=== PATIENT | female | born 1985 | race Caucasian/White ===

== ENCOUNTER 2017-05-26 11:00 | Outpatient (RCR) | payer BC, MEDICAID, SELFPAY ==
[2017-05-08 00:41] VITALS: BP 139/75; PULSE 87; RESP 18; TEMP 36.6; BMI 50.0
[2017-05-12 11:33] VITALS: BP 142/85; PULSE 87; RESP 16; TEMP 37; BMI 50.0
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
[2017-05-26 11:28] VITALS: BP 152/87; PULSE 94; RESP 16; TEMP 37.2; BMI 50.0
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
== END 2017-06-07 23:59 ==
LOC: WC 11:00
PROVIDERS: Family Provider Family Medicine; PCP Family Medicine; Visit Provider Nurse Practitioner
DX: I87.8 Other specified disorders of veins (principal); G62.9 Polyneuropathy, unspecified; Q05.9 Spina bifida, unspecified; Z99.3 Dependence on wheelchair; L97.521 Non-pressure chronic ulcer of other part of left foot limited to breakdown of skin; M79.89 Other specified soft tissue disorders
CPT/HCPCS: 11042; 87070; 87075; 87077; 87186; 87205

== ENCOUNTER 2017-06-30 11:00 | Outpatient (RCR) | payer BC, MEDICAID, SELFPAY ==
[2017-05-26 11:28] VITALS: BP 152/87
[2017-06-08 00:32] VITALS: PULSE 94; RESP 16; TEMP 37.2
[2017-06-09 11:29] VITALS: BP 144/82; PULSE 80; RESP 18; TEMP 36.7; BMI 50.0
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
[2017-06-16 11:10] VITALS: RESP 16; TEMP 36.6; BMI 50.0
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
[2017-06-23 11:23] VITALS: BP 143/80; PULSE 81; RESP 18; TEMP 36.7; BMI 50.0
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
[2017-06-30 11:18] VITALS: BP 131/73; PULSE 73; RESP 18; TEMP 36.9; BMI 50.0
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
== END 2017-07-05 23:59 ==
LOC: WC 11:00
PROVIDERS: Family Provider Family Medicine; PCP Family Medicine; Visit Provider Nurse Practitioner
DX: I83.025 Varicose veins of left lower extremity with ulcer other part of foot (principal); L97.521 Non-pressure chronic ulcer of other part of left foot limited to breakdown of skin; G62.9 Polyneuropathy, unspecified; Q05.9 Spina bifida, unspecified; L08.9 Local infection of the skin and subcutaneous tissue, unspecified; T14.8XXA Other injury of unspecified body region, initial encounter; Z99.3 Dependence on wheelchair; M79.89 Other specified soft tissue disorders
CPT/HCPCS: 11042

== ENCOUNTER 2017-08-04 11:00 | Outpatient (RCR) | payer BC, MEDICAID, SELFPAY ==
[2017-07-06 00:29] VITALS: BP 144/82; PULSE 73; RESP 18; TEMP 36.9; BMI 50.0
[2017-07-21 11:30] VITALS: BP 123/68; PULSE 70; RESP 18; TEMP 36.9; BMI 50.0
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
[2017-07-28 11:12] VITALS: BP 109/77; PULSE 83; RESP 16; TEMP 37.2; BMI 50.0
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
[2017-08-04 11:41] VITALS: BP 130/71; PULSE 74; RESP 18; TEMP 35.7; BMI 50.0
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
== END 2017-08-05 23:59 ==
LOC: WC 11:00
PROVIDERS: Family Provider Family Medicine; PCP Family Medicine; Visit Provider Nurse Practitioner
DX: L97.521 Non-pressure chronic ulcer of other part of left foot limited to breakdown of skin (principal); Q05.9 Spina bifida, unspecified; Z99.3 Dependence on wheelchair; M79.89 Other specified soft tissue disorders; D50.9 Iron deficiency anemia, unspecified; R60.0 Localized edema; G62.9 Polyneuropathy, unspecified
CPT/HCPCS: 11042; 87070; 87075; 87077; 87186; 87205

== ENCOUNTER 2017-08-31 13:15 | Outpatient (RCR) | payer BC, MEDICAID, SELFPAY ==
[2017-08-06 00:29] VITALS: BP 144/82; PULSE 74; RESP 18; TEMP 35.7; BMI 50.0
[2017-08-11 11:29] VITALS: BP 152/91; PULSE 91; RESP 16; TEMP 36.9; BMI 50.0
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
[2017-08-25 11:28] VITALS: BP 132/61; PULSE 82; RESP 16; TEMP 36.4; BMI 50.0
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
[2017-08-31 13:31] VITALS: BP 136/67; PULSE 89; RESP 18; TEMP 37.3; BMI 50.0
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
== END 2017-09-04 23:59 ==
LOC: WC 13:15
PROVIDERS: Family Provider Family Medicine; PCP Family Medicine; Visit Provider Nurse Practitioner
DX: I87.8 Other specified disorders of veins (principal); Q05.9 Spina bifida, unspecified; Z86.2 Personal history of diseases of the blood and blood-forming organs and certain disorders involving the immune mechanism; Z99.3 Dependence on wheelchair; L97.521 Non-pressure chronic ulcer of other part of left foot limited to breakdown of skin; G62.9 Polyneuropathy, unspecified; S81.812A Laceration without foreign body, left lower leg, initial encounter; X58.XXXA Exposure to other specified factors, initial encounter
CPT/HCPCS: 11042

== ENCOUNTER 2017-09-29 11:15 | Outpatient (RCR) | payer BC, MEDICAID, SELFPAY ==
[2017-09-05 00:27] VITALS: BP 144/82; PULSE 89; RESP 18; TEMP 37.3; BMI 50.0
[2017-09-08 11:40] VITALS: BP 152/96; PULSE 76; RESP 18; TEMP 36.1; BMI 50.0
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
[2017-09-22 13:18] VITALS: BP 136/78; PULSE 79; RESP 16; TEMP 36.3; BMI 50.0
--- NOTE | 2017-09-25 09:57 | PN.PCM_ITS ---
(1) Infected wound Status: Acute Code(s): T14.8XXA - Other injury of unspecified body region, initial encounter; L08.9 - Local infection of the skin and subcutaneous tissue, unspecified (2) Noninfected skin tear of left lower extremity Status: Acute Qualifiers: Encounter type: subsequent encounter Qualified Code(s): S81.812D - Laceration without foreign body, left lower leg, subsequent encounter Code(s): S81.812A - Laceration without foreign body, left lower leg, initial encounter (3) Open wound of left great toe Status: Acute Qualifiers: Encounter type: subsequent encounter Qualified Code(s): S91.102D - Unspecified open wound of left great toe without damage to nail, subsequent encounter Code(s): S91.102A - Unspecified open wound of left great toe without damage to nail, initial encounter Type of Wound Date of Service: 09/22/17 Chief Complaint: Follow-up left great toe open ulcer for 1 month History of Wound: 31-year-old spina bifida patient that is wheelchair-bound with no extremity sensation. Quite sure how the incident occurred on her left great toe. We had just healed this toe not sure how it reopened but wanted to be seen before her 30 days past. Progress of Wound: Today the ulcer on the left great toe is improved in size and depth.Have not seen her for 2 weeks and the ulcer got wet so she went back to [employer]. the ulcer looked macerated debrided and can see island of new skin forming. She received her 4th affinity skin substitute and the new skin is good and stable. So we found another skin substitute that she qualified for for free called Affinity which is part of the placenta and we were approved for that on a weekly basis. the area behind the L knee resolved - Physical Exam Vital Signs Temp Pulse Resp BP 97.3 F L 79 16 136/78 H 09/22/17 13:18 09/22/17 13:18 09/22/17 13:18 09/22/17 13:18 General: Oriented x3, Cooperative, Well developed HEENT: Atraumatic, PERRLA Oral: Moist Mucosa Neck: Supple, No JVD Lungs: Clear to auscultation, Normal air movement Cardiovascular: Regular rate, Regular Rhythm Abdomen: Bowel Sounds Present, Soft, Non Tender, No Hepato-splenomegaly Extremities: No clubbing, Edema, - - L great toe open ulcer Skin: Ulcer/ Wound - L posterior calf Wound Measurements and Assessment WC - Nurse 1 - General Ulcer Measurement Start: 09/08/17 11:39 Freq: Status: Active Protocol: Activity Type Activity Date Activity User E-Sign Co-Sign Detail Recorded Client Recorded Date Recorded By Document 09/22/17 13:18 DV [id number] 09/22/17 13:29 DV 09/22/17 13:18 Wound Center Nurse 1 [Ulcer Assessment] 9. L lateral/posterior calf -Combined with other wound No -Current Size (cm) - Length 1.3 -Current Size (cm) - Width 0.3 -Current Size (cm) - Depth 0.1 -Total Square Cm 0.39 -Photo Taken No -Epithelialization None Present -Tunneling No -Undermining/Tunneling No -Circular Undermining No -Classification - Thickness Full Thickness without Exposed Support Structure -Exudate Amt None Present (0 %) -Wound Margin Indistinct, Non -Visible -Granulation Amt None Present (0 %) -Granulation Quality N/A -Necrosis Amt Medium (34-66%) -Necrotic Tissue Type Adherent Slough -Structure Exposed None/Limited to Skin Breakdown -Texture (Deepti-wound Skin Appearance) Assessed Scarring -Moisture (Deepti-wound Skin Appearance Assessed ) Dry/Scaly -Color (Deepti-wound Skin Appearance) No Abnormality Assessed -Temperature (Deepti-wound Skin No Abnormality Appearance) (Pt Warm) -Ulcer Cleansing Rinsed/ Irrigated with Saline -Foul Odor after Cleansing No #4-1 LT ANTERIOR GR. TOE -Combined with other wound No -Current Size (cm) - Length 0.9 -Current Size (cm) - Width 0.9 -Current Size (cm) - Depth 0.1 -Total Square Cm 0.81 -Date of Last Picture (Recall this 09/22/17 field) -Photo Taken Yes -Epithelialization Small 1-33% -Tunneling No -Undermining/Tunneling No -Circular Undermining No -Classification - Thickness Full Thickness without Exposed Support Structure -Exudate Amt Small (1-33%) -Exudate Type Serous -Wound Margin Flat & Intact -Granulation Amt None Present (0 %) -Granulation Quality N/A -Slough/Fibrin Yes -Necrosis Amt Small (1-33%) -Necrotic Tissue Type Adherent Slough -Structure Exposed N/A -Texture (Deepti-wound Skin Appearance) Assessed Scarring -Moisture (Deepti-wound Skin Appearance Assessed ) Maceration -Color (Deepti-wound Skin Appearance) No Abnormality Assessed -Temperature (Deepti-wound Skin No Abnormality Appearance) (Pt Warm) -Ulcer Cleansing Rinsed/ Irrigated with Saline -Foul Odor after Cleansing No [Edema Assessment] -Lower Limb Edema Present No WC - Nurse 2 - General Ulcer CM Notes Start: 09/08/17 11:39 Freq: Status: Active Protocol: Activity Type Activity Date Activity User E-Sign Co-Sign Detail Recorded Client Recorded Date Recorded By Document 09/22/17 14:19 DV [id number] 09/22/17 14:21 DV 09/22/17 14:19 Wound Center Nurse 2 [Procedure/Treatment] 9. L lateral/posterior calf -Time 14:20 -Correct Patient Yes -Procedure Performed No -Post Debridement Size (cm) - Length 0 -Post Debridement Size (cm) - Width 0 -Post Debridement Size (cm) - Depth 0 -Total Square Cm 0 -Wound/Ulcer Outcome Healed- Epithelialized #4-1 LT ANTERIOR GR. TOE -Time 14:21 -Correct Patient Yes -Correct Side, Site, Position Yes -Correct Procedure Yes -Procedure Performed Yes -Type of Procedure Debridement -Clinical Debridement Subcutaneous -Post Debridement Size (cm) - Length 0.7 -Post Debridement Size (cm) - Width 1.0 -Post Debridement Size (cm) - Depth 0.1 -Total Square Cm 0.70 -Wound/Ulcer Outcome Not Healed -Ulcer Cleansing Rinsed/ Irrigated with Saline -Foul Odor after Cleansing No -Bioengineered Tissue No -Bleeding Controlled with NA -Treatment Response Procedure Tolerated Well [See Physician Procedure note for Specifics] Pain Scale: 0-10 Numeric [Pain] -Is Patient Pain Free? Yes Musculoskeletal: No Tenderness to Palpation of Joints or Extremities Lymphatic: No Cervical, Supraclavicular, or Inguinal Adenopathy Neurological: Cranial nerves II-XII grossly intact, Neuro grossly intact Psych/Mental Status: Normal Affect, Appropriate, Alert and oriented to time, place, person, mood and affect Debridement Note Post-Debridement Measurements/Treatment WC - Nurse 2 - General Ulcer CM Notes Start: 09/08/17 11:39 Freq: Status: Active Protocol: Activity Type Activity Date Activity User E-Sign Co-Sign Detail Recorded Client Recorded Date Recorded By Document 09/08/17 12:47 DV [id number] 09/08/17 12:49 DV Document 09/22/17 14:19 DV [id number] 09/22/17 14:21 DV 09/08/17 09/22/17 12:47 14:19 Wound Center Nurse 2 9. L lateral/posterior calf -Time 12:48 14:20 -Correct Patient Yes Yes -Correct Side, Site, Position Yes -Correct Procedure Yes -Procedure Performed Yes No -Type of Procedure Debridement -Clinical Debridement Subcutaneous -Post Debridement Size (cm) - Length 0.5 0 -Post Debridement Size (cm) - Width 1.8 0 -Post Debridement Size (cm) - Depth 0.1 0 -Total Square Cm 0.90 0 -Wound/Ulcer Outcome Not Healed Healed- Epithelialized -Ulcer Cleansing Rinsed/ Irrigated with Saline -Foul Odor after Cleansing No -Bioengineered Tissue No -Bleeding Controlled with Pressure -Treatment Response Procedure Tolerated Well #4-1 LT ANTERIOR GR. TOE -Time 12:48 14:21 -Correct Patient Yes Yes -Correct Side, Site, Position Yes Yes -Correct Procedure Yes Yes -Procedure Performed Yes Yes -Type of Procedure Debridement Debridement -Clinical Debridement Subcutaneous Subcutaneous -Post Debridement Size (cm) - Length 0.5 0.7 -Post Debridement Size (cm) - Width 0.6 1.0 -Post Debridement Size (cm) - Depth 0.1 0.1 -Total Square Cm 0.30 0.70 -Wound/Ulcer Outcome Not Healed Not Healed -Ulcer Cleansing Rinsed/ Rinsed/ Irrigated with Irrigated with Saline Saline -Foul Odor after Cleansing No No -Bioengineered Tissue No No -Bleeding Controlled with Pressure NA -Treatment Response Procedure Not Procedure Tolerated Well Tolerated Well Pain Scale: 0-10 Numeric Is Patient Pain Free? Yes Wound debrided: L great toe Laterality: Left Type of Debridement: Excisional debridement Anesthesia Used: 5% Lidocaine Gel Depth: Down to and including healthy tissue, in the subcutaneous layer Percentage of wound debrided: 100 Instrument Used: 5mm curette Tissue Removed: slough adn fibrin Severity: Limited To Skin Breakdown Bleeding Controlled with: Compression and gauze Patient tolerated procedure well Assessment/Plan Assessment: Open ulcer left great toe infected. peripheral skin tear posterior calf resolved. Spina bifida. Peripheral neuropathy bilateral lower extremities. Nonambulatory wheelchair bound. Chronic swelling in both lower ext Plan: 1. Affinity skin substitute 1.5 x 1.5 applied to left great toe covered with [place] and windowpane with Steri-Strips. Continue wearing compression stocking. continue using hydrogel and adaptic to the area and cover with guaze. Follow-up 1 week
[2017-09-29 12:41] VITALS: BP 124/72; PULSE 66; RESP 16; TEMP 36; BMI 50.0
--- NOTE | 2017-09-29 14:29 | PCM.WC.PN ---
(1) Infected wound Status: Acute Current Visit: No Code(s): T14.8XXA - Other injury of unspecified body region, initial encounter; L08.9 - Local infection of the skin and subcutaneous tissue, unspecified (2) Noninfected skin tear of left lower extremity Status: Acute Current Visit: No Qualifiers: Encounter type: subsequent encounter Qualified Code(s): S81.812D - Laceration without foreign body, left lower leg, subsequent encounter Code(s): S81.812A - Laceration without foreign body, left lower leg, initial encounter (3) Open wound of left great toe Status: Acute Current Visit: No Qualifiers: Encounter type: subsequent encounter Qualified Code(s): S91.102D - Unspecified open wound of left great toe without damage to nail, subsequent encounter Code(s): S91.102A - Unspecified open wound of left great toe without damage to nail, initial encounter Type of Wound Date of Service: 09/29/17 Chief Complaint: Follow-up left great toe open ulcer for 1 month History of Wound: 31-year-old spina bifida patient that is wheelchair-bound with no extremity sensation. Quite sure how the incident occurred on her left great toe. We had just healed this toe not sure how it reopened but wanted to be seen before her 30 days past. Progress of Wound: Today the ulcer on the left great toe most almost in size and depth.Have not seen her for 2 weeks She received her 4th affinity skin substitute and the new skin is good and stable. She should be healed by next week. - Physical Exam Vital Signs Temp Pulse Resp BP 96.8 F L 66 16 124/72 H 09/29/17 12:41 09/29/17 12:41 09/29/17 12:41 09/29/17 12:41 General: Oriented x3, Cooperative, Well developed HEENT: Atraumatic, PERRLA Oral: Moist Mucosa Neck: Supple, No JVD Lungs: Clear to auscultation, Normal air movement Cardiovascular: Regular rate, Regular Rhythm Abdomen: Bowel Sounds Present, Soft, Non Tender, No Hepato-splenomegaly Extremities: No clubbing, No edema Skin: - - L great toe ulcer Wound Measurements and Assessment WC - Nurse 1 - General Ulcer Measurement Start: 09/08/17 11:39 Freq: Status: Active Protocol: Activity Type Activity Date Activity User E-Sign Co-Sign Detail Recorded Client Recorded Date Recorded By Document 09/29/17 12:41 [id number] 09/29/17 12:57 09/29/17 12:41 Wound Center Nurse 1 [Ulcer Assessment] #4-1 LT ANTERIOR GR. TOE -Combined with other wound No -Current Size (cm) - Length 0.9 -Current Size (cm) - Width 0.1 -Current Size (cm) - Depth 0.2 -Total Square Cm 0.09 -Date of Last Picture (Recall this 09/29/17 field) -Photo Taken Yes -Epithelialization Medium 34-66% -Tunneling No -Undermining/Tunneling No -Circular Undermining No -Classification - Thickness Full Thickness without Exposed Support Structure -Exudate Amt Small (1-33%) -Exudate Type Serosanguineous -Wound Margin Distinct, Outline Attached -Granulation Amt Small (1-33%) -Granulation Quality Pale [place] -Slough/Fibrin Yes -Necrosis Amt None Present (0 %) -Necrotic Tissue Type Adherent Slough -Structure Exposed N/A -Texture (Deepti-wound Skin Appearance) Friable -Moisture (Deepti-wound Skin Appearance No Abnormality ) -Color (Deepti-wound Skin Appearance) No Abnormality -Temperature (Deepti-wound Skin No Abnormality Appearance) (Pt Warm) -Tenderness on Palpation (Deepti-wound No Skin Appearance) -Ulcer Cleansing Rinsed/ Irrigated with Saline -Foul Odor after Cleansing No [Edema Assessment] -Lower Limb Edema Present NA WC - Nurse 2 - General Ulcer CM Notes Start: 09/08/17 11:39 Freq: Status: Active Protocol: Activity Type Activity Date Activity User E-Sign Co-Sign Detail Recorded Client Recorded Date Recorded By Document 09/29/17 13:37 DV [id number] 09/29/17 13:39 DV 09/29/17 13:37 Wound Center Nurse 2 [Procedure/Treatment] #4-1 LT ANTERIOR GR. TOE -Time 13:37 -Correct Patient Yes -Correct Side, Site, Position Yes -Correct Procedure Yes -Procedure Performed Yes -Type of Procedure Debridement -Clinical Debridement Subcutaneous -Post Debridement Size (cm) - Length 0.2 -Post Debridement Size (cm) - Width 0.2 -Post Debridement Size (cm) - Depth 0.1 -Total Square Cm 0.04 -Wound/Ulcer Outcome Not Healed -Ulcer Cleansing Rinsed/ Irrigated with Saline -Foul Odor after Cleansing No -Bioengineered Tissue No -Bleeding Controlled with Pressure -Treatment Response Procedure Tolerated Well [See Physician Procedure note for Specifics] Pain Scale: 0-10 Numeric [Pain] -Is Patient Pain Free? Yes Musculoskeletal: No Tenderness to Palpation of Joints or Extremities Lymphatic: No Cervical, Supraclavicular, or Inguinal Adenopathy Neurological: Cranial nerves II-XII grossly intact, Neuro grossly intact Psych/Mental Status: Normal Affect, Appropriate Debridement Note Post-Debridement Measurements/Treatment WC - Nurse 2 - General Ulcer CM Notes Start: 09/08/17 11:39 Freq: Status: Active Protocol: Activity Type Activity Date Activity User E-Sign Co-Sign Detail Recorded Client Recorded Date Recorded By Document 09/08/17 12:47 DV [id number] 09/08/17 12:49 DV Document 09/22/17 14:19 DV [id number] 09/22/17 14:21 DV Document 09/29/17 13:37 DV [id number] 09/29/17 13:39 DV 09/08/17 09/22/17 09/29/17 12:47 14:19 13:37 Wound Center Nurse 2 9. L lateral/posterior calf -Time 12:48 14:20 -Correct Patient Yes Yes -Correct Side, Site, Position Yes -Correct Procedure Yes -Procedure Performed Yes No -Type of Procedure Debridement -Clinical Debridement Subcutaneous -Post Debridement Size (cm) - Length 0.5 0 -Post Debridement Size (cm) - Width 1.8 0 -Post Debridement Size (cm) - Depth 0.1 0 -Total Square Cm 0.90 0 -Wound/Ulcer Outcome Not Healed Healed- Epithelialized -Ulcer Cleansing Rinsed/ Irrigated with Saline -Foul Odor after Cleansing No -Bioengineered Tissue No -Bleeding Controlled with Pressure -Treatment Response Procedure Tolerated Well #4-1 LT ANTERIOR GR. TOE -Time 12:48 14:21 13:37 -Correct Patient Yes Yes Yes -Correct Side, Site, Position Yes Yes Yes -Correct Procedure Yes Yes Yes -Procedure Performed Yes Yes Yes -Type of Procedure Debridement Debridement Debridement -Clinical Debridement Subcutaneous Subcutaneous Subcutaneous -Post Debridement Size (cm) - Length 0.5 0.7 0.2 -Post Debridement Size (cm) - Width 0.6 1.0 0.2 -Post Debridement Size (cm) - Depth 0.1 0.1 0.1 -Total Square Cm 0.30 0.70 0.04 -Wound/Ulcer Outcome Not Healed Not Healed Not Healed -Ulcer Cleansing Rinsed/ Rinsed/ Rinsed/ Irrigated with Irrigated with Irrigated with Saline Saline Saline -Foul Odor after Cleansing No No No -Bioengineered Tissue No No No -Bleeding Controlled with Pressure NA Pressure -Treatment Response Procedure Not Procedure Procedure Tolerated Well Tolerated Well Tolerated Well Pain Scale: 0-10 Numeric Is Patient Pain Free? Yes Yes Wound debrided: L great toe ulcer Type of Debridement: Selective debridement Depth: Down to and including healthy tissue Instrument Used: - - 1mm Tissue Removed: fibrin Severity: Limited To Skin Breakdown Amount of bleeding with debridement: None Bleeding Controlled with: Pressure Patient tolerated procedure well Assessment/Plan Assessment: Open ulcer left great toe infected. peripheral skin tear posterior calf resolved. Spina bifida. Peripheral neuropathy bilateral lower extremities. Nonambulatory wheelchair bound. Chronic swelling in both lower ext Plan: 1. Affinity skin substitute 1.5 x 1.5 applied to left great toe covered with [place] and windowpane with Steri-Strips. Continue wearing compression stockingfollow up 1 week
--- NOTE | 2017-09-29 14:32 | PN.PCM_ITS ---
(1) Infected wound Status: Acute Current Visit: No Code(s): T14.8XXA - Other injury of unspecified body region, initial encounter; L08.9 - Local infection of the skin and subcutaneous tissue, unspecified (2) Noninfected skin tear of left lower extremity Status: Acute Current Visit: No Qualifiers: Encounter type: subsequent encounter Qualified Code(s): S81.812D - Laceration without foreign body, left lower leg, subsequent encounter Code(s): S81.812A - Laceration without foreign body, left lower leg, initial encounter (3) Open wound of left great toe Status: Acute Current Visit: No Qualifiers: Encounter type: subsequent encounter Qualified Code(s): S91.102D - Unspecified open wound of left great toe without damage to nail, subsequent encounter Code(s): S91.102A - Unspecified open wound of left great toe without damage to nail, initial encounter Type of Wound Date of Service: 09/29/17 Chief Complaint: Follow-up left great toe open ulcer for 1 month History of Wound: 31-year-old spina bifida patient that is wheelchair-bound with no extremity sensation. Quite sure how the incident occurred on her left great toe. We had just healed this toe not sure how it reopened but wanted to be seen before her 30 days past. Progress of Wound: Today the ulcer on the left great toe most almost in size and depth.Have not seen her for 2 weeks She received her 4th affinity skin substitute and the new skin is good and stable. She should be healed by next week. - Physical Exam Vital Signs Temp Pulse Resp BP 96.8 F L 66 16 124/72 H 09/29/17 12:41 09/29/17 12:41 09/29/17 12:41 09/29/17 12:41 General: Oriented x3, Cooperative, Well developed HEENT: Atraumatic, PERRLA Oral: Moist Mucosa Neck: Supple, No JVD Lungs: Clear to auscultation, Normal air movement Cardiovascular: Regular rate, Regular Rhythm Abdomen: Bowel Sounds Present, Soft, Non Tender, No Hepato-splenomegaly Extremities: No clubbing, No edema Skin: - - L great toe ulcer Wound Measurements and Assessment WC - Nurse 1 - General Ulcer Measurement Start: 09/08/17 11:39 Freq: Status: Active Protocol: Activity Type Activity Date Activity User E-Sign Co-Sign Detail Recorded Client Recorded Date Recorded By Document 09/29/17 12:41 [id number] 09/29/17 12:57 09/29/17 12:41 Wound Center Nurse 1 [Ulcer Assessment] #4-1 LT ANTERIOR GR. TOE -Combined with other wound No -Current Size (cm) - Length 0.9 -Current Size (cm) - Width 0.1 -Current Size (cm) - Depth 0.2 -Total Square Cm 0.09 -Date of Last Picture (Recall this 09/29/17 field) -Photo Taken Yes -Epithelialization Medium 34-66% -Tunneling No -Undermining/Tunneling No -Circular Undermining No -Classification - Thickness Full Thickness without Exposed Support Structure -Exudate Amt Small (1-33%) -Exudate Type Serosanguineous -Wound Margin Distinct, Outline Attached -Granulation Amt Small (1-33%) -Granulation Quality Pale [place] -Slough/Fibrin Yes -Necrosis Amt None Present (0 %) -Necrotic Tissue Type Adherent Slough -Structure Exposed N/A -Texture (Deepti-wound Skin Appearance) Friable -Moisture (Deepti-wound Skin Appearance No Abnormality ) -Color (Deepti-wound Skin Appearance) No Abnormality -Temperature (Deepti-wound Skin No Abnormality Appearance) (Pt Warm) -Tenderness on Palpation (Deepti-wound No Skin Appearance) -Ulcer Cleansing Rinsed/ Irrigated with Saline -Foul Odor after Cleansing No [Edema Assessment] -Lower Limb Edema Present NA WC - Nurse 2 - General Ulcer CM Notes Start: 09/08/17 11:39 Freq: Status: Active Protocol: Activity Type Activity Date Activity User E-Sign Co-Sign Detail Recorded Client Recorded Date Recorded By Document 09/29/17 13:37 DV [id number] 09/29/17 13:39 DV 09/29/17 13:37 Wound Center Nurse 2 [Procedure/Treatment] #4-1 LT ANTERIOR GR. TOE -Time 13:37 -Correct Patient Yes -Correct Side, Site, Position Yes -Correct Procedure Yes -Procedure Performed Yes -Type of Procedure Debridement -Clinical Debridement Subcutaneous -Post Debridement Size (cm) - Length 0.2 -Post Debridement Size (cm) - Width 0.2 -Post Debridement Size (cm) - Depth 0.1 -Total Square Cm 0.04 -Wound/Ulcer Outcome Not Healed -Ulcer Cleansing Rinsed/ Irrigated with Saline -Foul Odor after Cleansing No -Bioengineered Tissue No -Bleeding Controlled with Pressure -Treatment Response Procedure Tolerated Well [See Physician Procedure note for Specifics] Pain Scale: 0-10 Numeric [Pain] -Is Patient Pain Free? Yes Musculoskeletal: No Tenderness to Palpation of Joints or Extremities Lymphatic: No Cervical, Supraclavicular, or Inguinal Adenopathy Neurological: Cranial nerves II-XII grossly intact, Neuro grossly intact Psych/Mental Status: Normal Affect, Appropriate Debridement Note Post-Debridement Measurements/Treatment WC - Nurse 2 - General Ulcer CM Notes Start: 09/08/17 11:39 Freq: Status: Active Protocol: Activity Type Activity Date Activity User E-Sign Co-Sign Detail Recorded Client Recorded Date Recorded By Document 09/08/17 12:47 DV [id number] 09/08/17 12:49 DV Document 09/22/17 14:19 DV [id number] 09/22/17 14:21 DV Document 09/29/17 13:37 DV [id number] 09/29/17 13:39 DV 09/08/17 09/22/17 09/29/17 12:47 14:19 13:37 Wound Center Nurse 2 9. L lateral/posterior calf -Time 12:48 14:20 -Correct Patient Yes Yes -Correct Side, Site, Position Yes -Correct Procedure Yes -Procedure Performed Yes No -Type of Procedure Debridement -Clinical Debridement Subcutaneous -Post Debridement Size (cm) - Length 0.5 0 -Post Debridement Size (cm) - Width 1.8 0 -Post Debridement Size (cm) - Depth 0.1 0 -Total Square Cm 0.90 0 -Wound/Ulcer Outcome Not Healed Healed- Epithelialized -Ulcer Cleansing Rinsed/ Irrigated with Saline -Foul Odor after Cleansing No -Bioengineered Tissue No -Bleeding Controlled with Pressure -Treatment Response Procedure Tolerated Well #4-1 LT ANTERIOR GR. TOE -Time 12:48 14:21 13:37 -Correct Patient Yes Yes Yes -Correct Side, Site, Position Yes Yes Yes -Correct Procedure Yes Yes Yes -Procedure Performed Yes Yes Yes -Type of Procedure Debridement Debridement Debridement -Clinical Debridement Subcutaneous Subcutaneous Subcutaneous -Post Debridement Size (cm) - Length 0.5 0.7 0.2 -Post Debridement Size (cm) - Width 0.6 1.0 0.2 -Post Debridement Size (cm) - Depth 0.1 0.1 0.1 -Total Square Cm 0.30 0.70 0.04 -Wound/Ulcer Outcome Not Healed Not Healed Not Healed -Ulcer Cleansing Rinsed/ Rinsed/ Rinsed/ Irrigated with Irrigated with Irrigated with Saline Saline Saline -Foul Odor after Cleansing No No No -Bioengineered Tissue No No No -Bleeding Controlled with Pressure NA Pressure -Treatment Response Procedure Not Procedure Procedure Tolerated Well Tolerated Well Tolerated Well Pain Scale: 0-10 Numeric Is Patient Pain Free? Yes Yes Wound debrided: L great toe ulcer Type of Debridement: Selective debridement Depth: Down to and including healthy tissue Instrument Used: - - 1mm Tissue Removed: fibrin Severity: Limited To Skin Breakdown Amount of bleeding with debridement: None Bleeding Controlled with: Pressure Patient tolerated procedure well Assessment/Plan Assessment: Open ulcer left great toe infected. peripheral skin tear posterior calf resolved. Spina bifida. Peripheral neuropathy bilateral lower extremities. Nonambulatory wheelchair bound. Chronic swelling in both lower ext Plan: 1. Affinity skin substitute 1.5 x 1.5 applied to left great toe covered with [place] and windowpane with Steri-Strips. Continue wearing compression stockingfollow up 1 week
== END 2017-10-05 23:59 ==
LOC: WC 11:15
PROVIDERS: Family Provider Family Medicine; PCP Family Medicine; Visit Provider Nurse Practitioner
DX: L97.529 Non-pressure chronic ulcer of other part of left foot with unspecified severity (principal); S81.812D Laceration without foreign body, left lower leg, subsequent encounter; S91.102A Unspecified open wound of left great toe without damage to nail, initial encounter; Q05.9 Spina bifida, unspecified; Z99.3 Dependence on wheelchair; G62.9 Polyneuropathy, unspecified; R60.9 Edema, unspecified
CPT/HCPCS: 11042; 99212; G0463

== ENCOUNTER 2017-10-27 11:15 | Outpatient (RCR) | payer BC, MEDICAID, SELFPAY ==
[2017-10-06 00:29] VITALS: BP 124/72; PULSE 66; RESP 16; TEMP 36; BMI 50.0
[2017-10-06 11:20] VITALS: BP 104/65; PULSE 88; RESP 16; TEMP 35.8; BMI 50.0
--- NOTE | 2017-10-06 13:51 | PN.PCM_ITS ---
(1) Infected wound Status: Acute Current Visit: Yes Code(s): T14.8XXA - Other injury of unspecified body region, initial encounter; L08.9 - Local infection of the skin and subcutaneous tissue, unspecified (2) Open wound of left great toe Status: Acute Current Visit: Yes Qualifiers: Code(s): S91.102A - Unspecified open wound of left great toe without damage to nail, initial encounter (3) H/O iron deficiency anemia Status: Chronic Current Visit: Yes Code(s): Z86.2 - Personal history of diseases of the blood and blood-forming organs and certain disorders involving the immune mechanism (4) Peripheral neuropathy Status: Chronic Current Visit: Yes Qualifiers: Code(s): G62.9 - Polyneuropathy, unspecified (5) Spina bifida Status: Chronic Current Visit: Yes Qualifiers: Code(s): Q05.9 - Spina bifida, unspecified (6) Venous stasis of both lower extremities Status: Chronic Current Visit: Yes Code(s): I87.8 - Other specified disorders of veins Type of Wound Date of Service: 10/06/17 Chief Complaint: Follow-up left great toe open ulcer for 1 month History of Wound: 31-year-old spina bifida patient that is wheelchair-bound with no extremity sensation. Quite sure how the incident occurred on her left great toe. We had just healed this toe not sure how it reopened but wanted to be seen before her 30 days past. Progress of Wound: Today the ulcer on the left great toe is open but it is much smaller. Using Definity this week because I think there is an infection in the toe. Recultured toe and will decide if we can use Affinity substitute scan next week. Received her 4th affinity skin substitute and the new skin is good and stable. We will go back to [employer] to promote growth and follow-up next week after the culture results. - Physical Exam Vital Signs Temp Pulse Resp BP 96.4 F L 88 16 104/65 10/06/17 11:20 10/06/17 11:20 10/06/17 11:20 10/06/17 11:20 General: Oriented x3, Cooperative, Well developed HEENT: Atraumatic, PERRLA Oral: Moist Mucosa Neck: Supple, No JVD Lungs: Clear to auscultation, Normal air movement Cardiovascular: Regular rate, Regular Rhythm Abdomen: Bowel Sounds Present, Soft, Non Tender, No Hepato-splenomegaly Extremities: No clubbing, No edema, - - Right toe ulcer Wound Measurements and Assessment WC - Nurse 1 - General Ulcer Measurement Start: 10/06/17 11:20 Freq: Status: Active Protocol: Activity Type Activity Date Activity User E-Sign Co-Sign Detail Recorded Client Recorded Date Recorded By Document 10/06/17 11:20 [id number] 10/06/17 11:23 10/06/17 11:20 Wound Center Nurse 1 [Ulcer Assessment] #4-1 LT ANTERIOR GR. TOE -Combined with other wound No -Current Size (cm) - Length 0.1 -Current Size (cm) - Width 0.1 -Current Size (cm) - Depth 0.1 -Total Square Cm 0.01 -Photo Taken No -Epithelialization Large 67-100% -Tunneling No -Undermining/Tunneling No -Circular Undermining No -Exudate Amt Small (1-33%) -Exudate Type Yellow/Green -Wound Margin Flat & Intact -Granulation Amt Small (1-33%) -Granulation Quality [place] -Slough/Fibrin Yes -Necrosis Amt Small (1-33%) -Necrotic Tissue Type Adherent Slough -Structure Exposed N/A -Texture (Deepti-wound Skin Appearance) Assessed Localized Edema -Moisture (Deepti-wound Skin Appearance Assessed ) Dry/Scaly -Color (Deepti-wound Skin Appearance) Assessed -Temperature (Deepti-wound Skin No Abnormality Appearance) (Pt Warm) -Tenderness on Palpation (Deepti-wound No Skin Appearance) -Ulcer Cleansing Rinsed/ Irrigated with Saline -Foul Odor after Cleansing No -Anesthetic Used 4% Lidocaine Solution [Edema Assessment] -Lower Limb Edema Present Yes -Left Calf (cm) 40.3 -Left Ankle (cm) 26.4 WC - Nurse 2 - General Ulcer CM Notes Start: 10/06/17 11:20 Freq: Status: Active Protocol: Activity Type Activity Date Activity User E-Sign Co-Sign Detail Recorded Client Recorded Date Recorded By Document 10/06/17 11:56 [id number] 10/06/17 11:56 10/06/17 11:56 Wound Center Nurse 2 [Procedure/Treatment] #4-1 LT ANTERIOR GR. TOE -Time 11:56 -Correct Patient Yes -Correct Side, Site, Position Yes -Correct Procedure Yes -Procedure Performed Yes -Type of Procedure Debridement -Clinical Debridement Subcutaneous -Post Debridement Size (cm) - Length 0.4 -Post Debridement Size (cm) - Width 0.3 -Post Debridement Size (cm) - Depth 0.2 -Total Square Cm 0.12 -Wound/Ulcer Outcome Not Healed -Ulcer Cleansing Rinsed/ Irrigated with Saline -Foul Odor after Cleansing No -Bioengineered Tissue No -Bleeding Controlled with Pressure -Treatment Response Procedure Tolerated Well [See Physician Procedure note for Specifics] Pain Scale: 0-10 Numeric [Pain] -Is Patient Pain Free? Yes Musculoskeletal: No Tenderness to Palpation of Joints or Extremities Lymphatic: No Cervical, Supraclavicular, or Inguinal Adenopathy Neurological: Cranial nerves II-XII grossly intact, Neuro grossly intact Psych/Mental Status: Normal Affect, Appropriate, Alert and oriented to time, place, person, mood and affect Debridement Note Post-Debridement Measurements/Treatment WC - Nurse 2 - General Ulcer CM Notes Start: 10/06/17 11:20 Freq: Status: Active Protocol: Activity Type Activity Date Activity User E-Sign Co-Sign Detail Recorded Client Recorded Date Recorded By Document 10/06/17 11:56 [id number] 10/06/17 11:56 [email or web address] 10/06/17 11:56 Wound Center Nurse 2 #4-1 LT ANTERIOR GR. TOE -Time 11:56 -Correct Patient Yes -Correct Side, Site, Position Yes -Correct Procedure Yes -Procedure Performed Yes -Type of Procedure Debridement -Clinical Debridement Subcutaneous -Post Debridement Size (cm) - Length 0.4 -Post Debridement Size (cm) - Width 0.3 -Post Debridement Size (cm) - Depth 0.2 -Total Square Cm 0.12 -Wound/Ulcer Outcome Not Healed -Ulcer Cleansing Rinsed/ Irrigated with Saline -Foul Odor after Cleansing No -Bioengineered Tissue No -Bleeding Controlled with Pressure -Treatment Response Procedure Tolerated Well Pain Scale: 0-10 Numeric Is Patient Pain Free? Yes Wound debrided: Toe ulcer Laterality: Left Type of Debridement: Excisional debridement Anesthesia Used: 5% Lidocaine Gel Depth: Down to and including healthy tissue, in the subcutaneous layer Percentage of wound debrided: 100 Instrument Used: 3mm curette Tissue Removed: Fibrin Severity: Limited To Skin Breakdown Amount of bleeding with debridement: Mild Bleeding Controlled with: Compression and gauze Patient tolerated procedure well Assessment/Plan Active Problems Peripheral neuropathy (Chronic) Open wound of left great toe (Acute) Venous stasis of both lower extremities (Chronic) H/O iron deficiency anemia (Chronic) Infected wound (Acute) Spina bifida (Chronic) Assessment: Open ulcer left great toe infected. peripheral skin tear posterior calf resolved. Spina bifida. Peripheral neuropathy bilateral lower extremities. Nonambulatory wheelchair bound. Chronic swelling in both lower ext Plan: Promogran to base moistened with Adaptic gauze and tape daily. Follow-up next week. Will call with results of the cultures
[2017-10-20 11:47] VITALS: BP 129/65; PULSE 89; RESP 18; TEMP 37.2; BMI 50.0
--- NOTE | 2017-10-20 12:22 | PCM.WC.PN ---
(1) Infected wound Status: Acute Current Visit: Yes Code(s): T14.8XXA - Other injury of unspecified body region, initial encounter; L08.9 - Local infection of the skin and subcutaneous tissue, unspecified (2) Open wound of left great toe Status: Acute Current Visit: Yes Qualifiers: Code(s): S91.102A - Unspecified open wound of left great toe without damage to nail, initial encounter (3) H/O iron deficiency anemia Status: Chronic Current Visit: Yes Code(s): Z86.2 - Personal history of diseases of the blood and blood-forming organs and certain disorders involving the immune mechanism (4) Peripheral neuropathy Status: Chronic Current Visit: Yes Qualifiers: Code(s): G62.9 - Polyneuropathy, unspecified (5) Spina bifida Status: Chronic Current Visit: Yes Qualifiers: Code(s): Q05.9 - Spina bifida, unspecified (6) Venous stasis of both lower extremities Status: Chronic Current Visit: Yes Code(s): I87.8 - Other specified disorders of veins Type of Wound Date of Service: 10/20/17 Chief Complaint: Follow-up left great toe open ulcer for 1 month and back of the L posterior calf from her compression cutting the skin in wheelchair History of Wound: 31-year-old spina bifida patient that is wheelchair-bound with no extremity sensation. Quite sure how the incident occurred on her left great toe. We had just healed this toe not sure how it reopened but wanted to be seen before her 30 days past. Progress of Wound: Today the ulcer on the left great toe is open but is very small. Using . Received her 4th affinity skin substitute and the new skin is good and stable, developed an infection in anaerobes and is on metronidazole. We will go back to Promogran to promote growth and is healing well. - Physical Exam Vital Signs Temp Pulse Resp BP 98.9 F 89 18 129/65 H 10/20/17 11:47 10/20/17 11:47 10/20/17 11:47 10/20/17 11:47 General: Oriented x3, Cooperative, Well developed HEENT: Atraumatic, PERRLA Oral: Moist Mucosa Neck: Supple, No JVD Lungs: Clear to auscultation, Normal air movement Cardiovascular: Regular rate, Regular Rhythm Abdomen: Bowel Sounds Present, Soft, Non Tender, No Hepato-splenomegaly Extremities: No clubbing, No edema, - - Great toe left posterior calf ulcer Wound Measurements and Assessment WC - Nurse 1 - General Ulcer Measurement Start: 10/06/17 11:20 Freq: Status: Active Protocol: Activity Type Activity Date Activity User E-Sign Co-Sign Detail Recorded Client Recorded Date Recorded By Document 10/20/17 11:47 [id number] 10/20/17 12:01 10/20/17 11:47 Wound Center Nurse 1 [Ulcer Assessment] #10 L POSTERIOR CALF -Combined with other wound No -Current Size (cm) - Length 0.3 -Current Size (cm) - Width 1.9 -Current Size (cm) - Depth 0.1 -Total Square Cm 0.57 -Date of Last Picture (Recall this 10/13/17 field) -Photo Taken No -Epithelialization None Present -Tunneling No -Undermining/Tunneling No -Circular Undermining No -Classification - Thickness Partial Thickness -Exudate Type Serosanguineous -Wound Margin Distinct, Outline Attached -Granulation Amt None Present (0 %) -Granulation Quality N/A -Slough/Fibrin Yes -Necrosis Amt None Present (0 %) -Necrotic Tissue Type Adherent Slough -Structure Exposed None/Limited to Skin Breakdown -Texture (Deepti-wound Skin Appearance) No Abnormality -Moisture (Deepti-wound Skin Appearance No Abnormality ) -Color (Deepti-wound Skin Appearance) Erythema -Temperature (Deepti-wound Skin No Abnormality Appearance) (Pt Warm) -Tenderness on Palpation (Deepti-wound No: INSENSATE Skin Appearance) -Ulcer Cleansing Rinsed/ Irrigated with Saline -Foul Odor after Cleansing No #4-1 LT ANTERIOR GR. TOE -Combined with other wound No -Current Size (cm) - Length 0.5 -Current Size (cm) - Width 0.3 -Current Size (cm) - Depth 0.1 -Total Square Cm 0.15 -Date of Last Picture (Recall this 09/29/17 field) -Photo Taken No -Tunneling No -Undermining/Tunneling No -Circular Undermining No -Classification - Thickness Full Thickness without Exposed Support Structure -Change in Wound Grade/Stage No Query Text:If change please identify the Stage/Grade in the comment (ie. S2 G3) -Exudate Amt Small (1-33%) -Exudate Type Serosanguineous -Wound Margin Distinct, Outline Attached -Granulation Amt None Present (0 %) -Granulation Quality N/A -Slough/Fibrin Yes -Necrosis Amt None Present (0 %) -Necrotic Tissue Type Adherent Slough -Structure Exposed N/A -Texture (Deepti-wound Skin Appearance) No Abnormality -Moisture (Deepti-wound Skin Appearance No Abnormality ) -Color (Deepti-wound Skin Appearance) No Abnormality -Temperature (Deepti-wound Skin No Abnormality Appearance) (Pt Warm) -Tenderness on Palpation (Deepti-wound No: INSENSATE Skin Appearance) -Ulcer Cleansing Rinsed/ Irrigated with Saline -Foul Odor after Cleansing No [Edema Assessment] -Lower Limb Edema Present Yes -Left Calf (cm) 39.5 -Left Ankle (cm) 27.4 WC - Nurse 2 - General Ulcer CM Notes Start: 10/06/17 11:20 Freq: Status: Active Protocol: Activity Type Activity Date Activity User E-Sign Co-Sign Detail Recorded Client Recorded Date Recorded By Document 10/20/17 12:10 DV [id number] 10/20/17 12:13 DV 10/20/17 12:10 Wound Center Nurse 2 [Procedure/Treatment] #10 L POSTERIOR CALF -Time 12:11 -Correct Patient Yes -Correct Side, Site, Position Yes -Correct Procedure Yes -Procedure Performed Yes -Type of Procedure Debridement -Clinical Debridement Subcutaneous -Post Debridement Size (cm) - Length 0.3 -Post Debridement Size (cm) - Width 1.0 -Post Debridement Size (cm) - Depth 0.1 -Total Square Cm 0.30 -Wound/Ulcer Outcome Not Healed -Ulcer Cleansing Rinsed/ Irrigated with Saline -Foul Odor after Cleansing No -Bioengineered Tissue No -Bleeding Controlled with Pressure -Treatment Response Procedure Tolerated Well #4-1 LT ANTERIOR GR. TOE -Time 12:12 -Correct Patient Yes -Correct Side, Site, Position Yes -Correct Procedure Yes -Procedure Performed Yes -Type of Procedure Debridement -Clinical Debridement Subcutaneous -Post Debridement Size (cm) - Length 0.3 -Post Debridement Size (cm) - Width 0.3 -Post Debridement Size (cm) - Depth 0.1 -Total Square Cm 0.09 -Wound/Ulcer Outcome Not Healed -Ulcer Cleansing Rinsed/ Irrigated with Saline -Foul Odor after Cleansing No -Bioengineered Tissue No -Bleeding Controlled with Pressure -Treatment Response Procedure Tolerated Well [See Physician Procedure note for Specifics] Pain Scale: 0-10 Numeric [Pain] -Is Patient Pain Free? Yes Musculoskeletal: No Tenderness to Palpation of Joints or Extremities Lymphatic: No Cervical, Supraclavicular, or Inguinal Adenopathy Neurological: Cranial nerves II-XII grossly intact, Neuro grossly intact Psych/Mental Status: Normal Affect, Appropriate, Alert and oriented to time, place, person, mood and affect Debridement Note Post-Debridement Measurements/Treatment WC - Nurse 2 - General Ulcer CM Notes Start: 10/06/17 11:20 Freq: Status: Active Protocol: Activity Type Activity Date Activity User E-Sign Co-Sign Detail Recorded Client Recorded Date Recorded By Document 10/06/17 11:56 [id number] 10/06/17 11:56 Document 10/20/17 12:10 DV [id number] 10/20/17 12:13 DV 10/06/17 10/20/17 11:56 12:10 Wound Center Nurse 2 #10 L POSTERIOR CALF -Time 12:11 -Correct Patient Yes -Correct Side, Site, Position Yes -Correct Procedure Yes -Procedure Performed Yes -Type of Procedure Debridement -Clinical Debridement Subcutaneous -Post Debridement Size (cm) - Length 0.3 -Post Debridement Size (cm) - Width 1.0 -Post Debridement Size (cm) - Depth 0.1 -Total Square Cm 0.30 -Wound/Ulcer Outcome Not Healed -Ulcer Cleansing Rinsed/ Irrigated with Saline -Foul Odor after Cleansing No -Bioengineered Tissue No -Bleeding Controlled with Pressure -Treatment Response Procedure Tolerated Well #4-1 LT ANTERIOR GR. TOE -Time 11:56 12:12 -Correct Patient Yes Yes -Correct Side, Site, Position Yes Yes -Correct Procedure Yes Yes -Procedure Performed Yes Yes -Type of Procedure Debridement Debridement -Clinical Debridement Subcutaneous Subcutaneous -Post Debridement Size (cm) - Length 0.4 0.3 -Post Debridement Size (cm) - Width 0.3 0.3 -Post Debridement Size (cm) - Depth 0.2 0.1 -Total Square Cm 0.12 0.09 -Wound/Ulcer Outcome Not Healed Not Healed -Ulcer Cleansing Rinsed/ Rinsed/ Irrigated with Irrigated with Saline Saline -Foul Odor after Cleansing No No -Bioengineered Tissue No No -Bleeding Controlled with Pressure Pressure -Treatment Response Procedure Procedure Tolerated Well Tolerated Well Pain Scale: 0-10 Numeric Is Patient Pain Free? Yes Yes Wound debrided: Left great toe Type of Debridement: Excisional debridement Anesthesia Used: 5% Lidocaine Gel Depth: Down to and including healthy tissue, in the subcutaneous layer Percentage of wound debrided: 100 Instrument Used: 3mm curette Tissue Removed: Devitalized tissue Amount of bleeding with debridement: None Bleeding Controlled with: Pressure Patient tolerated procedure well - Additional Wound Wound debrided: Left posterior calf Type of Debridement: Excisional debridement Anesthesia Used: 5% Lidocaine Gel Depth: Down to and including healthy tissue, in the subcutaneous layer Percentage of wound debrided: 100 Instrument Used: 3mm curette Tissue Removed: Fibrin Severity: Limited To Skin Breakdown Amount of bleeding with debridement: Mild Bleeding Controlled with: Compression and gauze Patient tolerated procedure: Patient tolerated procedure well Assessment/Plan Active Problems Peripheral neuropathy (Chronic) Open wound of left great toe (Acute) Venous stasis of both lower extremities (Chronic) H/O iron deficiency anemia (Chronic) Infected wound (Acute) Spina bifida (Chronic) Assessment: Open ulcer left great toe infected. peripheral skin tear posterior calf resolved. Spina bifida. Peripheral neuropathy bilateral lower extremities. Nonambulatory wheelchair bound. Chronic swelling in both lower ext Plan: Promogran to base moistened with Adaptic gauze and tape daily. 2 both ulcers. Finish metronidazole. Follow-up next week
[2017-10-27 12:03] VITALS: BP 123/62; PULSE 88; RESP 20; TEMP 35.9; BMI 50.0
--- NOTE | 2017-10-27 14:15 | PN.PCM_ITS ---
(1) Infected wound Status: Acute Current Visit: No Code(s): T14.8XXA - Other injury of unspecified body region, initial encounter; L08.9 - Local infection of the skin and subcutaneous tissue, unspecified (2) Open wound of left great toe Status: Acute Current Visit: No Qualifiers: Code(s): S91.102A - Unspecified open wound of left great toe without damage to nail, initial encounter (3) H/O iron deficiency anemia Status: Chronic Current Visit: Yes Code(s): Z86.2 - Personal history of diseases of the blood and blood-forming organs and certain disorders involving the immune mechanism (4) Peripheral neuropathy Status: Chronic Current Visit: Yes Qualifiers: Code(s): G62.9 - Polyneuropathy, unspecified (5) Spina bifida Status: Chronic Current Visit: Yes Qualifiers: Code(s): Q05.9 - Spina bifida, unspecified (6) Venous stasis of both lower extremities Status: Chronic Current Visit: Yes Code(s): I87.8 - Other specified disorders of veins Type of Wound Date of Service: 10/27/17 Chief Complaint: Follow-up left great toe open ulcer for 1 month and back of the L posterior calf from her compression cutting the skin in wheelchair History of Wound: 31-year-old spina bifida patient that is wheelchair-bound with no extremity sensation. Quite sure how the incident occurred on her left great toe. We had just healed this toe not sure how it reopened but wanted to be seen before her 30 days past. Progress of Wound: Today the left great toe and left posterior knee are healed - Physical Exam Vital Signs Temp Pulse Resp BP 96.7 F L 88 20 H 123/62 H 10/27/17 12:03 10/27/17 12:03 10/27/17 12:03 10/27/17 12:03 General: Oriented x3, Cooperative, Well developed HEENT: Atraumatic, PERRLA Oral: Moist Mucosa Neck: Supple, No JVD Lungs: Clear to auscultation, Normal air movement Cardiovascular: Regular rate, Regular Rhythm Abdomen: Bowel Sounds Present, Soft, Non Tender, No Hepato-splenomegaly Extremities: No clubbing, No edema Wound Measurements and Assessment WC - Nurse 1 - General Ulcer Measurement Start: 10/06/17 11:20 Freq: Status: Active Protocol: Activity Type Activity Date Activity User E-Sign Co-Sign Detail Recorded Client Recorded Date Recorded By Document 10/27/17 12:03 DL [id number] 10/27/17 12:13 DL 10/27/17 12:03 Wound Center Nurse 1 [Ulcer Assessment] #10 L POSTERIOR CALF -Current Size (cm) - Length 0.2 -Current Size (cm) - Width 0.3 -Current Size (cm) - Depth 0.1 -Total Square Cm 0.06 -Photo Taken No -Exudate Amt None Present (0 %) -Wound Margin Flat & Intact -Granulation Amt Small (1-33%) -Granulation Quality [place] -Necrosis Amt None Present (0 %) -Structure Exposed N/A -Texture (Deepti-wound Skin Appearance) Scarring -Moisture (Deepti-wound Skin Appearance Dry/Scaly ) -Color (Deepti-wound Skin Appearance) No Abnormality -Temperature (Deepti-wound Skin No Abnormality Appearance) (Pt Warm) -Tenderness on Palpation (Deepti-wound No Skin Appearance) -Ulcer Cleansing Rinsed/ Irrigated with Saline -Foul Odor after Cleansing No -Anesthetic Used 4% Lidocaine Solution #4-1 LT ANTERIOR GR. TOE -Current Size (cm) - Length 0.1 -Current Size (cm) - Width 0.1 -Current Size (cm) - Depth 0.1 -Total Square Cm 0.01 -Photo Taken No -Exudate Amt None Present (0 %) -Wound Margin Thickened -Granulation Amt Small (1-33%) -Granulation Quality [place] -Necrosis Amt Large (67-100%) -Necrotic Tissue Type Adherent Slough -Structure Exposed N/A -Texture (Deepti-wound Skin Appearance) No Abnormality -Moisture (Deepti-wound Skin Appearance Dry/Scaly ) -Color (Deepti-wound Skin Appearance) No Abnormality -Temperature (Deepti-wound Skin No Abnormality Appearance) (Pt Warm) -Ulcer Cleansing Wound Cleanser -Foul Odor after Cleansing No -Anesthetic Used 4% Lidocaine Solution [Edema Assessment] -Left Calf (cm) 33.5 -Left Ankle (cm) 25.4 WC - Nurse 2 - General Ulcer CM Notes Start: 10/06/17 11:20 Freq: Status: Active Protocol: Activity Type Activity Date Activity User E-Sign Co-Sign Detail Recorded Client Recorded Date Recorded By Document 10/27/17 12:15 [id number] 10/27/17 12:19 10/27/17 12:15 Wound Center Nurse 2 [Procedure/Treatment] #10 L POSTERIOR CALF -Time 12:16 -Correct Patient Yes -Correct Side, Site, Position Yes -Correct Procedure No -Post Debridement Size (cm) - Length 0 -Post Debridement Size (cm) - Width 0 -Post Debridement Size (cm) - Depth 0 -Total Square Cm 0 -Wound/Ulcer Outcome Healed- Epithelialized #4-1 LT ANTERIOR GR. TOE -Time 12:16 -Correct Patient Yes -Correct Side, Site, Position Yes -Correct Procedure No -Post Debridement Size (cm) - Length 0 -Post Debridement Size (cm) - Width 0 -Post Debridement Size (cm) - Depth 0 -Total Square Cm 0 -Wound/Ulcer Outcome Healed- Epithelialized [See Physician Procedure note for Specifics] Pain Scale: 0-10 Numeric [Pain] -Is Patient Pain Free? Yes Musculoskeletal: No Tenderness to Palpation of Joints or Extremities Lymphatic: No Cervical, Supraclavicular, or Inguinal Adenopathy Neurological: Cranial nerves II-XII grossly intact, Neuro grossly intact Psych/Mental Status: Normal Affect, Appropriate, Alert and oriented to time, place, person, mood and affect Debridement Note Post-Debridement Measurements/Treatment WC - Nurse 2 - General Ulcer CM Notes Start: 10/06/17 11:20 Freq: Status: Active Protocol: Activity Type Activity Date Activity User E-Sign Co-Sign Detail Recorded Client Recorded Date Recorded By Document 10/06/17 11:56 [id number] 10/06/17 11:56 Document 10/20/17 12:10 [id number] 10/20/17 12:13 Document 10/27/17 12:15 [id number] 10/27/17 12:19 10/06/17 10/20/17 10/27/17 11:56 12:10 12:15 Wound Center Nurse 2 #10 L POSTERIOR CALF -Time 12:11 12:16 -Correct Patient Yes Yes -Correct Side, Site, Position Yes Yes -Correct Procedure Yes No -Procedure Performed Yes -Type of Procedure Debridement -Clinical Debridement Subcutaneous -Post Debridement Size (cm) - Length 0.3 0 -Post Debridement Size (cm) - Width 1.0 0 -Post Debridement Size (cm) - Depth 0.1 0 -Total Square Cm 0.30 0 -Wound/Ulcer Outcome Not Healed Healed- Epithelialized -Ulcer Cleansing Rinsed/ Irrigated with Saline -Foul Odor after Cleansing No -Bioengineered Tissue No -Bleeding Controlled with Pressure -Treatment Response Procedure Tolerated Well #4-1 LT ANTERIOR GR. TOE -Time 11:56 12:12 12:16 -Correct Patient Yes Yes Yes -Correct Side, Site, Position Yes Yes Yes -Correct Procedure Yes Yes No -Procedure Performed Yes Yes -Type of Procedure Debridement Debridement -Clinical Debridement Subcutaneous Subcutaneous -Post Debridement Size (cm) - Length 0.4 0.3 0 -Post Debridement Size (cm) - Width 0.3 0.3 0 -Post Debridement Size (cm) - Depth 0.2 0.1 0 -Total Square Cm 0.12 0.09 0 -Wound/Ulcer Outcome Not Healed Not Healed Healed- Epithelialized -Ulcer Cleansing Rinsed/ Rinsed/ Irrigated with Irrigated with Saline Saline -Foul Odor after Cleansing No No -Bioengineered Tissue No No -Bleeding Controlled with Pressure Pressure -Treatment Response Procedure Procedure Tolerated Well Tolerated Well Pain Scale: 0-10 Numeric Is Patient Pain Free? Yes Yes Yes No debridement was completed today Assessment/Plan Active Problems Peripheral neuropathy (Chronic) Venous stasis of both lower extremities (Chronic) H/O iron deficiency anemia (Chronic) Spina bifida (Chronic) Assessment: Open ulcer left great toe infected. peripheral skin tear posterior calf resolved. Spina bifida. Peripheral neuropathy bilateral lower extremities. Nonambulatory wheelchair bound. Chronic swelling in both lower ext Plan: Check both areas with gauze dry dressings for the next 2 weeks. Discharge from the wound center follow-up as needed
== END 2017-11-04 23:59 ==
LOC: WC 11:15
PROVIDERS: Family Provider Family Medicine; PCP Family Medicine; Visit Provider Nurse Practitioner
DX: I87.2 Venous insufficiency (chronic) (peripheral) (principal); G62.9 Polyneuropathy, unspecified; Q05.9 Spina bifida, unspecified; Z99.3 Dependence on wheelchair; L97.521 Non-pressure chronic ulcer of other part of left foot limited to breakdown of skin; M79.89 Other specified soft tissue disorders
CPT/HCPCS: 11042; 87070; 87075; 87077; 87186; 87205; 99212; G0463

== ENCOUNTER 2018-04-06 11:00 | Outpatient (RCR) | payer BC, MEDICAID, SELFPAY ==
[2018-03-16 11:37] VITALS: BP 131/86; PULSE 87; RESP 16; TEMP 36.6
--- NOTE | 2018-03-16 12:13 | PCM.WC.PN ---
(1) Open wound of left great toe Status: Acute Current Visit: Yes Qualifiers: Code(s): S91.102A - Unspecified open wound of left great toe without damage to nail, initial encounter (2) Peripheral neuropathy Status: Chronic Current Visit: Yes Code(s): G62.9 - Polyneuropathy, unspecified (3) Spina bifida Status: Chronic Current Visit: Yes Qualifiers: Code(s): Q05.9 - Spina bifida, unspecified (4) Venous stasis of both lower extremities Status: Chronic Current Visit: Yes Code(s): I87.8 - Other specified disorders of veins Type of Wound Chief Complaint: Follow-up left great toe open ulcer for 1 month and back of the L posterior calf from her compression cutting the skin in wheelchair History of Wound: 31-year-old spina bifida patient that is wheelchair-bound with no extremity sensation. Quite sure how the incident occurred on her left great toe. She does state that her left great toenail caught on something and she thinks we ripped the skin. We had just healed this toe probably in early August. Today we removed the great toenail when debriding the anterior great toe Progress of Wound: No sign of infection will go back to Promogran. Daily dressings and follow-up in a week - Physical Exam Vital Signs Temp Pulse Resp BP 98 F 87 16 131/86 H 03/16/18 11:37 03/16/18 11:37 03/16/18 11:37 03/16/18 11:37 General: Oriented x3, Cooperative, Well developed HEENT: Atraumatic, PERRLA Oral: Moist Mucosa Neck: Supple, No JVD Lungs: Clear to auscultation, Normal air movement Cardiovascular: Regular rate, Regular Rhythm Abdomen: Bowel Sounds Present, Soft, Non Tender, No Hepato-splenomegaly Extremities: No clubbing, No edema Skin: Ulcer/ Wound - Left great toe wound and removal of left great toenail Wound Measurements and Assessment WC - Nurse 1 - General Ulcer Measurement Start: 03/16/18 11:37 Freq: Status: Active Protocol: Activity Type Activity Date Activity User E-Sign Co-Sign Detail Recorded Client Recorded Date Recorded By Document 03/16/18 11:37 [facility] [id number] 03/16/18 11:47 [facility] 03/16/18 11:37 Wound Center Nurse 1 [Ulcer Assessment] #11- LT GR TOE DORSAL -Combined with other wound No -Current Size (cm) - Length 0.8 -Current Size (cm) - Width 0.6 -Current Size (cm) - Depth 0.3 -Total Square Cm 0.48 -Date of Last Picture (Recall this 03/16/18 field) -Photo Taken Yes -Epithelialization None Present -Tunneling No -Undermining/Tunneling Yes -Undermining/Tunneling Starts (O' 1 clock) -Undermining/Tunneling Ends (O'clock) 5 -Maximum Distance (cm) 1.5 -Circular Undermining Yes -Exudate Amt Medium (34-66%) -Exudate Type Sanguineous -Wound Margin Distinct, Outline Attached -Granulation Amt Large (67-100%) -Granulation Quality Red -Slough/Fibrin Yes -Necrosis Amt Small (1-33%) -Necrotic Tissue Type Adherent Slough -Texture (Deepti-wound Skin Appearance) Callus Scarring -Moisture (Deepti-wound Skin Appearance Dry/Scaly ) -Color (Deepti-wound Skin Appearance) Erythema -Temperature (Deepti-wound Skin No Abnormality Appearance) (Pt Warm) -Tenderness on Palpation (Deepti-wound No Skin Appearance) -Ulcer Cleansing Rinsed/ Irrigated with Saline -Foul Odor after Cleansing No [Edema Assessment] -Lower Limb Edema Present Yes -Left Calf (cm) 34 -Left Ankle (cm) 25 WC - Nurse 2 - General Ulcer CM Notes Start: 03/16/18 11:37 Freq: Status: Active Protocol: Activity Type Activity Date Activity User E-Sign Co-Sign Detail Recorded Client Recorded Date Recorded By Document 03/16/18 11:52 MW [id number] 03/16/18 12:08 MW 03/16/18 11:52 Wound Center Nurse 2 [Procedure/Treatment] #12 LEFT GREAT TOE NAIL BED -Time 11:57 -Correct Patient Yes -Correct Side, Site, Position Yes -Correct Procedure Yes -Procedure Performed Yes -Type of Procedure Debridement -Clinical Debridement Subcutaneous -Post Debridement Size (cm) - Length 1.0 -Post Debridement Size (cm) - Width 1.0 -Post Debridement Size (cm) - Depth 0.1 -Total Square Cm 1.00 -Wound/Ulcer Outcome Not Healed -Ulcer Cleansing Rinsed/ Irrigated with Saline -Foul Odor after Cleansing No -Bioengineered Tissue No -Bleeding Controlled with Pressure -Treatment Response Procedure Tolerated Well #11- LT GR TOE DORSAL -Time 11:52 -Correct Patient Yes -Correct Side, Site, Position Yes -Correct Procedure Yes -Procedure Performed Yes -Type of Procedure Debridement -Clinical Debridement Subcutaneous -Post Debridement Size (cm) - Length 1.0 -Post Debridement Size (cm) - Width 1.0 -Post Debridement Size (cm) - Depth 0.1 -Total Square Cm 1.00 -Wound/Ulcer Outcome Not Healed -Ulcer Cleansing Rinsed/ Irrigated with Saline -Foul Odor after Cleansing No -Bioengineered Tissue No -Bleeding Controlled with Pressure Silver Nitrate SURGIFOAM -Treatment Response Procedure Tolerated Well [See Physician Procedure note for Specifics] Pain Scale: 0-10 Numeric [Pain] -Is Patient Pain Free? Yes Musculoskeletal: No Tenderness to Palpation of Joints or Extremities Lymphatic: No Cervical, Supraclavicular, or Inguinal Adenopathy Neurological: Cranial nerves II-XII grossly intact, Neuro grossly intact Psych/Mental Status: Normal Affect, Appropriate Debridement Note Post-Debridement Measurements/Treatment WC - Nurse 2 - General Ulcer CM Notes Start: 03/16/18 11:37 Freq: Status: Active Protocol: Activity Type Activity Date Activity User E-Sign Co-Sign Detail Recorded Client Recorded Date Recorded By Document 03/16/18 11:52 MW [id number] 03/16/18 12:08 MW 03/16/18 11:52 Wound Center Nurse 2 #12 LEFT GREAT TOE NAIL BED -Time 11:57 -Correct Patient Yes -Correct Side, Site, Position Yes -Correct Procedure Yes -Procedure Performed Yes -Type of Procedure Debridement -Clinical Debridement Subcutaneous -Post Debridement Size (cm) - Length 1.0 -Post Debridement Size (cm) - Width 1.0 -Post Debridement Size (cm) - Depth 0.1 -Total Square Cm 1.00 -Wound/Ulcer Outcome Not Healed -Ulcer Cleansing Rinsed/ Irrigated with Saline -Foul Odor after Cleansing No -Bioengineered Tissue No -Bleeding Controlled with Pressure -Treatment Response Procedure Tolerated Well #11- LT GR TOE DORSAL -Time 11:52 -Correct Patient Yes -Correct Side, Site, Position Yes -Correct Procedure Yes -Procedure Performed Yes -Type of Procedure Debridement -Clinical Debridement Subcutaneous -Post Debridement Size (cm) - Length 1.0 -Post Debridement Size (cm) - Width 1.0 -Post Debridement Size (cm) - Depth 0.1 -Total Square Cm 1.00 -Wound/Ulcer Outcome Not Healed -Ulcer Cleansing Rinsed/ Irrigated with Saline -Foul Odor after Cleansing No -Bioengineered Tissue No -Bleeding Controlled with Pressure Silver Nitrate SURGIFOAM -Treatment Response Procedure Tolerated Well Pain Scale: 0-10 Numeric Is Patient Pain Free? Yes Wound debrided: Left great toe wound Type of Debridement: Excisional debridement Anesthesia Used: 5% Lidocaine Gel Depth: Down to and including healthy tissue, in the subcutaneous layer Percentage of wound debrided: 100 Instrument Used: 5mm curette Tissue Removed: Fibrin and devitalized tissue Assessment/Plan Active Problems Peripheral neuropathy (Chronic) Open wound of left great toe (Acute) Venous stasis of both lower extremities (Chronic) Spina bifida (Chronic) Assessment: Open ulcer left great toe. Spina bifida. Peripheral neuropathy bilateral lower extremities. Nonambulatory wheelchair bound. Chronic swelling in both lower ext Plan: Wash foot with Hibiclens apply Promogran to the left anterior toe every day cover with gauze and tape. Follow-up one week. Impression dressing to toenail area leave on for 24 hours then may remove.
[2018-03-23 11:38] VITALS: BP 129/92; PULSE 91; RESP 16; TEMP 36.6
--- NOTE | 2018-03-23 12:02 | PCM.WC.PN ---
(1) Open wound of left great toe Status: Acute Current Visit: Yes Qualifiers: Code(s): S91.102A - Unspecified open wound of left great toe without damage to nail, initial encounter (2) Peripheral neuropathy Status: Chronic Current Visit: Yes Code(s): G62.9 - Polyneuropathy, unspecified (3) Spina bifida Status: Chronic Current Visit: Yes Qualifiers: Code(s): Q05.9 - Spina bifida, unspecified (4) Venous stasis of both lower extremities Status: Chronic Current Visit: Yes Code(s): I87.8 - Other specified disorders of veins Type of Wound Chief Complaint: Follow-up left great toe open ulcer for 1 month and back of the L posterior calf from her compression cutting the skin in wheelchair History of Wound: 31-year-old spina bifida patient that is wheelchair-bound with no extremity sensation. Quite sure how the incident occurred on her left great toe. She does state that her left great toenail caught on something and she thinks we ripped the skin. We had just healed this toe probably in early August. Today we removed the great toenail when debriding the anterior great toe Progress of Wound: No sign of infection will continue to use Promogran. Daily dressings and follow-up in a week - Physical Exam Vital Signs Temp Pulse Resp BP 98 F 91 16 129/92 H 03/23/18 11:38 03/23/18 11:38 03/23/18 11:38 03/23/18 11:38 General: Oriented x3, Cooperative, Well developed HEENT: Atraumatic, PERRLA Oral: Moist Mucosa Neck: Supple, No JVD Lungs: Clear to auscultation, Normal air movement Cardiovascular: Regular rate, Regular Rhythm Abdomen: Bowel Sounds Present, Soft, Non Tender, No Hepato-splenomegaly Extremities: No clubbing, No edema Skin: Ulcer/ Wound - Left great toe Wound Measurements and Assessment WC - Nurse 1 - General Ulcer Measurement Start: 03/16/18 11:37 Freq: Status: Active Protocol: Activity Type Activity Date Activity User E-Sign Co-Sign Detail Recorded Client Recorded Date Recorded By Document 03/23/18 11:[address] [facility] [id number] 03/23/18 11:[address] [facility] 03/23/18 11:38 Wound Center Nurse 1 [Ulcer Assessment] #12 LEFT GREAT TOE NAIL BED -Combined with other wound No -Current Size (cm) - Length 0.1 -Current Size (cm) - Width 0.1 -Current Size (cm) - Depth 0.1 -Total Square Cm 0.01 -Photo Taken No -Structure Exposed N/A -Texture (Deepti-wound Skin Appearance) Scarring -Moisture (Deepti-wound Skin Appearance Dry/Scaly ) -Temperature (Deepti-wound Skin No Abnormality Appearance) (Pt Warm) -Tenderness on Palpation (Deepti-wound No Skin Appearance) -Ulcer Cleansing Rinsed/ Irrigated with Saline -Foul Odor after Cleansing No #11- LT GR TOE DORSAL -Combined with other wound No -Current Size (cm) - Length 1 -Current Size (cm) - Width 1 -Current Size (cm) - Depth 0.1 -Total Square Cm 1 -Photo Taken No -Epithelialization None Present -Tunneling No -Undermining/Tunneling No -Circular Undermining No -Exudate Amt Small (1-33%) -Exudate Type Sanguineous -Wound Margin Distinct, Outline Attached -Granulation Amt Small (1-33%) -Granulation Quality Red -Slough/Fibrin Yes -Necrosis Amt Medium (34-66%) -Necrotic Tissue Type Adherent Slough -Texture (Deepti-wound Skin Appearance) Scarring -Moisture (Deepti-wound Skin Appearance Dry/Scaly ) -Color (Deepti-wound Skin Appearance) Assessed -Temperature (Deepti-wound Skin No Abnormality Appearance) (Pt Warm) -Tenderness on Palpation (Deepti-wound No Skin Appearance) -Ulcer Cleansing Rinsed/ Irrigated with Saline -Foul Odor after Cleansing No [Edema Assessment] -Lower Limb Edema Present Yes -Left Calf (cm) 37.1 -Left Ankle (cm) 29 WC - Nurse 2 - General Ulcer CM Notes Start: 03/16/18 11:37 Freq: Status: Active Protocol: Activity Type Activity Date Activity User E-Sign Co-Sign Detail Recorded Client Recorded Date Recorded By Document 03/23/18 11:53 MW [id number] 03/23/18 12:00 MW 03/23/18 11:53 Wound Center Nurse 2 [Procedure/Treatment] #12 LEFT GREAT TOE NAIL BED -Time 11:53 -Correct Patient Yes -Correct Side, Site, Position Yes -Correct Procedure Yes -Procedure Performed No -Post Debridement Size (cm) - Length 0.1 -Post Debridement Size (cm) - Width 0.1 -Post Debridement Size (cm) - Depth 0.1 -Total Square Cm 0.01 -Wound/Ulcer Outcome Not Healed -Ulcer Cleansing Not Cleansed -Foul Odor after Cleansing No -Bleeding Controlled with NA -Treatment Response Procedure Tolerated Well #11- LT GR TOE DORSAL -Time 11:54 -Correct Patient Yes -Correct Side, Site, Position Yes -Correct Procedure Yes -Procedure Performed Yes -Type of Procedure Debridement -Clinical Debridement Subcutaneous -Post Debridement Size (cm) - Length 0.8 -Post Debridement Size (cm) - Width 1.3 -Post Debridement Size (cm) - Depth 0.1 -Total Square Cm 1.04 -Wound/Ulcer Outcome Not Healed -Ulcer Cleansing Rinsed/ Irrigated with Saline -Foul Odor after Cleansing No -Bioengineered Tissue No -Bleeding Controlled with Pressure -Treatment Response Procedure Tolerated Well [See Physician Procedure note for Specifics] Pain Scale: 0-10 Numeric [Pain] -Is Patient Pain Free? Yes Musculoskeletal: No Tenderness to Palpation of Joints or Extremities Lymphatic: No Cervical, Supraclavicular, or Inguinal Adenopathy Neurological: Cranial nerves II-XII grossly intact, Neuro grossly intact Psych/Mental Status: Normal Affect, Appropriate Debridement Note Post-Debridement Measurements/Treatment WC - Nurse 2 - General Ulcer CM Notes Start: 03/16/18 11:37 Freq: Status: Active Protocol: Activity Type Activity Date Activity User E-Sign Co-Sign Detail Recorded Client Recorded Date Recorded By Document 03/16/18 11:52 MW [id number] 03/16/18 12:08 MW Document 03/23/18 11:53 MW [id number] 03/23/18 12:00 MW 03/16/18 03/23/18 11:52 11:53 Wound Center Nurse 2 #12 LEFT GREAT TOE NAIL BED -Time 11:57 11:53 -Correct Patient Yes Yes -Correct Side, Site, Position Yes Yes -Correct Procedure Yes Yes -Procedure Performed Yes No -Type of Procedure Debridement -Clinical Debridement Subcutaneous -Post Debridement Size (cm) - Length 1.0 0.1 -Post Debridement Size (cm) - Width 1.0 0.1 -Post Debridement Size (cm) - Depth 0.1 0.1 -Total Square Cm 1.00 0.01 -Wound/Ulcer Outcome Not Healed Not Healed -Ulcer Cleansing Rinsed/ Not Cleansed Irrigated with Saline -Foul Odor after Cleansing No No -Bioengineered Tissue No -Bleeding Controlled with Pressure NA -Treatment Response Procedure Procedure Tolerated Well Tolerated Well #11- LT GR TOE DORSAL -Time 11:52 11:54 -Correct Patient Yes Yes -Correct Side, Site, Position Yes Yes -Correct Procedure Yes Yes -Procedure Performed Yes Yes -Type of Procedure Debridement Debridement -Clinical Debridement Subcutaneous Subcutaneous -Post Debridement Size (cm) - Length 1.0 0.8 -Post Debridement Size (cm) - Width 1.0 1.3 -Post Debridement Size (cm) - Depth 0.1 0.1 -Total Square Cm 1.00 1.04 -Wound/Ulcer Outcome Not Healed Not Healed -Ulcer Cleansing Rinsed/ Rinsed/ Irrigated with Irrigated with Saline Saline -Foul Odor after Cleansing No No -Bioengineered Tissue No No -Bleeding Controlled with Pressure Pressure Silver Nitrate SURGIFOAM -Treatment Response Procedure Procedure Tolerated Well Tolerated Well Pain Scale: 0-10 Numeric Is Patient Pain Free? Yes Yes Wound debrided: Left great toe Type of Debridement: Excisional debridement Anesthesia Used: 5% Lidocaine Gel Depth: Down to and including healthy tissue, in the subcutaneous layer Percentage of wound debrided: 100 Instrument Used: 7mm curette Tissue Removed: Fibrin Severity: Limited To Skin Breakdown Amount of bleeding with debridement: Mild Bleeding Controlled with: Compression and gauze Patient tolerated procedure well Assessment/Plan Active Problems Peripheral neuropathy (Chronic) Open wound of left great toe (Acute) Venous stasis of both lower extremities (Chronic) Spina bifida (Chronic) Assessment: Open ulcer left great toe. Spina bifida. Peripheral neuropathy bilateral lower extremities. Nonambulatory wheelchair bound. Chronic swelling in both lower ext Plan: Wash foot with Hibiclens apply Promogran to the left anterior toe every day cover with gauze and tape. Follow-up 2 week
[2018-04-06 10:55] VITALS: BP 135/89; PULSE 88; RESP 16; TEMP 36.7
--- NOTE | 2018-04-06 12:06 | PN.PCM_ITS ---
(1) Open wound of left great toe Status: Acute Current Visit: Yes Qualifiers: Code(s): S91.102A - Unspecified open wound of left great toe without damage to nail, initial encounter (2) Peripheral neuropathy Status: Chronic Current Visit: Yes Code(s): G62.9 - Polyneuropathy, unspecified (3) Spina bifida Status: Chronic Current Visit: Yes Qualifiers: Code(s): Q05.9 - Spina bifida, unspecified (4) Venous stasis of both lower extremities Status: Chronic Current Visit: Yes Code(s): I87.8 - Other specified disorders of veins Type of Wound Chief Complaint: Follow-up left great toe open ulcer for 1 month and back of the L posterior calf from her compression cutting the skin in wheelchair History of Wound: 31-year-old spina bifida patient that is wheelchair-bound with no extremity sensation. Quite sure how the incident occurred on her left great toe. She does state that her left great toenail caught on something and she thinks we ripped the skin. We had just healed this toe probably in early August. Today we removed the great toenail when debriding the anterior great toe Progress of Wound: No sign of infection will continue to use Promogran. The wound is much smaller this week and healing well and the Promogran. The great toenail is been removed and cleaned and is much suction plate carrier cleaner and good skin underneath. Daily dressings and follow-up in a week - Physical Exam Vital Signs Temp Pulse Resp BP 98.0 F 88 16 135/89 H 04/06/18 10:55 04/06/18 10:55 04/06/18 10:55 04/06/18 10:55 General: Oriented x3, Cooperative, Well developed HEENT: Atraumatic, PERRLA Oral: Moist Mucosa Neck: Supple, No JVD Lungs: Clear to auscultation, Normal air movement Cardiovascular: Regular rate, Regular Rhythm Abdomen: Bowel Sounds Present, Soft, Non Tender, No Hepato-splenomegaly Extremities: No clubbing, No edema Skin: Ulcer/ Wound - Left great toe Wound Measurements and Assessment WC - Nurse 1 - General Ulcer Measurement Start: 03/16/18 11:37 Freq: Status: Active Protocol: Activity Type Activity Date Activity User E-Sign Co-Sign Detail Recorded Client Recorded Date Recorded By Document 04/06/18 10:55 [facility] [id number] 04/06/18 11:00 [facility] 04/06/18 10:55 Wound Center Nurse 1 [Ulcer Assessment] #12 LEFT GREAT TOE NAIL BED -Current Size (cm) - Length 0.1 -Current Size (cm) - Width 0.1 -Current Size (cm) - Depth 0.1 -Total Square Cm 0.01 -Epithelialization None Present -Tunneling No -Undermining/Tunneling No -Granulation Amt None Present (0 %) -Necrosis Amt Large (67-100%) -Necrotic Tissue Type Eschar #11- LT GR TOE DORSAL -Current Size (cm) - Length 0.5 -Current Size (cm) - Width 0.8 -Current Size (cm) - Depth 0.1 -Total Square Cm 0.40 -Photo Taken No -Epithelialization None Present -Tunneling No -Undermining/Tunneling No -Circular Undermining No -Classification - Thickness Full Thickness without Exposed Support Structure -Exudate Amt Small (1-33%) -Exudate Type Serosanguineous -Wound Margin Flat & Intact -Granulation Amt Medium (34-66%) -Granulation Quality Red -Necrosis Amt Medium (34-66%) -Necrotic Tissue Type Adherent Slough -Structure Exposed Fat Layer Exposed -Texture (Deepti-wound Skin Appearance) Assessed -Moisture (Deepti-wound Skin Appearance Assessed ) -Color (Deepti-wound Skin Appearance) Assessed -Temperature (Deepti-wound Skin No Abnormality Appearance) (Pt Warm) -Tenderness on Palpation (Deepti-wound No Skin Appearance) -Ulcer Cleansing Rinsed/ Irrigated with Saline -Foul Odor after Cleansing No [Edema Assessment] -Left Calf (cm) 37.3 -Left Ankle (cm) 27.0 WC - Nurse 2 - General Ulcer CM Notes Start: 03/16/18 11:37 Freq: Status: Active Protocol: Activity Type Activity Date Activity User E-Sign Co-Sign Detail Recorded Client Recorded Date Recorded By Document 04/06/18 11:18 MW [id number] 04/06/18 11:21 MW 04/06/18 11:18 Wound Center Nurse 2 [Procedure/Treatment] #12 LEFT GREAT TOE NAIL BED -Time 11:18 -Correct Patient Yes -Correct Side, Site, Position Yes -Correct Procedure Yes -Procedure Performed No -Post Debridement Size (cm) - Length 0 -Post Debridement Size (cm) - Width 0 -Post Debridement Size (cm) - Depth 0 -Total Square Cm 0 -Wound/Ulcer Outcome Healed- Epithelialized -Ulcer Cleansing Rinsed/ Irrigated with Saline -Foul Odor after Cleansing No -Bioengineered Tissue No -Bleeding Controlled with NA -Offloading No #11- LT GR TOE DORSAL -Time 11:19 -Correct Patient Yes -Correct Side, Site, Position Yes -Correct Procedure Yes -Procedure Performed Yes -Type of Procedure Debridement -Clinical Debridement Subcutaneous -Post Debridement Size (cm) - Length 0.5 -Post Debridement Size (cm) - Width 0.5 -Post Debridement Size (cm) - Depth 0.1 -Total Square Cm 0.25 -Wound/Ulcer Outcome Not Healed -Ulcer Cleansing Rinsed/ Irrigated with Saline -Foul Odor after Cleansing No -Bioengineered Tissue No -Bleeding Controlled with Pressure -Offloading No -Treatment Response Procedure Tolerated Well [See Physician Procedure note for Specifics] Pain Scale: 0-10 Numeric [Pain] -Is Patient Pain Free? Yes Musculoskeletal: No Tenderness to Palpation of Joints or Extremities Lymphatic: No Cervical, Supraclavicular, or Inguinal Adenopathy Neurological: Cranial nerves II-XII grossly intact, Neuro grossly intact Psych/Mental Status: Normal Affect, Appropriate, Alert and oriented to time, place, person, mood and affect Debridement Note Post-Debridement Measurements/Treatment WC - Nurse 2 - General Ulcer CM Notes Start: 03/16/18 11:37 Freq: Status: Active Protocol: Activity Type Activity Date Activity User E-Sign Co-Sign Detail Recorded Client Recorded Date Recorded By Document 03/16/18 11:52 MW [id number] 03/16/18 12:08 MW Document 03/23/18 11:53 MW [id number] 03/23/18 12:00 MW Document 04/06/18 11:18 MW [id number] 04/06/18 11:21 MW 03/16/18 03/23/18 04/06/18 11:52 11:53 11:18 Wound Center Nurse 2 #12 LEFT GREAT TOE NAIL BED -Time 11:57 11:53 11:18 -Correct Patient Yes Yes Yes -Correct Side, Site, Position Yes Yes Yes -Correct Procedure Yes Yes Yes -Procedure Performed Yes No No -Type of Procedure Debridement -Clinical Debridement Subcutaneous -Post Debridement Size (cm) - Length 1.0 0.1 0 -Post Debridement Size (cm) - Width 1.0 0.1 0 -Post Debridement Size (cm) - Depth 0.1 0.1 0 -Total Square Cm 1.00 0.01 0 -Wound/Ulcer Outcome Not Healed Not Healed Healed- Epithelialized -Ulcer Cleansing Rinsed/ Not Cleansed Rinsed/ Irrigated with Irrigated with Saline Saline -Foul Odor after Cleansing No No No -Bioengineered Tissue No No -Bleeding Controlled with Pressure NA NA -Offloading No -Treatment Response Procedure Procedure Tolerated Well Tolerated Well #11- LT GR TOE DORSAL -Time 11:52 11:54 11:19 -Correct Patient Yes Yes Yes -Correct Side, Site, Position Yes Yes Yes -Correct Procedure Yes Yes Yes -Procedure Performed Yes Yes Yes -Type of Procedure Debridement Debridement Debridement -Clinical Debridement Subcutaneous Subcutaneous Subcutaneous -Post Debridement Size (cm) - Length 1.0 0.8 0.5 -Post Debridement Size (cm) - Width 1.0 1.3 0.5 -Post Debridement Size (cm) - Depth 0.1 0.1 0.1 -Total Square Cm 1.00 1.04 0.25 -Wound/Ulcer Outcome Not Healed Not Healed Not Healed -Ulcer Cleansing Rinsed/ Rinsed/ Rinsed/ Irrigated with Irrigated with Irrigated with Saline Saline Saline -Foul Odor after Cleansing No No No -Bioengineered Tissue No No No -Bleeding Controlled with Pressure Pressure Pressure Silver Nitrate SURGIFOAM -Offloading No -Treatment Response Procedure Procedure Procedure Tolerated Well Tolerated Well Tolerated Well Pain Scale: 0-10 Numeric Is Patient Pain Free? Yes Yes Yes Wound debrided: Left great toe wound Type of Debridement: Excisional debridement Anesthesia Used: 5% Lidocaine Gel Depth: Down to and including healthy tissue, in the subcutaneous layer Percentage of wound debrided: 100 Instrument Used: 3mm curette Tissue Removed: Fibrin Severity: Limited To Skin Breakdown Amount of bleeding with debridement: None Assessment/Plan Active Problems Peripheral neuropathy (Chronic) Open wound of left great toe (Acute) Venous stasis of both lower extremities (Chronic) Spina bifida (Chronic) Assessment: Open ulcer left great toe. Spina bifida. Peripheral neuropathy bilateral lower extremities. Nonambulatory wheelchair bound. Chronic swelling in both lower ext Plan: Wash foot with Hibiclens apply Promogran to the left anterior toe every day cover with gauze and tape. Follow-up 1 week
== END 2018-04-06 23:59 ==
LOC: WC 11:00
PROVIDERS: Family Provider Family Medicine; PCP Family Medicine; Visit Provider Nurse Practitioner
DX: I87.2 Venous insufficiency (chronic) (peripheral) (principal); G62.9 Polyneuropathy, unspecified; Q05.9 Spina bifida, unspecified; Z99.3 Dependence on wheelchair; L97.521 Non-pressure chronic ulcer of other part of left foot limited to breakdown of skin; M79.89 Other specified soft tissue disorders
CPT/HCPCS: 11042; 99213; G0463

== ENCOUNTER 2018-05-04 11:15 | Outpatient (RCR) | payer BC, MEDICAID, SELFPAY ==
[2017-11-05 00:30] VITALS: BMI 50.0
[2018-04-07 01:59] VITALS: BP 135/89; PULSE 88; RESP 16; TEMP 36.7
[2018-04-13 11:51] VITALS: BP 137/86; PULSE 96; RESP 16; TEMP 36.6; BMI 50.0
--- NOTE | 2018-04-13 12:50 | PCM.WC.PN ---
(1) Open wound of left great toe Status: Acute Current Visit: No Qualifiers: Code(s): S91.102A - Unspecified open wound of left great toe without damage to nail, initial encounter (2) H/O iron deficiency anemia Status: Chronic Current Visit: No Code(s): Z86.2 - Personal history of diseases of the blood and blood-forming organs and certain disorders involving the immune mechanism (3) Peripheral neuropathy Status: Chronic Current Visit: No Code(s): G62.9 - Polyneuropathy, unspecified (4) Spina bifida Status: Chronic Current Visit: No Qualifiers: Code(s): Q05.9 - Spina bifida, unspecified Type of Wound Chief Complaint: Follow-up left great toe open ulcer for 1 month and back of the L posterior calf from her compression cutting the skin in wheelchair History of Wound: 31-year-old spina bifida patient that is wheelchair-bound with no extremity sensation. Quite sure how the incident occurred on her left great toe. She does state that her left great toenail caught on something and she thinks we ripped the skin. We had just healed this toe probably in early August. Today we removed the great toenail when debriding the anterior great toe Progress of Wound: Patient was giving a no cost evaluation epi fix #1. The great toenail is been removed and cleaned and is much steam cleaner and good skin underneath. She is to leave the wound alone and follow-up in 1 week. They reinforce and clean outer dressings if soiled. - Physical Exam Vital Signs Temp Pulse Resp BP 97.8 F 96 16 137/86 H 04/13/18 11:51 04/13/18 11:51 04/13/18 11:51 04/13/18 11:51 General: Oriented x3, Cooperative, Well developed HEENT: Atraumatic, PERRLA Oral: Moist Mucosa Neck: Supple, No JVD Lungs: Clear to auscultation, Normal air movement Cardiovascular: Regular rate, Regular Rhythm Abdomen: Bowel Sounds Present, Soft, Non Tender, No Hepato-splenomegaly Extremities: No clubbing, No edema, - - Left great toe ulcer Wound Measurements and Assessment WC - Nurse 1 - General Ulcer Measurement Start: 04/13/18 11:51 Freq: Status: Active Protocol: Activity Type Activity Date Activity User E-Sign Co-Sign Detail Recorded Client Recorded Date Recorded By Document 04/13/18 11:51 [facility] [id number] 04/13/18 11:57 BM 04/13/18 11:51 Wound Center Nurse 1 [Ulcer Assessment] #11- LT GR TOE DORSAL -Combined with other wound No -Current Size (cm) - Length 0.8 -Current Size (cm) - Width 0.9 -Current Size (cm) - Depth 0.1 -Total Square Cm 0.72 -Photo Taken No -Tunneling No -Undermining/Tunneling No -Circular Undermining No -Exudate Amt Small (1-33%) -Exudate Type Purulent -Wound Margin Distinct, Outline Attached -Granulation Amt Large (67-100%) -Granulation Quality [place] -Slough/Fibrin Yes -Necrosis Amt Medium (34-66%) -Necrotic Tissue Type Adherent Slough -Structure Exposed N/A -Texture (Deepti-wound Skin Appearance) Assessed -Moisture (Deepti-wound Skin Appearance Dry/Scaly ) -Color (Deepti-wound Skin Appearance) Erythema -Temperature (Deepti-wound Skin No Abnormality Appearance) (Pt Warm) -Tenderness on Palpation (Deepti-wound No Skin Appearance) -Ulcer Cleansing Rinsed/ Irrigated with Saline -Foul Odor after Cleansing No [Edema Assessment] -Left Calf (cm) 37 -Left Ankle (cm) 28.1 WC - Nurse 2 - General Ulcer CM Notes Start: 04/13/18 11:51 Freq: Status: Active Protocol: Activity Type Activity Date Activity User E-Sign Co-Sign Detail Recorded Client Recorded Date Recorded By Document 04/13/18 12:15 [id number] 04/13/18 12:21 MW 04/13/18 12:15 Wound Center Nurse 2 [Procedure/Treatment] #11- LT GR TOE DORSAL -Time 12:16 -Correct Patient Yes -Correct Side, Site, Position Yes -Correct Procedure Yes -Procedure Performed Yes -Type of Procedure Debridement -Clinical Debridement Subcutaneous -Post Debridement Size (cm) - Length 0.7 -Post Debridement Size (cm) - Width 1.3 -Post Debridement Size (cm) - Depth 0.1 -Total Square Cm 0.91 -Wound/Ulcer Outcome Not Healed -Ulcer Cleansing Rinsed/ Irrigated with Saline -Foul Odor after Cleansing No -Bioengineered Tissue No -Bleeding Controlled with Pressure -Offloading No -Treatment Response Procedure Tolerated Well [See Physician Procedure note for Specifics] Pain Scale: 0-10 Numeric [Pain] -Is Patient Pain Free? Yes Musculoskeletal: No Tenderness to Palpation of Joints or Extremities Lymphatic: No Cervical, Supraclavicular, or Inguinal Adenopathy Neurological: Cranial nerves II-XII grossly intact, Neuro grossly intact Psych/Mental Status: Normal Affect, Appropriate Debridement Note Post-Debridement Measurements/Treatment WC - Nurse 2 - General Ulcer CM Notes Start: 04/13/18 11:51 Freq: Status: Active Protocol: Activity Type Activity Date Activity User E-Sign Co-Sign Detail Recorded Client Recorded Date Recorded By Document 04/13/18 12:15 MW [id number] 04/13/18 12:21 MW 04/13/18 12:15 Wound Center Nurse 2 #11- LT GR TOE DORSAL -Time 12:16 -Correct Patient Yes -Correct Side, Site, Position Yes -Correct Procedure Yes -Procedure Performed Yes -Type of Procedure Debridement -Clinical Debridement Subcutaneous -Post Debridement Size (cm) - Length 0.7 -Post Debridement Size (cm) - Width 1.3 -Post Debridement Size (cm) - Depth 0.1 -Total Square Cm 0.91 -Wound/Ulcer Outcome Not Healed -Ulcer Cleansing Rinsed/ Irrigated with Saline -Foul Odor after Cleansing No -Bioengineered Tissue No -Bleeding Controlled with Pressure -Offloading No -Treatment Response Procedure Tolerated Well Pain Scale: 0-10 Numeric Is Patient Pain Free? Yes Wound debrided: Left great toe ulcer Type of Debridement: Excisional debridement Anesthesia Used: 5% Lidocaine Gel Depth: Down to and including healthy tissue Percentage of wound debrided: 100 Instrument Used: 3mm curette Tissue Removed: Fibrin and devitalized tissue Assessment/Plan Assessment: Open ulcer left great toe. Spina bifida. Peripheral neuropathy bilateral lower extremities. Nonambulatory wheelchair bound. Chronic swelling in both lower ext Plan: No cost epi fix #1 leave dressing alone only to reinforce or clean her out outer dressing. Follow-up 1 week
--- NOTE | 2018-04-13 12:53 | PN.PCM_ITS ---
(1) Open wound of left great toe Status: Acute Current Visit: No Qualifiers: Code(s): S91.102A - Unspecified open wound of left great toe without damage to nail, initial encounter (2) H/O iron deficiency anemia Status: Chronic Current Visit: No Code(s): Z86.2 - Personal history of diseases of the blood and blood-forming organs and certain disorders involving the immune mechanism (3) Peripheral neuropathy Status: Chronic Current Visit: No Code(s): G62.9 - Polyneuropathy, unspecified (4) Spina bifida Status: Chronic Current Visit: No Qualifiers: Code(s): Q05.9 - Spina bifida, unspecified Type of Wound Chief Complaint: Follow-up left great toe open ulcer for 1 month and back of the L posterior calf from her compression cutting the skin in wheelchair History of Wound: 31-year-old spina bifida patient that is wheelchair-bound with no extremity sensation. Quite sure how the incident occurred on her left great toe. She does state that her left great toenail caught on something and she thinks we ripped the skin. We had just healed this toe probably in early August. Today we removed the great toenail when debriding the anterior great toe Progress of Wound: Patient was giving a no cost evaluation epi fix #1. The great toenail is been removed and cleaned and is much cleaner and trimmer and good skin unde rneath. She is to leave the wound alone and follow-up in 1 week. They reinforce and clean outer dressings if soiled. - Physical Exam Vital Signs Temp Pulse Resp BP 97.8 F 96 16 137/86 H 04/13/18 11:51 04/13/18 11:51 04/13/18 11:51 04/13/18 11:51 General: Oriented x3, Cooperative, Well developed HEENT: Atraumatic, PERRLA Oral: Moist Mucosa Neck: Supple, No JVD Lungs: Clear to auscultation, Normal air movement Cardiovascular: Regular rate, Regular Rhythm Abdomen: Bowel Sounds Present, Soft, Non Tender, No Hepato-splenomegaly Extremities: No clubbing, No edema, - - Left great toe ulcer Wound Measurements and Assessment WC - Nurse 1 - General Ulcer Measurement Start: 04/13/18 11:51 Freq: Status: Active Protocol: Activity Type Activity Date Activity User E-Sign Co-Sign Detail Recorded Client Recorded Date Recorded By Document 04/13/18 11:51 [facility] [id number] 04/13/18 11:57 [facility] 04/13/18 11:51 Wound Center Nurse 1 [Ulcer Assessment] #11- LT GR TOE DORSAL -Combined with other wound No -Current Size (cm) - Length 0.8 -Current Size (cm) - Width 0.9 -Current Size (cm) - Depth 0.1 -Total Square Cm 0.72 -Photo Taken No -Tunneling No -Undermining/Tunneling No -Circular Undermining No -Exudate Amt Small (1-33%) -Exudate Type Purulent -Wound Margin Distinct, Outline Attached -Granulation Amt Large (67-100%) -Granulation Quality [place] -Slough/Fibrin Yes -Necrosis Amt Medium (34-66%) -Necrotic Tissue Type Adherent Slough -Structure Exposed N/A -Texture (Deepti-wound Skin Appearance) Assessed -Moisture (Deepti-wound Skin Appearance Dry/Scaly ) -Color (Deepti-wound Skin Appearance) Erythema -Temperature (Deepti-wound Skin No Abnormality Appearance) (Pt Warm) -Tenderness on Palpation (Deepti-wound No Skin Appearance) -Ulcer Cleansing Rinsed/ Irrigated with Saline -Foul Odor after Cleansing No [Edema Assessment] -Left Calf (cm) 37 -Left Ankle (cm) 28.1 WC - Nurse 2 - General Ulcer CM Notes Start: 04/13/18 11:51 Freq: Status: Active Protocol: Activity Type Activity Date Activity User E-Sign Co-Sign Detail Recorded Client Recorded Date Recorded By Document 04/13/18 12:15 [id number] 04/13/18 12:21 MW 04/13/18 12:15 Wound Center Nurse 2 [Procedure/Treatment] #11- LT GR TOE DORSAL -Time 12:16 -Correct Patient Yes -Correct Side, Site, Position Yes -Correct Procedure Yes -Procedure Performed Yes -Type of Procedure Debridement -Clinical Debridement Subcutaneous -Post Debridement Size (cm) - Length 0.7 -Post Debridement Size (cm) - Width 1.3 -Post Debridement Size (cm) - Depth 0.1 -Total Square Cm 0.91 -Wound/Ulcer Outcome Not Healed -Ulcer Cleansing Rinsed/ Irrigated with Saline -Foul Odor after Cleansing No -Bioengineered Tissue No -Bleeding Controlled with Pressure -Offloading No -Treatment Response Procedure Tolerated Well [See Physician Procedure note for Specifics] Pain Scale: 0-10 Numeric [Pain] -Is Patient Pain Free? Yes Musculoskeletal: No Tenderness to Palpation of Joints or Extremities Lymphatic: No Cervical, Supraclavicular, or Inguinal Adenopathy Neurological: Cranial nerves II-XII grossly intact, Neuro grossly intact Psych/Mental Status: Normal Affect, Appropriate Debridement Note Post-Debridement Measurements/Treatment WC - Nurse 2 - General Ulcer CM Notes Start: 04/13/18 11:51 Freq: Status: Active Protocol: Activity Type Activity Date Activity User E-Sign Co-Sign Detail Recorded Client Recorded Date Recorded By Document 04/13/18 12:15 MW [id number] 04/13/18 12:21 MW 04/13/18 12:15 Wound Center Nurse 2 #11- LT GR TOE DORSAL -Time 12:16 -Correct Patient Yes -Correct Side, Site, Position Yes -Correct Procedure Yes -Procedure Performed Yes -Type of Procedure Debridement -Clinical Debridement Subcutaneous -Post Debridement Size (cm) - Length 0.7 -Post Debridement Size (cm) - Width 1.3 -Post Debridement Size (cm) - Depth 0.1 -Total Square Cm 0.91 -Wound/Ulcer Outcome Not Healed -Ulcer Cleansing Rinsed/ Irrigated with Saline -Foul Odor after Cleansing No -Bioengineered Tissue No -Bleeding Controlled with Pressure -Offloading No -Treatment Response Procedure Tolerated Well Pain Scale: 0-10 Numeric Is Patient Pain Free? Yes Wound debrided: Left great toe ulcer Type of Debridement: Excisional debridement Anesthesia Used: 5% Lidocaine Gel Depth: Down to and including healthy tissue Percentage of wound debrided: 100 Instrument Used: 3mm curette Tissue Removed: Fibrin and devitalized tissue Assessment/Plan Assessment: Open ulcer left great toe. Spina bifida. Peripheral neuropathy bilateral lower extremities. Nonambulatory wheelchair bound. Chronic swelling in both lower ext Plan: No cost epi fix #1 leave dressing alone only to reinforce or clean her out outer dressing. Follow-up 1 week
[2018-04-20 11:19] VITALS: BP 115/86; PULSE 89; RESP 16; TEMP 37; BMI 50.0
--- NOTE | 2018-04-20 12:53 | PN.PCM_ITS ---
(1) Open wound of left great toe Status: Acute Current Visit: Yes Qualifiers: Code(s): S91.102A - Unspecified open wound of left great toe without damage to nail, initial encounter (2) H/O iron deficiency anemia Status: Chronic Current Visit: Yes Code(s): Z86.2 - Personal history of diseases of the blood and blood-forming organs and certain disorders involving the immune mechanism (3) Peripheral neuropathy Status: Chronic Current Visit: Yes Code(s): G62.9 - Polyneuropathy, unspecified (4) Spina bifida Status: Chronic Current Visit: No Qualifiers: Code(s): Q05.9 - Spina bifida, unspecified Type of Wound Chief Complaint: Follow-up left great toe open ulcer for 1 month and back of the L posterior calf from her compression cutting the skin in wheelchair History of Wound: 31-year-old spina bifida patient that is wheelchair-bound with no extremity sensation. Quite sure how the incident occurred on her left great toe. She does state that her left great toenail caught on something and she thinks we ripped the skin. We had just healed this toe probably in early August. Today we removed the great toenail when debriding the anterior great toe Progress of Wound: Patient was giving a no cost evaluation epi fix #2. The great toenail is been removed and cleaned and is much distributor cleaner and good skin u nderneath. She is to leave the wound alone and follow-up in 1 week. They reinforce and clean outer dressings if soiled. - Physical Exam Vital Signs Temp Pulse Resp BP 98.6 F 89 16 115/86 H 04/20/18 11:19 04/20/18 11:19 04/20/18 11:19 04/20/18 11:19 General: Oriented x3, Cooperative, Well developed HEENT: Atraumatic, PERRLA Oral: Moist Mucosa Neck: Supple, No JVD Lungs: Clear to auscultation, Normal air movement Cardiovascular: Regular rate, Regular Rhythm Abdomen: Bowel Sounds Present, Soft, Non Tender, No Hepato-splenomegaly Extremities: No clubbing, No edema Wound Measurements and Assessment WC - Nurse 1 - General Ulcer Measurement Start: 04/13/18 11:51 Freq: Status: Active Protocol: Activity Type Activity Date Activity User E-Sign Co-Sign Detail Recorded Client Recorded Date Recorded By Document 04/20/18 11:19 [facility] [id number] 04/20/18 11:31 [facility] 04/20/18 11:19 Wound Center Nurse 1 [Ulcer Assessment] #11- LT GR TOE DORSAL -Combined with other wound No -Current Size (cm) - Length 1 -Current Size (cm) - Width 1.3 -Current Size (cm) - Depth 0.1 -Total Square Cm 1.3 -Photo Taken No -Epithelialization Small 1-33% -Tunneling No -Undermining/Tunneling No -Circular Undermining No -Exudate Amt Small (1-33%) -Exudate Type Sanguineous -Wound Margin Distinct, Outline Attached -Granulation Amt Medium (34-66%) -Granulation Quality [place] -Slough/Fibrin Yes -Necrosis Amt Small (1-33%) -Necrotic Tissue Type Adherent Slough -Texture (Deepti-wound Skin Appearance) Scarring -Moisture (Deepti-wound Skin Appearance Dry/Scaly ) -Color (Deepti-wound Skin Appearance) Assessed -Temperature (Deepti-wound Skin No Abnormality Appearance) (Pt Warm) -Tenderness on Palpation (Deepti-wound No Skin Appearance) -Ulcer Cleansing Rinsed/ Irrigated with Saline -Foul Odor after Cleansing No [Edema Assessment] -Lower Limb Edema Present Yes -Left Calf (cm) 35.5 -Left Ankle (cm) 28 WC - Nurse 2 - General Ulcer CM Notes Start: 04/13/18 11:51 Freq: Status: Active Protocol: Activity Type Activity Date Activity User E-Sign Co-Sign Detail Recorded Client Recorded Date Recorded By Document 04/20/18 12:11 [id number] 04/20/18 12:17 MW 04/20/18 12:11 Wound Center Nurse 2 [Procedure/Treatment] #11- LT GR TOE DORSAL -Time 12:13 -Correct Patient Yes -Correct Side, Site, Position Yes -Correct Procedure Yes -Procedure Performed Yes -Type of Procedure Debridement -Clinical Debridement Subcutaneous -Post Debridement Size (cm) - Length 0.2 -Post Debridement Size (cm) - Width 0.8 -Post Debridement Size (cm) - Depth 0.1 -Total Square Cm 0.16 -Wound/Ulcer Outcome Not Healed -Ulcer Cleansing Rinsed/ Irrigated with Saline -Foul Odor after Cleansing No -Bioengineered Tissue No -Type of bioengineered Tissue EPIFIX -Expiration Date 12/06/22 -Product Lot Number [id number] -Percent Used 25 -Saline Lot Number [id number] -Bleeding Controlled with Pressure -Offloading No -Treatment Response Procedure Tolerated Well [See Physician Procedure note for Specifics] Pain Scale: 0-10 Numeric [Pain] -Is Patient Pain Free? Yes Musculoskeletal: No Tenderness to Palpation of Joints or Extremities Lymphatic: No Cervical, Supraclavicular, or Inguinal Adenopathy Neurological: Cranial nerves II-XII grossly intact, Neuro grossly intact Psych/Mental Status: Normal Affect, Appropriate Debridement Note Post-Debridement Measurements/Treatment WC - Nurse 2 - General Ulcer CM Notes Start: 04/13/18 11:51 Freq: Status: Active Protocol: Activity Type Activity Date Activity User E-Sign Co-Sign Detail Recorded Client Recorded Date Recorded By Document 04/13/18 12:15 MW [id number] 04/13/18 12:21 MW Document 04/20/18 12:11 MW [id number] 04/20/18 12:17 MW 04/13/18 04/20/18 12:15 12:11 Wound Center Nurse 2 #11- LT GR TOE DORSAL -Time 12:16 12:13 -Correct Patient Yes Yes -Correct Side, Site, Position Yes Yes -Correct Procedure Yes Yes -Procedure Performed Yes Yes -Type of Procedure Debridement Debridement -Clinical Debridement Subcutaneous Subcutaneous -Post Debridement Size (cm) - Length 0.7 0.2 -Post Debridement Size (cm) - Width 1.3 0.8 -Post Debridement Size (cm) - Depth 0.1 0.1 -Total Square Cm 0.91 0.16 -Wound/Ulcer Outcome Not Healed Not Healed -Ulcer Cleansing Rinsed/ Rinsed/ Irrigated with Irrigated with Saline Saline -Foul Odor after Cleansing No No -Bioengineered Tissue No No -Type of bioengineered Tissue EPIFIX -Expiration Date 12/06/22 -Product Lot Number [id number] -Percent Used 25 -Saline Lot Number [id number] -Bleeding Controlled with Pressure Pressure -Offloading No No -Treatment Response Procedure Procedure Tolerated Well Tolerated Well Pain Scale: 0-10 Numeric Is Patient Pain Free? Yes Yes Wound debrided: Left great toe Type of Debridement: Excisional debridement Anesthesia Used: 5% Lidocaine Gel Depth: Down to and including healthy tissue Percentage of wound debrided: 100 Instrument Used: 3mm curette Tissue Removed: Fibrin Severity: Limited To Skin Breakdown Amount of bleeding with debridement: None Bleeding Controlled with: Pressure Patient tolerated procedure well Assessment/Plan Active Problems Peripheral neuropathy (Chronic) Open wound of left great toe (Acute) H/O iron deficiency anemia (Chronic) Assessment: Open ulcer left great toe. Spina bifida. Peripheral neuropathy bilateral lower extremities. Nonambulatory wheelchair bound. Chronic swelling in both lower ext Plan: No cost epi fix 2 leave dressing alone only to reinforce or clean her out outer dressing. Follow-up 1 week
[2018-04-27 11:13] VITALS: BP 155/86; PULSE 79; RESP 16; TEMP 35.7; BMI 50.0
--- NOTE | 2018-04-27 11:48 | PCM.WC.PN ---
(1) Open wound of left great toe Status: Acute Current Visit: Yes Qualifiers: Code(s): S91.102A - Unspecified open wound of left great toe without damage to nail, initial encounter (2) H/O iron deficiency anemia Status: Chronic Current Visit: Yes Code(s): Z86.2 - Personal history of diseases of the blood and blood-forming organs and certain disorders involving the immune mechanism (3) Peripheral neuropathy Status: Chronic Current Visit: Yes Code(s): G62.9 - Polyneuropathy, unspecified (4) Spina bifida Status: Chronic Current Visit: Yes Qualifiers: Code(s): Q05.9 - Spina bifida, unspecified Type of Wound Chief Complaint: Follow-up left great toe open ulcer for 1 month and back of the L posterior calf from her compression cutting the skin in wheelchair History of Wound: 31-year-old spina bifida patient that is wheelchair-bound with no extremity sensation. Quite sure how the incident occurred on her left great toe. She does state that her left great toenail caught on something and she thinks we ripped the skin. We had just healed this toe probably in early August. Today we removed the great toenail when debriding the anterior great toe Progress of Wound: Patient was giving a no cost evaluation epi fix #3. . The great toenail is been removed and cleaned and is much flask cleaner and good skin underneath. She is to leave the wound alone and follow-up in 1 week. They reinforce and clean outer dressings if soiled. - Physical Exam Vital Signs Temp Pulse Resp BP 96.2 F L 79 16 155/86 H 04/27/18 11:13 04/27/18 11:13 04/27/18 11:13 04/27/18 11:13 General: Oriented x3, Cooperative, Well developed HEENT: Atraumatic, PERRLA Oral: Moist Mucosa Neck: Supple, No JVD Lungs: Clear to auscultation, Normal air movement Cardiovascular: Regular rate, Regular Rhythm Abdomen: Bowel Sounds Present, Soft, Non Tender, No Hepato-splenomegaly Extremities: No clubbing, No edema Skin: Ulcer/ Wound - Great toe Wound Measurements and Assessment WC - Nurse 1 - General Ulcer Measurement Start: 04/13/18 11:51 Freq: Status: Active Protocol: Activity Type Activity Date Activity User E-Sign Co-Sign Detail Recorded Client Recorded Date Recorded By Document 04/27/18 11:13 [facility] [id number] 04/27/18 11:20 [facility] 04/27/18 11:13 Wound Center Nurse 1 [Ulcer Assessment] #11- LT GR TOE DORSAL -Combined with other wound No -Current Size (cm) - Length 0.7 -Current Size (cm) - Width 1.1 -Current Size (cm) - Depth 0.1 -Total Square Cm 0.77 -Date of Last Picture (Recall this 04/27/18 field) -Photo Taken Yes -Epithelialization Small 1-33% -Tunneling No -Undermining/Tunneling No -Circular Undermining No -Exudate Amt Small (1-33%) -Exudate Type Serosanguineous -Wound Margin Distinct, Outline Attached -Granulation Amt Large (67-100%) -Granulation Quality Red -Slough/Fibrin No -Necrosis Amt None Present (0 %) -Texture (Deepti-wound Skin Appearance) Scarring -Moisture (Deepti-wound Skin Appearance Maceration ) -Color (Deepti-wound Skin Appearance) Palor -Temperature (Deepti-wound Skin No Abnormality Appearance) (Pt Warm) -Tenderness on Palpation (Deepti-wound No Skin Appearance) -Ulcer Cleansing Wound Cleanser -Foul Odor after Cleansing No [Edema Assessment] -Lower Limb Edema Present Yes -Point of measurement (cm from the 37.5 medial instep) -Point of Measurement (cm from the 26.7 medial instep) WC - Nurse 2 - General Ulcer CM Notes Start: 04/13/18 11:51 Freq: Status: Active Protocol: Activity Type Activity Date Activity User E-Sign Co-Sign Detail Recorded Client Recorded Date Recorded By Document 04/27/18 11:32 MW [id number] 04/27/18 11:37 MW 04/27/18 11:32 Wound Center Nurse 2 [Procedure/Treatment] #11- LT GR TOE DORSAL -Time 11:33 -Correct Patient Yes -Correct Side, Site, Position Yes -Correct Procedure Yes -Procedure Performed Yes -Clinical Debridement Subcutaneous Selective -Post Debridement Size (cm) - Length 0.2 -Post Debridement Size (cm) - Width 0.8 -Post Debridement Size (cm) - Depth 0.1 -Total Square Cm 0.16 -Wound/Ulcer Outcome Not Healed -Ulcer Cleansing Rinsed/ Irrigated with Saline -Foul Odor after Cleansing No -Bioengineered Tissue No -Bleeding Controlled with Pressure -Offloading No -Treatment Response Procedure Tolerated Well [See Physician Procedure note for Specifics] Pain Scale: 0-10 Numeric [Pain] -Is Patient Pain Free? Yes Musculoskeletal: No Tenderness to Palpation of Joints or Extremities Lymphatic: No Cervical, Supraclavicular, or Inguinal Adenopathy Neurological: Cranial nerves II-XII grossly intact, Neuro grossly intact Psych/Mental Status: Normal Affect, Appropriate Debridement Note Post-Debridement Measurements/Treatment WC - Nurse 2 - General Ulcer CM Notes Start: 04/13/18 11:51 Freq: Status: Active Protocol: Activity Type Activity Date Activity User E-Sign Co-Sign Detail Recorded Client Recorded Date Recorded By Document 04/13/18 12:15 MW [id number] 04/13/18 12:21 MW Document 04/20/18 12:11 MW [id number] 04/20/18 12:17 MW Document 04/27/18 11:32 MW [id number] 04/27/18 11:37 MW 04/13/18 04/20/18 04/27/18 12:15 12:11 11:32 Wound Center Nurse 2 #11- LT GR TOE DORSAL -Time 12:16 12:13 11:33 -Correct Patient Yes Yes Yes -Correct Side, Site, Position Yes Yes Yes -Correct Procedure Yes Yes Yes -Procedure Performed Yes Yes Yes -Type of Procedure Debridement Debridement -Clinical Debridement Subcutaneous Subcutaneous Subcutaneous Selective -Post Debridement Size (cm) - Length 0.7 0.2 0.2 -Post Debridement Size (cm) - Width 1.3 0.8 0.8 -Post Debridement Size (cm) - Depth 0.1 0.1 0.1 -Total Square Cm 0.91 0.16 0.16 -Wound/Ulcer Outcome Not Healed Not Healed Not Healed -Ulcer Cleansing Rinsed/ Rinsed/ Rinsed/ Irrigated with Irrigated with Irrigated with Saline Saline Saline -Foul Odor after Cleansing No No No -Bioengineered Tissue No No No -Type of bioengineered Tissue EPIFIX -Expiration Date 12/06/22 -Product Lot Number [id number] -Percent Used 25 -Saline Lot Number [id number] -Bleeding Controlled with Pressure Pressure Pressure -Offloading No No No -Treatment Response Procedure Procedure Procedure Tolerated Well Tolerated Well Tolerated Well Pain Scale: 0-10 Numeric Is Patient Pain Free? Yes Yes Yes Wound debrided: Left great toe Laterality: Left Type of Debridement: Selective debridement Anesthesia Used: 5% Lidocaine Gel Depth: Down to and including healthy tissue, in the subcutaneous layer Percentage of wound debrided: 100 Instrument Used: 3mm curette Tissue Removed: Fibrin Severity: Fat Layer Exposed Amount of bleeding with debridement: None Assessment/Plan Active Problems Peripheral neuropathy (Chronic) Open wound of left great toe (Acute) H/O iron deficiency anemia (Chronic) Spina bifida (Chronic) Assessment: Open ulcer left great toe. Spina bifida. Peripheral neuropathy bilateral lower extremities. Nonambulatory wheelchair bound. Chronic swelling in both lower ext Plan: No cost epi fix 3 leave dressing alone only to reinforce or clean her out outer dressing. Follow-up 1 week
[2018-05-04 11:32] VITALS: RESP 16; TEMP 36.6; BMI 50.0
--- NOTE | 2018-05-04 11:57 | PCM.WC.PN ---
(1) Open wound of left great toe Status: Acute Current Visit: Yes Qualifiers: Code(s): S91.102A - Unspecified open wound of left great toe without damage to nail, initial encounter (2) H/O iron deficiency anemia Status: Chronic Current Visit: Yes Code(s): Z86.2 - Personal history of diseases of the blood and blood-forming organs and certain disorders involving the immune mechanism (3) Peripheral neuropathy Status: Chronic Current Visit: Yes Code(s): G62.9 - Polyneuropathy, unspecified (4) Spina bifida Status: Chronic Current Visit: Yes Qualifiers: Code(s): Q05.9 - Spina bifida, unspecified Type of Wound Chief Complaint: Follow-up left great toe open ulcer for 1 month and back of the L posterior calf from her compression cutting the skin in wheelchair History of Wound: 31-year-old spina bifida patient that is wheelchair-bound with no extremity sensation. Quite sure how the incident occurred on her left great toe. She does state that her left great toenail caught on something and she thinks we ripped the skin. We had just healed this toe probably in early August. Today we removed the great toenail when debriding the anterior great toe Progress of Wound: Patient was giving a no cost evaluation epi fix #4 the wound is almost healed. . The great toenail is growing back - Physical Exam Vital Signs Temp Pulse Resp BP 97.8 F 79 16 155/86 H 05/04/18 11:32 04/27/18 11:13 05/04/18 11:32 04/27/18 11:13 General: Oriented x3, Cooperative, Well developed HEENT: Atraumatic, PERRLA Oral: Moist Mucosa Neck: Supple, No JVD Lungs: Clear to auscultation, Normal air movement Cardiovascular: Regular rate, Regular Rhythm Abdomen: Bowel Sounds Present, Soft, Non Tender, No Hepato-splenomegaly Extremities: No clubbing, No edema, - - Left great toenail and toe Wound Measurements and Assessment WC - Nurse 1 - General Ulcer Measurement Start: 04/13/18 11:51 Freq: Status: Active Protocol: Activity Type Activity Date Activity User E-Sign Co-Sign Detail Recorded Client Recorded Date Recorded By Document 05/04/18 11:32 DV [id number] 05/04/18 11:35 DV 05/04/18 11:32 Wound Center Nurse 1 [Ulcer Assessment] #11- LT GR TOE DORSAL -Combined with other wound No -Current Size (cm) - Length 0.4 -Current Size (cm) - Width 0.5 -Current Size (cm) - Depth 0.1 -Total Square Cm 0.20 -Photo Taken No -Epithelialization Small 1-33% -Tunneling No -Undermining/Tunneling No -Circular Undermining No -Classification - Thickness Full Thickness without Exposed Support Structure Musculoskeletal: No Tenderness to Palpation of Joints or Extremities Lymphatic: No Cervical, Supraclavicular, or Inguinal Adenopathy Neurological: Cranial nerves II-XII grossly intact, Neuro grossly intact Psych/Mental Status: Normal Affect, Appropriate Debridement Note Post-Debridement Measurements/Treatment WC - Nurse 2 - General Ulcer CM Notes Start: 04/13/18 11:51 Freq: Status: Active Protocol: Activity Type Activity Date Activity User E-Sign Co-Sign Detail Recorded Client Recorded Date Recorded By Document 04/13/18 12:15 MW [id number] 04/13/18 12:21 MW Document 04/20/18 12:11 MW [id number] 04/20/18 12:17 MW Document 04/27/18 11:32 MW [id number] 04/27/18 11:37 MW 04/13/18 04/20/18 04/27/18 12:15 12:11 11:32 Wound Center Nurse 2 #11- LT GR TOE DORSAL -Time 12:16 12:13 11:33 -Correct Patient Yes Yes Yes -Correct Side, Site, Position Yes Yes Yes -Correct Procedure Yes Yes Yes -Procedure Performed Yes Yes Yes -Type of Procedure Debridement Debridement -Clinical Debridement Subcutaneous Subcutaneous Subcutaneous Selective -Post Debridement Size (cm) - Length 0.7 0.2 0.2 -Post Debridement Size (cm) - Width 1.3 0.8 0.8 -Post Debridement Size (cm) - Depth 0.1 0.1 0.1 -Total Square Cm 0.91 0.16 0.16 -Wound/Ulcer Outcome Not Healed Not Healed Not Healed -Ulcer Cleansing Rinsed/ Rinsed/ Rinsed/ Irrigated with Irrigated with Irrigated with Saline Saline Saline -Foul Odor after Cleansing No No No -Bioengineered Tissue No No No -Type of bioengineered Tissue EPIFIX -Expiration Date 12/06/22 -Product Lot Number [id number] -Percent Used 25 -Saline Lot Number [id number] -Bleeding Controlled with Pressure Pressure Pressure -Offloading No No No -Treatment Response Procedure Procedure Procedure Tolerated Well Tolerated Well Tolerated Well Pain Scale: 0-10 Numeric Is Patient Pain Free? Yes Yes Yes No debridement was completed today Assessment/Plan Active Problems Peripheral neuropathy (Chronic) Open wound of left great toe (Acute) H/O iron deficiency anemia (Chronic) Spina bifida (Chronic) Assessment: Open ulcer left great toe. Spina bifida. Peripheral neuropathy bilateral lower extremities. Nonambulatory wheelchair bound. Chronic swelling in both lower ext Plan: No cost epi fix 4 leave dressing alone only to reinforce or clean her out outer dressing. Follow-up 1 week
== END 2018-05-07 23:59 ==
LOC: WC 11:15
PROVIDERS: Family Provider Family Medicine; PCP Family Medicine; Visit Provider Nurse Practitioner
DX: I87.2 Venous insufficiency (chronic) (peripheral) (principal); G62.9 Polyneuropathy, unspecified; Q05.9 Spina bifida, unspecified; Z99.3 Dependence on wheelchair; L97.521 Non-pressure chronic ulcer of other part of left foot limited to breakdown of skin
CPT/HCPCS: 11042; 97597; 99213; G0463

== ENCOUNTER 2018-05-11 11:04 | Outpatient (RCR) | payer BC, MEDICAID, SELFPAY ==
[2018-05-08 01:19] VITALS: BP 155/86; PULSE 79; RESP 16; TEMP 36.6
[2018-05-11 11:11] VITALS: BP 124/75; PULSE 95; RESP 18; TEMP 37; BMI 50.0
--- NOTE | 2018-05-11 12:12 | PCM.WC.PN ---
(1) Open wound of left great toe Status: Acute Current Visit: Yes Qualifiers: Code(s): S91.102A - Unspecified open wound of left great toe without damage to nail, initial encounter (2) H/O iron deficiency anemia Status: Chronic Current Visit: Yes Code(s): Z86.2 - Personal history of diseases of the blood and blood-forming organs and certain disorders involving the immune mechanism (3) Peripheral neuropathy Status: Chronic Current Visit: Yes Code(s): G62.9 - Polyneuropathy, unspecified (4) Spina bifida Status: Chronic Current Visit: Yes Qualifiers: Code(s): Q05.9 - Spina bifida, unspecified Type of Wound Chief Complaint: Follow-up left great toe open ulcer for 1 month and back of the L posterior calf from her compression cutting the skin in wheelchair History of Wound: 31-year-old spina bifida patient that is wheelchair-bound with no extremity sensation. Quite sure how the incident occurred on her left great toe. She does state that her left great toenail caught on something and she thinks we ripped the skin. We had just healed this toe probably in early August. Today we removed the great toenail when debriding the anterior great toe Progress of Wound: Great toe wound is healed patient will be discharged from the wound center - Physical Exam Vital Signs Temp Pulse Resp BP 98.6 F 95 18 124/75 H 05/11/18 11:11 05/11/18 11:11 05/11/18 11:11 05/11/18 11:11 General: Oriented x3, Cooperative, Well developed HEENT: Atraumatic, PERRLA Oral: Moist Mucosa Neck: Supple, No JVD Lungs: Clear to auscultation, Normal air movement Cardiovascular: Regular rate, Regular Rhythm Abdomen: Bowel Sounds Present, Soft, Non Tender, No Hepato-splenomegaly Extremities: No clubbing, No edema, - - Left great toe wound Wound Measurements and Assessment WC - Nurse 1 - General Ulcer Measurement Start: 05/11/18 11:11 Freq: Status: Active Protocol: Activity Type Activity Date Activity User E-Sign Co-Sign Detail Recorded Client Recorded Date Recorded By Document 05/11/18 11:11 AN [id number] 05/11/18 11:20 AN 05/11/18 11:11 Wound Center Nurse 1 [Ulcer Assessment] #11- LT GR TOE DORSAL -Combined with other wound No -Current Size (cm) - Length 0.1 -Current Size (cm) - Width 0.1 -Current Size (cm) - Depth 0.1 -Total Square Cm 0.01 -Epithelialization None Present -Tunneling No -Undermining/Tunneling No -Circular Undermining No -Classification - Thickness Unclassifiable (Eschar Covered ) -Granulation Amt None Present (0 %) [Edema Assessment] -Left Calf (cm) 39.5 -Left Ankle (cm) 29 WC - Nurse 2 - General Ulcer CM Notes Start: 05/11/18 11:11 Freq: Status: Active Protocol: Activity Type Activity Date Activity User E-Sign Co-Sign Detail Recorded Client Recorded Date Recorded By Document 05/11/18 11:28 MW [id number] 05/11/18 11:29 MW 05/11/18 11:28 Wound Center Nurse 2 [Procedure/Treatment] #11- LT GR TOE DORSAL -Time 11:28 -Correct Patient Yes -Correct Side, Site, Position Yes -Correct Procedure Yes -Procedure Performed No -Post Debridement Size (cm) - Length 0 -Post Debridement Size (cm) - Width 0 -Post Debridement Size (cm) - Depth 0 -Total Square Cm 0 -Wound/Ulcer Outcome Healed- Epithelialized -Ulcer Cleansing Not Cleansed -Foul Odor after Cleansing No -Bleeding Controlled with NA -Offloading No [See Physician Procedure note for Specifics] Pain Scale: 0-10 Numeric [Pain] -Is Patient Pain Free? Yes Musculoskeletal: No Tenderness to Palpation of Joints or Extremities Lymphatic: No Cervical, Supraclavicular, or Inguinal Adenopathy Neurological: Cranial nerves II-XII grossly intact, Neuro grossly intact Psych/Mental Status: Normal Affect, Appropriate Debridement Note Post-Debridement Measurements/Treatment WC - Nurse 2 - General Ulcer CM Notes Start: 05/11/18 11:11 Freq: Status: Active Protocol: Activity Type Activity Date Activity User E-Sign Co-Sign Detail Recorded Client Recorded Date Recorded By Document 05/11/18 11:28 MW [id number] 05/11/18 11:29 MW 05/11/18 11:28 Wound Center Nurse 2 #11- LT GR TOE DORSAL -Time 11:28 -Correct Patient Yes -Correct Side, Site, Position Yes -Correct Procedure Yes -Procedure Performed No -Post Debridement Size (cm) - Length 0 -Post Debridement Size (cm) - Width 0 -Post Debridement Size (cm) - Depth 0 -Total Square Cm 0 -Wound/Ulcer Outcome Healed- Epithelialized -Ulcer Cleansing Not Cleansed -Foul Odor after Cleansing No -Bleeding Controlled with NA -Offloading No Pain Scale: 0-10 Numeric Is Patient Pain Free? Yes Wound debrided: Left great toe wound No debridement was completed today Assessment/Plan Active Problems Peripheral neuropathy (Chronic) Open wound of left great toe (Acute) H/O iron deficiency anemia (Chronic) Spina bifida (Chronic) Assessment: Open ulcer left great toe. Spina bifida. Peripheral neuropathy bilateral lower extremities. Nonambulatory wheelchair bound. Chronic swelling in both lower ext Plan: Discharge from the wound center follow-up as needed
== END 2018-06-07 23:59 ==
LOC: WC 11:04
PROVIDERS: Family Provider Family Medicine; PCP Family Medicine; Visit Provider Nurse Practitioner
DX: Z09 Encounter for follow-up examination after completed treatment for conditions other than malignant neoplasm (principal); Q05.9 Spina bifida, unspecified; G62.9 Polyneuropathy, unspecified; Z99.3 Dependence on wheelchair
CPT/HCPCS: 99213; G0463

== ENCOUNTER 2018-06-29 09:41 | Outpatient (RCR) | payer BC, MEDICAID, SELFPAY ==
[2018-06-08 01:24] VITALS: BP 124/75; PULSE 95; RESP 18; TEMP 37
[2018-06-29 10:08] VITALS: BP 139/95; PULSE 86; RESP 18; TEMP 536.6; TEMP 997.8; BMI 50.3
--- NOTE | 2018-06-29 10:40 | PCM.WC.HP ---
(1) Open wound of left great toe Status: Acute Current Visit: Yes Qualifiers: Code(s): S91.102A - Unspecified open wound of left great toe without damage to nail, initial encounter (2) H/O iron deficiency anemia Status: Chronic Current Visit: Yes Code(s): Z86.2 - Personal history of diseases of the blood and blood-forming organs and certain disorders involving the immune mechanism (3) Peripheral neuropathy Status: Chronic Current Visit: Yes Code(s): G62.9 - Polyneuropathy, unspecified (4) Spina bifida Status: Chronic Current Visit: Yes Qualifiers: Code(s): Q05.9 - Spina bifida, unspecified (5) Venous stasis of both lower extremities Status: Chronic Current Visit: Yes Code(s): I87.8 - Other specified disorders of veins History of Present Illness Chief Complaint: Follow-up left great toe open ulcer for 1 month and back of the L posterior calf from her compression cutting the skin in wheelchair History of Wound: 31-year-old spina bifida patient that is wheelchair-bound with no extremity sensation. Is discharged about 2 months ago for the same left toe open and now returns with the same toe opened. Not sure how it happens. Her shoes are worn and and not good repair. She does state that her left great toenail caught on something and she thinks we ripped the skin. We had just healed this toe probably in early August. Past Medical History Past Medical History: Chronic Problems Peripheral neuropathy (Chronic) Venous stasis of both lower extremities (Chronic) H/O iron deficiency anemia (Chronic) Spina bifida (Chronic) Past Medical History: Left great toe open wound nonhealing Surgical History: appendectomy, - - 45 surgeries total- includes skin graft over ischium 2009, spinal fusion and multiple bladder surgeries Allergies/Adverse Reactions: Allergies lidocaine Allergy (Verified 06/29/18 10:15) Unknown latex Adverse Reaction (Verified 06/29/18 10:15) Unknown Smoking Status: Never smoker Review of Systems Constitutional: Denies: Chills, Fever Eyes: Denies: Blurred vision, Drainage, Pain HEENT: Denies: Difficulty Hearing, Difficulty Swallowing, Sore Throat, Visual Changes Cardiovascular: Denies: Chest Pain, Palpitations, Syncope Respiratory: Denies: Cough, Shortness of Breath Gastrointestinal: Denies: Abdominal Pain, Nausea, Vomiting Genitourinary: Denies: Dysuria, Frequency Musculoskeletal: Denies: Joint Pain, Muscle pain Skin: Reports: - - Left great toe open wound. Denies: Jaundice, Rash Neurological: Denies: Balance problems, Change in Speech, Difficulty swallowing, Focal weakness Psychiatric: Denies: Anxiety, Depression Endocrine: Denies: Change in Body Habitus Hematologic/ Lymphatic: Denies: Adenopathy - Physical Exam Vital Signs Temp Pulse Resp BP 997.8 F H 86 18 139/95 H 06/29/18 10:08 06/29/18 10:08 06/29/18 10:08 06/29/18 10:08 General: Oriented x3, Cooperative, Well developed HEENT: Atraumatic, PERRLA Oral: Moist Mucosa Neck: Supple, No JVD Lungs: Clear to auscultation, Normal air movement Cardiovascular: Regular rate, Regular Rhythm Abdomen: Bowel Sounds Present, Soft, Non Tender, No Hepato-splenomegaly Extremities: No clubbing, No edema, - - Left great toe wound Wound Measurements and Assessment WC - Nurse 1 - General Ulcer Measurement Start: 06/29/18 10:07 Freq: Status: Active Protocol: Activity Type Activity Date Activity User E-Sign Co-Sign Detail Recorded Client Recorded Date Recorded By Document 06/29/18 10:08 DL [id number] 06/29/18 10:14 DL 06/29/18 10:08 Wound Center Nurse 1 [Ulcer Assessment] #13 L Grt Toe -Current Size (cm) - Length 0.7 -Current Size (cm) - Width 1.1 -Current Size (cm) - Depth 0.1 -Total Square Cm 0.77 -Photo Taken Yes -Classification - Thickness Full Thickness without Exposed Support Structure -Classification - Petit Grading ( Grade 2 Diabetic Ulcer) -Exudate Amt Small -Exudate Type Serosanguineous -Wound Margin Distinct, Outline Attached -Granulation Amt Large (67-100%) -Granulation Quality Red -Necrosis Amt None Present (0 %) -Structure Exposed N/A -Texture (Deepti-wound Skin Appearance) Localized Edema Scarring -Color (Deepti-wound Skin Appearance) Erythema -Temperature (Deepti-wound Skin No Abnormality Appearance) (Pt Warm) -Tenderness on Palpation (Deepti-wound No Skin Appearance) -Ulcer Cleansing Rinsed/ Irrigated with Saline -Foul Odor after Cleansing No -Anesthetic Used 4% Lidocaine Solution WC - Nurse 2 - General Ulcer CM Notes Start: 06/29/18 10:07 Freq: Status: Active Protocol: Activity Type Activity Date Activity User E-Sign Co-Sign Detail Recorded Client Recorded Date Recorded By Document 06/29/18 10:31 MW [id number] 06/29/18 10:35 MW 06/29/18 10:31 Wound Center Nurse 2 [Procedure/Treatment] -Time 10:31 -Correct Patient Yes -Correct Side, Site, Position Yes -Correct Procedure Yes -Procedure Performed Yes -Type of Procedure Debridement -Clinical Debridement Subcutaneous -Post Debridement Size (cm) - Length 1.0 -Post Debridement Size (cm) - Width 1.5 -Post Debridement Size (cm) - Depth 2 -Total Square Cm 1.50 -Wound/Ulcer Outcome Not Healed -Ulcer Cleansing Rinsed/ Irrigated with Saline -Foul Odor after Cleansing No -Bioengineered Tissue No -Bleeding Controlled with Pressure -Offloading No -Treatment Response Procedure Tolerated Well [See Physician Procedure note for Specifics] Pain Scale: 0-10 Numeric [Pain] -Is Patient Pain Free? Yes Musculoskeletal: No Tenderness to Palpation of Joints or Extremities Lymphatic: No Cervical, Supraclavicular, or Inguinal Adenopathy Neurological: Cranial nerves II-XII grossly intact, Neuro grossly intact Psych/Mental Status: Normal Affect, Appropriate Debridement Note Post-Debridement Measurements/Treatment WC - Nurse 2 - General Ulcer CM Notes Start: 06/29/18 10:07 Freq: Status: Active Protocol: Activity Type Activity Date Activity User E-Sign Co-Sign Detail Recorded Client Recorded Date Recorded By Document 06/29/18 10:31 MW [id number] 06/29/18 10:35 MW 06/29/18 10:31 Wound Center Nurse 2 #13 L Grt Toe -Time 10:31 -Correct Patient Yes -Correct Side, Site, Position Yes -Correct Procedure Yes -Procedure Performed Yes -Type of Procedure Debridement -Clinical Debridement Subcutaneous -Post Debridement Size (cm) - Length 1.0 -Post Debridement Size (cm) - Width 1.5 -Post Debridement Size (cm) - Depth 2 -Total Square Cm 1.50 -Wound/Ulcer Outcome Not Healed -Ulcer Cleansing Rinsed/ Irrigated with Saline -Foul Odor after Cleansing No -Bioengineered Tissue No -Bleeding Controlled with Pressure -Offloading No -Treatment Response Procedure Tolerated Well Pain Scale: 0-10 Numeric Is Patient Pain Free? Yes Wound debrided: Left great toe Type of Debridement: Excisional debridement Anesthesia Used: 5% Lidocaine Gel Depth: Down to and including healthy tissue Percentage of wound debrided: 100 Instrument Used: 5mm curette Tissue Removed: Fibrin and devitalized tissue Severity: Limited To Skin Breakdown Amount of bleeding with debridement: Mild Bleeding Controlled with: Compression and gauze Patient tolerated procedure well Assessment/Plan Active Problems Peripheral neuropathy (Chronic) Open wound of left great toe (Acute) Venous stasis of both lower extremities (Chronic) H/O iron deficiency anemia (Chronic) Spina bifida (Chronic) Assessment: Open ulcer left great toe. Spina bifida. Peripheral neuropathy bilateral lower extremities. Nonambulatory wheelchair bound. Chronic swelling in both lower ext Plan: Wash foot with Hibiclens. Apply pormopran and adaptic cover with gauze tape. buy new shoes, see a public safety telecommunicator will get her some names. Follow up 1 week
== END 2018-07-05 23:59 ==
LOC: WC 09:41
PROVIDERS: Family Provider Family Medicine; PCP Family Medicine; Visit Provider Nurse Practitioner
DX: I87.8 Other specified disorders of veins (principal); L97.521 Non-pressure chronic ulcer of other part of left foot limited to breakdown of skin; G62.9 Polyneuropathy, unspecified; Q05.9 Spina bifida, unspecified; Z99.3 Dependence on wheelchair; D50.9 Iron deficiency anemia, unspecified
CPT/HCPCS: 11042; 99213; G0463

== ENCOUNTER 2018-08-01 14:00 | Outpatient (RCR) | payer BC, MEDICAID, SELFPAY ==
[2018-07-06 01:07] VITALS: BP 139/95; PULSE 86; RESP 18; TEMP 536.6; TEMP 997.8
[2018-07-06 09:55] VITALS: BP 131/86; PULSE 77; RESP 18; TEMP 36.3; BMI 50.3
--- NOTE | 2018-07-06 10:17 | PN.PCM_ITS ---
(1) Open wound of left great toe Status: Acute Current Visit: Yes Qualifiers: Code(s): S91.102A - Unspecified open wound of left great toe without damage to nail, initial encounter (2) Peripheral neuropathy Status: Chronic Current Visit: Yes Code(s): G62.9 - Polyneuropathy, unspecified (3) Spina bifida Status: Chronic Current Visit: Yes Qualifiers: Code(s): Q05.9 - Spina bifida, unspecified (4) Venous stasis of both lower extremities Status: Chronic Current Visit: Yes Code(s): I87.8 - Other specified disorders of veins Type of Wound Chief Complaint: Follow-up left great toe open ulcer for 1 month and back of the L posterior calf from her compression cutting the skin in wheelchair History of Wound: 31-year-old spina bifida patient that is wheelchair-bound with no extremity sensation. Is discharged about 2 months ago for the same left toe open and now returns with the same toe opened. Not sure how it happens. Her shoes are worn and and not good repair. She does state that her left great toenail caught on something and she thinks we ripped the skin. We had just healed this toe probably in early August. Patient also explained she is skiing in her ski boots rub and she thinks the pressure from that is because the area open. Progress of Wound: Today the ulcer is smaller using Dermagran no sign of infection no odor no redness. - Physical Exam Vital Signs Temp Pulse Resp BP 97.3 F L 77 18 131/86 H 07/06/18 09:55 07/06/18 09:55 07/06/18 09:55 07/06/18 09:55 General: Oriented x3, Cooperative, Well developed HEENT: Atraumatic, PERRLA Oral: Moist Mucosa Neck: Supple, No JVD Lungs: Clear to auscultation, Normal air movement Cardiovascular: Regular rate, Regular Rhythm Abdomen: Bowel Sounds Present, Soft, Non Tender, No Hepato-splenomegaly Extremities: No clubbing, No edema Wound Measurements and Assessment WC - Nurse 1 - General Ulcer Measurement Start: 07/06/18 09:55 Freq: Status: Active Protocol: Activity Type Activity Date Activity User E-Sign Co-Sign Detail Recorded Client Recorded Date Recorded By Document 07/06/18 09:55 RB [id number] 07/06/18 09:58 07/06/18 09:55 Wound Center Nurse 1 [Ulcer Assessment] #13 L Grt Toe -Combined with other wound No -Current Size (cm) - Length 1 -Current Size (cm) - Width 1.6 -Current Size (cm) - Depth 0.3 -Total Square Cm 1.6 -Photo Taken No -Tunneling No -Undermining/Tunneling No -Circular Undermining No -Exudate Amt Small -Exudate Type Serosanguineous -Wound Margin Distinct, Outline Attached -Granulation Amt Medium (34-66%) -Granulation Quality Red -Slough/Fibrin Yes -Necrosis Amt Small (1-33%) -Necrotic Tissue Type Adherent Slough -Structure Exposed N/A -Texture (Deepti-wound Skin Appearance) Assessed -Moisture (Deepti-wound Skin Appearance Assessed ) Dry/Scaly -Color (Deepti-wound Skin Appearance) Assessed -Temperature (Deepti-wound Skin No Abnormality Appearance) (Pt Warm) -Tenderness on Palpation (Deepti-wound No Skin Appearance) -Ulcer Cleansing Rinsed/ Irrigated with Saline -Foul Odor after Cleansing No [Edema Assessment] -Lower Limb Edema Present Yes -Left Calf (cm) 41 -Left Ankle (cm) 27 Musculoskeletal: No Tenderness to Palpation of Joints or Extremities Lymphatic: No Cervical, Supraclavicular, or Inguinal Adenopathy Neurological: Cranial nerves II-XII grossly intact, Neuro grossly intact Psych/Mental Status: Normal Affect, Appropriate, Alert and oriented to time, place, person, mood and affect Debridement Note Wound debrided: Left great toe Type of Debridement: Excisional debridement Anesthesia Used: 5% Lidocaine Gel Depth: Down to and including healthy tissue, in the subcutaneous layer Percentage of wound debrided: 100 Instrument Used: 5mm curette Tissue Removed: Fibrin Severity: Limited To Skin Breakdown Amount of bleeding with debridement: Mild Bleeding Controlled with: Compression and gauze Patient tolerated procedure well Assessment/Plan Active Problems Peripheral neuropathy (Chronic) Open wound of left great toe (Acute) Venous stasis of both lower extremities (Chronic) Spina bifida (Chronic) Assessment: Open ulcer left great toe. Spina bifida. Peripheral neuropathy bilateral lower extremities. Nonambulatory wheelchair bound. Chronic swelling in both lower ext Plan: Wash foot with Hibiclens. Apply pormopran and adaptic cover with gauze tape. buy new shoes, see a rod tape operator will get her some names. Follow up 1 week
[2018-07-11 14:18] VITALS: BP 127/69; PULSE 102; RESP 20; TEMP 36.4; BMI 50.3
--- NOTE | 2018-07-11 16:15 | PN.PCM_ITS ---
(1) Chronic ulcer of left foot with fat layer exposed Status: Chronic Current Visit: Yes Code(s): L97.522 - Non-pressure chronic ulcer of other part of left foot with fat layer exposed (2) Venous stasis of both lower extremities Status: Chronic Current Visit: Yes Code(s): I87.8 - Other specified disorders of veins (3) Spina bifida Status: Chronic Current Visit: Yes Qualifiers: Code(s): Q05.9 - Spina bifida, unspecified Type of Wound Date of Service: 07/11/18 Chief Complaint: Follow-up left great toe ulcer History of Wound: 32-year-old spina bifida patient that is wheelchair-bound with no extremity sensation returns to the wound healing center for recurrent left great toe ulcer that occurred after she wore ski boots for an extended period of time. She denies redness, odor, fever, chill, nausea, vomiting. She did recently ordered updated extra-depth healing shoes from [facility] last week and is waiting for this arrival. She continues to keep pressure off of the ulcer site and change the dressing daily. She is no longer to make it to the wound healing center for morning appointments due to her work schedule; she works second shift. Progress of Wound: Stable - Physical Exam Vital Signs Temp Pulse Resp BP 97.6 F L 102 H 20 H 127/69 H 07/11/18 14:18 07/11/18 14:18 07/11/18 14:18 07/11/18 14:18 General: Alert, Oriented x3, Cooperative HEENT: Atraumatic Extremities: No cyanosis, Capillary Refill Less than 3 Seconds, No Calf Tenderness, Diminished Peripheral Pulses, Edema, - - Spina bifida related lower extremity lack of motion Skin: Ulcer/ Wound - No purulence, erythema, streaking, odor, or infection. The ulcer bed is granular. The peripheral skin is hairless and atrophic. Wound Measurements and Assessment WC - Nurse 1 - General Ulcer Measurement Start: 07/06/18 09:55 Freq: Status: Active Protocol: Activity Type Activity Date Activity User E-Sign Co-Sign Detail Recorded Client Recorded Date Recorded By Document 07/11/18 14:18 DL [id number] 07/11/18 14:23 DL 07/11/18 14:18 Wound Center Nurse 1 [Ulcer Assessment] #13 L Grt Toe -Current Size (cm) - Length 0.6 -Current Size (cm) - Width 1 -Current Size (cm) - Depth 0.1 -Total Square Cm 0.6 -Photo Taken No -Maximum Distance #2 (cm) 0.2 -Circular Undermining Yes -Exudate Amt Medium -Exudate Type Serosanguineous -Wound Margin Thickened -Granulation Amt Large (67-100%) -Granulation Quality Red -Necrosis Amt Small (1-33%) -Necrotic Tissue Type Adherent Slough -Structure Exposed N/A -Texture (Deepti-wound Skin Appearance) Localized Edema -Moisture (Deepti-wound Skin Appearance No Abnormality ) -Color (Deepti-wound Skin Appearance) Erythema Rubor -Temperature (Deepti-wound Skin No Abnormality Appearance) (Pt Warm) -Tenderness on Palpation (Deepti-wound No Skin Appearance) -Ulcer Cleansing Wound Cleanser -Foul Odor after Cleansing No -Anesthetic Used 4% Lidocaine Solution WC - Nurse 2 - General Ulcer CM Notes Start: 07/06/18 09:55 Freq: Status: Active Protocol: Activity Type Activity Date Activity User E-Sign Co-Sign Detail Recorded Client Recorded Date Recorded By Document 07/11/18 14:35 DL [id number] 07/11/18 14:41 DL 07/11/18 14:35 Wound Center Nurse 2 [Procedure/Treatment] -Time 14:35 -Correct Patient Yes -Correct Side, Site, Position Yes -Correct Procedure Yes -Procedure Performed Yes -Type of Procedure Debridement -Clinical Debridement Subcutaneous -Post Debridement Size (cm) - Length 1.0 -Post Debridement Size (cm) - Width 1.5 -Post Debridement Size (cm) - Depth 0.1 -Total Square Cm 1.50 -Wound/Ulcer Outcome Not Healed -Ulcer Cleansing Rinsed/ Irrigated with Saline -Foul Odor after Cleansing No -Bioengineered Tissue No -Bleeding Controlled with Pressure -Offloading Yes -Type of Offloading Camwalker -Treatment Response Procedure Tolerated Well [See Physician Procedure note for Specifics] Pain Scale: 0-10 Numeric [Pain] -Is Patient Pain Free? Yes Musculoskeletal: No Tenderness to Palpation of Joints or Extremities, Muscle Wasting, - - Ankle foot orthoses and soft topped healing shoes Neurological: - - Lack of sensation light touch Psych/Mental Status: Normal Affect, Appropriate Debridement Note Post-Debridement Measurements/Treatment - Nurse 2 - General Ulcer CM Notes Start: 07/06/18 09:55 Freq: Status: Active Protocol: Activity Type Activity Date Activity User E-Sign Co-Sign Detail Recorded Client Recorded Date Recorded By Document 07/06/18 10:09 MW [id number] 07/06/18 10:15 MW Document 07/11/18 14:35 DL [id number] 07/11/18 14:41 DL 07/06/18 07/11/18 10:09 14:35 Wound Center Nurse 2 #13 L Grt Toe -Time 10:09 14:35 -Correct Patient Yes Yes -Correct Side, Site, Position Yes Yes -Correct Procedure Yes Yes -Procedure Performed Yes Yes -Type of Procedure Debridement Debridement -Clinical Debridement Subcutaneous Subcutaneous -Post Debridement Size (cm) - Length 0.6 1.0 -Post Debridement Size (cm) - Width 1.1 1.5 -Post Debridement Size (cm) - Depth 0.2 0.1 -Total Square Cm 0.66 1.50 -Wound/Ulcer Outcome Not Healed Not Healed -Ulcer Cleansing Rinsed/ Rinsed/ Irrigated with Irrigated with Saline Saline -Foul Odor after Cleansing No No -Bioengineered Tissue No No -Bleeding Controlled with Pressure Pressure -Offloading No Yes -Type of Offloading Camwalker -Treatment Response Procedure Procedure Tolerated Well Tolerated Well Pain Scale: 0-10 Numeric Is Patient Pain Free? Yes Yes Wound debrided: dorsal hallux Laterality: Left Type of Debridement: Excisional debridement Anesthesia Used: 5% Lidocaine Gel Depth: in the subcutaneous layer Percentage of wound debrided: 100 Instrument Used: #15 blade Tissue Removed: fibrous, devitalized subcutaneous, biofilm, slough Severity: Fat Layer Exposed Amount of bleeding with debridement: Mild Bleeding Controlled with: Pressure Patient tolerated procedure well Assessment/Plan Active Problems Chronic ulcer of left foot with fat layer exposed (Chronic) Peripheral neuropathy (Chronic) Open wound of left great toe (Acute) Venous stasis of both lower extremities (Chronic) Spina bifida (Chronic) Assessment: Open ulcer left great toe. Spina bifida. Peripheral neuropathy bilateral lower extremities. Nonambulatory wheelchair bound. Chronic swelling in both lower ext Plan: I reviewed and discussed her case. Subcutaneous excisional debridement was performed as noted in the clinical panel. To continue with tubigrip to reduce edema. To wash foot with and water; avoid soaking. Apply promopran and adaptic cover with gauze tape. To offload ulcer site by avoiding wearing the ski boots. To continue with healing shoes with soft tissue upper. And extra- depth shoe order has been placed and these will be evaluated for appropriateness upon arrival. Her small shoe size, foot deformity, and fluctuating edema will be taken into consideration. To take nutritional supplementation, Joseph, to optimize healing. A prescription was provided today. I also recommend application of advanced wound care product, epi fix. This is medically necessary and needed for limb loss prevention. The purpose, indication, planned procedure, and anticipated healing time as were discussed in detail. She understands and elects to proceed at this time. She was reassured no sign of infection is noted today. To return to the wound healing center in 1 week or call sooner if she has any questions or concerns. I answered all of her questions.
[2018-07-18 14:13] VITALS: BP 134/88; PULSE 90; RESP 16; TEMP 37.1; BMI 50.3
--- NOTE | 2018-07-18 16:02 | PN.PCM_ITS ---
(1) Chronic ulcer of left foot with fat layer exposed Status: Chronic Code(s): L97.522 - Non-pressure chronic ulcer of other part of left foot with fat layer exposed (2) Venous stasis of both lower extremities Status: Chronic Code(s): I87.8 - Other specified disorders of veins (3) Spina bifida Status: Chronic Qualifiers: Code(s): Q05.9 - Spina bifida, unspecified Type of Wound Date of Service: 07/18/18 Chief Complaint: Follow-up left great toe ulcer History of Wound: 32-year-old spina bifida patient that is wheelchair-bound with no extremity sensation returns to the wound healing center for recurrent left great toe ulcer that occurred after she wore ski boots for an extended period of time. She denies redness, odor, fever, chill, nausea, vomiting. She did recently ordered updated extra-depth healing shoes [facility] last week and is waiting for this arrival. She continues to keep pressure off of the ulcer site and change the dressing daily. She is no longer to make it to the wound healing center for morning appointments due to her work schedule; she works second shift. Progress of Wound: Improving - Physical Exam Vital Signs Temp Pulse Resp BP 98.7 F 90 16 134/88 H 07/18/18 14:13 07/18/18 14:13 07/18/18 14:13 07/18/18 14:13 General: Alert, Oriented x3, Cooperative Extremities: No cyanosis, Capillary Refill Less than 3 Seconds, No Calf Tenderness, Diminished Peripheral Pulses, Edema - Bilateral lower extremity, - - Lower extremity weakness consistent with spina bifida noted Skin: Ulcer/ Wound - No purulence, erythema, streaking, odor, or infection. Peripheral skin is atrophic. Wound Measurements and Assessment WC - Nurse 1 - General Ulcer Measurement Start: 07/06/18 09:55 Freq: Status: Active Protocol: Activity Type Activity Date Activity User E-Sign Co-Sign Detail Recorded Client Recorded Date Recorded By Document 07/18/18 14:13 [facility] [id number] 07/18/18 14:18 BM 07/18/18 14:13 Wound Center Nurse 1 [Ulcer Assessment] #13 L Grt Toe -Combined with other wound No -Current Size (cm) - Length 0.8 -Current Size (cm) - Width 1.1 -Current Size (cm) - Depth 0.1 -Total Square Cm 0.88 -Photo Taken No -Epithelialization None Present -Tunneling No -Undermining/Tunneling No -Circular Undermining No -Exudate Amt Small -Exudate Type Serosanguineous -Wound Margin Flat & Intact -Granulation Amt Large (67-100%) -Granulation Quality Red -Slough/Fibrin Yes -Necrosis Amt Small (1-33%) -Necrotic Tissue Type Adherent Slough -Texture (Deepti-wound Skin Appearance) Scarring -Moisture (Deepti-wound Skin Appearance Dry/Scaly ) -Color (Deepti-wound Skin Appearance) Assessed -Temperature (Deepti-wound Skin No Abnormality Appearance) (Pt Warm) -Tenderness on Palpation (Deepti-wound No Skin Appearance) -Ulcer Cleansing Rinsed/ Irrigated with Saline -Foul Odor after Cleansing No [Edema Assessment] -Lower Limb Edema Present Yes -Left Calf (cm) 37.9 -Left Ankle (cm) 29.1 WC - Nurse 2 - General Ulcer CM Notes Start: 07/06/18 09:55 Freq: Status: Active Protocol: Activity Type Activity Date Activity User E-Sign Co-Sign Detail Recorded Client Recorded Date Recorded By Document 07/18/18 15:08 AN [id number] 07/18/18 15:11 AN 07/18/18 15:08 Wound Center Nurse 2 [Procedure/Treatment] #13 L Grt Toe -Time 15:08 -Correct Patient Yes -Correct Side, Site, Position Yes -Correct Procedure Yes -Procedure Performed Yes -Type of Procedure Debridement -Clinical Debridement Subcutaneous -Post Debridement Size (cm) - Length 0.9 -Post Debridement Size (cm) - Width 1.2 -Post Debridement Size (cm) - Depth 0.1 -Total Square Cm 1.08 -Wound/Ulcer Outcome Not Healed -Ulcer Cleansing Rinsed/ Irrigated with Saline -Foul Odor after Cleansing No -Bioengineered Tissue Yes -Type of bioengineered Tissue EPIFIX -Expiration Date 12/06/22 -Product Lot Number [id number] -Percent Used 100 -Saline Lot Number [id number] -Bleeding Controlled with Pressure -Offloading Yes -Type of Offloading Surgical Shoe -Treatment Response Procedure Tolerated Well [See Physician Procedure note for Specifics] Pain Scale: 0-10 Numeric [Pain] -Is Patient Pain Free? Yes Musculoskeletal: No Tenderness to Palpation of Joints or Extremities, Muscle Wasting, - - Reducible contracted hallux position noted Neurological: - - Lack of epicritic sensation light touch Psych/Mental Status: Normal Affect, Appropriate Debridement Note Post-Debridement Measurements/Treatment WC - Nurse 2 - General Ulcer CM Notes Start: 07/06/18 09:55 Freq: Status: Active Protocol: Activity Type Activity Date Activity User E-Sign Co-Sign Detail Recorded Client Recorded Date Recorded By Document 07/06/18 10:09 MW [id number] 07/06/18 10:15 MW Document 07/11/18 14:35 DL [id number] 07/11/18 14:41 DL Document 07/18/18 15:08 AN [id number] 07/18/18 15:11 AN 07/06/18 07/11/18 07/18/18 10:09 14:35 15:08 Wound Center Nurse 2 #13 L Grt Toe -Time 10:09 14:35 15:08 -Correct Patient Yes Yes Yes -Correct Side, Site, Position Yes Yes Yes -Correct Procedure Yes Yes Yes -Procedure Performed Yes Yes Yes -Type of Procedure Debridement Debridement Debridement -Clinical Debridement Subcutaneous Subcutaneous Subcutaneous -Post Debridement Size (cm) - Length 0.6 1.0 0.9 -Post Debridement Size (cm) - Width 1.1 1.5 1.2 -Post Debridement Size (cm) - Depth 0.2 0.1 0.1 -Total Square Cm 0.66 1.50 1.08 -Wound/Ulcer Outcome Not Healed Not Healed Not Healed -Ulcer Cleansing Rinsed/ Rinsed/ Rinsed/ Irrigated with Irrigated with Irrigated with Saline Saline Saline -Foul Odor after Cleansing No No No -Bioengineered Tissue No No Yes -Type of bioengineered Tissue EPIFIX -Expiration Date 12/06/22 -Product Lot Number [id number] -Percent Used 100 -Saline Lot Number [id number] -Bleeding Controlled with Pressure Pressure Pressure -Offloading No Yes Yes -Type of Offloading Camwalker Surgical Shoe -Treatment Response Procedure Procedure Procedure Tolerated Well Tolerated Well Tolerated Well Pain Scale: 0-10 Numeric Is Patient Pain Free? Yes Yes Yes Wound debrided: hallux dorsal Laterality: Left Type of Debridement: Excisional debridement Anesthesia Used: 5% Lidocaine Gel Depth: in the subcutaneous layer Percentage of wound debrided: 100 Instrument Used: #15 blade Tissue Removed: fibrous, devitalized subcutaneous, biofilm, slough Severity: Fat Layer Exposed Amount of bleeding with debridement: Mild Bleeding Controlled with: Pressure Patient tolerated procedure well Assessment/Plan Assessment: ulcer left great toe with fat layer exposed. Spina bifida. Peripheral neuropathy bilateral lower extremities. Nonambulatory wheelchair bound. Chronic swelling in both lower extremities Plan: I reviewed and discussed her case. Subcutaneous excisional debridement was performed as noted in the clinical panel. To continue with tubigrip to reduce edema. She is approved for application of advanced wound care product, epi fix. The purpose, indication, plan application, anticipated healing time and management was discussed. No guarantees were made. She understands serial applications are recommended. I answered her questions. Verbal consent was obtained and this was applied according to standard protocol. She tolerated this well. The advanced wound care product was secured in place with wound veil and Steri-Strips. This is medically necessary to prevent limb loss. To offload ulcer site by avoiding wearing the ski boots. To continue with healing shoes with soft tissue upper. And extra-depth shoe order has been placed and these will be evaluated for appropriateness upon arrival. Her small shoe size, foot deformity, and fluctuating edema will be taken into consideration. To take nutritional supplementation, Joseph, to optimize healing. A prescription was provided today. I also recommend application of advanced wound care product, epi fix. This is medically necessary and needed for limb loss prevention. The purpose, indication, planned procedure, and anticipated healing time as were discussed in detail. She understands and elects to proceed at this time. She was reassured no sign of infection is noted today. To return to the wound healing center in 1 week or call sooner if she has any questions or concerns. I answered all of her questions.
[2018-07-25 14:00] VITALS: BP 139/78; PULSE 88; RESP 18; TEMP 37.5; BMI 50.3
--- NOTE | 2018-07-25 14:39 | PCM.WC.PN ---
(1) Chronic ulcer of left foot with fat layer exposed Status: Chronic Code(s): L97.522 - Non-pressure chronic ulcer of other part of left foot with fat layer exposed (2) Venous stasis of both lower extremities Status: Chronic Code(s): I87.8 - Other specified disorders of veins (3) Spina bifida Status: Chronic Qualifiers: Code(s): Q05.9 - Spina bifida, unspecified Type of Wound Date of Service: 07/25/18 Chief Complaint: Follow-up left great toe ulcer History of Wound: 32-year-old spina bifida patient that is wheelchair-bound with no extremity sensation returns to the wound healing center for recurrent left great toe ulcer that occurred after she wore ski boots for an extended period of time. She denies redness, odor, fever, chill, nausea, vomiting. She continues to keep pressure off of the ulcer site and change the dressing daily. She tolerated epi fix application well in the past. Progress of Wound: Improving - Physical Exam Vital Signs Temp Pulse Resp BP 99.5 F H 88 18 139/78 H 07/25/18 14:00 07/25/18 14:00 07/25/18 14:00 07/25/18 14:00 General: Alert, Oriented x3, Cooperative Extremities: No cyanosis, Capillary Refill Less than 3 Seconds, No Calf Tenderness - Negative Vonda and Ignacio bilateral, Diminished Peripheral Pulses, Edema - Bilateral lower extremities, - - Lower extremity paralysis consistent with spina bifida condition Skin: Ulcer/ Wound - No purulence, erythema, streaking, odor, or infection bilateral. The peripheral skin is hairless and atrophic. Peripheral epithelialization and granulation tissue is noted at the ulcer base Wound Measurements and Assessment WC - Nurse 1 - General Ulcer Measurement Start: 07/06/18 09:55 Freq: Status: Active Protocol: Activity Type Activity Date Activity User E-Sign Co-Sign Detail Recorded Client Recorded Date Recorded By Document 07/25/18 14:00 RB [id number] 07/25/18 14:03 RB 07/25/18 14:00 Wound Center Nurse 1 [Ulcer Assessment] #13 L Grt Toe -Combined with other wound No -Current Size (cm) - Length 0.7 -Current Size (cm) - Width 1.3 -Current Size (cm) - Depth 0.1 -Total Square Cm 0.91 -Photo Taken No -Tunneling No -Undermining/Tunneling No -Circular Undermining No -Exudate Amt Small -Exudate Type Serosanguineous -Wound Margin Distinct, Outline Attached -Granulation Amt Large (67-100%) -Granulation Quality [place] -Slough/Fibrin Yes -Necrosis Amt Small (1-33%) -Necrotic Tissue Type Adherent Slough -Structure Exposed N/A -Texture (Deepti-wound Skin Appearance) Scarring -Moisture (Deepti-wound Skin Appearance Maceration ) -Color (Deepti-wound Skin Appearance) Assessed -Temperature (Deepti-wound Skin No Abnormality Appearance) (Pt Warm) -Tenderness on Palpation (Deepti-wound No Skin Appearance) -Ulcer Cleansing Rinsed/ Irrigated with Saline -Foul Odor after Cleansing No [Edema Assessment] -Lower Limb Edema Present Yes -Left Calf (cm) 37.6 -Left Ankle (cm) 28.8 WC - Nurse 2 - General Ulcer CM Notes Start: 07/06/18 09:55 Freq: Status: Active Protocol: Activity Type Activity Date Activity User E-Sign Co-Sign Detail Recorded Client Recorded Date Recorded By Document 07/25/18 14:10 AN [id number] 07/25/18 14:14 AN 07/25/18 14:10 Wound Center Nurse 2 [Procedure/Treatment] #13 L Grt Toe -Time 14:14 -Correct Patient Yes -Correct Side, Site, Position Yes -Correct Procedure Yes -Procedure Performed Yes -Type of Procedure Debridement -Clinical Debridement Subcutaneous -Post Debridement Size (cm) - Length 0.8 -Post Debridement Size (cm) - Width 1.4 -Post Debridement Size (cm) - Depth 0.1 -Total Square Cm 1.12 [See Physician Procedure note for Specifics] Musculoskeletal: No Tenderness to Palpation of Joints or Extremities, Muscle Wasting, - - Partial reducible hallux malleus position Neurological: - - Lack of epicritic sensation Psych/Mental Status: Normal Affect, Appropriate Debridement Note Post-Debridement Measurements/Treatment WC - Nurse 2 - General Ulcer CM Notes Start: 07/06/18 09:55 Freq: Status: Active Protocol: Activity Type Activity Date Activity User E-Sign Co-Sign Detail Recorded Client Recorded Date Recorded By Document 07/06/18 10:09 MW [id number] 07/06/18 10:15 MW Document 07/11/18 14:35 DL [id number] 07/11/18 14:41 DL Document 07/18/18 15:08 AN [id number] 07/18/18 15:11 AN Document 07/25/18 14:10 AN [id number] 07/25/18 14:14 AN 07/06/18 07/11/18 07/18/18 10:09 14:35 15:08 Wound Center Nurse 2 #13 L Grt Toe -Time 10:09 14:35 15:08 -Correct Patient Yes Yes Yes -Correct Side, Site, Position Yes Yes Yes -Correct Procedure Yes Yes Yes -Procedure Performed Yes Yes Yes -Type of Procedure Debridement Debridement Debridement -Clinical Debridement Subcutaneous Subcutaneous Subcutaneous -Post Debridement Size (cm) - Length 0.6 1.0 0.9 -Post Debridement Size (cm) - Width 1.1 1.5 1.2 -Post Debridement Size (cm) - Depth 0.2 0.1 0.1 -Total Square Cm 0.66 1.50 1.08 -Wound/Ulcer Outcome Not Healed Not Healed Not Healed -Ulcer Cleansing Rinsed/ Rinsed/ Rinsed/ Irrigated with Irrigated with Irrigated with Saline Saline Saline -Foul Odor after Cleansing No No No -Bioengineered Tissue No No Yes -Type of bioengineered Tissue EPIFIX -Expiration Date 12/06/22 -Product Lot Number [id number] -Percent Used 100 -Saline Lot Number [id number] -Bleeding Controlled with Pressure Pressure Pressure -Offloading No Yes Yes -Type of Offloading Camwalker Surgical Shoe -Treatment Response Procedure Procedure Procedure Tolerated Well Tolerated Well Tolerated Well Pain Scale: 0-10 Numeric Is Patient Pain Free? Yes Yes Yes 07/25/18 14:10 Wound Center Nurse 2 #13 L Grt Toe -Time 14:14 -Correct Patient Yes -Correct Side, Site, Position Yes -Correct Procedure Yes -Procedure Performed Yes -Type of Procedure Debridement -Clinical Debridement Subcutaneous -Post Debridement Size (cm) - Length 0.8 -Post Debridement Size (cm) - Width 1.4 -Post Debridement Size (cm) - Depth 0.1 -Total Square Cm 1.12 -Wound/Ulcer Outcome -Ulcer Cleansing -Foul Odor after Cleansing -Bioengineered Tissue -Type of bioengineered Tissue -Expiration Date -Product Lot Number -Percent Used -Saline Lot Number -Bleeding Controlled with -Offloading -Type of Offloading -Treatment Response Pain Scale: 0-10 Numeric Is Patient Pain Free? Wound debrided: dorsal hallux Laterality: Left Type of Debridement: Excisional debridement Anesthesia Used: 5% Lidocaine Gel Depth: in the subcutaneous layer Percentage of wound debrided: 100 Instrument Used: #15 blade Tissue Removed: fibrous, devitalized subcutaneous, biofilm, slough Severity: Fat Layer Exposed Amount of bleeding with debridement: Mild Bleeding Controlled with: Pressure Patient tolerated procedure well Assessment/Plan Assessment: ulcer left great toe with fat layer exposed. Spina bifida. Peripheral neuropathy bilateral lower extremities. Nonambulatory wheelchair bound. Chronic swelling in both lower extremities Plan: I reviewed and discussed her case. Subcutaneous excisional debridement was performed as noted in the clinical panel. To continue with tubigrip to reduce edema. She is approved for application of advanced wound care product, epi fix. The purpose, indication, plan application, anticipated healing time and management was discussed. No guarantees were made. She understands serial applications are recommended. I answered her questions. Verbal consent was obtained and this was applied according to standard protocol. She tolerated this well. The advanced wound care product was secured in place with wound veil and Steri-Strips. This is medically necessary to prevent limb loss. To offload ulcer site by avoiding wearing the ski boots. To continue with healing shoes with soft tissue upper. And extra-depth shoe order has been placed and these will be evaluated for appropriateness upon arrival. Her small shoe size, foot deformity, and fluctuating edema will be taken into consideration. To take nutritional supplementation, Joseph, to optimize healing. A prescription was provided today. I also recommend application of advanced wound care product, epi fix. This is medically necessary and needed for limb loss prevention. The purpose, indication, planned procedure, and anticipated healing time as were discussed in detail. She understands and elects to proceed at this time. She was reassured no sign of infection is noted today. To return to the wound healing center in 1 week or call sooner if she has any questions or concerns. I answered all of her questions.
[2018-08-01 11:45] VITALS: RESP 16; TEMP 36.8; BMI 50.3
--- NOTE | 2018-08-01 11:53 | WC ---
PT WITH NEW FX TO LT FEMUR AND FULL LEG SPLINTING. UNABLE TO MEASURE THIS LEG FOR EDEMA TODAY. WILL UPDATE CM AND MD.
--- NOTE | 2018-08-01 16:18 | PCM.WC.PN ---
(1) Chronic ulcer of left foot with fat layer exposed Status: Chronic Current Visit: Yes Code(s): L97.522 - Non-pressure chronic ulcer of other part of left foot with fat layer exposed (2) Venous stasis of both lower extremities Status: Chronic Current Visit: Yes Code(s): I87.8 - Other specified disorders of veins (3) Spina bifida Status: Chronic Current Visit: Yes Qualifiers: Code(s): Q05.9 - Spina bifida, unspecified Type of Wound Date of Service: 08/01/18 Chief Complaint: Follow-up left great toe ulcer History of Wound: 32-year-old spina bifida patient that is wheelchair-bound with no extremity sensation returns to the wound healing center for recurrent left great toe ulcer that occurred after she wore ski boots for an extended period of time. She denies redness, odor, fever, chill, nausea, vomiting. She continues to keep pressure off of the ulcer site and change the dressing daily. She tolerated epi fix application well in the past. She had an accident earlier this week and sustained a left femur fracture; she will be evaluated for potential surgery later today. Progress of Wound: toe Improving - Physical Exam Vital Signs Temp Pulse Resp BP 98.2 F 88 16 139/78 H 08/01/18 11:45 07/25/18 14:00 08/01/18 11:45 07/25/18 14:00 General: Alert, Oriented x3, Cooperative HEENT: Atraumatic Extremities: No cyanosis, Capillary Refill Less than 3 Seconds, No Calf Tenderness - negative oswald signs, Diminished Peripheral Pulses, Edema Skin: Ulcer/ Wound - no purulence, no erythema ,no streaking, no odor, no infection. peripheral skin is hairless and atrophic Wound Measurements and Assessment WC - Nurse 1 - General Ulcer Measurement Start: 07/06/18 09:55 Freq: Status: Active Protocol: Activity Type Activity Date Activity User E-Sign Co-Sign Detail Recorded Client Recorded Date Recorded By Document 08/01/18 11:45 [facility] [id number] 08/01/18 11:53 [facility] 08/01/18 11:45 Wound Center Nurse 1 [Ulcer Assessment] #13 L Grt Toe -Combined with other wound No -Current Size (cm) - Length 0.3 -Current Size (cm) - Width 0.9 -Current Size (cm) - Depth 0.1 -Total Square Cm 0.27 -Photo Taken No -Epithelialization None Present -Tunneling No -Undermining/Tunneling No -Circular Undermining No -Exudate Amt Small -Exudate Type Serosanguineous -Wound Margin Distinct, Outline Attached -Granulation Amt Small (1-33%) -Granulation Quality Red -Slough/Fibrin Yes -Necrosis Amt Large (67-100%) -Necrotic Tissue Type Adherent Slough -Texture (Deepti-wound Skin Appearance) Scarring -Moisture (Deepti-wound Skin Appearance Assessed ) -Color (Deepti-wound Skin Appearance) Erythema -Temperature (Deepti-wound Skin No Abnormality Appearance) (Pt Warm) -Tenderness on Palpation (Deepti-wound No Skin Appearance) -Ulcer Cleansing Wound Cleanser -Foul Odor after Cleansing No [Edema Assessment] -Lower Limb Edema Present Yes WC - Nurse 2 - General Ulcer CM Notes Start: 07/06/18 09:55 Freq: Status: Active Protocol: Activity Type Activity Date Activity User E-Sign Co-Sign Detail Recorded Client Recorded Date Recorded By Document 08/01/18 12:36 AN [id number] 08/01/18 12:39 AN 08/01/18 12:36 Wound Center Nurse 2 [Procedure/Treatment] #13 L Grt Toe -Time 12:36 -Correct Patient Yes -Correct Side, Site, Position Yes -Correct Procedure Yes -Procedure Performed Yes -Type of Procedure Debridement -Clinical Debridement Subcutaneous -Post Debridement Size (cm) - Length 0.4 -Post Debridement Size (cm) - Width 1.0 -Post Debridement Size (cm) - Depth 0.1 -Total Square Cm 0.40 -Bleeding Controlled with Pressure -Offloading No -Treatment Response Procedure Tolerated Well [See Physician Procedure note for Specifics] Pain Scale: 0-10 Numeric [Pain] -Is Patient Pain Free? Yes Musculoskeletal: No Tenderness to Palpation of Joints or Extremities, - - splint left lower extremity. hallux malleus position noted Neurological: - - lack of sensation via light touchleft toes Psych/Mental Status: Normal Affect, Appropriate Debridement Note Post-Debridement Measurements/Treatment WC - Nurse 2 - General Ulcer CM Notes Start: 07/06/18 09:55 Freq: Status: Active Protocol: Activity Type Activity Date Activity User E-Sign Co-Sign Detail Recorded Client Recorded Date Recorded By Document 07/06/18 10:09 MW [id number] 07/06/18 10:15 MW Document 07/11/18 14:35 DL [id number] 07/11/18 14:41 DL Document 07/18/18 15:08 AN [id number] 07/18/18 15:11 AN Document 07/25/18 14:10 AN [id number] 07/25/18 14:14 AN Document 08/01/18 12:36 AN [id number] 08/01/18 12:39 AN 07/06/18 07/11/18 07/18/18 10:09 14:35 15:08 Wound Center Nurse 2 #13 L Grt Toe -Time 10:09 14:35 15:08 -Correct Patient Yes Yes Yes -Correct Side, Site, Position Yes Yes Yes -Correct Procedure Yes Yes Yes -Procedure Performed Yes Yes Yes -Type of Procedure Debridement Debridement Debridement -Clinical Debridement Subcutaneous Subcutaneous Subcutaneous -Post Debridement Size (cm) - Length 0.6 1.0 0.9 -Post Debridement Size (cm) - Width 1.1 1.5 1.2 -Post Debridement Size (cm) - Depth 0.2 0.1 0.1 -Total Square Cm 0.66 1.50 1.08 -Wound/Ulcer Outcome Not Healed Not Healed Not Healed -Ulcer Cleansing Rinsed/ Rinsed/ Rinsed/ Irrigated with Irrigated with Irrigated with Saline Saline Saline -Foul Odor after Cleansing No No No -Bioengineered Tissue No No Yes -Type of bioengineered Tissue EPIFIX -Expiration Date 12/06/22 -Product Lot Number [id number] -Percent Used 100 -Saline Lot Number [id number] -Bleeding Controlled with Pressure Pressure Pressure -Offloading No Yes Yes -Type of Offloading Camwalker Surgical Shoe -Treatment Response Procedure Procedure Procedure Tolerated Well Tolerated Well Tolerated Well Pain Scale: 0-10 Numeric Is Patient Pain Free? Yes Yes Yes 07/25/18 08/01/18 14:10 12:36 Wound Center Nurse 2 #13 L Grt Toe -Time 14:14 12:36 -Correct Patient Yes Yes -Correct Side, Site, Position Yes Yes -Correct Procedure Yes Yes -Procedure Performed Yes Yes -Type of Procedure Debridement Debridement -Clinical Debridement Subcutaneous Subcutaneous -Post Debridement Size (cm) - Length 0.8 0.4 -Post Debridement Size (cm) - Width 1.4 1.0 -Post Debridement Size (cm) - Depth 0.1 0.1 -Total Square Cm 1.12 0.40 -Wound/Ulcer Outcome -Ulcer Cleansing -Foul Odor after Cleansing -Bioengineered Tissue -Type of bioengineered Tissue -Expiration Date -Product Lot Number -Percent Used -Saline Lot Number -Bleeding Controlled with Pressure -Offloading No -Type of Offloading -Treatment Response Procedure Tolerated Well Pain Scale: 0-10 Numeric Is Patient Pain Free? Yes Wound debrided: dorsal hallux Laterality: Left Type of Debridement: Excisional debridement Anesthesia Used: 5% Lidocaine Gel Depth: in the subcutaneous layer Percentage of wound debrided: 100 Instrument Used: #15 blade Tissue Removed: fibrous, devitalized subcutaneous, biofilm, slough Severity: Fat Layer Exposed Amount of bleeding with debridement: Mild Bleeding Controlled with: Pressure Patient tolerated procedure well Assessment/Plan Active Problems Chronic ulcer of left foot with fat layer exposed (Chronic) Venous stasis of both lower extremities (Chronic) Spina bifida (Chronic) Assessment: ulcer left great toe with fat layer exposed. Spina bifida. Peripheral neuropathy bilateral lower extremities. Nonambulatory wheelchair bound. Chronic swelling in both lower extremities. new left femur fracture Plan: I reviewed and discussed her case. Subcutaneous excisional debridement was performed as noted in the clinical panel. To continue with tubigrip to reduce edema. Cici was applied; to change dressing daily. To continue with healing shoes with soft tissue upper. And extra-depth shoe order has been placed and these will be evaluated for appropriateness upon arrival. Her small shoe size, foot deformity, and fluctuating edema will be taken into consideration. To take nutritional supplementation, Joseph, to optimize healing. A prescription was provided today. I also recommend application of advanced wound care product, epi fix. This is medically necessary and needed for limb loss prevention. The purpose, indication, planned procedure, and anticipated healing time as were discussed in detail. She understands and elects to proceed at this time. She was reassured no sign of infection is noted today. To return to the wound healing center in 1 week or call sooner if she has any questions or concerns. I answered all of her questions.To follow up with ortho for evaluation of femur fracture. Her toe is doing better.
== END 2018-08-05 23:59 ==
LOC: WC 14:00
PROVIDERS: Family Provider Family Medicine; PCP Family Medicine; Visit Provider Podiatrist
DX: I87.8 Other specified disorders of veins (principal); G62.9 Polyneuropathy, unspecified; Q05.9 Spina bifida, unspecified; L97.521 Non-pressure chronic ulcer of other part of left foot limited to breakdown of skin; Z99.3 Dependence on wheelchair; M79.89 Other specified soft tissue disorders
CPT/HCPCS: 11042; 15275; Q4186

== ENCOUNTER 2018-08-29 14:00 | Outpatient (RCR) | payer BC, MEDICAID, SELFPAY ==
[2018-08-06 00:56] VITALS: BP 139/78; PULSE 88; RESP 16; TEMP 36.8
[2018-08-16 14:19] VITALS: BP 124/59; PULSE 82; RESP 16; TEMP 36.4; BMI 50.3
--- NOTE | 2018-08-16 17:44 | PCM.WC.PN ---
(1) Chronic ulcer of left foot with fat layer exposed Status: Chronic Current Visit: Yes Code(s): L97.522 - Non-pressure chronic ulcer of other part of left foot with fat layer exposed (2) Peripheral neuropathy Status: Chronic Current Visit: Yes Code(s): G62.9 - Polyneuropathy, unspecified (3) Venous stasis of both lower extremities Status: Chronic Current Visit: Yes Code(s): I87.8 - Other specified disorders of veins (4) Spina bifida Status: Chronic Current Visit: Yes Qualifiers: Code(s): Q05.9 - Spina bifida, unspecified Type of Wound Date of Service: 08/16/18 Chief Complaint: Follow-up left great toe ulcer History of Wound: 32-year-old spina bifida patient that is wheelchair-bound with no extremity sensation returns to the wound healing center for recurrent left great toe ulcer that occurred after she wore ski boots for an extended period of time. She denies redness, odor, fever, chill, nausea, vomiting. She continues to keep pressure off of the ulcer site and change the dressing daily. she recently sustained a left femur fracture and is undergoing a conservative care plan. She also had a blood clot last week and was admitted to the hospital. Her toe ulcer was not cared for during this duration and now there is a scab. Progress of Wound: worse status (larger, but still stable) - Physical Exam Vital Signs Temp Pulse Resp BP 97.5 F L 82 16 124/59 H 08/16/18 14:19 08/16/18 14:19 08/16/18 14:19 08/16/18 14:19 General: Alert, Oriented x3, Cooperative Extremities: No cyanosis, Capillary Refill Less than 3 Seconds, No Calf Tenderness, Diminished Peripheral Pulses, Edema - mild, - - lower extremity lack of motor function consistent with spina bifida. dorsal contraction of left hallux Skin: Ulcer/ Wound - no purulence, no erythema, no streaking, no infection or necrosis Wound Measurements and Assessment WC - Nurse 1 - General Ulcer Measurement Start: 08/16/18 14:19 Freq: Status: Active Protocol: Activity Type Activity Date Activity User E-Sign Co-Sign Detail Recorded Client Recorded Date Recorded By Document 08/16/18 14:19 [facility] [id number] 08/16/18 14:24 BMF 08/16/18 14:19 Wound Center Nurse 1 [Ulcer Assessment] #13 L Grt Toe -Combined with other wound No -Current Size (cm) - Length 0.6 -Current Size (cm) - Width 1.4 -Current Size (cm) - Depth 0.1 -Total Square Cm 0.84 -Photo Taken No -Epithelialization None Present -Tunneling No -Undermining/Tunneling No -Circular Undermining No -Exudate Amt Small -Exudate Type Serous -Wound Margin Flat & Intact -Granulation Amt None Present (0 %) -Slough/Fibrin Yes -Necrosis Amt Large (67-100%) -Necrotic Tissue Type Eschar -Structure Exposed N/A -Texture (Deepti-wound Skin Appearance) Assessed Scarring -Moisture (Deepti-wound Skin Appearance Assessed ) -Color (Deepti-wound Skin Appearance) Assessed Erythema -Temperature (Deepti-wound Skin No Abnormality Appearance) (Pt Warm) -Tenderness on Palpation (Deepti-wound No Skin Appearance) -Ulcer Cleansing Rinsed/ Irrigated with Saline -Foul Odor after Cleansing No WC - Nurse 2 - General Ulcer CM Notes Start: 08/16/18 14:19 Freq: Status: Active Protocol: Activity Type Activity Date Activity User E-Sign Co-Sign Detail Recorded Client Recorded Date Recorded By Document 08/16/18 15:20 AN [id number] 08/16/18 15:26 AN 08/16/18 15:20 Wound Center Nurse 2 [Procedure/Treatment] -Time 15:24 -Correct Patient Yes -Correct Side, Site, Position Yes -Correct Procedure Yes -Procedure Performed Yes -Type of Procedure Debridement -Clinical Debridement Subcutaneous -Post Debridement Size (cm) - Length 0.7 -Post Debridement Size (cm) - Width 1.5 -Post Debridement Size (cm) - Depth 0.1 -Total Square Cm 1.05 -Wound/Ulcer Outcome Not Healed -Ulcer Cleansing Rinsed/ Irrigated with Saline -Foul Odor after Cleansing No -Bioengineered Tissue Yes -Type of bioengineered Tissue EPIFIX -Expiration Date 01/06/23 -Product Lot Number [id number] -Percent Used 100 -Saline Lot Number [id number] -Topical Lidocaine (%) 4 -Bleeding Controlled with Pressure -Type of Offloading Surgical Shoe -Treatment Response Procedure Tolerated Well [See Physician Procedure note for Specifics] Pain Scale: 0-10 Numeric [Pain] -Is Patient Pain Free? Yes Musculoskeletal: No Tenderness to Palpation of Joints or Extremities, Muscle Wasting Neurological: - - lack of epicritic sensation via light touch Psych/Mental Status: Normal Affect, Appropriate Debridement Note Post-Debridement Measurements/Treatment WC - Nurse 2 - General Ulcer CM Notes Start: 08/16/18 14:19 Freq: Status: Active Protocol: Activity Type Activity Date Activity User E-Sign Co-Sign Detail Recorded Client Recorded Date Recorded By Document 08/16/18 15:20 AN [id number] 08/16/18 15:26 AN 08/16/18 15:20 Wound Center Nurse 2 #13 L Grt Toe -Time 15:24 -Correct Patient Yes -Correct Side, Site, Position Yes -Correct Procedure Yes -Procedure Performed Yes -Type of Procedure Debridement -Clinical Debridement Subcutaneous -Post Debridement Size (cm) - Length 0.7 -Post Debridement Size (cm) - Width 1.5 -Post Debridement Size (cm) - Depth 0.1 -Total Square Cm 1.05 -Wound/Ulcer Outcome Not Healed -Ulcer Cleansing Rinsed/ Irrigated with Saline -Foul Odor after Cleansing No -Bioengineered Tissue Yes -Type of bioengineered Tissue EPIFIX -Expiration Date 01/06/23 -Product Lot Number [id number] -Percent Used 100 -Saline Lot Number [id number] -Topical Lidocaine (%) 4 -Bleeding Controlled with Pressure -Type of Offloading Surgical Shoe -Treatment Response Procedure Tolerated Well Pain Scale: 0-10 Numeric Is Patient Pain Free? Yes Wound debrided: dorsal hallux Laterality: Left Type of Debridement: Excisional debridement Anesthesia Used: 5% Lidocaine Gel Depth: in the subcutaneous layer Percentage of wound debrided: 100 Instrument Used: #15 blade Tissue Removed: fibrous, devitalized subcutaneous, biofilm, slough Severity: Fat Layer Exposed Amount of bleeding with debridement: Mild Bleeding Controlled with: Pressure Patient tolerated procedure well Assessment/Plan Active Problems Chronic ulcer of left foot with fat layer exposed (Chronic) Peripheral neuropathy (Chronic) Venous stasis of both lower extremities (Chronic) Spina bifida (Chronic) Assessment: ulcer left great toe with fat layer exposed. Spina bifida. Peripheral neuropathy bilateral lower extremities. Nonambulatory wheelchair bound. Chronic swelling in both lower extremities. left femur fracture and h/o blood clot, now on eliquis Plan: I reviewed and discussed her case. Subcutaneous excisional debridement was performed as noted in the clinical panel. To continue with tubigrip to reduce edema. Advanced wound care product, epifix was applied according to standard protocol after verbal consent was obtained. The entire product was used.This is medically necessary for limb salvage. This was secured in place with steri strips and a wound veil. To continue with healing shoes with soft tissue upper. And extra-depth shoe order has been placed and these will be evaluated for appropriateness upon arrival. Her small shoe size, foot deformity, and fluctuating edema will be taken into consideration. To take nutritional supplementation, Joseph, to optimize healing. A prescription was provided previously. She was reassured no sign of infection is noted today. To return to the wound healing center in 1 week or call sooner if she has any questions or concerns. I answered all of her questions.
[2018-08-22 11:51] VITALS: BP 128/72; PULSE 88; RESP 18; TEMP 36.4; BMI 50.3
--- NOTE | 2018-08-22 12:13 | PCM.WC.PN ---
(1) Chronic ulcer of left foot with fat layer exposed Status: Chronic Current Visit: Yes Code(s): L97.522 - Non-pressure chronic ulcer of other part of left foot with fat layer exposed (2) Peripheral neuropathy Status: Chronic Current Visit: Yes Code(s): G62.9 - Polyneuropathy, unspecified (3) Venous stasis of both lower extremities Status: Chronic Current Visit: Yes Code(s): I87.8 - Other specified disorders of veins (4) Spina bifida Status: Chronic Current Visit: Yes Qualifiers: Code(s): Q05.9 - Spina bifida, unspecified Type of Wound Date of Service: 08/22/18 Chief Complaint: Follow-up left great toe ulcer History of Wound: 32-year-old spina bifida patient that is wheelchair-bound with no extremity sensation returns to the wound healing center for recurrent left great toe ulcer that occurred after she wore ski boots for an extended period of time. She denies redness, odor, fever, chill, nausea, vomiting. She continues to keep pressure off of the ulcer site and change the dressing daily. she recently sustained a left femur fracture and is undergoing a conservative care plan. She also had a blood clot and is not on anticoagulation medication. Progress of Wound: stable - Physical Exam Vital Signs Temp Pulse Resp BP 97.6 F L 88 18 128/72 H 08/22/18 11:51 08/22/18 11:51 08/22/18 11:51 08/22/18 11:51 General: Alert, Oriented x3, Cooperative HEENT: Atraumatic Extremities: No cyanosis, Capillary Refill Less than 3 Seconds, No Calf Tenderness, Diminished Peripheral Pulses, Edema, - - paralysis bilateral lower extremity consistent with spina bifida Skin: Ulcer/ Wound - no purulence,no erythema, no streaking, no infection. atrophic peripheral skin Wound Measurements and Assessment WC - Nurse 1 - General Ulcer Measurement Start: 08/16/18 14:19 Freq: Status: Active Protocol: Activity Type Activity Date Activity User E-Sign Co-Sign Detail Recorded Client Recorded Date Recorded By Document 08/22/18 11:51 DL [id number] 08/22/18 11:59 DL 08/22/18 11:51 Wound Center Nurse 1 [Ulcer Assessment] #13 L Grt Toe -Current Size (cm) - Length 0.6 -Current Size (cm) - Width 0.9 -Current Size (cm) - Depth 0.2 -Total Square Cm 0.54 -Photo Taken No -Exudate Amt Medium -Exudate Type Serosanguineous -Wound Margin Thickened -Granulation Amt Large (67-100%) -Granulation Quality Red -Necrosis Amt Small (1-33%) -Necrotic Tissue Type Adherent Slough -Structure Exposed N/A -Texture (Deepti-wound Skin Appearance) Localized Edema Scarring -Moisture (Deepti-wound Skin Appearance Maceration ) -Color (Deepti-wound Skin Appearance) Hemosiderin Staining -Temperature (Deepti-wound Skin No Abnormality Appearance) (Pt Warm) -Tenderness on Palpation (Deepti-wound No Skin Appearance) -Ulcer Cleansing Wound Cleanser -Foul Odor after Cleansing No -Anesthetic Used 5% Lidocaine Gel Musculoskeletal: No Tenderness to Palpation of Joints or Extremities, Muscle Wasting Neurological: - - light touch epicritic sensation not present Psych/Mental Status: Normal Affect, Appropriate Debridement Note Post-Debridement Measurements/Treatment WC - Nurse 2 - General Ulcer CM Notes Start: 08/16/18 14:19 Freq: Status: Active Protocol: Activity Type Activity Date Activity User E-Sign Co-Sign Detail Recorded Client Recorded Date Recorded By Document 08/16/18 15:20 AN [id number] 08/16/18 15:26 AN 08/16/18 15:20 Wound Center Nurse 2 #13 L Grt Toe -Time 15:24 -Correct Patient Yes -Correct Side, Site, Position Yes -Correct Procedure Yes -Procedure Performed Yes -Type of Procedure Debridement -Clinical Debridement Subcutaneous -Post Debridement Size (cm) - Length 0.7 -Post Debridement Size (cm) - Width 1.5 -Post Debridement Size (cm) - Depth 0.1 -Total Square Cm 1.05 -Wound/Ulcer Outcome Not Healed -Ulcer Cleansing Rinsed/ Irrigated with Saline -Foul Odor after Cleansing No -Bioengineered Tissue Yes -Type of bioengineered Tissue EPIFIX -Expiration Date 01/06/23 -Product Lot Number [id number] -Percent Used 100 -Saline Lot Number [id number] -Topical Lidocaine (%) 4 -Bleeding Controlled with Pressure -Type of Offloading Surgical Shoe -Treatment Response Procedure Tolerated Well Pain Scale: 0-10 Numeric Is Patient Pain Free? Yes Wound debrided: dorsal hallux Laterality: Left Type of Debridement: Excisional debridement Anesthesia Used: 5% Lidocaine Gel Depth: in the subcutaneous layer Percentage of wound debrided: 100 Instrument Used: #15 blade Tissue Removed: fibrous, devitalized subcutaneous, biofilm, slough Severity: Fat Layer Exposed Amount of bleeding with debridement: Mild Bleeding Controlled with: Pressure Patient tolerated procedure well Assessment/Plan Active Problems Chronic ulcer of left foot with fat layer exposed (Chronic) Peripheral neuropathy (Chronic) Venous stasis of both lower extremities (Chronic) Spina bifida (Chronic) Assessment: ulcer left great toe with fat layer exposed. Spina bifida. Peripheral neuropathy bilateral lower extremities. Nonambulatory wheelchair bound. Chronic swelling in both lower extremities. left femur fracture and h/o blood clot, now on eliquis Plan: I reviewed and discussed her case. Subcutaneous excisional debridement was performed as noted in the clinical panel. To continue with tubigrip to reduce edema. This will be resumed today. Advanced wound care product, epifix was applied according to standard protocol after verbal consent was obtained. The entire product was used.This is medically necessary for limb salvage. This was secured in place with steri strips and a wound veil. To continue with healing shoes with soft tissue upper. And extra-depth shoe order has been placed and these will be evaluated for appropriateness upon arrival. Her small shoe size, foot deformity, and fluctuating edema will be taken into consideration. To take nutritional supplementation, Joseph, to optimize healing. A prescription was provided previously. She was reassured no sign of infection is noted today. To return to the wound healing center in 1 week or call sooner if she has any questions or concerns. I answered all of her questions.
[2018-08-29 12:07] VITALS: BP 126/78; PULSE 94; RESP 18; TEMP 37.2; BMI 50.3
--- NOTE | 2018-08-29 14:21 | PCM.WC.PN ---
(1) Chronic ulcer of left foot with fat layer exposed Status: Chronic Current Visit: Yes Code(s): L97.522 - Non-pressure chronic ulcer of other part of left foot with fat layer exposed (2) Peripheral neuropathy Status: Chronic Current Visit: Yes Code(s): G62.9 - Polyneuropathy, unspecified (3) Venous stasis of both lower extremities Status: Chronic Current Visit: Yes Code(s): I87.8 - Other specified disorders of veins (4) Spina bifida Status: Chronic Current Visit: Yes Qualifiers: Code(s): Q05.9 - Spina bifida, unspecified Type of Wound Date of Service: 08/29/18 Chief Complaint: Follow-up left great toe ulcer History of Wound: 32-year-old spina bifida patient that is wheelchair-bound with no extremity sensation returns to the wound healing center for recurrent left great toe ulcer that occurred after she wore ski boots for an extended period of time. She denies redness, odor, fever, chill, nausea, vomiting. She continues to keep pressure off of the ulcer site and change the dressing daily. she recently sustained a left femur fracture and is undergoing a conservative care plan. She also had a blood clot and is not on anticoagulation medication. Her swelling has improved with Tubigrip and Richar wrap use this past week. Progress of Wound: stable - Physical Exam Vital Signs Temp Pulse Resp BP 98.9 F 94 18 126/78 H 08/29/18 12:07 08/29/18 12:07 08/29/18 12:07 08/29/18 12:07 General: Alert, Oriented x3, Cooperative HEENT: Atraumatic Extremities: No cyanosis, Capillary Refill Less than 3 Seconds, No Calf Tenderness, Diminished Peripheral Pulses, Edema - Left lower extremity, - - Lack of sensation and strength secondary to spina bifida. Hallux malleus contraction of left hallux Skin: Ulcer/ Wound - No purulence, erythema, streaking, odor, or acute signs of infection. Peripheral skin is hairless and atrophic. Wound Measurements and Assessment WC - Nurse 1 - General Ulcer Measurement Start: 08/16/18 14:19 Freq: Status: Active Protocol: Activity Type Activity Date Activity User E-Sign Co-Sign Detail Recorded Client Recorded Date Recorded By Document 08/29/18 12:07 [id number] 08/29/18 12:09 08/29/18 12:07 Wound Center Nurse 1 [Ulcer Assessment] #13 L Grt Toe -Combined with other wound No -Current Size (cm) - Length 0.4 -Current Size (cm) - Width 0.9 -Current Size (cm) - Depth 0.1 -Total Square Cm 0.36 -Photo Taken No -Epithelialization Small 1-33% -Tunneling No -Undermining/Tunneling No -Circular Undermining No -Exudate Amt None Present -Wound Margin Flat & Intact -Granulation Amt None Present (0 %) -Slough/Fibrin Yes -Necrosis Amt Large (67-100%) -Necrotic Tissue Type Adherent Slough -Structure Exposed N/A -Texture (Deepti-wound Skin Appearance) Assessed Localized Edema -Moisture (Deepti-wound Skin Appearance Assessed ) Dry/Scaly -Color (Deepti-wound Skin Appearance) Assessed -Temperature (Deepti-wound Skin No Abnormality Appearance) (Pt Warm) -Tenderness on Palpation (Deepti-wound No Skin Appearance) -Ulcer Cleansing Wound Cleanser -Foul Odor after Cleansing No [Edema Assessment] -Lower Limb Edema Present NA WC - Nurse 2 - General Ulcer CM Notes Start: 08/16/18 14:19 Freq: Status: Active Protocol: Activity Type Activity Date Activity User E-Sign Co-Sign Detail Recorded Client Recorded Date Recorded By Document 08/29/18 12:32 [id number] 08/29/18 12:37 08/29/18 12:32 Wound Center Nurse 2 [Procedure/Treatment] #13 L Grt Toe -Time 12:34 -Correct Patient Yes -Correct Side, Site, Position Yes -Correct Procedure Yes -Procedure Performed Yes -Type of Procedure Debridement -Clinical Debridement Subcutaneous -Post Debridement Size (cm) - Length 0.5 -Post Debridement Size (cm) - Width 0.9 -Post Debridement Size (cm) - Depth 0.1 -Total Square Cm 0.45 -Wound/Ulcer Outcome Not Healed -Ulcer Cleansing Rinsed/ Irrigated with Saline -Foul Odor after Cleansing No -Bioengineered Tissue Yes -Type of bioengineered Tissue EPIFIX -Expiration Date 02/05/23 -Product Lot Number [id number] -Percent Used 100 -Saline Lot Number [id number] -Topical Lidocaine (%) 4 -Bleeding Controlled with Pressure -Offloading Yes -Treatment Response Procedure Tolerated Well [See Physician Procedure note for Specifics] Pain Scale: 0-10 Numeric [Pain] -Is Patient Pain Free? Yes Musculoskeletal: No Tenderness to Palpation of Joints or Extremities, Muscle Wasting Neurological: - - Lack of epicritic sensation Psych/Mental Status: Normal Affect, Appropriate Debridement Note Post-Debridement Measurements/Treatment WC - Nurse 2 - General Ulcer CM Notes Start: 08/16/18 14:19 Freq: Status: Active Protocol: Activity Type Activity Date Activity User E-Sign Co-Sign Detail Recorded Client Recorded Date Recorded By Document 08/16/18 15:20 AN [id number] 08/16/18 15:26 AN Document 08/22/18 12:14 DL [id number] 08/22/18 12:16 DL Document 08/29/18 12:32 AN [id number] 08/29/18 12:37 AN 08/16/18 08/22/18 08/29/18 15:20 12:14 12:32 Wound Center Nurse 2 #13 L Grt Toe -Time 15:24 12:15 12:34 -Correct Patient Yes Yes Yes -Correct Side, Site, Position Yes Yes Yes -Correct Procedure Yes Yes Yes -Procedure Performed Yes Yes Yes -Type of Procedure Debridement Debridement Debridement -Clinical Debridement Subcutaneous Subcutaneous Subcutaneous -Post Debridement Size (cm) - Length 0.7 0.6 0.5 -Post Debridement Size (cm) - Width 1.5 1 0.9 -Post Debridement Size (cm) - Depth 0.1 0.1 0.1 -Total Square Cm 1.05 0.6 0.45 -Wound/Ulcer Outcome Not Healed Not Healed Not Healed -Ulcer Cleansing Rinsed/ Rinsed/ Rinsed/ Irrigated with Irrigated with Irrigated with Saline Saline Saline -Foul Odor after Cleansing No No No -Bioengineered Tissue Yes Yes Yes -Type of bioengineered Tissue EPIFIX EPIFIX EPIFIX -Expiration Date 01/06/23 01/06/23 02/05/23 -Product Lot Number [id number] -Percent Used 100 100 100 -Saline Lot Number [id number] -Topical Lidocaine (%) 4 4 -Bleeding Controlled with Pressure Pressure Pressure -Offloading No Yes -Type of Offloading Surgical Shoe -Treatment Response Procedure Procedure Procedure Tolerated Well Tolerated Well Tolerated Well Pain Scale: 0-10 Numeric Is Patient Pain Free? Yes Yes Yes Wound debrided: dorsal hallux Laterality: Left Type of Debridement: Excisional debridement Anesthesia Used: 5% Lidocaine Gel Depth: in the subcutaneous layer Percentage of wound debrided: 100 Instrument Used: #15 blade Tissue Removed: fibrous, devitalized subcutaneous, biofilm, slough Severity: Fat Layer Exposed Amount of bleeding with debridement: Mild Bleeding Controlled with: Pressure Patient tolerated procedure well Assessment/Plan Active Problems Chronic ulcer of left foot with fat layer exposed (Chronic) Peripheral neuropathy (Chronic) Venous stasis of both lower extremities (Chronic) Spina bifida (Chronic) Assessment: ulcer left great toe with fat layer exposed. Spina bifida. Peripheral neuropathy bilateral lower extremities. Nonambulatory wheelchair bound. Chronic swelling in both lower extremities. left femur fracture and h/o blood clot, now on eliquis Plan: I reviewed and discussed her case. Subcutaneous excisional debridement was performed as noted in the clinical panel. To continue with tubigrip to reduce edema. This will be resumed today. Advanced wound care product, epifix was applied according to standard protocol after verbal consent was obtained. The entire product was used.This is medically necessary for limb salvage. This was secured in place with steri strips and a wound veil. To continue with healing shoes with soft tissue upper. And extra-depth shoe order has been placed and these will be evaluated for appropriateness upon arrival. Her small shoe size, foot deformity, and fluctuating edema will be taken into consideration. To take nutritional supplementation, Joseph, to optimize healing. A prescription was provided previously. She was reassured no sign of infection is noted today. To return to the wound healing center in 1 week or call sooner if she has any questions or concerns. I answered all of her questions.
== END 2018-09-04 23:59 ==
LOC: WC 14:00
PROVIDERS: Family Provider Family Medicine; PCP Family Medicine; Visit Provider Podiatrist
DX: I87.2 Venous insufficiency (chronic) (peripheral) (principal); G62.9 Polyneuropathy, unspecified; Q05.9 Spina bifida, unspecified; Z99.3 Dependence on wheelchair; L97.522 Non-pressure chronic ulcer of other part of left foot with fat layer exposed; Z86.718 Personal history of other venous thrombosis and embolism; S72.92XD Unspecified fracture of left femur, subsequent encounter for closed fracture with routine healing; X58.XXXD Exposure to other specified factors, subsequent encounter
CPT/HCPCS: 15275; Q4186

== ENCOUNTER 2018-09-26 11:45 | Outpatient (RCR) | payer BC, MEDICAID, SELFPAY ==
[2018-09-05 01:04] VITALS: BP 126/78; PULSE 94; RESP 18; TEMP 37.2
[2018-09-05 11:48] VITALS: BP 143/86; PULSE 88; RESP 16; TEMP 37; BMI 50.3
--- NOTE | 2018-09-05 13:06 | PCM.WC.HP ---
(1) Ulcer of back Status: Acute Current Visit: Yes Code(s): L98.429 - Non-pressure chronic ulcer of back with unspecified severity Comment: Fat layer exposed. (2) Spina bifida Status: Chronic Current Visit: Yes Qualifiers: Code(s): Q05.9 - Spina bifida, unspecified History of Present Illness Chief Complaint: Left lower back ulcer. History of Wound: Ms. Recio is a pleasant 32-year-old well-known to the wound center and been managed by Dr. Cordero for a lower extremity ulcer. She is here with her mother who states that she noted an ulcer over left lower back about 3 days ago. She cleaned it out and put Promogran on it however, noted this morning that it had worsened. Denies any known precipitating factor however, due to recent femur fracture she has been less mobile lately. She feels well otherwise and denies chills, fever or feeling of unwell. Past Medical History Past Medical History: Chronic Problems Chronic ulcer of left foot with fat layer exposed (Chronic) Edema, lower extremity (Chronic) Peripheral neuropathy (Chronic) Venous stasis of both lower extremities (Chronic) H/O iron deficiency anemia (Chronic) Spina bifida (Chronic) Surgical History: appendectomy, - - 45 surgeries total- includes skin graft over ischium 2009, spinal fusion and multiple bladder surgeries Allergies/Adverse Reactions: Allergies lidocaine Allergy (Verified 06/29/18 10:15) Unknown latex Adverse Reaction (Verified 06/29/18 10:15) Unknown Home Medications: Ambulatory Orders Medication Instructions Recorded Apixaban [Eliquis] 5 mg PO BID 08/16/18 Cyanocobalamin (Vitamin B-12) 3,000 mcg SL 08/22/18 [B-12] RX: Ferrous Sulfate 325 mg PO BIDCM 08/22/18 Smoking Status: Never smoker Review of Systems Constitutional: Denies: Anorexia, Chills, Fever Eyes: Denies: Blurred vision, Pain HEENT: Denies: Difficulty Swallowing Cardiovascular: Denies: Chest Pain, Chest Pressure Respiratory: Denies: Hemoptysis Gastrointestinal: Denies: Abdominal Pain, Hematemesis, Vomiting Genitourinary: Denies: Hematuria Skin: Denies: Jaundice - Physical Exam Vital Signs Temp Pulse Resp BP 98.6 F 88 16 143/86 H 09/05/18 11:48 09/05/18 11:48 09/05/18 11:48 09/05/18 11:48 General: Alert, Oriented x3, Cooperative, No apparent distress HEENT: Atraumatic, Normocephalic Oral: Moist Mucosa Neck: Supple Lungs: Normal air movement Abdomen: Non Tender, Obese Extremities: No cyanosis Wound Measurements and Assessment WC - Nurse 1 - General Ulcer Measurement Start: 09/05/18 11:48 Freq: Status: Active Protocol: Activity Type Activity Date Activity User E-Sign Co-Sign Detail Recorded Client Recorded Date Recorded By Document 09/05/18 11:48 [id number] 09/05/18 11:51 09/05/18 11:48 Wound Center Nurse 1 [Ulcer Assessment] 14-lower back -Combined with other wound No -Current Size (cm) - Length 1.1 -Current Size (cm) - Width 1 -Current Size (cm) - Depth 0.2 -Total Square Cm 1.1 -Photo Taken Yes -Epithelialization None Present -Tunneling No -Undermining/Tunneling No -Circular Undermining No -Classification - Pressure Ulcer Stage 2 -Exudate Amt Small -Exudate Type Serosanguineous -Wound Margin Flat & Intact -Granulation Amt None Present (0 %) -Slough/Fibrin Yes -Necrosis Amt Large (67-100%) -Necrotic Tissue Type Adherent Slough -Structure Exposed N/A -Texture (Deepti-wound Skin Appearance) Assessed -Moisture (Deepti-wound Skin Appearance Assessed ) Dry/Scaly -Color (Deepti-wound Skin Appearance) Assessed -Temperature (Deepti-wound Skin No Abnormality Appearance) (Pt Warm) -Tenderness on Palpation (Deepti-wound No Skin Appearance) -Ulcer Cleansing Rinsed/ Irrigated with Saline -Foul Odor after Cleansing No #13 L Grt Toe -Combined with other wound No -Current Size (cm) - Length 0.4 -Current Size (cm) - Width 0.5 -Current Size (cm) - Depth 0.2 -Total Square Cm 0.20 -Photo Taken No -Epithelialization Large 67-100% -Tunneling No -Undermining/Tunneling No -Circular Undermining No -Exudate Amt Small -Exudate Type Serosanguineous -Wound Margin Flat & Intact -Granulation Amt Large (67-100%) -Granulation Quality Red -Slough/Fibrin Yes -Necrosis Amt Small (1-33%) -Necrotic Tissue Type Adherent Slough -Structure Exposed N/A -Texture (Deepti-wound Skin Appearance) Assessed -Moisture (Deepti-wound Skin Appearance Assessed ) Dry/Scaly -Color (Deepti-wound Skin Appearance) Assessed -Temperature (Deepti-wound Skin No Abnormality Appearance) (Pt Warm) -Tenderness on Palpation (Deepti-wound No Skin Appearance) -Ulcer Cleansing Rinsed/ Irrigated with Saline -Foul Odor after Cleansing No [Edema Assessment] -Lower Limb Edema Present NA WC - Nurse 2 - General Ulcer CM Notes Start: 09/05/18 11:48 Freq: Status: Active Protocol: Activity Type Activity Date Activity User E-Sign Co-Sign Detail Recorded Client Recorded Date Recorded By Document 09/05/18 12:20 AN [id number] 09/05/18 12:23 AN Document 09/05/18 12:26 MW [id number] 09/05/18 12:30 MW 09/05/18 09/05/18 12:20 12:26 Wound Center Nurse 2 [Procedure/Treatment] 14-lower back -Time 12:27 -Correct Patient Yes -Correct Side, Site, Position Yes -Correct Procedure Yes -Procedure Performed Yes -Type of Procedure Debridement -Clinical Debridement Subcutaneous -Post Debridement Size (cm) - Length 1.4 -Post Debridement Size (cm) - Width 1.1 -Post Debridement Size (cm) - Depth 0.1 -Total Square Cm 1.54 -Wound/Ulcer Outcome Not Healed -Ulcer Cleansing Rinsed/ Irrigated with Saline -Foul Odor after Cleansing No No -Bioengineered Tissue No No -Bleeding Controlled with Pressure -Offloading No -Treatment Response Procedure Tolerated Well #13 L Grt Toe -Time 12:23 -Correct Patient Yes -Correct Side, Site, Position Yes -Correct Procedure Yes -Procedure Performed Yes -Type of Procedure Debridement -Clinical Debridement Subcutaneous -Post Debridement Size (cm) - Length 0.5 -Post Debridement Size (cm) - Width 0.6 -Post Debridement Size (cm) - Depth 0.2 -Total Square Cm 0.30 -Wound/Ulcer Outcome Not Healed -Ulcer Cleansing Rinsed/ Irrigated with Saline -Foul Odor after Cleansing No -Bleeding Controlled with Pressure -Treatment Response Procedure Tolerated Well [See Physician Procedure note for Specifics] Pain Scale: 0-10 Numeric [Pain] -Is Patient Pain Free? Yes Musculoskeletal: No Muscle Wasting Neurological: Cranial nerves II-XII grossly intact Psych/Mental Status: Normal Affect Debridement Note Post-Debridement Measurements/Treatment WC - Nurse 2 - General Ulcer CM Notes Start: 09/05/18 11:48 Freq: Status: Active Protocol: Activity Type Activity Date Activity User E-Sign Co-Sign Detail Recorded Client Recorded Date Recorded By Document 09/05/18 12:20 AN [id number] 09/05/18 12:23 AN Document 09/05/18 12:26 MW [id number] 09/05/18 12:30 MW 09/05/18 09/05/18 12:20 12:26 Wound Center Nurse 2 14-lower back -Time 12:27 -Correct Patient Yes -Correct Side, Site, Position Yes -Correct Procedure Yes -Procedure Performed Yes -Type of Procedure Debridement -Clinical Debridement Subcutaneous -Post Debridement Size (cm) - Length 1.4 -Post Debridement Size (cm) - Width 1.1 -Post Debridement Size (cm) - Depth 0.1 -Total Square Cm 1.54 -Wound/Ulcer Outcome Not Healed -Ulcer Cleansing Rinsed/ Irrigated with Saline -Foul Odor after Cleansing No No -Bioengineered Tissue No No -Bleeding Controlled with Pressure -Offloading No -Treatment Response Procedure Tolerated Well #13 L Grt Toe -Time 12:23 -Correct Patient Yes -Correct Side, Site, Position Yes -Correct Procedure Yes -Procedure Performed Yes -Type of Procedure Debridement -Clinical Debridement Subcutaneous -Post Debridement Size (cm) - Length 0.5 -Post Debridement Size (cm) - Width 0.6 -Post Debridement Size (cm) - Depth 0.2 -Total Square Cm 0.30 -Wound/Ulcer Outcome Not Healed -Ulcer Cleansing Rinsed/ Irrigated with Saline -Foul Odor after Cleansing No -Bleeding Controlled with Pressure -Treatment Response Procedure Tolerated Well Pain Scale: 0-10 Numeric Is Patient Pain Free? Yes Wound debrided: Left lower back Wound Grade/Stage: Stage II Type of Debridement: Excisional debridement Depth: Down to and including healthy tissue, in the subcutaneous layer Percentage of wound debrided: 100 Instrument Used: 7mm curette Tissue Removed: Slough and devitalized tissue Severity: Fat Layer Exposed Amount of bleeding with debridement: Mild Bleeding Controlled with: Pressure Patient tolerated procedure well Assessment/Plan Active Problems Chronic ulcer of left foot with fat layer exposed (Chronic) Ulcer of back (Acute) Fat layer exposed. Pressure ulcer of foot, stage 1 (Acute) Edema, lower extremity (Chronic) Peripheral neuropathy (Chronic) Spina bifida (Chronic) Assessment: ulcer left great toe with fat layer exposed. Spina bifida. Peripheral neuropathy bilateral lower extremities. Nonambulatory wheelchair bound. Chronic swelling in both lower extremities. left femur fracture and h/o blood clot, now on eliquis. Left lower back ulcer with fat layer exposed. Plan: Debridement done as documented above. Procedure was well-tolerated. Still significant slough. Santyl daily with moistened gauze over top. Offloading recommended. Continue increased protein intake. Other wound care per Dr. Cordero. All their questions were answered and they were advised to call with any further questions or concerns. Follow-up in 1 week. This note was generated with [employer] dictation software. It may contain incorrect words, spelling, and punctuation that were not noted in checking the note before signing.
--- NOTE | 2018-09-05 13:10 | HP.PCM_ITS ---
(1) Ulcer of back Status: Acute Current Visit: Yes Code(s): L98.429 - Non-pressure chronic ulcer of back with unspecified severity Comment: Fat layer exposed. (2) Spina bifida Status: Chronic Current Visit: Yes Qualifiers: Code(s): Q05.9 - Spina bifida, unspecified History of Present Illness Chief Complaint: Left lower back ulcer. History of Wound: Ms. Recio is a pleasant 32-year-old well-known to the wound center and been managed by Dr. Cordero for a lower extremity ulcer. She is here with her mother who states that she noted an ulcer over left lower back about 3 days ago. She cleaned it out and put Promogran on it however, noted this morning that it had worsened. Denies any known precipitating factor however, due to recent femur fracture she has been less mobile lately. She feels well otherwise and denies chills, fever or feeling of unwell. Past Medical History Past Medical History: Chronic Problems Chronic ulcer of left foot with fat layer exposed (Chronic) Edema, lower extremity (Chronic) Peripheral neuropathy (Chronic) Venous stasis of both lower extremities (Chronic) H/O iron deficiency anemia (Chronic) Spina bifida (Chronic) Surgical History: appendectomy, - - 45 surgeries total- includes skin graft over ischium 2009, spinal fusion and multiple bladder surgeries Allergies/Adverse Reactions: Allergies lidocaine Allergy (Verified 06/29/18 10:15) Unknown latex Adverse Reaction (Verified 06/29/18 10:15) Unknown Home Medications: Ambulatory Orders Medication Instructions Recorded Apixaban [Eliquis] 5 mg PO BID 08/16/18 Cyanocobalamin (Vitamin B-12) 3,000 mcg SL 08/22/18 [B-12] RX: Ferrous Sulfate 325 mg PO BIDCM 08/22/18 Smoking Status: Never smoker Review of Systems Constitutional: Denies: Anorexia, Chills, Fever Eyes: Denies: Blurred vision, Pain HEENT: Denies: Difficulty Swallowing Cardiovascular: Denies: Chest Pain, Chest Pressure Respiratory: Denies: Hemoptysis Gastrointestinal: Denies: Abdominal Pain, Hematemesis, Vomiting Genitourinary: Denies: Hematuria Skin: Denies: Jaundice - Physical Exam Vital Signs Temp Pulse Resp BP 98.6 F 88 16 143/86 H 09/05/18 11:48 09/05/18 11:48 09/05/18 11:48 09/05/18 11:48 General: Alert, Oriented x3, Cooperative, No apparent distress HEENT: Atraumatic, Normocephalic Oral: Moist Mucosa Neck: Supple Lungs: Normal air movement Abdomen: Non Tender, Obese Extremities: No cyanosis Wound Measurements and Assessment WC - Nurse 1 - General Ulcer Measurement Start: 09/05/18 11:48 Freq: Status: Active Protocol: Activity Type Activity Date Activity User E-Sign Co-Sign Detail Recorded Client Recorded Date Recorded By Document 09/05/18 11:48 [id number] 09/05/18 11:51 09/05/18 11:48 Wound Center Nurse 1 [Ulcer Assessment] 14-lower back -Combined with other wound No -Current Size (cm) - Length 1.1 -Current Size (cm) - Width 1 -Current Size (cm) - Depth 0.2 -Total Square Cm 1.1 -Photo Taken Yes -Epithelialization None Present -Tunneling No -Undermining/Tunneling No -Circular Undermining No -Classification - Pressure Ulcer Stage 2 -Exudate Amt Small -Exudate Type Serosanguineous -Wound Margin Flat & Intact -Granulation Amt None Present (0 %) -Slough/Fibrin Yes -Necrosis Amt Large (67-100%) -Necrotic Tissue Type Adherent Slough -Structure Exposed N/A -Texture (Deepti-wound Skin Appearance) Assessed -Moisture (Deepti-wound Skin Appearance Assessed ) Dry/Scaly -Color (Deepti-wound Skin Appearance) Assessed -Temperature (Deepti-wound Skin No Abnormality Appearance) (Pt Warm) -Tenderness on Palpation (Deepti-wound No Skin Appearance) -Ulcer Cleansing Rinsed/ Irrigated with Saline -Foul Odor after Cleansing No #13 L Grt Toe -Combined with other wound No -Current Size (cm) - Length 0.4 -Current Size (cm) - Width 0.5 -Current Size (cm) - Depth 0.2 -Total Square Cm 0.20 -Photo Taken No -Epithelialization Large 67-100% -Tunneling No -Undermining/Tunneling No -Circular Undermining No -Exudate Amt Small -Exudate Type Serosanguineous -Wound Margin Flat & Intact -Granulation Amt Large (67-100%) -Granulation Quality Red -Slough/Fibrin Yes -Necrosis Amt Small (1-33%) -Necrotic Tissue Type Adherent Slough -Structure Exposed N/A -Texture (Deepti-wound Skin Appearance) Assessed -Moisture (Deepti-wound Skin Appearance Assessed ) Dry/Scaly -Color (Deepti-wound Skin Appearance) Assessed -Temperature (Deepti-wound Skin No Abnormality Appearance) (Pt Warm) -Tenderness on Palpation (Deepti-wound No Skin Appearance) -Ulcer Cleansing Rinsed/ Irrigated with Saline -Foul Odor after Cleansing No [Edema Assessment] -Lower Limb Edema Present NA WC - Nurse 2 - General Ulcer CM Notes Start: 09/05/18 11:48 Freq: Status: Active Protocol: Activity Type Activity Date Activity User E-Sign Co-Sign Detail Recorded Client Recorded Date Recorded By Document 09/05/18 12:20 AN [id number] 09/05/18 12:23 AN Document 09/05/18 12:26 MW [id number] 09/05/18 12:30 MW 09/05/18 09/05/18 12:20 12:26 Wound Center Nurse 2 [Procedure/Treatment] 14-lower back -Time 12:27 -Correct Patient Yes -Correct Side, Site, Position Yes -Correct Procedure Yes -Procedure Performed Yes -Type of Procedure Debridement -Clinical Debridement Subcutaneous -Post Debridement Size (cm) - Length 1.4 -Post Debridement Size (cm) - Width 1.1 -Post Debridement Size (cm) - Depth 0.1 -Total Square Cm 1.54 -Wound/Ulcer Outcome Not Healed -Ulcer Cleansing Rinsed/ Irrigated with Saline -Foul Odor after Cleansing No No -Bioengineered Tissue No No -Bleeding Controlled with Pressure -Offloading No -Treatment Response Procedure Tolerated Well #13 L Grt Toe -Time 12:23 -Correct Patient Yes -Correct Side, Site, Position Yes -Correct Procedure Yes -Procedure Performed Yes -Type of Procedure Debridement -Clinical Debridement Subcutaneous -Post Debridement Size (cm) - Length 0.5 -Post Debridement Size (cm) - Width 0.6 -Post Debridement Size (cm) - Depth 0.2 -Total Square Cm 0.30 -Wound/Ulcer Outcome Not Healed -Ulcer Cleansing Rinsed/ Irrigated with Saline -Foul Odor after Cleansing No -Bleeding Controlled with Pressure -Treatment Response Procedure Tolerated Well [See Physician Procedure note for Specifics] Pain Scale: 0-10 Numeric [Pain] -Is Patient Pain Free? Yes Musculoskeletal: No Muscle Wasting Neurological: Cranial nerves II-XII grossly intact Psych/Mental Status: Normal Affect Debridement Note Post-Debridement Measurements/Treatment WC - Nurse 2 - General Ulcer CM Notes Start: 09/05/18 11:48 Freq: Status: Active Protocol: Activity Type Activity Date Activity User E-Sign Co-Sign Detail Recorded Client Recorded Date Recorded By Document 09/05/18 12:20 AN [id number] 09/05/18 12:23 AN Document 09/05/18 12:26 MW [id number] 09/05/18 12:30 MW 09/05/18 09/05/18 12:20 12:26 Wound Center Nurse 2 14-lower back -Time 12:27 -Correct Patient Yes -Correct Side, Site, Position Yes -Correct Procedure Yes -Procedure Performed Yes -Type of Procedure Debridement -Clinical Debridement Subcutaneous -Post Debridement Size (cm) - Length 1.4 -Post Debridement Size (cm) - Width 1.1 -Post Debridement Size (cm) - Depth 0.1 -Total Square Cm 1.54 -Wound/Ulcer Outcome Not Healed -Ulcer Cleansing Rinsed/ Irrigated with Saline -Foul Odor after Cleansing No No -Bioengineered Tissue No No -Bleeding Controlled with Pressure -Offloading No -Treatment Response Procedure Tolerated Well #13 L Grt Toe -Time 12:23 -Correct Patient Yes -Correct Side, Site, Position Yes -Correct Procedure Yes -Procedure Performed Yes -Type of Procedure Debridement -Clinical Debridement Subcutaneous -Post Debridement Size (cm) - Length 0.5 -Post Debridement Size (cm) - Width 0.6 -Post Debridement Size (cm) - Depth 0.2 -Total Square Cm 0.30 -Wound/Ulcer Outcome Not Healed -Ulcer Cleansing Rinsed/ Irrigated with Saline -Foul Odor after Cleansing No -Bleeding Controlled with Pressure -Treatment Response Procedure Tolerated Well Pain Scale: 0-10 Numeric Is Patient Pain Free? Yes Wound debrided: Left lower back Wound Grade/Stage: Stage II Type of Debridement: Excisional debridement Depth: Down to and including healthy tissue, in the subcutaneous layer Percentage of wound debrided: 100 Instrument Used: 7mm curette Tissue Removed: Slough and devitalized tissue Severity: Fat Layer Exposed Amount of bleeding with debridement: Mild Bleeding Controlled with: Pressure Patient tolerated procedure well Assessment/Plan Active Problems Chronic ulcer of left foot with fat layer exposed (Chronic) Ulcer of back (Acute) Fat layer exposed. Pressure ulcer of foot, stage 1 (Acute) Edema, lower extremity (Chronic) Peripheral neuropathy (Chronic) Spina bifida (Chronic) Assessment: ulcer left great toe with fat layer exposed. Spina bifida. Peripheral neuropathy bilateral lower extremities. Nonambulatory wheelchair bound. Chronic swelling in both lower extremities. left femur fracture and h/o blood clot, now on eliquis. Left lower back ulcer with fat layer exposed. Plan: Debridement done as documented above. Procedure was well-tolerated. Still significant slough. Santyl daily with moistened gauze over top. Offloading recommended. Continue increased protein intake. Other wound care per Dr. Cordero. All their questions were answered and they were advised to call with any further questions or concerns. Follow-up in 1 week. This note was generated with [employer] dictation software. It may contain incorrect words, spelling, and punctuation that were not noted in checking the note before signing.
--- NOTE | 2018-09-05 14:22 | PCM.WC.PN ---
(1) Chronic ulcer of left foot with fat layer exposed Status: Chronic Current Visit: Yes Code(s): L97.522 - Non-pressure chronic ulcer of other part of left foot with fat layer exposed (2) Peripheral neuropathy Status: Chronic Current Visit: Yes Code(s): G62.9 - Polyneuropathy, unspecified (3) Spina bifida Status: Chronic Current Visit: Yes Qualifiers: Code(s): Q05.9 - Spina bifida, unspecified (4) Pressure ulcer of foot, stage 1 Status: Acute Current Visit: Yes Qualifiers: Laterality: left Qualified Code(s): L89.891 - Pressure ulcer of other site, stage 1 Code(s): L89.891 - Pressure ulcer of other site, stage 1 (5) Edema, lower extremity Status: Chronic Current Visit: Yes Code(s): R60.0 - Localized edema Type of Wound Chief Complaint: Left foot. New pressure sores left foot History of Wound: Ms. Recio is a pleasant 32-year-old well-known to the wound center for follow-up of left foot ulcer. She has new dark discoloration in the bottom of the foot and heel with an onset of 3 days ago. She has had increased swelling to her left lower extremity since she broke her femur and had a subsequent blood clot. It is noted that she is on anticoagulation medication. She also has a new back ulcer and will see Dr. Looney today for this as well. She denies fever, chill, nausea, vomiting, loss of appetite. Progress of Wound: Improved left great toe. New pressure evidence of injuries left heel and foot - Physical Exam Vital Signs Temp Pulse Resp BP 98.6 F 88 16 143/86 H 09/05/18 11:48 09/05/18 11:48 09/05/18 11:48 09/05/18 11:48 General: Alert, Oriented x3, Cooperative Extremities: No cyanosis, Capillary Refill Less than 3 Seconds, No Calf Tenderness - Negative Ignacio left, Diminished Peripheral Pulses, Edema - Left greater than right lower extremity Skin: Ulcer/ Wound - No purulence, erythema, streaking, odor, or infection. Peripheral epithelialization is noted. Peripheral skin is hairless and atrophic. There is non-blanchable pressure injury noted to the posterior left heel with no bogginess or blister. There is also evidence of deep ecchymosis to the plantar foot. The adjacent compartments remain soft to palpate without fluctuance or bogginess. Wound Measurements and Assessment WC - Nurse 1 - General Ulcer Measurement Start: 09/05/18 11:48 Freq: Status: Active Protocol: Activity Type Activity Date Activity User E-Sign Co-Sign Detail Recorded Client Recorded Date Recorded By Document 09/05/18 11:48 [email or web address] [id number] 09/05/18 11:51 VIKY 09/05/18 11:48 Wound Center Nurse 1 [Ulcer Assessment] 14-lower back -Combined with other wound No -Current Size (cm) - Length 1.1 -Current Size (cm) - Width 1 -Current Size (cm) - Depth 0.2 -Total Square Cm 1.1 -Photo Taken Yes -Epithelialization None Present -Tunneling No -Undermining/Tunneling No -Circular Undermining No -Classification - Pressure Ulcer Stage 2 -Exudate Amt Small -Exudate Type Serosanguineous -Wound Margin Flat & Intact -Granulation Amt None Present (0 %) -Slough/Fibrin Yes -Necrosis Amt Large (67-100%) -Necrotic Tissue Type Adherent Slough -Structure Exposed N/A -Texture (Deepti-wound Skin Appearance) Assessed -Moisture (Deepti-wound Skin Appearance Assessed ) Dry/Scaly -Color (Deepti-wound Skin Appearance) Assessed -Temperature (Deepti-wound Skin No Abnormality Appearance) (Pt Warm) -Tenderness on Palpation (Deepti-wound No Skin Appearance) -Ulcer Cleansing Rinsed/ Irrigated with Saline -Foul Odor after Cleansing No #13 L Grt Toe -Combined with other wound No -Current Size (cm) - Length 0.4 -Current Size (cm) - Width 0.5 -Current Size (cm) - Depth 0.2 -Total Square Cm 0.20 -Photo Taken No -Epithelialization Large 67-100% -Tunneling No -Undermining/Tunneling No -Circular Undermining No -Exudate Amt Small -Exudate Type Serosanguineous -Wound Margin Flat & Intact -Granulation Amt Large (67-100%) -Granulation Quality Red -Slough/Fibrin Yes -Necrosis Amt Small (1-33%) -Necrotic Tissue Type Adherent Slough -Structure Exposed N/A -Texture (Deepti-wound Skin Appearance) Assessed -Moisture (Deepti-wound Skin Appearance Assessed ) Dry/Scaly -Color (Deepti-wound Skin Appearance) Assessed -Temperature (Deepti-wound Skin No Abnormality Appearance) (Pt Warm) -Tenderness on Palpation (Deepti-wound No Skin Appearance) -Ulcer Cleansing Rinsed/ Irrigated with Saline -Foul Odor after Cleansing No [Edema Assessment] -Lower Limb Edema Present NA WC - Nurse 2 - General Ulcer CM Notes Start: 09/05/18 11:48 Freq: Status: Active Protocol: Activity Type Activity Date Activity User E-Sign Co-Sign Detail Recorded Client Recorded Date Recorded By Document 09/05/18 12:20 AN [id number] 09/05/18 12:23 AN Document 09/05/18 12:26 MW [id number] 09/05/18 12:30 MW 09/05/18 09/05/18 12:20 12:26 Wound Center Nurse 2 [Procedure/Treatment] 14-lower back -Time 12:27 -Correct Patient Yes -Correct Side, Site, Position Yes -Correct Procedure Yes -Procedure Performed Yes -Type of Procedure Debridement -Clinical Debridement Subcutaneous -Post Debridement Size (cm) - Length 1.4 -Post Debridement Size (cm) - Width 1.1 -Post Debridement Size (cm) - Depth 0.1 -Total Square Cm 1.54 -Wound/Ulcer Outcome Not Healed -Ulcer Cleansing Rinsed/ Irrigated with Saline -Foul Odor after Cleansing No No -Bioengineered Tissue No No -Bleeding Controlled with Pressure -Offloading No -Treatment Response Procedure Tolerated Well #13 L Grt Toe -Time 12:23 -Correct Patient Yes -Correct Side, Site, Position Yes -Correct Procedure Yes -Procedure Performed Yes -Type of Procedure Debridement -Clinical Debridement Subcutaneous -Post Debridement Size (cm) - Length 0.5 -Post Debridement Size (cm) - Width 0.6 -Post Debridement Size (cm) - Depth 0.2 -Total Square Cm 0.30 -Wound/Ulcer Outcome Not Healed -Ulcer Cleansing Rinsed/ Irrigated with Saline -Foul Odor after Cleansing No -Bleeding Controlled with Pressure -Treatment Response Procedure Tolerated Well [See Physician Procedure note for Specifics] Pain Scale: 0-10 Numeric [Pain] -Is Patient Pain Free? Yes Musculoskeletal: No Tenderness to Palpation of Joints or Extremities, Muscle Wasting, - - Lack of muscle strength consistent with spina bifida Neurological: - - Lack of epicritic sensation to light touch Psych/Mental Status: Normal Affect, Appropriate Debridement Note Post-Debridement Measurements/Treatment WC - Nurse 2 - General Ulcer CM Notes Start: 09/05/18 11:48 Freq: Status: Active Protocol: Activity Type Activity Date Activity User E-Sign Co-Sign Detail Recorded Client Recorded Date Recorded By Document 09/05/18 12:20 AN [id number] 09/05/18 12:23 AN Document 09/05/18 12:26 MW [id number] 09/05/18 12:30 MW 09/05/18 09/05/18 12:20 12:26 Wound Center Nurse 2 14-lower back -Time 12:27 -Correct Patient Yes -Correct Side, Site, Position Yes -Correct Procedure Yes -Procedure Performed Yes -Type of Procedure Debridement -Clinical Debridement Subcutaneous -Post Debridement Size (cm) - Length 1.4 -Post Debridement Size (cm) - Width 1.1 -Post Debridement Size (cm) - Depth 0.1 -Total Square Cm 1.54 -Wound/Ulcer Outcome Not Healed -Ulcer Cleansing Rinsed/ Irrigated with Saline -Foul Odor after Cleansing No No -Bioengineered Tissue No No -Bleeding Controlled with Pressure -Offloading No -Treatment Response Procedure Tolerated Well #13 L Grt Toe -Time 12:23 -Correct Patient Yes -Correct Side, Site, Position Yes -Correct Procedure Yes -Procedure Performed Yes -Type of Procedure Debridement -Clinical Debridement Subcutaneous -Post Debridement Size (cm) - Length 0.5 -Post Debridement Size (cm) - Width 0.6 -Post Debridement Size (cm) - Depth 0.2 -Total Square Cm 0.30 -Wound/Ulcer Outcome Not Healed -Ulcer Cleansing Rinsed/ Irrigated with Saline -Foul Odor after Cleansing No -Bleeding Controlled with Pressure -Treatment Response Procedure Tolerated Well Pain Scale: 0-10 Numeric Is Patient Pain Free? Yes Wound debrided: dorsal hallux Laterality: Left Type of Debridement: Excisional debridement Anesthesia Used: 5% Lidocaine Gel Depth: in the subcutaneous layer Percentage of wound debrided: 100 Instrument Used: #15 blade Tissue Removed: fibrous, devitalized subcutaneous, biofilm, slough Severity: Fat Layer Exposed Amount of bleeding with debridement: Mild Bleeding Controlled with: Pressure Patient tolerated procedure well Assessment/Plan Active Problems Chronic ulcer of left foot with fat layer exposed (Chronic) Ulcer of back (Acute) Fat layer exposed. Pressure ulcer of foot, stage 1 (Acute) Edema, lower extremity (Chronic) Peripheral neuropathy (Chronic) Spina bifida (Chronic) Assessment: ulcer left great toe with fat layer exposed. New stage I pressure injury posterior left heel and plantar left foot. Spina bifida. Peripheral neuropathy bilateral lower extremities. Nonambulatory wheelchair bound. Chronic swelling in both lower extremities. left femur fracture and h/o blood clot, now on eliquis. Left lower back ulcer with fat layer exposed. Plan: I reviewed and discussed her case including her injuries. Debridement done as documented in the clinical panel to the left hallux. Procedure was well-tolerated. To change dressing daily with Cici and this was applied today to the left hallux. To continue with healing shoes with soft tissue upper. And extra-depth shoe order has been placed and these will be evaluated for appropriateness upon arrival. She was scheduled to have this done at the [facility] in 2 weeks. To take nutritional supplementation, Joseph, to optimize healing. A prescription was provided previously. She was reassured no sign of infection is noted today. She was advised to monitor her new pressure ulcer sites and to keep pressure by stacking blankets or pillows behind the leg while seated and by avoiding resting the foot in her ankle foot orthotic especially when she has a swelling exacerbation. She is advised to balance between wearing Tubigrip, Richar wrap, and other compression garments for edema and adjusting assistive devices when she has a rapid increase in edema to prevent additional tissue injuries. To continue to follow-up with her orthopedic doctor for femur fracture and anticoagulation management. to follow up with Dr. Looney for her new back ulcers well. To return to the wound healing center in 1 week or call sooner if she has any questions or concerns. I answered all of her questions.
--- NOTE | 2018-09-05 14:28 | PN.PCM_ITS ---
(1) Chronic ulcer of left foot with fat layer exposed Status: Chronic Current Visit: Yes Code(s): L97.522 - Non-pressure chronic ulcer of other part of left foot with fat layer exposed (2) Peripheral neuropathy Status: Chronic Current Visit: Yes Code(s): G62.9 - Polyneuropathy, unspecified (3) Spina bifida Status: Chronic Current Visit: Yes Qualifiers: Code(s): Q05.9 - Spina bifida, unspecified (4) Pressure ulcer of foot, stage 1 Status: Acute Current Visit: Yes Qualifiers: Laterality: left Qualified Code(s): L89.891 - Pressure ulcer of other site, stage 1 Code(s): L89.891 - Pressure ulcer of other site, stage 1 (5) Edema, lower extremity Status: Chronic Current Visit: Yes Code(s): R60.0 - Localized edema Type of Wound Chief Complaint: Left foot. New pressure sores left foot History of Wound: Ms. Recio is a pleasant 32-year-old well-known to the wound center for follow-up of left foot ulcer. She has new dark discoloration in the bottom of the foot and heel with an onset of 3 days ago. She has had increased swelling to her left lower extremity since she broke her femur and had a subsequent blood clot. It is noted that she is on anticoagulation medication. She also has a new back ulcer and will see Dr. Looney today for this as well. She denies fever, chill, nausea, vomiting, loss of appetite. Progress of Wound: Improved left great toe. New pressure evidence of injuries left heel and foot - Physical Exam Vital Signs Temp Pulse Resp BP 98.6 F 88 16 143/86 H 09/05/18 11:48 09/05/18 11:48 09/05/18 11:48 09/05/18 11:48 General: Alert, Oriented x3, Cooperative Extremities: No cyanosis, Capillary Refill Less than 3 Seconds, No Calf Tenderness - Negative Ignacio left, Diminished Peripheral Pulses, Edema - Left greater than right lower extremity Skin: Ulcer/ Wound - No purulence, erythema, streaking, odor, or infection. Peripheral epithelialization is noted. Peripheral skin is hairless and atrophic. There is non-blanchable pressure injury noted to the posterior left heel with no bogginess or blister. There is also evidence of deep ecchymosis to the plantar foot. The adjacent compartments remain soft to palpate without fluctuance or bogginess. Wound Measurements and Assessment WC - Nurse 1 - General Ulcer Measurement Start: 09/05/18 11:48 Freq: Status: Active Protocol: Activity Type Activity Date Activity User E-Sign Co-Sign Detail Recorded Client Recorded Date Recorded By Document 09/05/18 11:48 VIKY [id number] 09/05/18 11:51 VIKY 09/05/18 11:48 Wound Center Nurse 1 [Ulcer Assessment] 14-lower back -Combined with other wound No -Current Size (cm) - Length 1.1 -Current Size (cm) - Width 1 -Current Size (cm) - Depth 0.2 -Total Square Cm 1.1 -Photo Taken Yes -Epithelialization None Present -Tunneling No -Undermining/Tunneling No -Circular Undermining No -Classification - Pressure Ulcer Stage 2 -Exudate Amt Small -Exudate Type Serosanguineous -Wound Margin Flat & Intact -Granulation Amt None Present (0 %) -Slough/Fibrin Yes -Necrosis Amt Large (67-100%) -Necrotic Tissue Type Adherent Slough -Structure Exposed N/A -Texture (Deepti-wound Skin Appearance) Assessed -Moisture (Deepti-wound Skin Appearance Assessed ) Dry/Scaly -Color (Deepti-wound Skin Appearance) Assessed -Temperature (Deepti-wound Skin No Abnormality Appearance) (Pt Warm) -Tenderness on Palpation (Deepti-wound No Skin Appearance) -Ulcer Cleansing Rinsed/ Irrigated with Saline -Foul Odor after Cleansing No #13 L Grt Toe -Combined with other wound No -Current Size (cm) - Length 0.4 -Current Size (cm) - Width 0.5 -Current Size (cm) - Depth 0.2 -Total Square Cm 0.20 -Photo Taken No -Epithelialization Large 67-100% -Tunneling No -Undermining/Tunneling No -Circular Undermining No -Exudate Amt Small -Exudate Type Serosanguineous -Wound Margin Flat & Intact -Granulation Amt Large (67-100%) -Granulation Quality Red -Slough/Fibrin Yes -Necrosis Amt Small (1-33%) -Necrotic Tissue Type Adherent Slough -Structure Exposed N/A -Texture (Deepti-wound Skin Appearance) Assessed -Moisture (Deepti-wound Skin Appearance Assessed ) Dry/Scaly -Color (Deepti-wound Skin Appearance) Assessed -Temperature (Deepti-wound Skin No Abnormality Appearance) (Pt Warm) -Tenderness on Palpation (Deepti-wound No Skin Appearance) -Ulcer Cleansing Rinsed/ Irrigated with Saline -Foul Odor after Cleansing No [Edema Assessment] -Lower Limb Edema Present NA WC - Nurse 2 - General Ulcer CM Notes Start: 09/05/18 11:48 Freq: Status: Active Protocol: Activity Type Activity Date Activity User E-Sign Co-Sign Detail Recorded Client Recorded Date Recorded By Document 09/05/18 12:20 AN [id number] 09/05/18 12:23 AN Document 09/05/18 12:26 MW [id number] 09/05/18 12:30 MW 09/05/18 09/05/18 12:20 12:26 Wound Center Nurse 2 [Procedure/Treatment] 14-lower back -Time 12:27 -Correct Patient Yes -Correct Side, Site, Position Yes -Correct Procedure Yes -Procedure Performed Yes -Type of Procedure Debridement -Clinical Debridement Subcutaneous -Post Debridement Size (cm) - Length 1.4 -Post Debridement Size (cm) - Width 1.1 -Post Debridement Size (cm) - Depth 0.1 -Total Square Cm 1.54 -Wound/Ulcer Outcome Not Healed -Ulcer Cleansing Rinsed/ Irrigated with Saline -Foul Odor after Cleansing No No -Bioengineered Tissue No No -Bleeding Controlled with Pressure -Offloading No -Treatment Response Procedure Tolerated Well #13 L Grt Toe -Time 12:23 -Correct Patient Yes -Correct Side, Site, Position Yes -Correct Procedure Yes -Procedure Performed Yes -Type of Procedure Debridement -Clinical Debridement Subcutaneous -Post Debridement Size (cm) - Length 0.5 -Post Debridement Size (cm) - Width 0.6 -Post Debridement Size (cm) - Depth 0.2 -Total Square Cm 0.30 -Wound/Ulcer Outcome Not Healed -Ulcer Cleansing Rinsed/ Irrigated with Saline -Foul Odor after Cleansing No -Bleeding Controlled with Pressure -Treatment Response Procedure Tolerated Well [See Physician Procedure note for Specifics] Pain Scale: 0-10 Numeric [Pain] -Is Patient Pain Free? Yes Musculoskeletal: No Tenderness to Palpation of Joints or Extremities, Muscle Wasting, - - Lack of muscle strength consistent with spina bifida Neurological: - - Lack of epicritic sensation to light touch Psych/Mental Status: Normal Affect, Appropriate Debridement Note Post-Debridement Measurements/Treatment WC - Nurse 2 - General Ulcer CM Notes Start: 09/05/18 11:48 Freq: Status: Active Protocol: Activity Type Activity Date Activity User E-Sign Co-Sign Detail Recorded Client Recorded Date Recorded By Document 09/05/18 12:20 AN [id number] 09/05/18 12:23 AN Document 09/05/18 12:26 MW [id number] 09/05/18 12:30 MW 09/05/18 09/05/18 12:20 12:26 Wound Center Nurse 2 14-lower back -Time 12:27 -Correct Patient Yes -Correct Side, Site, Position Yes -Correct Procedure Yes -Procedure Performed Yes -Type of Procedure Debridement -Clinical Debridement Subcutaneous -Post Debridement Size (cm) - Length 1.4 -Post Debridement Size (cm) - Width 1.1 -Post Debridement Size (cm) - Depth 0.1 -Total Square Cm 1.54 -Wound/Ulcer Outcome Not Healed -Ulcer Cleansing Rinsed/ Irrigated with Saline -Foul Odor after Cleansing No No -Bioengineered Tissue No No -Bleeding Controlled with Pressure -Offloading No -Treatment Response Procedure Tolerated Well #13 L Grt Toe -Time 12:23 -Correct Patient Yes -Correct Side, Site, Position Yes -Correct Procedure Yes -Procedure Performed Yes -Type of Procedure Debridement -Clinical Debridement Subcutaneous -Post Debridement Size (cm) - Length 0.5 -Post Debridement Size (cm) - Width 0.6 -Post Debridement Size (cm) - Depth 0.2 -Total Square Cm 0.30 -Wound/Ulcer Outcome Not Healed -Ulcer Cleansing Rinsed/ Irrigated with Saline -Foul Odor after Cleansing No -Bleeding Controlled with Pressure -Treatment Response Procedure Tolerated Well Pain Scale: 0-10 Numeric Is Patient Pain Free? Yes Wound debrided: dorsal hallux Laterality: Left Type of Debridement: Excisional debridement Anesthesia Used: 5% Lidocaine Gel Depth: in the subcutaneous layer Percentage of wound debrided: 100 Instrument Used: #15 blade Tissue Removed: fibrous, devitalized subcutaneous, biofilm, slough Severity: Fat Layer Exposed Amount of bleeding with debridement: Mild Bleeding Controlled with: Pressure Patient tolerated procedure well Assessment/Plan Active Problems Chronic ulcer of left foot with fat layer exposed (Chronic) Ulcer of back (Acute) Fat layer exposed. Pressure ulcer of foot, stage 1 (Acute) Edema, lower extremity (Chronic) Peripheral neuropathy (Chronic) Spina bifida (Chronic) Assessment: ulcer left great toe with fat layer exposed. New stage I pressure injury posterior left heel and plantar left foot. Spina bifida. Peripheral ne uropathy bilateral lower extremities. Nonambulatory wheelchair bound. Chronic swelling in both lower extremities. left femur fracture and h/o blood clot, now on eliquis. Left lower back ulcer with fat layer exposed. Plan: I reviewed and discussed her case including her injuries. Debridement done as documented in the clinical panel to the left hallux. Procedure was we ll-tolerated. To change dressing daily with Cici and this was applied today to the left hallux. To continue with healing shoes with soft tissue upper. And extra-depth shoe order has been placed and these will be evaluated for appropriateness upon arrival. She was scheduled to have this done at the [facility] in 2 weeks. To take nutritional supplementation, Joseph, to optimize healing. A prescription was provided previously. She was reassured no sign of infection is noted today. She was advised to monitor her new pressure ulcer sites and to keep pressure by stacking blankets or pillows behind the leg while seated and by avoiding resting the foot in her ankle foot orthotic especially when she has a swelling exacerbation. She is advised to balance between wearing Tubigrip, Richar wrap, and other compression garments for edema and adjusting assistive devices when she has a rapid increase in edema to prevent additional tissue injuries. To continue to follow-up with her orthopedic doctor for femur fracture and anticoagulation management. to follow up with Dr. Looney for her new back ulcers well. To return to the wound healing center in 1 week or call sooner if she has any questions or concerns. I answered all of her questions.
[2018-09-12 10:23] VITALS: BP 130/96; PULSE 91; RESP 16; TEMP 36.6; BMI 50.3
--- NOTE | 2018-09-12 11:22 | PCM.WC.PN ---
(1) Ulcer of back Status: Acute Current Visit: Yes Code(s): L98.429 - Non-pressure chronic ulcer of back with unspecified severity Comment: Fat layer exposed. (2) Spina bifida Status: Chronic Current Visit: Yes Qualifiers: Code(s): Q05.9 - Spina bifida, unspecified Type of Wound Chief Complaint: Left lower back ulcer. History of Wound: Ms. Recio is a pleasant 32-year-old well-known to the wound center and been managed by Dr. Cordero for a lower extremity ulcer. She is here with her mother who states that she noted an ulcer over left lower back about 3 days ago. She cleaned it out and put Promogran on it however, noted this morning that it had worsened. Denies any known precipitating factor however, due to recent femur fracture she has been less mobile lately. She feels well otherwise and denies chills, fever or feeling of unwell. Progress of Wound: Lower back improving. No new concerns at this time. - Physical Exam Vital Signs Temp Pulse Resp BP 97.8 F 91 16 130/96 H 09/12/18 10:23 09/12/18 10:23 09/12/18 10:23 09/12/18 10:23 General: Alert, Oriented x3, Cooperative, No apparent distress HEENT: Atraumatic, Normocephalic Oral: Moist Mucosa Neck: Supple Lungs: Normal air movement Extremities: No cyanosis Skin: Ulcer/ Wound Wound Measurements and Assessment WC - Nurse 1 - General Ulcer Measurement Start: 09/05/18 11:48 Freq: Status: Active Protocol: Activity Type Activity Date Activity User E-Sign Co-Sign Detail Recorded Client Recorded Date Recorded By Document 09/12/18 10:23 [facility] [id number] 09/12/18 10:26 [facility] Document 09/12/18 10:49 AN [id number] 09/12/18 10:57 AN 09/12/18 09/12/18 10:23 10:49 Wound Center Nurse 1 [Ulcer Assessment] #15 left foot plantar -Combined with other wound No -Current Size (cm) - Length 4.2 -Current Size (cm) - Width 5.7 -Current Size (cm) - Depth 0.5 -Total Square Cm 23.94 -Date of Last Picture (Recall this 09/12/18 field) -Photo Taken Yes -Tunneling No -Undermining/Tunneling No -Classification - Thickness Full Thickness without Exposed Support Structure -Exudate Amt Medium -Exudate Type Serosanguineous -Wound Margin Distinct, Outline Attached -Granulation Amt Medium (34-66%) -Granulation Quality Red -Slough/Fibrin Yes -Necrosis Amt Medium (34-66%) -Necrotic Tissue Type Adherent Slough -Structure Exposed Fat Layer Exposed -Texture (Deepti-wound Skin Appearance) Assessed -Moisture (Deepti-wound Skin Appearance Assessed ) Maceration -Color (Deepti-wound Skin Appearance) Erythema -Temperature (Deepti-wound Skin Hot Appearance) -Tenderness on Palpation (Deepti-wound No Skin Appearance) -Ulcer Cleansing Rinsed/ Irrigated with Saline -Foul Odor after Cleansing No 14-lower back -Combined with other wound No -Current Size (cm) - Length 1 -Current Size (cm) - Width 0.7 -Current Size (cm) - Depth 0.2 -Total Square Cm 0.7 -Photo Taken No -Epithelialization None Present -Tunneling No -Undermining/Tunneling No -Circular Undermining No -Exudate Amt Small -Exudate Type Serosanguineous -Wound Margin Distinct, Outline Attached -Granulation Amt Small (1-33%) -Granulation Quality Red -Slough/Fibrin Yes -Necrosis Amt Medium (34-66%) -Necrotic Tissue Type Adherent Slough -Texture (Deepti-wound Skin Appearance) Assessed Scarring -Moisture (Deepti-wound Skin Appearance Assessed ) -Color (Deepti-wound Skin Appearance) Assessed Erythema -Temperature (Deepti-wound Skin No Abnormality Appearance) (Pt Warm) -Tenderness on Palpation (Deepti-wound No Skin Appearance) -Ulcer Cleansing Rinsed/ Irrigated with Saline -Foul Odor after Cleansing No #13 L Grt Toe -Combined with other wound No -Current Size (cm) - Length 0.3 -Current Size (cm) - Width 0.7 -Current Size (cm) - Depth 0.2 -Total Square Cm 0.21 -Photo Taken No -Epithelialization None Present -Tunneling No -Undermining/Tunneling No -Circular Undermining No -Exudate Amt Small -Exudate Type Sanguineous -Wound Margin Distinct, Outline Attached -Granulation Amt Large (67-100%) -Granulation Quality Red -Slough/Fibrin No -Necrosis Amt None Present (0 %) -Texture (Deepti-wound Skin Appearance) Callus Scarring -Moisture (Deepti-wound Skin Appearance Assessed ) Dry/Scaly -Color (Deepti-wound Skin Appearance) Assessed -Temperature (Deepti-wound Skin No Abnormality Appearance) (Pt Warm) -Tenderness on Palpation (Deepti-wound No Skin Appearance) -Ulcer Cleansing Wound Cleanser -Foul Odor after Cleansing No [Edema Assessment] -Lower Limb Edema Present Yes -Left Calf (cm) 42 -Left Ankle (cm) 31.8 WC - Nurse 2 - General Ulcer CM Notes Start: 09/05/18 11:48 Freq: Status: Active Protocol: Activity Type Activity Date Activity User E-Sign Co-Sign Detail Recorded Client Recorded Date Recorded By Document 09/12/18 10:40 AN [id number] 09/12/18 10:48 AN Document 09/12/18 11:02 AN [id number] 09/12/18 11:03 AN Document 09/12/18 11:15 MW [email or web address] 09/12/18 11:18 MW 09/12/18 09/12/18 09/12/18 10:40 11:02 11:15 Wound Center Nurse 2 [Procedure/Treatment] #15 left foot plantar -Time 11:02 -Correct Patient Yes -Correct Side, Site, Position Yes -Correct Procedure Yes -Procedure Performed Yes -Type of Procedure Debridement -Clinical Debridement Subcutaneous -Post Debridement Size (cm) - Length 4.2 -Post Debridement Size (cm) - Width 5.7 -Post Debridement Size (cm) - Depth 0.5 -Total Square Cm 23.94 -Wound/Ulcer Outcome Not Healed -Ulcer Cleansing Rinsed/ Irrigated with Saline -Offloading Yes -Treatment Response Procedure Tolerated Well 14-lower back -Time 11:15 -Correct Patient Yes -Correct Side, Site, Position Yes -Correct Procedure Yes -Procedure Performed Yes -Type of Procedure Debridement -Clinical Debridement Subcutaneous -Post Debridement Size (cm) - Length 1.2 -Post Debridement Size (cm) - Width 0.6 -Post Debridement Size (cm) - Depth 0.1 -Total Square Cm 0.72 -Wound/Ulcer Outcome Not Healed -Ulcer Cleansing Rinsed/ Irrigated with Saline -Foul Odor after Cleansing No -Bioengineered Tissue No -Bleeding Controlled with Pressure -Offloading No -Treatment Response Procedure Tolerated Well #13 L Grt Toe -Time 10:41 -Correct Patient Yes -Correct Side, Site, Position Yes -Correct Procedure Yes -Procedure Performed Yes -Type of Procedure Debridement -Clinical Debridement Subcutaneous -Post Debridement Size (cm) - Length 0.4 -Post Debridement Size (cm) - Width 0.8 -Post Debridement Size (cm) - Depth 0.2 -Total Square Cm 0.32 -Wound/Ulcer Outcome Not Healed -Ulcer Cleansing Rinsed/ Irrigated with Saline -Foul Odor after Cleansing No -Bioengineered Tissue No -Bleeding Controlled with Pressure -Offloading Yes -Treatment Response Procedure Tolerated Well [See Physician Procedure note for Specifics] Pain Scale: 0-10 Numeric [Pain] -Is Patient Pain Free? Yes Musculoskeletal: No Muscle Wasting Neurological: Cranial nerves II-XII grossly intact Psych/Mental Status: Normal Affect Debridement Note Post-Debridement Measurements/Treatment WC - Nurse 2 - General Ulcer CM Notes Start: 09/05/18 11:48 Freq: Status: Active Protocol: Activity Type Activity Date Activity User E-Sign Co-Sign Detail Recorded Client Recorded Date Recorded By Document 09/05/18 12:20 AN [id number] 09/05/18 12:23 AN Document 09/05/18 12:26 MW [id number] 09/05/18 12:30 MW Document 09/12/18 10:40 AN [id number] 09/12/18 10:48 AN Document 09/12/18 11:02 AN [id number] 09/12/18 11:03 AN Document 09/12/18 11:15 MW [id number] 09/12/18 11:18 MW 09/05/18 09/05/18 09/12/18 12:20 12:26 10:40 Wound Center Nurse 2 #15 left foot plantar -Time -Correct Patient -Correct Side, Site, Position -Correct Procedure -Procedure Performed -Type of Procedure -Clinical Debridement -Post Debridement Size (cm) - Length -Post Debridement Size (cm) - Width -Post Debridement Size (cm) - Depth -Total Square Cm -Wound/Ulcer Outcome -Ulcer Cleansing -Offloading -Treatment Response 14-lower back -Time 12:27 -Correct Patient Yes -Correct Side, Site, Position Yes -Correct Procedure Yes -Procedure Performed Yes -Type of Procedure Debridement -Clinical Debridement Subcutaneous -Post Debridement Size (cm) - Length 1.4 -Post Debridement Size (cm) - Width 1.1 -Post Debridement Size (cm) - Depth 0.1 -Total Square Cm 1.54 -Wound/Ulcer Outcome Not Healed -Ulcer Cleansing Rinsed/ Irrigated with Saline -Foul Odor after Cleansing No No -Bioengineered Tissue No No -Bleeding Controlled with Pressure -Offloading No -Treatment Response Procedure Tolerated Well #13 L Grt Toe -Time 12:23 10:41 -Correct Patient Yes Yes -Correct Side, Site, Position Yes Yes -Correct Procedure Yes Yes -Procedure Performed Yes Yes -Type of Procedure Debridement Debridement -Clinical Debridement Subcutaneous Subcutaneous -Post Debridement Size (cm) - Length 0.5 0.4 -Post Debridement Size (cm) - Width 0.6 0.8 -Post Debridement Size (cm) - Depth 0.2 0.2 -Total Square Cm 0.30 0.32 -Wound/Ulcer Outcome Not Healed Not Healed -Ulcer Cleansing Rinsed/ Rinsed/ Irrigated with Irrigated with Saline Saline -Foul Odor after Cleansing No No -Bioengineered Tissue No -Bleeding Controlled with Pressure Pressure -Offloading Yes -Treatment Response Procedure Procedure Tolerated Well Tolerated Well Pain Scale: 0-10 Numeric Is Patient Pain Free? Yes 19 09/12/18 11:02 11:15 Wound Center Nurse 2 #15 left foot plantar -Time 11:02 -Correct Patient Yes -Correct Side, Site, Position Yes -Correct Procedure Yes -Procedure Performed Yes -Type of Procedure Debridement -Clinical Debridement Subcutaneous -Post Debridement Size (cm) - Length 4.2 -Post Debridement Size (cm) - Width 5.7 -Post Debridement Size (cm) - Depth 0.5 -Total Square Cm 23.94 -Wound/Ulcer Outcome Not Healed -Ulcer Cleansing Rinsed/ Irrigated with Saline -Offloading Yes -Treatment Response Procedure Tolerated Well 14-lower back -Time 11:15 -Correct Patient Yes -Correct Side, Site, Position Yes -Correct Procedure Yes -Procedure Performed Yes -Type of Procedure Debridement -Clinical Debridement Subcutaneous -Post Debridement Size (cm) - Length 1.2 -Post Debridement Size (cm) - Width 0.6 -Post Debridement Size (cm) - Depth 0.1 -Total Square Cm 0.72 -Wound/Ulcer Outcome Not Healed -Ulcer Cleansing Rinsed/ Irrigated with Saline -Foul Odor after Cleansing No -Bioengineered Tissue No -Bleeding Controlled with Pressure -Offloading No -Treatment Response Procedure Tolerated Well #13 L Grt Toe -Time -Correct Patient -Correct Side, Site, Position -Correct Procedure -Procedure Performed -Type of Procedure -Clinical Debridement -Post Debridement Size (cm) - Length -Post Debridement Size (cm) - Width -Post Debridement Size (cm) - Depth -Total Square Cm -Wound/Ulcer Outcome -Ulcer Cleansing -Foul Odor after Cleansing -Bioengineered Tissue -Bleeding Controlled with -Offloading -Treatment Response Pain Scale: 0-10 Numeric Is Patient Pain Free? 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 Pressure ulcer of foot, stage 1 (Acute) Edema, lower extremity (Chronic) Peripheral neuropathy (Chronic) Spina bifida (Chronic) Assessment: ulcer left great toe with fat layer exposed. Spina bifida. Peripheral neuropathy bilateral lower extremities. Nonambulatory wheelchair bound. Chronic swelling in both lower extremities. left femur fracture and h/o blood clot, now on eliquis. Left lower back ulcer with fat layer exposed. Plan: Debridement done as documented above. Procedure was well-tolerated. Slough burden improved. Continue santyl for 1 week. Offloading recommended. Continue increased protein intake. Other wound care per Dr. Cordero. All their questions were answered and they were advised to call with any further questions or concerns. Follow-up in 1 week. This note was generated with [employer] software. It may contain incorrect words, spelling, and punctuation that were not noted in checking the note before signing.
--- NOTE | 2018-09-12 11:25 | PN.PCM_ITS ---
(1) Ulcer of back Status: Acute Current Visit: Yes Code(s): L98.429 - Non-pressure chronic ulcer of back with unspecified severity Comment: Fat layer exposed. (2) Spina bifida Status: Chronic Current Visit: Yes Qualifiers: Code(s): Q05.9 - Spina bifida, unspecified Type of Wound Chief Complaint: Left lower back ulcer. History of Wound: Ms. Recio is a pleasant 32-year-old well-known to the wound center and been managed by Dr. Cordero for a lower extremity ulcer. She is here with her mother who states that she noted an ulcer over left lower back about 3 days ago. She cleaned it out and put Promogran on it however, noted this morning that it had worsened. Denies any known precipitating factor however, due to recent femur fracture she has been less mobile lately. She feels well otherwise and denies chills, fever or feeling of unwell. Progress of Wound: Lower back improving. No new concerns at this time. - Physical Exam Vital Signs Temp Pulse Resp BP 97.8 F 91 16 130/96 H 09/12/18 10:23 09/12/18 10:23 09/12/18 10:23 09/12/18 10:23 General: Alert, Oriented x3, Cooperative, No apparent distress HEENT: Atraumatic, Normocephalic Oral: Moist Mucosa Neck: Supple Lungs: Normal air movement Extremities: No cyanosis Skin: Ulcer/ Wound Wound Measurements and Assessment WC - Nurse 1 - General Ulcer Measurement Start: 09/05/18 11:48 Freq: Status: Active Protocol: Activity Type Activity Date Activity User E-Sign Co-Sign Detail Recorded Client Recorded Date Recorded By Document 09/12/18 10:23 [facility] [id number] 09/12/18 10:26 [facility] Document 09/12/18 10:49 AN [id number] 09/12/18 10:57 AN 09/12/18 09/12/18 10:23 10:49 Wound Center Nurse 1 [Ulcer Assessment] #15 left foot plantar -Combined with other wound No -Current Size (cm) - Length 4.2 -Current Size (cm) - Width 5.7 -Current Size (cm) - Depth 0.5 -Total Square Cm 23.94 -Date of Last Picture (Recall this 09/12/18 field) -Photo Taken Yes -Tunneling No -Undermining/Tunneling No -Classification - Thickness Full Thickness without Exposed Support Structure -Exudate Amt Medium -Exudate Type Serosanguineous -Wound Margin Distinct, Outline Attached -Granulation Amt Medium (34-66%) -Granulation Quality Red -Slough/Fibrin Yes -Necrosis Amt Medium (34-66%) -Necrotic Tissue Type Adherent Slough -Structure Exposed Fat Layer Exposed -Texture (Deepti-wound Skin Appearance) Assessed -Moisture (Deepti-wound Skin Appearance Assessed ) Maceration -Color (Deepti-wound Skin Appearance) Erythema -Temperature (Deepti-wound Skin Hot Appearance) -Tenderness on Palpation (Deepti-wound No Skin Appearance) -Ulcer Cleansing Rinsed/ Irrigated with Saline -Foul Odor after Cleansing No 14-lower back -Combined with other wound No -Current Size (cm) - Length 1 -Current Size (cm) - Width 0.7 -Current Size (cm) - Depth 0.2 -Total Square Cm 0.7 -Photo Taken No -Epithelialization None Present -Tunneling No -Undermining/Tunneling No -Circular Undermining No -Exudate Amt Small -Exudate Type Serosanguineous -Wound Margin Distinct, Outline Attached -Granulation Amt Small (1-33%) -Granulation Quality Red -Slough/Fibrin Yes -Necrosis Amt Medium (34-66%) -Necrotic Tissue Type Adherent Slough -Texture (Deepti-wound Skin Appearance) Assessed Scarring -Moisture (Deepti-wound Skin Appearance Assessed ) -Color (Deepti-wound Skin Appearance) Assessed Erythema -Temperature (Deepti-wound Skin No Abnormality Appearance) (Pt Warm) -Tenderness on Palpation (Deepti-wound No Skin Appearance) -Ulcer Cleansing Rinsed/ Irrigated with Saline -Foul Odor after Cleansing No #13 L Grt Toe -Combined with other wound No -Current Size (cm) - Length 0.3 -Current Size (cm) - Width 0.7 -Current Size (cm) - Depth 0.2 -Total Square Cm 0.21 -Photo Taken No -Epithelialization None Present -Tunneling No -Undermining/Tunneling No -Circular Undermining No -Exudate Amt Small -Exudate Type Sanguineous -Wound Margin Distinct, Outline Attached -Granulation Amt Large (67-100%) -Granulation Quality Red -Slough/Fibrin No -Necrosis Amt None Present (0 %) -Texture (Deepti-wound Skin Appearance) Callus Scarring -Moisture (Deepti-wound Skin Appearance Assessed ) Dry/Scaly -Color (Deepti-wound Skin Appearance) Assessed -Temperature (Deepti-wound Skin No Abnormality Appearance) (Pt Warm) -Tenderness on Palpation (Deepti-wound No Skin Appearance) -Ulcer Cleansing Wound Cleanser -Foul Odor after Cleansing No [Edema Assessment] -Lower Limb Edema Present Yes -Left Calf (cm) 42 -Left Ankle (cm) 31.8 WC - Nurse 2 - General Ulcer CM Notes Start: 09/05/18 11:48 Freq: Status: Active Protocol: Activity Type Activity Date Activity User E-Sign Co-Sign Detail Recorded Client Recorded Date Recorded By Document 09/12/18 10:40 AN [id number] 09/12/18 10:48 AN Document 09/12/18 11:02 AN [id number] 09/12/18 11:03 AN Document 09/12/18 11:15 MW [id number] 09/12/18 11:18 MW 09/12/18 09/12/18 09/12/18 10:40 11:02 11:15 Wound Center Nurse 2 [Procedure/Treatment] #15 left foot plantar -Time 11:02 -Correct Patient Yes -Correct Side, Site, Position Yes -Correct Procedure Yes -Procedure Performed Yes -Type of Procedure Debridement -Clinical Debridement Subcutaneous -Post Debridement Size (cm) - Length 4.2 -Post Debridement Size (cm) - Width 5.7 -Post Debridement Size (cm) - Depth 0.5 -Total Square Cm 23.94 -Wound/Ulcer Outcome Not Healed -Ulcer Cleansing Rinsed/ Irrigated with Saline -Offloading Yes -Treatment Response Procedure Tolerated Well 14-lower back -Time 11:15 -Correct Patient Yes -Correct Side, Site, Position Yes -Correct Procedure Yes -Procedure Performed Yes -Type of Procedure Debridement -Clinical Debridement Subcutaneous -Post Debridement Size (cm) - Length 1.2 -Post Debridement Size (cm) - Width 0.6 -Post Debridement Size (cm) - Depth 0.1 -Total Square Cm 0.72 -Wound/Ulcer Outcome Not Healed -Ulcer Cleansing Rinsed/ Irrigated with Saline -Foul Odor after Cleansing No -Bioengineered Tissue No -Bleeding Controlled with Pressure -Offloading No -Treatment Response Procedure Tolerated Well #13 L Grt Toe -Time 10:41 -Correct Patient Yes -Correct Side, Site, Position Yes -Correct Procedure Yes -Procedure Performed Yes -Type of Procedure Debridement -Clinical Debridement Subcutaneous -Post Debridement Size (cm) - Length 0.4 -Post Debridement Size (cm) - Width 0.8 -Post Debridement Size (cm) - Depth 0.2 -Total Square Cm 0.32 -Wound/Ulcer Outcome Not Healed -Ulcer Cleansing Rinsed/ Irrigated with Saline -Foul Odor after Cleansing No -Bioengineered Tissue No -Bleeding Controlled with Pressure -Offloading Yes -Treatment Response Procedure Tolerated Well [See Physician Procedure note for Specifics] Pain Scale: 0-10 Numeric [Pain] -Is Patient Pain Free? Yes Musculoskeletal: No Muscle Wasting Neurological: Cranial nerves II-XII grossly intact Psych/Mental Status: Normal Affect Debridement Note Post-Debridement Measurements/Treatment WC - Nurse 2 - General Ulcer CM Notes Start: 09/05/18 11:48 Freq: Status: Active Protocol: Activity Type Activity Date Activity User E-Sign Co-Sign Detail Recorded Client Recorded Date Recorded By Document 09/05/18 12:20 AN [id number] 09/05/18 12:23 AN Document 09/05/18 12:26 MW [id number] 09/05/18 12:30 MW Document 09/12/18 10:40 AN [id number] 09/12/18 10:48 AN Document 09/12/18 11:02 AN [id number] 09/12/18 11:03 AN Document 09/12/18 11:15 MW [id number] 09/12/18 11:18 MW 09/05/18 09/05/18 09/12/18 12:20 12:26 10:40 Wound Center Nurse 2 #15 left foot plantar -Time -Correct Patient -Correct Side, Site, Position -Correct Procedure -Procedure Performed -Type of Procedure -Clinical Debridement -Post Debridement Size (cm) - Length -Post Debridement Size (cm) - Width -Post Debridement Size (cm) - Depth -Total Square Cm -Wound/Ulcer Outcome -Ulcer Cleansing -Offloading -Treatment Response 14-lower back -Time 12:27 -Correct Patient Yes -Correct Side, Site, Position Yes -Correct Procedure Yes -Procedure Performed Yes -Type of Procedure Debridement -Clinical Debridement Subcutaneous -Post Debridement Size (cm) - Length 1.4 -Post Debridement Size (cm) - Width 1.1 -Post Debridement Size (cm) - Depth 0.1 -Total Square Cm 1.54 -Wound/Ulcer Outcome Not Healed -Ulcer Cleansing Rinsed/ Irrigated with Saline -Foul Odor after Cleansing No No -Bioengineered Tissue No No -Bleeding Controlled with Pressure -Offloading No -Treatment Response Procedure Tolerated Well #13 L Grt Toe -Time 12:23 10:41 -Correct Patient Yes Yes -Correct Side, Site, Position Yes Yes -Correct Procedure Yes Yes -Procedure Performed Yes Yes -Type of Procedure Debridement Debridement -Clinical Debridement Subcutaneous Subcutaneous -Post Debridement Size (cm) - Length 0.5 0.4 -Post Debridement Size (cm) - Width 0.6 0.8 -Post Debridement Size (cm) - Depth 0.2 0.2 -Total Square Cm 0.30 0.32 -Wound/Ulcer Outcome Not Healed Not Healed -Ulcer Cleansing Rinsed/ Rinsed/ Irrigated with Irrigated with Saline Saline -Foul Odor after Cleansing No No -Bioengineered Tissue No -Bleeding Controlled with Pressure Pressure -Offloading Yes -Treatment Response Procedure Procedure Tolerated Well Tolerated Well Pain Scale: 0-10 Numeric Is Patient Pain Free? Yes 19 09/12/18 11:02 11:15 Wound Center Nurse 2 #15 left foot plantar -Time 11:02 -Correct Patient Yes -Correct Side, Site, Position Yes -Correct Procedure Yes -Procedure Performed Yes -Type of Procedure Debridement -Clinical Debridement Subcutaneous -Post Debridement Size (cm) - Length 4.2 -Post Debridement Size (cm) - Width 5.7 -Post Debridement Size (cm) - Depth 0.5 -Total Square Cm 23.94 -Wound/Ulcer Outcome Not Healed -Ulcer Cleansing Rinsed/ Irrigated with Saline -Offloading Yes -Treatment Response Procedure Tolerated Well 14-lower back -Time 11:15 -Correct Patient Yes -Correct Side, Site, Position Yes -Correct Procedure Yes -Procedure Performed Yes -Type of Procedure Debridement -Clinical Debridement Subcutaneous -Post Debridement Size (cm) - Length 1.2 -Post Debridement Size (cm) - Width 0.6 -Post Debridement Size (cm) - Depth 0.1 -Total Square Cm 0.72 -Wound/Ulcer Outcome Not Healed -Ulcer Cleansing Rinsed/ Irrigated with Saline -Foul Odor after Cleansing No -Bioengineered Tissue No -Bleeding Controlled with Pressure -Offloading No -Treatment Response Procedure Tolerated Well #13 L Grt Toe -Time -Correct Patient -Correct Side, Site, Position -Correct Procedure -Procedure Performed -Type of Procedure -Clinical Debridement -Post Debridement Size (cm) - Length -Post Debridement Size (cm) - Width -Post Debridement Size (cm) - Depth -Total Square Cm -Wound/Ulcer Outcome -Ulcer Cleansing -Foul Odor after Cleansing -Bioengineered Tissue -Bleeding Controlled with -Offloading -Treatment Response Pain Scale: 0-10 Numeric Is Patient Pain Free? 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 Pressure ulcer of foot, stage 1 (Acute) Edema, lower extremity (Chronic) Peripheral neuropathy (Chronic) Spina bifida (Chronic) Assessment: ulcer left great toe with fat layer exposed. Spina bifida. Peripheral neuropathy bilateral lower extremities. Nonambulatory wheelchair bound. Chronic swelling in both lower extremities. left femur fracture and h/o blood clot, now on eliquis. Left lower back ulcer with fat layer exposed. Plan: Debridement done as documented above. Procedure was well-tolerated. Sl ough burden improved. Continue santyl for 1 week. Offloading recommended. Continue increased protein intake. Other wound care per Dr. Cordero. All their questions were answered and they were advised to call with any further questions or concerns. Follow-up in 1 week. This note was generated with [employer] software. It may contain incorrect words, spelling, and punctuation that were not noted in checking the note before signing.
--- NOTE | 2018-09-12 11:57 | RAD_ITS ---
STUDY: X-RAY - LEFT FOOT CLINICAL: Female, 32 years old. Left foot injury, left femur fracture, history of spina bifida. TECHNIQUE: 3 view(s) of the foot. COMPARISON: None. FINDINGS: Prominent lower leg and foot soft tissues. Severe soft tissue swelling dorsum of the foot. Generalized osteopenia. Gracile features of the metatarsals. Pes planus. There is no visible fracture. RAD/Foot min 3 Views IMPRESSION: Severe dorsal foot soft tissue swelling. No visible fracture. Electronically Signed: Marino Rogers MD at 16:01 EDT Tel , Service support ,
[2018-09-12 12:23] LABS: Erythrocyte Sedimentation Rate 67 mm/hr (0-20)
[2018-09-12 12:28] LABS: Absolute Lymphocyte Count 1.36 X10^3/ul (0.83-4.51); Absolute Neutrophil Count 4.8 X10^3/uL (2.0-7.7); Basophil# 0.04 X10^3/uL; Basophil% 0.5 % (0-1); Eosinophil# 0.43 X10^3/uL; Eosinophils% 5.7 % (0-5); Hematocrit 35.4 % (37-47); Hemoglobin 10.5 g/dl (12.0-15.0); Lymphocyte # 1.36 X10^3/ul (4.0); Lymphocyte % 18.1 % (19-41); Mean Corp Hgb Conc 29.7 g/gl (32-36); Mean Corpuscular Hgb 23.2 pg (27.0-32.0); Mean Corpuscular Volume 78.3 fL (81-99); Mean Platelet Vol. 10.1 fl (6.2-12.0); Monocyte# 0.87 X10^3/uL; Monocyte% 11.6 % (0-10); Neutrophil # 4.78 X10^3/uL (2.7-7.7); Neutrophil % 63.8 % (47-70); Platelet Count 389 K/mm3 (150-450); RBC Distribution Width CV 15.4 % (11.6-14.6); RBC Distribution Width SD 42.8 fl (35.1-43.9); Red Blood Count 4.52 M/mm3 (4.2-5.4); White Blood Count 7.5 K/mm3 (4.4-11.0)
[2018-09-12 12:30] LABS: POSITIVE COUNT NO; POSITIVE DIFFERENTIAL NO; POSITIVE MORPHOLOGY NO
--- NOTE | 2018-09-12 15:18 | PCM.WC.PN ---
(1) Chronic ulcer of left foot with fat layer exposed Status: Chronic Current Visit: Yes Code(s): L97.522 - Non-pressure chronic ulcer of other part of left foot with fat layer exposed (2) Peripheral neuropathy Status: Chronic Current Visit: Yes Code(s): G62.9 - Polyneuropathy, unspecified (3) Spina bifida Status: Chronic Current Visit: Yes Qualifiers: Code(s): Q05.9 - Spina bifida, unspecified (4) Pressure ulcer of foot, stage 1 Status: Acute Current Visit: Yes Qualifiers: Laterality: left Qualified Code(s): L89.891 - Pressure ulcer of other site, stage 1 Code(s): L89.891 - Pressure ulcer of other site, stage 1 (5) Edema, lower extremity Status: Chronic Current Visit: Yes Code(s): R60.0 - Localized edema Type of Wound Chief Complaint: toe ulcer. heel ulcer. foot ulcer History of Wound: This 32-year-old female follows up for multiple ulcers and pressure injury sites of the left foot. She is with her mother. She has continued swelling to her left lower extremity since she broke her femur and had a subsequent blood clot. She has some redness and warmth and reports a low-grade fever of up to 99 degrees the past day. The previous black scab to the bottom of the foot is now moist and there is some fluid collection deep to this area. She relates her foot does rest on her wheelchair most of the day. she denies fever, chill, nausea, vomiting, loss of appetite. Progress of Wound: worse foot status. Improving hallux ulcer - Physical Exam Vital Signs Temp Pulse Resp BP 97.8 F 91 16 130/96 H 09/12/18 10:23 09/12/18 10:23 09/12/18 10:23 09/12/18 10:23 General: Alert, Oriented x3, Cooperative HEENT: Atraumatic Extremities: No cyanosis, Capillary Refill Less than 3 Seconds, No Calf Tenderness - Negative Vonda and Ignacio sign left, Diminished Peripheral Pulses, Edema - Increased left lower extremity, - - Lack of muscle strength bilateral consistent with spina bifida Skin: Ulcer/ Wound - No purulence, odor noted to the left foot. The hallux ulcer site appears to be granular and healthy with no peripheral erythema or streaking. There is diffuse erythema to the left foot and there is bogginess to the scab to the plantar central foot and upon drainage and debridement there is proof of deep tissue injury and the ulcer bed is granular and fibrous and there is no deep probing to deeper structures. The heel ulcer site does have some dry eschar upon debridement superficial granulation tissue is noted. The peripheral skin is hairless and atrophic. Wound Measurements and Assessment WC - Nurse 1 - General Ulcer Measurement Start: 09/05/18 11:48 Freq: Status: Active Protocol: Activity Type Activity Date Activity User E-Sign Co-Sign Detail Recorded Client Recorded Date Recorded By Document 09/12/18 10:23 [facility] [id number] 09/12/18 10:26 [facility] Document 09/12/18 10:49 AN [id number] 09/12/18 10:57 AN 09/12/18 09/12/18 10:23 10:49 Wound Center Nurse 1 [Ulcer Assessment] #15 left foot plantar -Combined with other wound No -Current Size (cm) - Length 4.2 -Current Size (cm) - Width 5.7 -Current Size (cm) - Depth 0.5 -Total Square Cm 23.94 -Date of Last Picture (Recall this 09/12/18 field) -Photo Taken Yes -Tunneling No -Undermining/Tunneling No -Classification - Thickness Full Thickness without Exposed Support Structure -Exudate Amt Medium -Exudate Type Serosanguineous -Wound Margin Distinct, Outline Attached -Granulation Amt Medium (34-66%) -Granulation Quality Red -Slough/Fibrin Yes -Necrosis Amt Medium (34-66%) -Necrotic Tissue Type Adherent Slough -Structure Exposed Fat Layer Exposed -Texture (Deepti-wound Skin Appearance) Assessed -Moisture (Deepti-wound Skin Appearance Assessed ) Maceration -Color (Deepti-wound Skin Appearance) Erythema -Temperature (Deepti-wound Skin Hot Appearance) -Tenderness on Palpation (Deepti-wound No Skin Appearance) -Ulcer Cleansing Rinsed/ Irrigated with Saline -Foul Odor after Cleansing No 14-lower back -Combined with other wound No -Current Size (cm) - Length 1 -Current Size (cm) - Width 0.7 -Current Size (cm) - Depth 0.2 -Total Square Cm 0.7 -Photo Taken No -Epithelialization None Present -Tunneling No -Undermining/Tunneling No -Circular Undermining No -Exudate Amt Small -Exudate Type Serosanguineous -Wound Margin Distinct, Outline Attached -Granulation Amt Small (1-33%) -Granulation Quality Red -Slough/Fibrin Yes -Necrosis Amt Medium (34-66%) -Necrotic Tissue Type Adherent Slough -Texture (Deepti-wound Skin Appearance) Assessed Scarring -Moisture (Deepti-wound Skin Appearance Assessed ) -Color (Deepti-wound Skin Appearance) Assessed Erythema -Temperature (Deepti-wound Skin No Abnormality Appearance) (Pt Warm) -Tenderness on Palpation (Deepti-wound No Skin Appearance) -Ulcer Cleansing Rinsed/ Irrigated with Saline -Foul Odor after Cleansing No #13 L Grt Toe -Combined with other wound No -Current Size (cm) - Length 0.3 -Current Size (cm) - Width 0.7 -Current Size (cm) - Depth 0.2 -Total Square Cm 0.21 -Photo Taken No -Epithelialization None Present -Tunneling No -Undermining/Tunneling No -Circular Undermining No -Exudate Amt Small -Exudate Type Sanguineous -Wound Margin Distinct, Outline Attached -Granulation Amt Large (67-100%) -Granulation Quality Red -Slough/Fibrin No -Necrosis Amt None Present (0 %) -Texture (Deepti-wound Skin Appearance) Callus Scarring -Moisture (Deepti-wound Skin Appearance Assessed ) Dry/Scaly -Color (Deepti-wound Skin Appearance) Assessed -Temperature (Deepti-wound Skin No Abnormality Appearance) (Pt Warm) -Tenderness on Palpation (Deepti-wound No Skin Appearance) -Ulcer Cleansing Wound Cleanser -Foul Odor after Cleansing No [Edema Assessment] -Lower Limb Edema Present Yes -Left Calf (cm) 42 -Left Ankle (cm) 31.8 WC - Nurse 2 - General Ulcer CM Notes Start: 09/05/18 11:48 Freq: Status: Active Protocol: Activity Type Activity Date Activity User E-Sign Co-Sign Detail Recorded Client Recorded Date Recorded By Document 09/12/18 10:40 AN [id number] 09/12/18 10:48 AN Document 09/12/18 11:02 AN [id number] 09/12/18 11:03 AN Document 09/12/18 11:15 MW [id number] 09/12/18 11:18 MW 05/12/2409/12/18 09/12/18 10:40 11:02 11:15 Wound Center Nurse 2 [Procedure/Treatment] #15 left foot plantar -Time 11:02 -Correct Patient Yes -Correct Side, Site, Position Yes -Correct Procedure Yes -Procedure Performed Yes -Type of Procedure Debridement -Clinical Debridement Subcutaneous -Post Debridement Size (cm) - Length 4.2 -Post Debridement Size (cm) - Width 5.7 -Post Debridement Size (cm) - Depth 0.5 -Total Square Cm 23.94 -Wound/Ulcer Outcome Not Healed -Ulcer Cleansing Rinsed/ Irrigated with Saline -Offloading Yes -Treatment Response Procedure Tolerated Well 14-lower back -Time 11:15 -Correct Patient Yes -Correct Side, Site, Position Yes -Correct Procedure Yes -Procedure Performed Yes -Type of Procedure Debridement -Clinical Debridement Subcutaneous -Post Debridement Size (cm) - Length 1.2 -Post Debridement Size (cm) - Width 0.6 -Post Debridement Size (cm) - Depth 0.1 -Total Square Cm 0.72 -Wound/Ulcer Outcome Not Healed -Ulcer Cleansing Rinsed/ Irrigated with Saline -Foul Odor after Cleansing No -Bioengineered Tissue No -Bleeding Controlled with Pressure -Offloading No -Treatment Response Procedure Tolerated Well #13 L Grt Toe -Time 10:41 -Correct Patient Yes -Correct Side, Site, Position Yes -Correct Procedure Yes -Procedure Performed Yes -Type of Procedure Debridement -Clinical Debridement Subcutaneous -Post Debridement Size (cm) - Length 0.4 -Post Debridement Size (cm) - Width 0.8 -Post Debridement Size (cm) - Depth 0.2 -Total Square Cm 0.32 -Wound/Ulcer Outcome Not Healed -Ulcer Cleansing Rinsed/ Irrigated with Saline -Foul Odor after Cleansing No -Bioengineered Tissue No -Bleeding Controlled with Pressure -Offloading Yes -Treatment Response Procedure Tolerated Well [See Physician Procedure note for Specifics] Pain Scale: 0-10 Numeric [Pain] -Is Patient Pain Free? Yes Musculoskeletal: No Tenderness to Palpation of Joints or Extremities, Muscle Wasting, - - Contraction of foot and toes. No further fluctuance on palpation after the large plantar foot bowl was drained. The compartments are soft to palpate to the foot ankle and leg left lower extremity. Wheelchair noted Neurological: - - Lack of normal epicritic sensation light touch Psych/Mental Status: Normal Affect, Appropriate Debridement Note Post-Debridement Measurements/Treatment WC - Nurse 2 - General Ulcer CM Notes Start: 09/05/18 11:48 Freq: Status: Active Protocol: Activity Type Activity Date Activity User E-Sign Co-Sign Detail Recorded Client Recorded Date Recorded By Document 09/05/18 12:20 AN [id number] 09/05/18 12:23 AN Document 09/05/18 12:26 MW [id number] 09/05/18 12:30 MW Document 09/12/18 10:40 AN [id number] 09/12/18 10:48 AN Document 09/12/18 11:02 AN [id number] 09/12/18 11:03 AN Document 09/12/18 11:15 MW [id number] 09/12/18 11:18 MW 09/05/18 09/05/18 09/12/18 12:20 12:26 10:40 Wound Center Nurse 2 #15 left foot plantar -Time -Correct Patient -Correct Side, Site, Position -Correct Procedure -Procedure Performed -Type of Procedure -Clinical Debridement -Post Debridement Size (cm) - Length -Post Debridement Size (cm) - Width -Post Debridement Size (cm) - Depth -Total Square Cm -Wound/Ulcer Outcome -Ulcer Cleansing -Offloading -Treatment Response 14-lower back -Time 12:27 -Correct Patient Yes -Correct Side, Site, Position Yes -Correct Procedure Yes -Procedure Performed Yes -Type of Procedure Debridement -Clinical Debridement Subcutaneous -Post Debridement Size (cm) - Length 1.4 -Post Debridement Size (cm) - Width 1.1 -Post Debridement Size (cm) - Depth 0.1 -Total Square Cm 1.54 -Wound/Ulcer Outcome Not Healed -Ulcer Cleansing Rinsed/ Irrigated with Saline -Foul Odor after Cleansing No No -Bioengineered Tissue No No -Bleeding Controlled with Pressure -Offloading No -Treatment Response Procedure Tolerated Well #13 L Grt Toe -Time 12:23 10:41 -Correct Patient Yes Yes -Correct Side, Site, Position Yes Yes -Correct Procedure Yes Yes -Procedure Performed Yes Yes -Type of Procedure Debridement Debridement -Clinical Debridement Subcutaneous Subcutaneous -Post Debridement Size (cm) - Length 0.5 0.4 -Post Debridement Size (cm) - Width 0.6 0.8 -Post Debridement Size (cm) - Depth 0.2 0.2 -Total Square Cm 0.30 0.32 -Wound/Ulcer Outcome Not Healed Not Healed -Ulcer Cleansing Rinsed/ Rinsed/ Irrigated with Irrigated with Saline Saline -Foul Odor after Cleansing No No -Bioengineered Tissue No -Bleeding Controlled with Pressure Pressure -Offloading Yes -Treatment Response Procedure Procedure Tolerated Well Tolerated Well Pain Scale: 0-10 Numeric Is Patient Pain Free? Yes 09/12/18 09/12/18 11:02 11:15 Wound Center Nurse 2 #15 left foot plantar -Time 11:02 -Correct Patient Yes -Correct Side, Site, Position Yes -Correct Procedure Yes -Procedure Performed Yes -Type of Procedure Debridement -Clinical Debridement Subcutaneous -Post Debridement Size (cm) - Length 4.2 -Post Debridement Size (cm) - Width 5.7 -Post Debridement Size (cm) - Depth 0.5 -Total Square Cm 23.94 -Wound/Ulcer Outcome Not Healed -Ulcer Cleansing Rinsed/ Irrigated with Saline -Offloading Yes -Treatment Response Procedure Tolerated Well 14-lower back -Time 11:15 -Correct Patient Yes -Correct Side, Site, Position Yes -Correct Procedure Yes -Procedure Performed Yes -Type of Procedure Debridement -Clinical Debridement Subcutaneous -Post Debridement Size (cm) - Length 1.2 -Post Debridement Size (cm) - Width 0.6 -Post Debridement Size (cm) - Depth 0.1 -Total Square Cm 0.72 -Wound/Ulcer Outcome Not Healed -Ulcer Cleansing Rinsed/ Irrigated with Saline -Foul Odor after Cleansing No -Bioengineered Tissue No -Bleeding Controlled with Pressure -Offloading No -Treatment Response Procedure Tolerated Well #13 L Grt Toe -Time -Correct Patient -Correct Side, Site, Position -Correct Procedure -Procedure Performed -Type of Procedure -Clinical Debridement -Post Debridement Size (cm) - Length -Post Debridement Size (cm) - Width -Post Debridement Size (cm) - Depth -Total Square Cm -Wound/Ulcer Outcome -Ulcer Cleansing -Foul Odor after Cleansing -Bioengineered Tissue -Bleeding Controlled with -Offloading -Treatment Response Pain Scale: 0-10 Numeric Is Patient Pain Free? Yes Wound debrided: dorsal hallux Laterality: Left Type of Debridement: Excisional debridement Anesthesia Used: 5% Lidocaine Gel Depth: in the subcutaneous layer Percentage of wound debrided: 100 Instrument Used: #15 blade Tissue Removed: fibrous, devitalized subcutaneous, biofilm, slough Severity: Fat Layer Exposed Amount of bleeding with debridement: Mild Bleeding Controlled with: Pressure Patient tolerated procedure well - Additional Wound Wound debrided: heel Laterality: Left Type of Debridement: Excisional debridement Anesthesia Used: 5% Lidocaine Gel Depth: in the subcutaneous layer Percentage of wound debrided: 100 Instrument Used: #15 blade Tissue Removed: fibrous, devitalized subcutaneous, biofilm, slough Severity: Fat Layer Exposed Amount of bleeding with debridement: Mild Bleeding Controlled with: Pressure Patient tolerated procedure: Patient tolerated procedure well - Additional Wound Wound debrided: plantar foot Laterality: Right Type of Debridement: Excisional debridement Anesthesia Used: 5% Lidocaine Gel Depth: in the subcutaneous layer Percentage of wound debrided: 100 Instrument Used: #15 blade, Forceps Tissue Removed: fibrous, devitalized subcutaneous, biofilm, slough Severity: Fat Layer Exposed Amount of bleeding with debridement: Mild Bleeding Controlled with: Pressure Patient tolerated procedure: Patient tolerated procedure well Assessment/Plan Active Problems Chronic ulcer of left foot with fat layer exposed (Chronic) Ulcer of back (Acute) Fat layer exposed. Pressure ulcer of foot, stage 1 (Acute) Edema, lower extremity (Chronic) Peripheral neuropathy (Chronic) Spina bifida (Chronic) Assessment: ulcer left great toe with fat layer exposed. Heel ulcer with fat layer exposed. Plantar left foot ulcer with fat layer exposed. Spina bifida. Peripheral neuropathy bilateral lower extremities. Nonambulatory wheelchair bound. Chronic swelling in both lower extremities. left femur fracture and h/o blood clot, now on eliquis. Left lower back ulcer with fat layer exposed. Plan: I reviewed and discussed her case including her injuries. Debridement done as documented in the clinical panel to the left hallux, heel, and plantar foot. After alcohol cleanse and verbal consent the plantar left foot bulla was drained and debrided. These procedures were well-tolerated. To change dressing daily with Cici to the hallux Aquacel Ag to the plantar foot and heel sites; this was applied today to the left foot. To continue with healing shoes with soft tissue upper. And extra-depth shoe order has been placed and these will be evaluated for appropriateness upon arrival. This has arrived however given her recent worsening status and large foot ulcers these will be sent back. This process will be initiated again once she does not have a large ulcer. A culture was taken of the left foot and sent for aerobic and anaerobic testing. She is placed on an oral antibiotic, Augmentin to address her local cellulitis. Lab work and updated x-rays were also obtained to further work-up her cellulitis condition. To monitor for fever formation and to call if she develops any worsening systemic or local signs of infection. Upon resolution of the infection and recommended application of advanced wound healing product, epi fix. This is medically necessary for limb salvage and to optimize healing. Prior authorization has been obtained previously of her hallux and will need to be reinitiated for her foot ulcer sites that are new. To take nutritional supplementation, Joseph, to optimize healing. A prescription was provided previously. To continue strict offloading to the ulcer sites. It is noted that she does rest her foot on the foot pedal of her wheelchair frequently throughout the day and she was advised to modify her position to avoid this. She is advised to balance between wearing Tubigrip, Richar wrap, and other compression garments for edema and adjusting assistive devices when she has a rapid increase in edema to prevent additional tissue injuries. To continue to follow-up with her orthopedic doctor for femur fracture and anticoagulation management. to follow up with Dr. Looney for her new back ulcers well; she was seen today. To return to the wound healing center in 1 week or call sooner if she has any questions or concerns. I answered all of her questions.
[2018-09-12 16:04] LABS: ALB/GLOB Ratio 0.7 RATIO (0.9-2.4); AST(SGOT) 27 U/L (15-37); Alanine Aminotransfer ALT/SGPT 26 U/L (13-56); Albumin, Serum 3.1 g/dL (3.2-5.0); Alkaline Phosphatase 109 U/L (45-117); Anion Gap 5 (5-15); BUN 12 mg/dL (7-18); Calcium,Total 8.5 mg/dL (8.5-10.1); Chloride 110 mmol/L (98-107); Creatinine, Serum 0.63 mg/dL (0.55-1.02); EST Glomerular Filtration Rate 117 mL/min (>60); Est Glom Filt Rate - Afr Amer 142 mL/min (>60); Estimated Creatinine Clearance 187.86 ml/min; Globulin 4.3 g/dL (2.2-4.2); Glucose 96 mg/dL (74-106); Protein, Total 7.4 g/dL (6.4-8.2); Sodium Level 137 mmol/L (136-145)
[2018-09-19 11:36] VITALS: BP 122/74; PULSE 84; RESP 16; TEMP 36.4; BMI 50.3
--- NOTE | 2018-09-19 12:46 | PCM.WC.PN ---
(1) Ulcer of back Status: Acute Current Visit: Yes Code(s): L98.429 - Non-pressure chronic ulcer of back with unspecified severity Comment: Fat layer exposed. (2) Spina bifida Status: Chronic Current Visit: Yes Qualifiers: Code(s): Q05.9 - Spina bifida, unspecified Type of Wound Chief Complaint: toe ulcer. heel ulcer. foot ulcer History of Wound: This 32-year-old female follows up for multiple ulcers and pressure injury sites of the left foot. She is with her mother. She has continued swelling to her left lower extremity since she broke her femur and had a subsequent blood clot. She has some redness and warmth and reports a low-grade fever of up to 99 degrees the past day. The previous black scab to the bottom of the foot is now moist and there is some fluid collection deep to this area. She relates her foot does rest on her wheelchair most of the day. she denies fever, chill, nausea, vomiting, loss of appetite. Progress of Wound: Stable back ulcer. No new concerns at this time. - Physical Exam Vital Signs Temp Pulse Resp BP 97.5 F L 84 16 122/74 H 09/19/18 11:36 09/19/18 11:36 09/19/18 11:36 09/19/18 11:36 General: Alert, Oriented x3, Cooperative, No apparent distress HEENT: Atraumatic, Normocephalic Oral: Moist Mucosa Neck: Supple Lungs: Normal air movement Extremities: No cyanosis Skin: Ulcer/ Wound Wound Measurements and Assessment WC - Nurse 1 - General Ulcer Measurement Start: 09/05/18 11:48 Freq: Status: Active Protocol: Activity Type Activity Date Activity User E-Sign Co-Sign Detail Recorded Client Recorded Date Recorded By Document 09/19/18 11:36 [id number] 09/19/18 11:48 09/19/18 11:36 Wound Center Nurse 1 [Ulcer Assessment] #16 left heel -Combined with other wound No -Current Size (cm) - Length 1.2 -Current Size (cm) - Width 1.5 -Current Size (cm) - Depth 0.2 -Total Square Cm 1.80 -Date of Last Picture (Recall this 09/19/18 field) -Photo Taken Yes -Epithelialization None Present -Tunneling No -Undermining/Tunneling No -Circular Undermining No -Exudate Amt Small -Exudate Type Serous -Wound Margin Distinct, Outline Attached -Granulation Amt Large (67-100%) -Granulation Quality [place] -Slough/Fibrin Yes -Necrosis Amt Medium (34-66%) -Necrotic Tissue Type Adherent Slough -Texture (Deepti-wound Skin Appearance) No Abnormality Assessed -Moisture (Deepti-wound Skin Appearance No Abnormality ) Assessed -Color (Deepti-wound Skin Appearance) No Abnormality Assessed -Temperature (Deepti-wound Skin No Abnormality Appearance) (Pt Warm) -Tenderness on Palpation (Deepti-wound No Skin Appearance) -Ulcer Cleansing Rinsed/ Irrigated with Saline -Foul Odor after Cleansing No #15 left foot plantar -Combined with other wound No -Current Size (cm) - Length 4.2 -Current Size (cm) - Width 5.7 -Current Size (cm) - Depth 0.1 -Total Square Cm 23.94 -Photo Taken No -Epithelialization None Present -Tunneling No -Undermining/Tunneling No -Circular Undermining No -Exudate Amt None Present -Wound Margin Distinct, Outline Attached -Granulation Amt None Present (0 %) -Granulation Quality N/A -Slough/Fibrin No -Necrosis Amt Large (67-100%) -Necrotic Tissue Type Eschar -Structure Exposed None/Limited to Skin Breakdown -Texture (Deepti-wound Skin Appearance) No Abnormality Assessed -Moisture (Deepti-wound Skin Appearance No Abnormality ) Assessed -Temperature (Deepti-wound Skin No Abnormality Appearance) (Pt Warm) -Tenderness on Palpation (Deepti-wound No Skin Appearance) -Ulcer Cleansing Rinsed/ Irrigated with Saline -Foul Odor after Cleansing No 14-lower back -Combined with other wound No -Current Size (cm) - Length 1 -Current Size (cm) - Width 0.6 -Current Size (cm) - Depth 0.2 -Total Square Cm 0.6 -Photo Taken No -Tunneling No -Undermining/Tunneling No -Circular Undermining No -Exudate Amt Small -Exudate Type Serosanguineous -Wound Margin Distinct, Outline Attached -Granulation Amt Medium (34-66%) -Granulation Quality Pale [place] -Slough/Fibrin Yes -Necrosis Amt None Present (0 %) -Necrotic Tissue Type Adherent Slough -Structure Exposed None/Limited to Skin Breakdown -Texture (Deepti-wound Skin Appearance) Scarring -Moisture (Deepti-wound Skin Appearance No Abnormality ) Assessed -Color (Deepti-wound Skin Appearance) No Abnormality Assessed -Temperature (Deepti-wound Skin No Abnormality Appearance) (Pt Warm) -Tenderness on Palpation (Deepti-wound No Skin Appearance) -Ulcer Cleansing Rinsed/ Irrigated with Saline -Foul Odor after Cleansing No #13 L Grt Toe -Combined with other wound No -Current Size (cm) - Length 0.2 -Current Size (cm) - Width 0.6 -Current Size (cm) - Depth 0.2 -Total Square Cm 0.12 -Epithelialization None Present -Tunneling No -Undermining/Tunneling No -Exudate Amt Small -Exudate Type Serosanguineous -Wound Margin Distinct, Outline Attached -Granulation Amt Large (67-100%) -Granulation Quality Red -Slough/Fibrin Yes -Necrosis Amt None Present (0 %) -Necrotic Tissue Type Adherent Slough -Structure Exposed None/Limited to Skin Breakdown -Texture (Deepti-wound Skin Appearance) Scarring -Moisture (Deepti-wound Skin Appearance Maceration ) -Color (Deepti-wound Skin Appearance) No Abnormality Assessed -Temperature (Deepti-wound Skin No Abnormality Appearance) (Pt Warm) -Tenderness on Palpation (Deepti-wound No Skin Appearance) -Ulcer Cleansing Rinsed/ Irrigated with Saline -Foul Odor after Cleansing No [Edema Assessment] -Lower Limb Edema Present Yes -Left Calf (cm) 41 -Left Ankle (cm) 32 WC - Nurse 2 - General Ulcer CM Notes Start: 09/05/18 11:48 Freq: Status: Active Protocol: Activity Type Activity Date Activity User E-Sign Co-Sign Detail Recorded Client Recorded Date Recorded By Document 09/19/18 12:19 AN [id number] 09/19/18 12:26 AN Document 09/19/18 12:42 MW [id number] 09/19/18 12:43 MW 09/19/18 09/19/18 12:19 12:42 Wound Center Nurse 2 [Procedure/Treatment] #16 left heel -Time 12:20 -Correct Patient Yes -Correct Side, Site, Position Yes -Correct Procedure Yes -Procedure Performed No -Type of Procedure Debridement -Clinical Debridement Subcutaneous -Post Debridement Size (cm) - Length 1.3 -Post Debridement Size (cm) - Width 1.6 -Post Debridement Size (cm) - Depth 0.1 -Total Square Cm 2.08 -Wound/Ulcer Outcome Not Healed -Ulcer Cleansing Rinsed/ Irrigated with Saline -Foul Odor after Cleansing No -Bioengineered Tissue No -Bleeding Controlled with Pressure -Offloading Yes -Treatment Response Procedure Tolerated Well #15 left foot plantar -Time 12:20 -Correct Patient Yes -Correct Side, Site, Position Yes -Correct Procedure Yes -Procedure Performed Yes -Type of Procedure Debridement -Clinical Debridement Subcutaneous -Post Debridement Size (cm) - Length 4.3 -Post Debridement Size (cm) - Width 5.7 -Post Debridement Size (cm) - Depth 0.1 -Total Square Cm 24.51 -Wound/Ulcer Outcome Not Healed -Ulcer Cleansing Rinsed/ Irrigated with Saline -Foul Odor after Cleansing No -Bioengineered Tissue No -Bleeding Controlled with Pressure -Offloading Yes -Treatment Response Procedure Tolerated Well 14-lower back -Time 12:43 -Correct Patient Yes -Correct Side, Site, Position Yes -Correct Procedure Yes -Procedure Performed Yes -Type of Procedure Debridement -Clinical Debridement Subcutaneous -Post Debridement Size (cm) - Length 1.1 -Post Debridement Size (cm) - Width 0.7 -Post Debridement Size (cm) - Depth 0.1 -Total Square Cm 0.77 -Wound/Ulcer Outcome Not Healed -Ulcer Cleansing Rinsed/ Irrigated with Saline -Foul Odor after Cleansing No -Bioengineered Tissue No -Bleeding Controlled with Pressure -Offloading Yes No -Treatment Response Procedure Tolerated Well #13 L Grt Toe -Time 12:23 -Correct Patient Yes -Correct Side, Site, Position Yes -Correct Procedure Yes -Procedure Performed Yes -Type of Procedure Debridement -Clinical Debridement Subcutaneous -Post Debridement Size (cm) - Length 0.3 -Post Debridement Size (cm) - Width 0.7 -Post Debridement Size (cm) - Depth 0.2 -Total Square Cm 0.21 -Wound/Ulcer Outcome Not Healed -Ulcer Cleansing Rinsed/ Irrigated with Saline -Foul Odor after Cleansing No -Bioengineered Tissue No -Bleeding Controlled with Pressure -Treatment Response Procedure Tolerated Well [See Physician Procedure note for Specifics] Pain Scale: 0-10 Numeric [Pain] -Is Patient Pain Free? Yes Yes Musculoskeletal: No Muscle Wasting Neurological: Cranial nerves II-XII grossly intact Psych/Mental Status: Normal Affect Debridement Note Post-Debridement Measurements/Treatment WC - Nurse 2 - General Ulcer CM Notes Start: 09/05/18 11:48 Freq: Status: Active Protocol: Activity Type Activity Date Activity User E-Sign Co-Sign Detail Recorded Client Recorded Date Recorded By Document 09/05/18 12:20 AN [id number] 09/05/18 12:23 AN Document 09/05/18 12:26 MW [id number] 09/05/18 12:30 MW Document 09/12/18 10:40 AN [id number] 09/12/18 10:48 AN Document 09/12/18 11:02 AN [id number] 09/12/18 11:03 AN Document 09/12/18 11:15 MW [id number] 09/12/18 11:18 MW Document 09/19/18 12:19 AN [id number] 09/19/18 12:26 AN Document 09/19/18 12:42 MW [id number] 09/19/18 12:43 MW 09/05/18 09/05/18 09/12/18 12:20 12:26 10:40 Wound Center Nurse 2 #16 left heel -Time -Correct Patient -Correct Side, Site, Position -Correct Procedure -Procedure Performed -Type of Procedure -Clinical Debridement -Post Debridement Size (cm) - Length -Post Debridement Size (cm) - Width -Post Debridement Size (cm) - Depth -Total Square Cm -Wound/Ulcer Outcome -Ulcer Cleansing -Foul Odor after Cleansing -Bioengineered Tissue -Bleeding Controlled with -Offloading -Treatment Response #15 left foot plantar -Time -Correct Patient -Correct Side, Site, Position -Correct Procedure -Procedure Performed -Type of Procedure -Clinical Debridement -Post Debridement Size (cm) - Length -Post Debridement Size (cm) - Width -Post Debridement Size (cm) - Depth -Total Square Cm -Wound/Ulcer Outcome -Ulcer Cleansing -Foul Odor after Cleansing -Bioengineered Tissue -Bleeding Controlled with -Offloading -Treatment Response 14-lower back -Time 12:27 -Correct Patient Yes -Correct Side, Site, Position Yes -Correct Procedure Yes -Procedure Performed Yes -Type of Procedure Debridement -Clinical Debridement Subcutaneous -Post Debridement Size (cm) - Length 1.4 -Post Debridement Size (cm) - Width 1.1 -Post Debridement Size (cm) - Depth 0.1 -Total Square Cm 1.54 -Wound/Ulcer Outcome Not Healed -Ulcer Cleansing Rinsed/ Irrigated with Saline -Foul Odor after Cleansing No No -Bioengineered Tissue No No -Bleeding Controlled with Pressure -Offloading No -Treatment Response Procedure Tolerated Well #13 L Grt Toe -Time 12:23 10:41 -Correct Patient Yes Yes -Correct Side, Site, Position Yes Yes -Correct Procedure Yes Yes -Procedure Performed Yes Yes -Type of Procedure Debridement Debridement -Clinical Debridement Subcutaneous Subcutaneous -Post Debridement Size (cm) - Length 0.5 0.4 -Post Debridement Size (cm) - Width 0.6 0.8 -Post Debridement Size (cm) - Depth 0.2 0.2 -Total Square Cm 0.30 0.32 -Wound/Ulcer Outcome Not Healed Not Healed -Ulcer Cleansing Rinsed/ Rinsed/ Irrigated with Irrigated with Saline Saline -Foul Odor after Cleansing No No -Bioengineered Tissue No -Bleeding Controlled with Pressure Pressure -Offloading Yes -Treatment Response Procedure Procedure Tolerated Well Tolerated Well Pain Scale: 0-10 Numeric Is Patient Pain Free? Yes 09/12/18 09/12/18 09/19/18 11:02 11:15 12:19 Wound Center Nurse 2 #16 left heel -Time 12:20 -Correct Patient Yes -Correct Side, Site, Position Yes -Correct Procedure Yes -Procedure Performed No -Type of Procedure Debridement -Clinical Debridement Subcutaneous -Post Debridement Size (cm) - Length 1.3 -Post Debridement Size (cm) - Width 1.6 -Post Debridement Size (cm) - Depth 0.1 -Total Square Cm 2.08 -Wound/Ulcer Outcome Not Healed -Ulcer Cleansing Rinsed/ Irrigated with Saline -Foul Odor after Cleansing No -Bioengineered Tissue No -Bleeding Controlled with Pressure -Offloading Yes -Treatment Response Procedure Tolerated Well #15 left foot plantar -Time 11:02 12:20 -Correct Patient Yes Yes -Correct Side, Site, Position Yes Yes -Correct Procedure Yes Yes -Procedure Performed Yes Yes -Type of Procedure Debridement Debridement -Clinical Debridement Subcutaneous Subcutaneous -Post Debridement Size (cm) - Length 4.2 4.3 -Post Debridement Size (cm) - Width 5.7 5.7 -Post Debridement Size (cm) - Depth 0.5 0.1 -Total Square Cm 23.94 24.51 -Wound/Ulcer Outcome Not Healed Not Healed -Ulcer Cleansing Rinsed/ Rinsed/ Irrigated with Irrigated with Saline Saline -Foul Odor after Cleansing No -Bioengineered Tissue No -Bleeding Controlled with Pressure -Offloading Yes Yes -Treatment Response Procedure Procedure Tolerated Well Tolerated Well 14-lower back -Time 11:15 -Correct Patient Yes -Correct Side, Site, Position Yes -Correct Procedure Yes -Procedure Performed Yes -Type of Procedure Debridement -Clinical Debridement Subcutaneous -Post Debridement Size (cm) - Length 1.2 -Post Debridement Size (cm) - Width 0.6 -Post Debridement Size (cm) - Depth 0.1 -Total Square Cm 0.72 -Wound/Ulcer Outcome Not Healed -Ulcer Cleansing Rinsed/ Irrigated with Saline -Foul Odor after Cleansing No -Bioengineered Tissue No -Bleeding Controlled with Pressure -Offloading No Yes -Treatment Response Procedure Tolerated Well #13 L Grt Toe -Time 12:23 -Correct Patient Yes -Correct Side, Site, Position Yes -Correct Procedure Yes -Procedure Performed Yes -Type of Procedure Debridement -Clinical Debridement Subcutaneous -Post Debridement Size (cm) - Length 0.3 -Post Debridement Size (cm) - Width 0.7 -Post Debridement Size (cm) - Depth 0.2 -Total Square Cm 0.21 -Wound/Ulcer Outcome Not Healed -Ulcer Cleansing Rinsed/ Irrigated with Saline -Foul Odor after Cleansing No -Bioengineered Tissue No -Bleeding Controlled with Pressure -Offloading -Treatment Response Procedure Tolerated Well Pain Scale: 0-10 Numeric Is Patient Pain Free? Yes Yes 09/19/18 12:42 Wound Center Nurse 2 #16 left heel -Time -Correct Patient -Correct Side, Site, Position -Correct Procedure -Procedure Performed -Type of Procedure -Clinical Debridement -Post Debridement Size (cm) - Length -Post Debridement Size (cm) - Width -Post Debridement Size (cm) - Depth -Total Square Cm -Wound/Ulcer Outcome -Ulcer Cleansing -Foul Odor after Cleansing -Bioengineered Tissue -Bleeding Controlled with -Offloading -Treatment Response #15 left foot plantar -Time -Correct Patient -Correct Side, Site, Position -Correct Procedure -Procedure Performed -Type of Procedure -Clinical Debridement -Post Debridement Size (cm) - Length -Post Debridement Size (cm) - Width -Post Debridement Size (cm) - Depth -Total Square Cm -Wound/Ulcer Outcome -Ulcer Cleansing -Foul Odor after Cleansing -Bioengineered Tissue -Bleeding Controlled with -Offloading -Treatment Response 14-lower back -Time 12:43 -Correct Patient Yes -Correct Side, Site, Position Yes -Correct Procedure Yes -Procedure Performed Yes -Type of Procedure Debridement -Clinical Debridement Subcutaneous -Post Debridement Size (cm) - Length 1.1 -Post Debridement Size (cm) - Width 0.7 -Post Debridement Size (cm) - Depth 0.1 -Total Square Cm 0.77 -Wound/Ulcer Outcome Not Healed -Ulcer Cleansing Rinsed/ Irrigated with Saline -Foul Odor after Cleansing No -Bioengineered Tissue No -Bleeding Controlled with Pressure -Offloading No -Treatment Response Procedure Tolerated Well #13 L Grt Toe -Time -Correct Patient -Correct Side, Site, Position -Correct Procedure -Procedure Performed -Type of Procedure -Clinical Debridement -Post Debridement Size (cm) - Length -Post Debridement Size (cm) - Width -Post Debridement Size (cm) - Depth -Total Square Cm -Wound/Ulcer Outcome -Ulcer Cleansing -Foul Odor after Cleansing -Bioengineered Tissue -Bleeding Controlled with -Offloading -Treatment Response Pain Scale: 0-10 Numeric Is Patient Pain Free? Yes Wound debrided: Lower back Wound Grade/Stage: Stage II Type of Debridement: Excisional debridement Anesthesia Used: 4% Lidocaine Solution Depth: Down to and including healthy tissue, in the subcutaneous layer Percentage of wound debrided: 100 Instrument Used: 3mm curette Tissue Removed: Slough and devitalized tissue Severity: Fat Layer Exposed Amount of bleeding with debridement: Mild Bleeding Controlled with: Pressure Patient tolerated procedure well Assessment/Plan Clinical Impression(s) from Imaging Studies Foot X-Ray 09/12/18 11:57 IMPRESSION: Severe dorsal foot soft tissue swelling. No visible fracture. 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 Pressure ulcer of foot, stage 1 (Acute) Edema, lower extremity (Chronic) Peripheral neuropathy (Chronic) Spina bifida (Chronic) Assessment: ulcer left great toe with fat layer exposed. Heel ulcer with fat layer exposed. Plantar left foot ulcer with fat layer exposed. Spina bifida. Peripheral neuropathy bilateral lower extremities. Nonambulatory wheelchair bound. Chronic swelling in both lower extremities. left femur fracture and h/o blood clot, now on eliquis. Left lower back ulcer with fat layer exposed. Plan: Stable back ulcer. Debridement done as docuemenetd above, procedure was well tolerated. Switch to pomogram with adaptic over top. Change daily. Continued protein intake and offloading recommended. Continue other wound/ulcer care per Dr. Cordero. Follow up in 1 week. She was advised to call with any quetions or concerns.
--- NOTE | 2018-09-19 12:49 | PN.PCM_ITS ---
(1) Ulcer of back Status: Acute Current Visit: Yes Code(s): L98.429 - Non-pressure chronic ulcer of back with unspecified severity Comment: Fat layer exposed. (2) Spina bifida Status: Chronic Current Visit: Yes Qualifiers: Code(s): Q05.9 - Spina bifida, unspecified Type of Wound Chief Complaint: toe ulcer. heel ulcer. foot ulcer History of Wound: This 32-year-old female follows up for multiple ulcers and pressure injury sites of the left foot. She is with her mother. She has continued swelling to her left lower extremity since she broke her femur and had a subsequent blood clot. She has some redness and warmth and reports a low- grade fever of up to 99 degrees the past day. The previous black scab to the bottom of the foot is now moist and there is some fluid collection deep to this area. She relates her foot does rest on her wheelchair most of the day. she denies fever, chill, nausea, vomiting, loss of appetite. Progress of Wound: Stable back ulcer. No new concerns at this time. - Physical Exam Vital Signs Temp Pulse Resp BP 97.5 F L 84 16 122/74 H 09/19/18 11:36 09/19/18 11:36 09/19/18 11:36 09/19/18 11:36 General: Alert, Oriented x3, Cooperative, No apparent distress HEENT: Atraumatic, Normocephalic Oral: Moist Mucosa Neck: Supple Lungs: Normal air movement Extremities: No cyanosis Skin: Ulcer/ Wound Wound Measurements and Assessment WC - Nurse 1 - General Ulcer Measurement Start: 09/05/18 11:48 Freq: Status: Active Protocol: Activity Type Activity Date Activity User E-Sign Co-Sign Detail Recorded Client Recorded Date Recorded By Document 09/19/18 11:36 [id number] 09/19/18 11:48 09/19/18 11:36 Wound Center Nurse 1 [Ulcer Assessment] #16 left heel -Combined with other wound No -Current Size (cm) - Length 1.2 -Current Size (cm) - Width 1.5 -Current Size (cm) - Depth 0.2 -Total Square Cm 1.80 -Date of Last Picture (Recall this 09/19/18 field) -Photo Taken Yes -Epithelialization None Present -Tunneling No -Undermining/Tunneling No -Circular Undermining No -Exudate Amt Small -Exudate Type Serous -Wound Margin Distinct, Outline Attached -Granulation Amt Large (67-100%) -Granulation Quality [place] -Slough/Fibrin Yes -Necrosis Amt Medium (34-66%) -Necrotic Tissue Type Adherent Slough -Texture (Deepti-wound Skin Appearance) No Abnormality Assessed -Moisture (Deepti-wound Skin Appearance No Abnormality ) Assessed -Color (Deepti-wound Skin Appearance) No Abnormality Assessed -Temperature (Deepti-wound Skin No Abnormality Appearance) (Pt Warm) -Tenderness on Palpation (Deepti-wound No Skin Appearance) -Ulcer Cleansing Rinsed/ Irrigated with Saline -Foul Odor after Cleansing No #15 left foot plantar -Combined with other wound No -Current Size (cm) - Length 4.2 -Current Size (cm) - Width 5.7 -Current Size (cm) - Depth 0.1 -Total Square Cm 23.94 -Photo Taken No -Epithelialization None Present -Tunneling No -Undermining/Tunneling No -Circular Undermining No -Exudate Amt None Present -Wound Margin Distinct, Outline Attached -Granulation Amt None Present (0 %) -Granulation Quality N/A -Slough/Fibrin No -Necrosis Amt Large (67-100%) -Necrotic Tissue Type Eschar -Structure Exposed None/Limited to Skin Breakdown -Texture (Deepti-wound Skin Appearance) No Abnormality Assessed -Moisture (Deepti-wound Skin Appearance No Abnormality ) Assessed -Temperature (Deepti-wound Skin No Abnormality Appearance) (Pt Warm) -Tenderness on Palpation (Deepti-wound No Skin Appearance) -Ulcer Cleansing Rinsed/ Irrigated with Saline -Foul Odor after Cleansing No 14-lower back -Combined with other wound No -Current Size (cm) - Length 1 -Current Size (cm) - Width 0.6 -Current Size (cm) - Depth 0.2 -Total Square Cm 0.6 -Photo Taken No -Tunneling No -Undermining/Tunneling No -Circular Undermining No -Exudate Amt Small -Exudate Type Serosanguineous -Wound Margin Distinct, Outline Attached -Granulation Amt Medium (34-66%) -Granulation Quality Pale [place] -Slough/Fibrin Yes -Necrosis Amt None Present (0 %) -Necrotic Tissue Type Adherent Slough -Structure Exposed None/Limited to Skin Breakdown -Texture (Deepti-wound Skin Appearance) Scarring -Moisture (Deepti-wound Skin Appearance No Abnormality ) Assessed -Color (Deepti-wound Skin Appearance) No Abnormality Assessed -Temperature (Deepti-wound Skin No Abnormality Appearance) (Pt Warm) -Tenderness on Palpation (Deepti-wound No Skin Appearance) -Ulcer Cleansing Rinsed/ Irrigated with Saline -Foul Odor after Cleansing No #13 L Grt Toe -Combined with other wound No -Current Size (cm) - Length 0.2 -Current Size (cm) - Width 0.6 -Current Size (cm) - Depth 0.2 -Total Square Cm 0.12 -Epithelialization None Present -Tunneling No -Undermining/Tunneling No -Exudate Amt Small -Exudate Type Serosanguineous -Wound Margin Distinct, Outline Attached -Granulation Amt Large (67-100%) -Granulation Quality Red -Slough/Fibrin Yes -Necrosis Amt None Present (0 %) -Necrotic Tissue Type Adherent Slough -Structure Exposed None/Limited to Skin Breakdown -Texture (Deepti-wound Skin Appearance) Scarring -Moisture (Deepti-wound Skin Appearance Maceration ) -Color (Deepti-wound Skin Appearance) No Abnormality Assessed -Temperature (Deepti-wound Skin No Abnormality Appearance) (Pt Warm) -Tenderness on Palpation (Deepti-wound No Skin Appearance) -Ulcer Cleansing Rinsed/ Irrigated with Saline -Foul Odor after Cleansing No [Edema Assessment] -Lower Limb Edema Present Yes -Left Calf (cm) 41 -Left Ankle (cm) 32 WC - Nurse 2 - General Ulcer CM Notes Start: 09/05/18 11:48 Freq: Status: Active Protocol: Activity Type Activity Date Activity User E-Sign Co-Sign Detail Recorded Client Recorded Date Recorded By Document 09/19/18 12:19 AN [id number] 09/19/18 12:26 AN Document 09/19/18 12:42 MW [id number] 09/19/18 12:43 MW 09/19/18 09/19/18 12:19 12:42 Wound Center Nurse 2 [Procedure/Treatment] #16 left heel -Time 12:20 -Correct Patient Yes -Correct Side, Site, Position Yes -Correct Procedure Yes -Procedure Performed No -Type of Procedure Debridement -Clinical Debridement Subcutaneous -Post Debridement Size (cm) - Length 1.3 -Post Debridement Size (cm) - Width 1.6 -Post Debridement Size (cm) - Depth 0.1 -Total Square Cm 2.08 -Wound/Ulcer Outcome Not Healed -Ulcer Cleansing Rinsed/ Irrigated with Saline -Foul Odor after Cleansing No -Bioengineered Tissue No -Bleeding Controlled with Pressure -Offloading Yes -Treatment Response Procedure Tolerated Well #15 left foot plantar -Time 12:20 -Correct Patient Yes -Correct Side, Site, Position Yes -Correct Procedure Yes -Procedure Performed Yes -Type of Procedure Debridement -Clinical Debridement Subcutaneous -Post Debridement Size (cm) - Length 4.3 -Post Debridement Size (cm) - Width 5.7 -Post Debridement Size (cm) - Depth 0.1 -Total Square Cm 24.51 -Wound/Ulcer Outcome Not Healed -Ulcer Cleansing Rinsed/ Irrigated with Saline -Foul Odor after Cleansing No -Bioengineered Tissue No -Bleeding Controlled with Pressure -Offloading Yes -Treatment Response Procedure Tolerated Well 14-lower back -Time 12:43 -Correct Patient Yes -Correct Side, Site, Position Yes -Correct Procedure Yes -Procedure Performed Yes -Type of Procedure Debridement -Clinical Debridement Subcutaneous -Post Debridement Size (cm) - Length 1.1 -Post Debridement Size (cm) - Width 0.7 -Post Debridement Size (cm) - Depth 0.1 -Total Square Cm 0.77 -Wound/Ulcer Outcome Not Healed -Ulcer Cleansing Rinsed/ Irrigated with Saline -Foul Odor after Cleansing No -Bioengineered Tissue No -Bleeding Controlled with Pressure -Offloading Yes No -Treatment Response Procedure Tolerated Well #13 L Grt Toe -Time 12:23 -Correct Patient Yes -Correct Side, Site, Position Yes -Correct Procedure Yes -Procedure Performed Yes -Type of Procedure Debridement -Clinical Debridement Subcutaneous -Post Debridement Size (cm) - Length 0.3 -Post Debridement Size (cm) - Width 0.7 -Post Debridement Size (cm) - Depth 0.2 -Total Square Cm 0.21 -Wound/Ulcer Outcome Not Healed -Ulcer Cleansing Rinsed/ Irrigated with Saline -Foul Odor after Cleansing No -Bioengineered Tissue No -Bleeding Controlled with Pressure -Treatment Response Procedure Tolerated Well [See Physician Procedure note for Specifics] Pain Scale: 0-10 Numeric [Pain] -Is Patient Pain Free? Yes Yes Musculoskeletal: No Muscle Wasting Neurological: Cranial nerves II-XII grossly intact Psych/Mental Status: Normal Affect Debridement Note Post-Debridement Measurements/Treatment WC - Nurse 2 - General Ulcer CM Notes Start: 09/05/18 11:48 Freq: Status: Active Protocol: Activity Type Activity Date Activity User E-Sign Co-Sign Detail Recorded Client Recorded Date Recorded By Document 09/05/18 12:20 AN [id number] 09/05/18 12:23 AN Document 09/05/18 12:26 MW [id number] 09/05/18 12:30 MW Document 09/12/18 10:40 AN [id number] 09/12/18 10:48 AN Document 09/12/18 11:02 AN [id number] 09/12/18 11:03 AN Document 09/12/18 11:15 MW [id number] 09/12/18 11:18 MW Document 09/19/18 12:19 AN [id number] 09/19/18 12:26 AN Document 09/19/18 12:42 MW [id number] 09/19/18 12:43 MW 09/05/18 09/05/18 09/12/18 12:20 12:26 10:40 Wound Center Nurse 2 #16 left heel -Time -Correct Patient -Correct Side, Site, Position -Correct Procedure -Procedure Performed -Type of Procedure -Clinical Debridement -Post Debridement Size (cm) - Length -Post Debridement Size (cm) - Width -Post Debridement Size (cm) - Depth -Total Square Cm -Wound/Ulcer Outcome -Ulcer Cleansing -Foul Odor after Cleansing -Bioengineered Tissue -Bleeding Controlled with -Offloading -Treatment Response #15 left foot plantar -Time -Correct Patient -Correct Side, Site, Position -Correct Procedure -Procedure Performed -Type of Procedure -Clinical Debridement -Post Debridement Size (cm) - Length -Post Debridement Size (cm) - Width -Post Debridement Size (cm) - Depth -Total Square Cm -Wound/Ulcer Outcome -Ulcer Cleansing -Foul Odor after Cleansing -Bioengineered Tissue -Bleeding Controlled with -Offloading -Treatment Response 14-lower back -Time 12:27 -Correct Patient Yes -Correct Side, Site, Position Yes -Correct Procedure Yes -Procedure Performed Yes -Type of Procedure Debridement -Clinical Debridement Subcutaneous -Post Debridement Size (cm) - Length 1.4 -Post Debridement Size (cm) - Width 1.1 -Post Debridement Size (cm) - Depth 0.1 -Total Square Cm 1.54 -Wound/Ulcer Outcome Not Healed -Ulcer Cleansing Rinsed/ Irrigated with Saline -Foul Odor after Cleansing No No -Bioengineered Tissue No No -Bleeding Controlled with Pressure -Offloading No -Treatment Response Procedure Tolerated Well #13 L Grt Toe -Time 12:23 10:41 -Correct Patient Yes Yes -Correct Side, Site, Position Yes Yes -Correct Procedure Yes Yes -Procedure Performed Yes Yes -Type of Procedure Debridement Debridement -Clinical Debridement Subcutaneous Subcutaneous -Post Debridement Size (cm) - Length 0.5 0.4 -Post Debridement Size (cm) - Width 0.6 0.8 -Post Debridement Size (cm) - Depth 0.2 0.2 -Total Square Cm 0.30 0.32 -Wound/Ulcer Outcome Not Healed Not Healed -Ulcer Cleansing Rinsed/ Rinsed/ Irrigated with Irrigated with Saline Saline -Foul Odor after Cleansing No No -Bioengineered Tissue No -Bleeding Controlled with Pressure Pressure -Offloading Yes -Treatment Response Procedure Procedure Tolerated Well Tolerated Well Pain Scale: 0-10 Numeric Is Patient Pain Free? Yes 09/12/18 09/12/18 09/19/18 11:02 11:15 12:19 Wound Center Nurse 2 #16 left heel -Time 12:20 -Correct Patient Yes -Correct Side, Site, Position Yes -Correct Procedure Yes -Procedure Performed No -Type of Procedure Debridement -Clinical Debridement Subcutaneous -Post Debridement Size (cm) - Length 1.3 -Post Debridement Size (cm) - Width 1.6 -Post Debridement Size (cm) - Depth 0.1 -Total Square Cm 2.08 -Wound/Ulcer Outcome Not Healed -Ulcer Cleansing Rinsed/ Irrigated with Saline -Foul Odor after Cleansing No -Bioengineered Tissue No -Bleeding Controlled with Pressure -Offloading Yes -Treatment Response Procedure Tolerated Well #15 left foot plantar -Time 11:02 12:20 -Correct Patient Yes Yes -Correct Side, Site, Position Yes Yes -Correct Procedure Yes Yes -Procedure Performed Yes Yes -Type of Procedure Debridement Debridement -Clinical Debridement Subcutaneous Subcutaneous -Post Debridement Size (cm) - Length 4.2 4.3 -Post Debridement Size (cm) - Width 5.7 5.7 -Post Debridement Size (cm) - Depth 0.5 0.1 -Total Square Cm 23.94 24.51 -Wound/Ulcer Outcome Not Healed Not Healed -Ulcer Cleansing Rinsed/ Rinsed/ Irrigated with Irrigated with Saline Saline -Foul Odor after Cleansing No -Bioengineered Tissue No -Bleeding Controlled with Pressure -Offloading Yes Yes -Treatment Response Procedure Procedure Tolerated Well Tolerated Well 14-lower back -Time 11:15 -Correct Patient Yes -Correct Side, Site, Position Yes -Correct Procedure Yes -Procedure Performed Yes -Type of Procedure Debridement -Clinical Debridement Subcutaneous -Post Debridement Size (cm) - Length 1.2 -Post Debridement Size (cm) - Width 0.6 -Post Debridement Size (cm) - Depth 0.1 -Total Square Cm 0.72 -Wound/Ulcer Outcome Not Healed -Ulcer Cleansing Rinsed/ Irrigated with Saline -Foul Odor after Cleansing No -Bioengineered Tissue No -Bleeding Controlled with Pressure -Offloading No Yes -Treatment Response Procedure Tolerated Well #13 L Grt Toe -Time 12:23 -Correct Patient Yes -Correct Side, Site, Position Yes -Correct Procedure Yes -Procedure Performed Yes -Type of Procedure Debridement -Clinical Debridement Subcutaneous -Post Debridement Size (cm) - Length 0.3 -Post Debridement Size (cm) - Width 0.7 -Post Debridement Size (cm) - Depth 0.2 -Total Square Cm 0.21 -Wound/Ulcer Outcome Not Healed -Ulcer Cleansing Rinsed/ Irrigated with Saline -Foul Odor after Cleansing No -Bioengineered Tissue No -Bleeding Controlled with Pressure -Offloading -Treatment Response Procedure Tolerated Well Pain Scale: 0-10 Numeric Is Patient Pain Free? Yes Yes 09/19/18 12:42 Wound Center Nurse 2 #16 left heel -Time -Correct Patient -Correct Side, Site, Position -Correct Procedure -Procedure Performed -Type of Procedure -Clinical Debridement -Post Debridement Size (cm) - Length -Post Debridement Size (cm) - Width -Post Debridement Size (cm) - Depth -Total Square Cm -Wound/Ulcer Outcome -Ulcer Cleansing -Foul Odor after Cleansing -Bioengineered Tissue -Bleeding Controlled with -Offloading -Treatment Response #15 left foot plantar -Time -Correct Patient -Correct Side, Site, Position -Correct Procedure -Procedure Performed -Type of Procedure -Clinical Debridement -Post Debridement Size (cm) - Length -Post Debridement Size (cm) - Width -Post Debridement Size (cm) - Depth -Total Square Cm -Wound/Ulcer Outcome -Ulcer Cleansing -Foul Odor after Cleansing -Bioengineered Tissue -Bleeding Controlled with -Offloading -Treatment Response 14-lower back -Time 12:43 -Correct Patient Yes -Correct Side, Site, Position Yes -Correct Procedure Yes -Procedure Performed Yes -Type of Procedure Debridement -Clinical Debridement Subcutaneous -Post Debridement Size (cm) - Length 1.1 -Post Debridement Size (cm) - Width 0.7 -Post Debridement Size (cm) - Depth 0.1 -Total Square Cm 0.77 -Wound/Ulcer Outcome Not Healed -Ulcer Cleansing Rinsed/ Irrigated with Saline -Foul Odor after Cleansing No -Bioengineered Tissue No -Bleeding Controlled with Pressure -Offloading No -Treatment Response Procedure Tolerated Well #13 L Grt Toe -Time -Correct Patient -Correct Side, Site, Position -Correct Procedure -Procedure Performed -Type of Procedure -Clinical Debridement -Post Debridement Size (cm) - Length -Post Debridement Size (cm) - Width -Post Debridement Size (cm) - Depth -Total Square Cm -Wound/Ulcer Outcome -Ulcer Cleansing -Foul Odor after Cleansing -Bioengineered Tissue -Bleeding Controlled with -Offloading -Treatment Response Pain Scale: 0-10 Numeric Is Patient Pain Free? Yes Wound debrided: Lower back Wound Grade/Stage: Stage II Type of Debridement: Excisional debridement Anesthesia Used: 4% Lidocaine Solution Depth: Down to and including healthy tissue, in the subcutaneous layer Percentage of wound debrided: 100 Instrument Used: 3mm curette Tissue Removed: Slough and devitalized tissue Severity: Fat Layer Exposed Amount of bleeding with debridement: Mild Bleeding Controlled with: Pressure Patient tolerated procedure well Assessment/Plan Clinical Impression(s) from Imaging Studies Foot X-Ray 09/12/18 11:57 IMPRESSION: Severe dorsal foot soft tissue swelling. No visible fracture. 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 Pressure ulcer of foot, stage 1 (Acute) Edema, lower extremity (Chronic) Peripheral neuropathy (Chronic) Spina bifida (Chronic) Assessment: ulcer left great toe with fat layer exposed. Heel ulcer with fat layer exposed. Plantar left foot ulcer with fat layer exposed. Spina bifida. Peripheral neuropathy bilateral lower extremities. Nonambulatory wheelchair bound. Chronic swelling in both lower extremities. left femur fracture and h/o blood clot, now on eliquis. Left lower back ulcer with fat layer exposed. Plan: Stable back ulcer. Debridement done as docuemenetd above, procedure was well tolerated. Switch to pomogram with adaptic over top. Change daily. Continued protein intake and offloading recommended. Continue other wound/ulcer care per Dr. Cordero. Follow up in 1 week. She was advised to call with any quetions or concerns.
--- NOTE | 2018-09-19 14:37 | PN.PCM_ITS ---
(1) Infected wound Status: Acute Code(s): T14.8XXA - Other injury of unspecified body region, initial encounter; L08.9 - Local infection of the skin and subcutaneous tissue, unspecified (2) Blister of toe of right foot without infection Status: Acute Qualifiers: Code(s): S90.424A - Blister (nonthermal), right lesser toe(s), initial encounter (3) Chronic ulcer of left foot with fat layer exposed Status: Chronic Code(s): L97.522 - Non-pressure chronic ulcer of other part of left foot with fat layer exposed (4) Peripheral neuropathy Status: Chronic Code(s): G62.9 - Polyneuropathy, unspecified (5) Spina bifida Status: Chronic Qualifiers: Code(s): Q05.9 - Spina bifida, unspecified (6) Pressure ulcer of foot, stage 1 Status: Acute Qualifiers: Laterality: left Qualified Code(s): L89.891 - Pressure ulcer of other site, stage 1 Code(s): L89.891 - Pressure ulcer of other site, stage 1 (7) Edema, lower extremity Status: Chronic Code(s): R60.0 - Localized edema Type of Wound Date of Service: 09/19/18 Chief Complaint: toe ulcer. heel ulcer. foot ulcer History of Wound: This 32-year-old female follows up for multiple ulcers and pressure injury sites of the left foot. She is with her mother. She has continued swelling to her left lower extremity since she broke her femur and had a subsequent blood clot. she denies fever, chill, nausea, vomiting, loss of appetite. She is no longer taking blood thinner medication. Progress of Wound: stable - Physical Exam Vital Signs Temp Pulse Resp BP 97.5 F L 84 16 122/74 H 09/19/18 11:36 09/19/18 11:36 09/19/18 11:36 09/19/18 11:36 General: Alert, Oriented x3, Cooperative HEENT: Atraumatic Extremities: No cyanosis, No Calf Tenderness, Diminished Peripheral Pulses, Edema - Decreased, - - Lack of motor involvement bilateral lower extremities consistent with spina bifida Skin: Ulcer/ Wound - No purulence, erythema, streaking, odor, infection noted today. No bogginess or blister formation. The peripheral skin is hairless and atrophic. The deep plantar midfoot ulcer still has continued eschar formation. The posterior heel ulcer is granular and healthy as is the hallux ulcer site. Wound Measurements and Assessment WC - Nurse 1 - General Ulcer Measurement Start: 09/05/18 11:48 Freq: Status: Active Protocol: Activity Type Activity Date Activity User E-Sign Co-Sign Detail Recorded Client Recorded Date Recorded By Document 09/19/18 11:36 [id number] 09/19/18 11:48 09/19/18 11:36 Wound Center Nurse 1 [Ulcer Assessment] #16 left heel -Combined with other wound No -Current Size (cm) - Length 1.2 -Current Size (cm) - Width 1.5 -Current Size (cm) - Depth 0.2 -Total Square Cm 1.80 -Date of Last Picture (Recall this 09/19/18 field) -Photo Taken Yes -Epithelialization None Present -Tunneling No -Undermining/Tunneling No -Circular Undermining No -Exudate Amt Small -Exudate Type Serous -Wound Margin Distinct, Outline Attached -Granulation Amt Large (67-100%) -Granulation Quality [place] -Slough/Fibrin Yes -Necrosis Amt Medium (34-66%) -Necrotic Tissue Type Adherent Slough -Texture (Deepti-wound Skin Appearance) No Abnormality Assessed -Moisture (Deepti-wound Skin Appearance No Abnormality ) Assessed -Color (Deepti-wound Skin Appearance) No Abnormality Assessed -Temperature (Deepti-wound Skin No Abnormality Appearance) (Pt Warm) -Tenderness on Palpation (Deepti-wound No Skin Appearance) -Ulcer Cleansing Rinsed/ Irrigated with Saline -Foul Odor after Cleansing No #15 left foot plantar -Combined with other wound No -Current Size (cm) - Length 4.2 -Current Size (cm) - Width 5.7 -Current Size (cm) - Depth 0.1 -Total Square Cm 23.94 -Photo Taken No -Epithelialization None Present -Tunneling No -Undermining/Tunneling No -Circular Undermining No -Exudate Amt None Present -Wound Margin Distinct, Outline Attached -Granulation Amt None Present (0 %) -Granulation Quality N/A -Slough/Fibrin No -Necrosis Amt Large (67-100%) -Necrotic Tissue Type Eschar -Structure Exposed None/Limited to Skin Breakdown -Texture (Deepti-wound Skin Appearance) No Abnormality Assessed -Moisture (Deepti-wound Skin Appearance No Abnormality ) Assessed -Temperature (Deepti-wound Skin No Abnormality Appearance) (Pt Warm) -Tenderness on Palpation (Deepti-wound No Skin Appearance) -Ulcer Cleansing Rinsed/ Irrigated with Saline -Foul Odor after Cleansing No 14-lower back -Combined with other wound No -Current Size (cm) - Length 1 -Current Size (cm) - Width 0.6 -Current Size (cm) - Depth 0.2 -Total Square Cm 0.6 -Photo Taken No -Tunneling No -Undermining/Tunneling No -Circular Undermining No -Exudate Amt Small -Exudate Type Serosanguineous -Wound Margin Distinct, Outline Attached -Granulation Amt Medium (34-66%) -Granulation Quality Pale [place] -Slough/Fibrin Yes -Necrosis Amt None Present (0 %) -Necrotic Tissue Type Adherent Slough -Structure Exposed None/Limited to Skin Breakdown -Texture (Deepti-wound Skin Appearance) Scarring -Moisture (Deepti-wound Skin Appearance No Abnormality ) Assessed -Color (Deepti-wound Skin Appearance) No Abnormality Assessed -Temperature (Deepti-wound Skin No Abnormality Appearance) (Pt Warm) -Tenderness on Palpation (Deepti-wound No Skin Appearance) -Ulcer Cleansing Rinsed/ Irrigated with Saline -Foul Odor after Cleansing No #13 L Grt Toe -Combined with other wound No -Current Size (cm) - Length 0.2 -Current Size (cm) - Width 0.6 -Current Size (cm) - Depth 0.2 -Total Square Cm 0.12 -Epithelialization None Present -Tunneling No -Undermining/Tunneling No -Exudate Amt Small -Exudate Type Serosanguineous -Wound Margin Distinct, Outline Attached -Granulation Amt Large (67-100%) -Granulation Quality Red -Slough/Fibrin Yes -Necrosis Amt None Present (0 %) -Necrotic Tissue Type Adherent Slough -Structure Exposed None/Limited to Skin Breakdown -Texture (Deepti-wound Skin Appearance) Scarring -Moisture (Deepti-wound Skin Appearance Maceration ) -Color (Deepti-wound Skin Appearance) No Abnormality Assessed -Temperature (Deepti-wound Skin No Abnormality Appearance) (Pt Warm) -Tenderness on Palpation (Deepti-wound No Skin Appearance) -Ulcer Cleansing Rinsed/ Irrigated with Saline -Foul Odor after Cleansing No [Edema Assessment] -Lower Limb Edema Present Yes -Left Calf (cm) 41 -Left Ankle (cm) 32 WC - Nurse 2 - General Ulcer CM Notes Start: 09/05/18 11:48 Freq: Status: Active Protocol: Activity Type Activity Date Activity User E-Sign Co-Sign Detail Recorded Client Recorded Date Recorded By Document 09/19/18 12:19 AN [id number] 09/19/18 12:26 AN Document 09/19/18 12:42 MW [id number] 09/19/18 12:43 MW 09/19/18 09/19/18 12:19 12:42 Wound Center Nurse 2 [Procedure/Treatment] #16 left heel -Time 12:20 -Correct Patient Yes -Correct Side, Site, Position Yes -Correct Procedure Yes -Procedure Performed No -Type of Procedure Debridement -Clinical Debridement Subcutaneous -Post Debridement Size (cm) - Length 1.3 -Post Debridement Size (cm) - Width 1.6 -Post Debridement Size (cm) - Depth 0.1 -Total Square Cm 2.08 -Wound/Ulcer Outcome Not Healed -Ulcer Cleansing Rinsed/ Irrigated with Saline -Foul Odor after Cleansing No -Bioengineered Tissue No -Bleeding Controlled with Pressure -Offloading Yes -Treatment Response Procedure Tolerated Well #15 left foot plantar -Time 12:20 -Correct Patient Yes -Correct Side, Site, Position Yes -Correct Procedure Yes -Procedure Performed Yes -Type of Procedure Debridement -Clinical Debridement Subcutaneous -Post Debridement Size (cm) - Length 4.3 -Post Debridement Size (cm) - Width 5.7 -Post Debridement Size (cm) - Depth 0.1 -Total Square Cm 24.51 -Wound/Ulcer Outcome Not Healed -Ulcer Cleansing Rinsed/ Irrigated with Saline -Foul Odor after Cleansing No -Bioengineered Tissue No -Bleeding Controlled with Pressure -Offloading Yes -Treatment Response Procedure Tolerated Well 14-lower back -Time 12:43 -Correct Patient Yes -Correct Side, Site, Position Yes -Correct Procedure Yes -Procedure Performed Yes -Type of Procedure Debridement -Clinical Debridement Subcutaneous -Post Debridement Size (cm) - Length 1.1 -Post Debridement Size (cm) - Width 0.7 -Post Debridement Size (cm) - Depth 0.1 -Total Square Cm 0.77 -Wound/Ulcer Outcome Not Healed -Ulcer Cleansing Rinsed/ Irrigated with Saline -Foul Odor after Cleansing No -Bioengineered Tissue No -Bleeding Controlled with Pressure -Offloading Yes No -Treatment Response Procedure Tolerated Well #13 L Grt Toe -Time 12:23 -Correct Patient Yes -Correct Side, Site, Position Yes -Correct Procedure Yes -Procedure Performed Yes -Type of Procedure Debridement -Clinical Debridement Subcutaneous -Post Debridement Size (cm) - Length 0.3 -Post Debridement Size (cm) - Width 0.7 -Post Debridement Size (cm) - Depth 0.2 -Total Square Cm 0.21 -Wound/Ulcer Outcome Not Healed -Ulcer Cleansing Rinsed/ Irrigated with Saline -Foul Odor after Cleansing No -Bioengineered Tissue No -Bleeding Controlled with Pressure -Treatment Response Procedure Tolerated Well [See Physician Procedure note for Specifics] Pain Scale: 0-10 Numeric [Pain] -Is Patient Pain Free? Yes Yes Musculoskeletal: No Tenderness to Palpation of Joints or Extremities, Muscle Wasting Neurological: - - Lack of normal epicritic sensation light touch Psych/Mental Status: Normal Affect, Appropriate Debridement Note Post-Debridement Measurements/Treatment WC - Nurse 2 - General Ulcer CM Notes Start: 09/05/18 11:48 Freq: Status: Active Protocol: Activity Type Activity Date Activity User E-Sign Co-Sign Detail Recorded Client Recorded Date Recorded By Document 09/05/18 12:20 AN [id number] 09/05/18 12:23 AN Document 09/05/18 12:26 MW [id number] 09/05/18 12:30 MW Document 09/12/18 10:40 AN [id number] 09/12/18 10:48 AN Document 09/12/18 11:02 AN [id number] 09/12/18 11:03 AN Document 09/12/18 11:15 MW [id number] 09/12/18 11:18 MW Document 09/19/18 12:19 AN [id number] 09/19/18 12:26 AN Document 09/19/18 12:42 MW [id number] 09/19/18 12:43 MW 09/05/18 09/05/18 09/12/18 12:20 12:26 10:40 Wound Center Nurse 2 #16 left heel -Time -Correct Patient -Correct Side, Site, Position -Correct Procedure -Procedure Performed -Type of Procedure -Clinical Debridement -Post Debridement Size (cm) - Length -Post Debridement Size (cm) - Width -Post Debridement Size (cm) - Depth -Total Square Cm -Wound/Ulcer Outcome -Ulcer Cleansing -Foul Odor after Cleansing -Bioengineered Tissue -Bleeding Controlled with -Offloading -Treatment Response #15 left foot plantar -Time -Correct Patient -Correct Side, Site, Position -Correct Procedure -Procedure Performed -Type of Procedure -Clinical Debridement -Post Debridement Size (cm) - Length -Post Debridement Size (cm) - Width -Post Debridement Size (cm) - Depth -Total Square Cm -Wound/Ulcer Outcome -Ulcer Cleansing -Foul Odor after Cleansing -Bioengineered Tissue -Bleeding Controlled with -Offloading -Treatment Response 14-lower back -Time 12:27 -Correct Patient Yes -Correct Side, Site, Position Yes -Correct Procedure Yes -Procedure Performed Yes -Type of Procedure Debridement -Clinical Debridement Subcutaneous -Post Debridement Size (cm) - Length 1.4 -Post Debridement Size (cm) - Width 1.1 -Post Debridement Size (cm) - Depth 0.1 -Total Square Cm 1.54 -Wound/Ulcer Outcome Not Healed -Ulcer Cleansing Rinsed/ Irrigated with Saline -Foul Odor after Cleansing No No -Bioengineered Tissue No No -Bleeding Controlled with Pressure -Offloading No -Treatment Response Procedure Tolerated Well #13 L Grt Toe -Time 12:23 10:41 -Correct Patient Yes Yes -Correct Side, Site, Position Yes Yes -Correct Procedure Yes Yes -Procedure Performed Yes Yes -Type of Procedure Debridement Debridement -Clinical Debridement Subcutaneous Subcutaneous -Post Debridement Size (cm) - Length 0.5 0.4 -Post Debridement Size (cm) - Width 0.6 0.8 -Post Debridement Size (cm) - Depth 0.2 0.2 -Total Square Cm 0.30 0.32 -Wound/Ulcer Outcome Not Healed Not Healed -Ulcer Cleansing Rinsed/ Rinsed/ Irrigated with Irrigated with Saline Saline -Foul Odor after Cleansing No No -Bioengineered Tissue No -Bleeding Controlled with Pressure Pressure -Offloading Yes -Treatment Response Procedure Procedure Tolerated Well Tolerated Well Pain Scale: 0-10 Numeric Is Patient Pain Free? Yes 09/12/18 09/12/18 09/19/18 11:02 11:15 12:19 Wound Center Nurse 2 #16 left heel -Time 12:20 -Correct Patient Yes -Correct Side, Site, Position Yes -Correct Procedure Yes -Procedure Performed No -Type of Procedure Debridement -Clinical Debridement Subcutaneous -Post Debridement Size (cm) - Length 1.3 -Post Debridement Size (cm) - Width 1.6 -Post Debridement Size (cm) - Depth 0.1 -Total Square Cm 2.08 -Wound/Ulcer Outcome Not Healed -Ulcer Cleansing Rinsed/ Irrigated with Saline -Foul Odor after Cleansing No -Bioengineered Tissue No -Bleeding Controlled with Pressure -Offloading Yes -Treatment Response Procedure Tolerated Well #15 left foot plantar -Time 11:02 12:20 -Correct Patient Yes Yes -Correct Side, Site, Position Yes Yes -Correct Procedure Yes Yes -Procedure Performed Yes Yes -Type of Procedure Debridement Debridement -Clinical Debridement Subcutaneous Subcutaneous -Post Debridement Size (cm) - Length 4.2 4.3 -Post Debridement Size (cm) - Width 5.7 5.7 -Post Debridement Size (cm) - Depth 0.5 0.1 -Total Square Cm 23.94 24.51 -Wound/Ulcer Outcome Not Healed Not Healed -Ulcer Cleansing Rinsed/ Rinsed/ Irrigated with Irrigated with Saline Saline -Foul Odor after Cleansing No -Bioengineered Tissue No -Bleeding Controlled with Pressure -Offloading Yes Yes -Treatment Response Procedure Procedure Tolerated Well Tolerated Well 14-lower back -Time 11:15 -Correct Patient Yes -Correct Side, Site, Position Yes -Correct Procedure Yes -Procedure Performed Yes -Type of Procedure Debridement -Clinical Debridement Subcutaneous -Post Debridement Size (cm) - Length 1.2 -Post Debridement Size (cm) - Width 0.6 -Post Debridement Size (cm) - Depth 0.1 -Total Square Cm 0.72 -Wound/Ulcer Outcome Not Healed -Ulcer Cleansing Rinsed/ Irrigated with Saline -Foul Odor after Cleansing No -Bioengineered Tissue No -Bleeding Controlled with Pressure -Offloading No Yes -Treatment Response Procedure Tolerated Well #13 L Grt Toe -Time 12:23 -Correct Patient Yes -Correct Side, Site, Position Yes -Correct Procedure Yes -Procedure Performed Yes -Type of Procedure Debridement -Clinical Debridement Subcutaneous -Post Debridement Size (cm) - Length 0.3 -Post Debridement Size (cm) - Width 0.7 -Post Debridement Size (cm) - Depth 0.2 -Total Square Cm 0.21 -Wound/Ulcer Outcome Not Healed -Ulcer Cleansing Rinsed/ Irrigated with Saline -Foul Odor after Cleansing No -Bioengineered Tissue No -Bleeding Controlled with Pressure -Offloading -Treatment Response Procedure Tolerated Well Pain Scale: 0-10 Numeric Is Patient Pain Free? Yes Yes 09/19/18 12:42 Wound Center Nurse 2 #16 left heel -Time -Correct Patient -Correct Side, Site, Position -Correct Procedure -Procedure Performed -Type of Procedure -Clinical Debridement -Post Debridement Size (cm) - Length -Post Debridement Size (cm) - Width -Post Debridement Size (cm) - Depth -Total Square Cm -Wound/Ulcer Outcome -Ulcer Cleansing -Foul Odor after Cleansing -Bioengineered Tissue -Bleeding Controlled with -Offloading -Treatment Response #15 left foot plantar -Time -Correct Patient -Correct Side, Site, Position -Correct Procedure -Procedure Performed -Type of Procedure -Clinical Debridement -Post Debridement Size (cm) - Length -Post Debridement Size (cm) - Width -Post Debridement Size (cm) - Depth -Total Square Cm -Wound/Ulcer Outcome -Ulcer Cleansing -Foul Odor after Cleansing -Bioengineered Tissue -Bleeding Controlled with -Offloading -Treatment Response 14-lower back -Time 12:43 -Correct Patient Yes -Correct Side, Site, Position Yes -Correct Procedure Yes -Procedure Performed Yes -Type of Procedure Debridement -Clinical Debridement Subcutaneous -Post Debridement Size (cm) - Length 1.1 -Post Debridement Size (cm) - Width 0.7 -Post Debridement Size (cm) - Depth 0.1 -Total Square Cm 0.77 -Wound/Ulcer Outcome Not Healed -Ulcer Cleansing Rinsed/ Irrigated with Saline -Foul Odor after Cleansing No -Bioengineered Tissue No -Bleeding Controlled with Pressure -Offloading No -Treatment Response Procedure Tolerated Well #13 L Grt Toe -Time -Correct Patient -Correct Side, Site, Position -Correct Procedure -Procedure Performed -Type of Procedure -Clinical Debridement -Post Debridement Size (cm) - Length -Post Debridement Size (cm) - Width -Post Debridement Size (cm) - Depth -Total Square Cm -Wound/Ulcer Outcome -Ulcer Cleansing -Foul Odor after Cleansing -Bioengineered Tissue -Bleeding Controlled with -Offloading -Treatment Response Pain Scale: 0-10 Numeric Is Patient Pain Free? Yes Wound debrided: heel posterior Laterality: Left Type of Debridement: Excisional debridement Anesthesia Used: 5% Lidocaine Gel Depth: in the subcutaneous layer Percentage of wound debrided: 100 Instrument Used: #15 blade Tissue Removed: fibrous, devitalized subcutaneous, biofilm, slough Severity: Fat Layer Exposed Amount of bleeding with debridement: Mild Bleeding Controlled with: Pressure Patient tolerated procedure well - Additional Wound Wound debrided: plantar foot Laterality: Right Type of Debridement: Excisional debridement Anesthesia Used: 5% Lidocaine Gel Depth: in the subcutaneous layer Percentage of wound debrided: 100 Instrument Used: #15 blade Tissue Removed: fibrous, devitalized subcutaneous, biofilm, slough, eschar Severity: Fat Layer Exposed Amount of bleeding with debridement: Mild Bleeding Controlled with: Pressure Patient tolerated procedure: Patient tolerated procedure well - Additional Wound Wound debrided: dorsal hallux Laterality: Left Type of Debridement: Excisional debridement Anesthesia Used: 5% Lidocaine Gel Depth: in the subcutaneous layer Percentage of wound debrided: 100 Instrument Used: #15 blade Tissue Removed: fibrous, devitalized subcutaneous, biofilm, slough Severity: Fat Layer Exposed Amount of bleeding with debridement: Mild Bleeding Controlled with: Pressure Patient tolerated procedure: Patient tolerated procedure well Assessment/Plan Clinical Impression(s) from Imaging Studies Foot X-Ray 09/12/18 11:57 IMPRESSION: Severe dorsal foot soft tissue swelling. No visible fracture. Electronically Signed: Marino Rogers MD at 16:01 EDT Tel , Service support , Assessment: ulcer left great toe with fat layer exposed. Heel ulcer with fat layer exposed. Plantar left foot ulcer with fat layer exposed. cellulitis resolving. Spina bifida. Peripheral neuropathy bilateral lower extremities. Nonambulatory wheelchair bound. Chronic swelling in both lower extremities. left femur fracture and h/o blood clot, now on eliquis. Left lower back ulcer with fat layer exposed. Plan: I reviewed and discussed her case including her injuries. Debridement done as documented in the clinical panel to the left hallux, heel, and plantar foot. To change dressing daily with Cici to the hallux Aquacel Ag to the plantar foot and heel sites; this was applied today to the left foot. It is also okay to apply Santyl to the plantar foot ulcer site. I do not recommend advanced wound product, epi fix, today until this ulcer site improved in quality. To continue with healing shoes with soft tissue upper. To complete Augmentin course; an additional antibiotic is not recommended at this time. Her clinical improvement is noted. Lab work and updated x-rays were also obtained to further work-up her cellulitis condition. It is noted she did not get foot x-rays and I encouraged her to do so. Her labs are reviewed without leukocytosis. Her white blood cell count 7.5, ESR 67, C-reactive protein 47.0, and albumin 3.1. Upon resolution of the infection, and eschar resolution I recommended application of advanced wound healing product, epi fix. This is medically necessary for limb salvage and to optimize healing. Prior authorization has been obtained previously of her hallux and will need to be reinitiated for her foot ulcer sites that are new. To take nutritional supplementation, Joseph, to optimize healing. A prescription was provided previously. To continue strict offloading to the ulcer sites. It is noted that she does rest her foot on the foot pedal of her wheelchair frequently throughout the day and she was advised to modify her position to avoid this. She is advised to balance between wearing Tubigrip, Richar wrap, and other compression garments for edema and adjusting assistive devices when she has a rapid increase in edema to prevent additional tissue injuries. To continue to follow-up with her orthopedic doctor for femur fracture and anticoagulation management. It is noted this has been stopped. To follow up with Dr. Looney for her back ulcers well. To return to the wound healing center in 1 week or call sooner if she has any questions or concerns. I answered all of her questions.
[2018-09-26 12:07] VITALS: BP 145/85; PULSE 90; RESP 16; TEMP 36.7; BMI 50.3
--- NOTE | 2018-09-26 15:36 | PCM.WC.PN ---
(1) Ulcer of right foot with fat layer exposed Status: Chronic Current Visit: Yes Code(s): L97.512 - Non-pressure chronic ulcer of other part of right foot with fat layer exposed (2) Chronic ulcer of left foot with fat layer exposed Status: Chronic Current Visit: Yes Code(s): L97.522 - Non-pressure chronic ulcer of other part of left foot with fat layer exposed (3) Peripheral neuropathy Status: Chronic Current Visit: Yes Code(s): G62.9 - Polyneuropathy, unspecified (4) Spina bifida Status: Chronic Current Visit: Yes Qualifiers: Code(s): Q05.9 - Spina bifida, unspecified (5) Pressure ulcer of foot, stage 1 Status: Chronic Current Visit: Yes Qualifiers: Laterality: right Qualified Code(s): L89.891 - Pressure ulcer of other site, stage 1 Code(s): L89.891 - Pressure ulcer of other site, stage 1 (6) Edema, lower extremity Status: Chronic Current Visit: Yes Code(s): R60.0 - Localized edema (7) Infected wound Status: Resolved Current Visit: Yes Code(s): T14.8XXA - Other injury of unspecified body region, initial encounter; L08.9 - Local infection of the skin and subcutaneous tissue, unspecified Type of Wound Date of Service: 09/26/18 Chief Complaint: toe ulcer involving left hallux dorsally. heel ulcer left foot healed. Heel ulcer right foot new. foot ulcer plantar left History of Wound: This 32-year-old female follows up for multiple ulcers and pressure injury sites of the left foot. She is with her mother. She has continued swelling to her left lower extremity since she broke her femur and had a subsequent blood clot. she denies fever, chill, nausea, vomiting, loss of appetite. She is no longer taking blood thinner medication. She thinks her left heel ulcer site has healed. She sustained a new injury during transportation to the right heel. Progress of Wound: Healed left heel. New right heel. Plantar left foot and hallux improving - Physical Exam Vital Signs Temp Pulse Resp BP 98.0 F 90 16 145/85 H 09/26/18 12:07 09/26/18 12:07 09/26/18 12:07 09/26/18 12:07 General: Alert, Oriented x3, Cooperative, No apparent distress Extremities: No cyanosis, Capillary Refill Less than 3 Seconds, No Calf Tenderness, Diminished Peripheral Pulses, Edema - Decreased left, - - Lack of motor skills consistent with spina bifida and bilateral lower extremities Skin: Ulcer/ Wound - No fever, chill, nausea, vomiting, streaking, odor bilateral. New skin discontinuity with fat layer exposed to the right heel with no local signs of infection. Full epithelialization noted to left heel and the site has healed. Wound Measurements and Assessment WC - Nurse 1 - General Ulcer Measurement Start: 09/05/18 11:48 Freq: Status: Active Protocol: Activity Type Activity Date Activity User E-Sign Co-Sign Detail Recorded Client Recorded Date Recorded By Document 09/26/18 12:07 [email or web address] [id number] 09/26/18 12:21 VIKY 09/26/18 12:07 Wound Center Nurse 1 [Ulcer Assessment] 17-right achilles -Current Size (cm) - Length 2.3 -Current Size (cm) - Width 1.3 -Current Size (cm) - Depth 0.1 -Total Square Cm 2.99 -Photo Taken Yes -Epithelialization Small 1-33% -Tunneling No -Undermining/Tunneling No -Circular Undermining No -Classification - Thickness Full Thickness without Exposed Support Structure -Exudate Amt Small -Exudate Type Serosanguineous -Wound Margin Flat & Intact -Granulation Amt Medium (34-66%) -Granulation Quality [place] -Slough/Fibrin Yes -Necrosis Amt Medium (34-66%) -Necrotic Tissue Type Adherent Slough -Structure Exposed N/A -Texture (Deepti-wound Skin Appearance) Assessed Localized Edema -Moisture (Deepti-wound Skin Appearance Assessed ) Dry/Scaly -Color (Deepti-wound Skin Appearance) Assessed -Temperature (Deepti-wound Skin No Abnormality Appearance) (Pt Warm) -Tenderness on Palpation (Deepti-wound No Skin Appearance) -Ulcer Cleansing Wound Cleanser -Foul Odor after Cleansing No #16 left heel -Combined with other wound No -Current Size (cm) - Length 0.3 -Current Size (cm) - Width 0.2 -Current Size (cm) - Depth 0.1 -Total Square Cm 0.06 -Photo Taken No -Epithelialization Large 67-100% -Tunneling No -Undermining/Tunneling No -Circular Undermining No -Exudate Amt None Present -Wound Margin Flat & Intact -Granulation Amt Medium (34-66%) -Granulation Quality [place] -Slough/Fibrin Yes -Necrosis Amt Small (1-33%) -Necrotic Tissue Type Adherent Slough -Structure Exposed N/A -Texture (Deepti-wound Skin Appearance) Assessed -Moisture (Deepti-wound Skin Appearance Assessed ) Dry/Scaly -Color (Deepti-wound Skin Appearance) Assessed -Temperature (Deepti-wound Skin No Abnormality Appearance) (Pt Warm) -Tenderness on Palpation (Deepti-wound No Skin Appearance) -Ulcer Cleansing Rinsed/ Irrigated with Saline -Foul Odor after Cleansing No #15 left foot plantar -Combined with other wound No -Current Size (cm) - Length 4.4 -Current Size (cm) - Width 4.7 -Current Size (cm) - Depth 0.1 -Total Square Cm 20.68 -Photo Taken No -Epithelialization None Present -Tunneling No -Undermining/Tunneling No -Circular Undermining No -Exudate Amt Medium -Exudate Type Serosanguineous -Wound Margin Flat & Intact -Granulation Amt None Present (0 %) -Slough/Fibrin Yes -Necrosis Amt Large (67-100%) -Necrotic Tissue Type Adherent Slough -Structure Exposed N/A -Texture (Deepti-wound Skin Appearance) Assessed Localized Edema -Moisture (Deepti-wound Skin Appearance Assessed ) Dry/Scaly -Color (Deepti-wound Skin Appearance) Assessed -Temperature (Deepti-wound Skin No Abnormality Appearance) (Pt Warm) -Tenderness on Palpation (Deepti-wound No Skin Appearance) -Ulcer Cleansing Wound Cleanser -Foul Odor after Cleansing No 14-lower back -Combined with other wound No -Current Size (cm) - Length 1.2 -Current Size (cm) - Width 0.6 -Current Size (cm) - Depth 0.4 -Total Square Cm 0.72 -Photo Taken No -Epithelialization Small 1-33% -Tunneling No -Undermining/Tunneling No -Circular Undermining No -Exudate Amt Small -Exudate Type Serosanguineous -Wound Margin Flat & Intact -Granulation Amt Medium (34-66%) -Granulation Quality Red -Slough/Fibrin Yes -Necrosis Amt Small (1-33%) -Necrotic Tissue Type Adherent Slough -Structure Exposed N/A -Texture (Deepti-wound Skin Appearance) Assessed -Moisture (Deepti-wound Skin Appearance Assessed ) Dry/Scaly -Color (Deepti-wound Skin Appearance) Assessed -Temperature (Deepti-wound Skin No Abnormality Appearance) (Pt Warm) -Tenderness on Palpation (Deepti-wound No Skin Appearance) -Ulcer Cleansing Wound Cleanser -Foul Odor after Cleansing No #13 L Grt Toe -Combined with other wound No -Current Size (cm) - Length 0.5 -Current Size (cm) - Width 0.5 -Current Size (cm) - Depth 0.2 -Total Square Cm 0.25 -Photo Taken No -Epithelialization Large 67-100% -Tunneling No -Undermining/Tunneling No -Circular Undermining No -Exudate Amt Small -Exudate Type Serosanguineous -Wound Margin Flat & Intact -Granulation Amt Large (67-100%) -Granulation Quality Red -Slough/Fibrin Yes -Necrosis Amt Small (1-33%) -Necrotic Tissue Type Adherent Slough -Structure Exposed N/A -Texture (Deepti-wound Skin Appearance) Assessed -Moisture (Deepti-wound Skin Appearance Assessed ) Dry/Scaly -Color (Deepti-wound Skin Appearance) Assessed -Temperature (Deepti-wound Skin No Abnormality Appearance) (Pt Warm) -Tenderness on Palpation (Deepti-wound No Skin Appearance) -Ulcer Cleansing Wound Cleanser -Foul Odor after Cleansing No [Edema Assessment] -Lower Limb Edema Present Yes WC - Nurse 2 - General Ulcer CM Notes Start: 09/05/18 11:48 Freq: Status: Active Protocol: Activity Type Activity Date Activity User E-Sign Co-Sign Detail Recorded Client Recorded Date Recorded By Document 09/26/18 12:41 AN [id number] 09/26/18 12:45 AN Document 09/26/18 12:55 MW [id number] 09/26/18 12:59 MW 09/26/18 09/26/18 12:41 12:55 Wound Center Nurse 2 [Procedure/Treatment] 17-right achilles -Time 12:41 -Correct Patient Yes -Correct Side, Site, Position Yes -Correct Procedure Yes -Procedure Performed Yes -Type of Procedure Debridement -Clinical Debridement Subcutaneous -Post Debridement Size (cm) - Length 2.4 -Post Debridement Size (cm) - Width 1.4 -Post Debridement Size (cm) - Depth 0.1 -Total Square Cm 3.36 -Bleeding Controlled with Pressure -Treatment Response Procedure Tolerated Well #15 left foot plantar -Time 12:41 -Correct Patient Yes -Correct Side, Site, Position Yes -Correct Procedure Yes -Procedure Performed Yes -Type of Procedure Debridement -Clinical Debridement Subcutaneous -Post Debridement Size (cm) - Length 4.5 -Post Debridement Size (cm) - Width 4.8 -Post Debridement Size (cm) - Depth 0.1 -Total Square Cm 21.60 -Bleeding Controlled with Pressure -Treatment Response Procedure Tolerated Well 14-lower back -Time 12:57 -Correct Patient Yes -Correct Side, Site, Position Yes -Correct Procedure Yes -Procedure Performed Yes -Type of Procedure Debridement -Clinical Debridement Subcutaneous -Post Debridement Size (cm) - Length 1.2 -Post Debridement Size (cm) - Width 0.7 -Post Debridement Size (cm) - Depth 0.1 -Total Square Cm 0.84 -Wound/Ulcer Outcome Not Healed -Ulcer Cleansing Rinsed/ Irrigated with Saline -Foul Odor after Cleansing No -Bioengineered Tissue No -Bleeding Controlled with Pressure -Offloading No -Treatment Response Procedure Tolerated Well #13 L Grt Toe -Time 12:42 -Correct Patient Yes -Correct Side, Site, Position Yes -Correct Procedure Yes -Procedure Performed Yes -Type of Procedure Debridement -Clinical Debridement Subcutaneous -Post Debridement Size (cm) - Length 0.6 -Post Debridement Size (cm) - Width 0.6 -Post Debridement Size (cm) - Depth 0.2 -Total Square Cm 0.36 -Wound/Ulcer Outcome Not Healed -Bleeding Controlled with Pressure -Treatment Response Procedure Tolerated Well [See Physician Procedure note for Specifics] Pain Scale: 0-10 Numeric [Pain] -Is Patient Pain Free? Yes Yes Musculoskeletal: No Tenderness to Palpation of Joints or Extremities, Muscle Wasting Neurological: - - Lack of normal epicritic sensation light touch bilateral Psych/Mental Status: Normal Affect, Appropriate Debridement Note Post-Debridement Measurements/Treatment WC - Nurse 2 - General Ulcer CM Notes Start: 09/05/18 11:48 Freq: Status: Active Protocol: Activity Type Activity Date Activity User E-Sign Co-Sign Detail Recorded Client Recorded Date Recorded By Document 09/05/18 12:20 AN [id number] 09/05/18 12:23 AN Document 09/05/18 12:26 MW [id number] 09/05/18 12:30 MW Document 09/12/18 10:40 AN [id number] 09/12/18 10:48 AN Document 09/12/18 11:02 AN [id number] 09/12/18 11:03 AN Document 09/12/18 11:15 MW [id number] 09/12/18 11:18 MW Document 09/19/18 12:19 AN [id number] 09/19/18 12:26 AN Document 09/19/18 12:42 MW [id number] 09/19/18 12:43 MW Document 09/26/18 12:41 AN [id number] 09/26/18 12:45 AN Document 09/26/18 12:55 MW [id number] 09/26/18 12:59 MW 09/05/18 09/05/18 09/12/18 12:20 12:26 10:40 Wound Center Nurse 2 17-right achilles -Time -Correct Patient -Correct Side, Site, Position -Correct Procedure -Procedure Performed -Type of Procedure -Clinical Debridement -Post Debridement Size (cm) - Length -Post Debridement Size (cm) - Width -Post Debridement Size (cm) - Depth -Total Square Cm -Bleeding Controlled with -Treatment Response #16 left heel -Time -Correct Patient -Correct Side, Site, Position -Correct Procedure -Procedure Performed -Type of Procedure -Clinical Debridement -Post Debridement Size (cm) - Length -Post Debridement Size (cm) - Width -Post Debridement Size (cm) - Depth -Total Square Cm -Wound/Ulcer Outcome -Ulcer Cleansing -Foul Odor after Cleansing -Bioengineered Tissue -Bleeding Controlled with -Offloading -Treatment Response #15 left foot plantar -Time -Correct Patient -Correct Side, Site, Position -Correct Procedure -Procedure Performed -Type of Procedure -Clinical Debridement -Post Debridement Size (cm) - Length -Post Debridement Size (cm) - Width -Post Debridement Size (cm) - Depth -Total Square Cm -Wound/Ulcer Outcome -Ulcer Cleansing -Foul Odor after Cleansing -Bioengineered Tissue -Bleeding Controlled with -Offloading -Treatment Response 14-lower back -Time 12:27 -Correct Patient Yes -Correct Side, Site, Position Yes -Correct Procedure Yes -Procedure Performed Yes -Type of Procedure Debridement -Clinical Debridement Subcutaneous -Post Debridement Size (cm) - Length 1.4 -Post Debridement Size (cm) - Width 1.1 -Post Debridement Size (cm) - Depth 0.1 -Total Square Cm 1.54 -Wound/Ulcer Outcome Not Healed -Ulcer Cleansing Rinsed/ Irrigated with Saline -Foul Odor after Cleansing No No -Bioengineered Tissue No No -Bleeding Controlled with Pressure -Offloading No -Treatment Response Procedure Tolerated Well #13 L Grt Toe -Time 12:23 10:41 -Correct Patient Yes Yes -Correct Side, Site, Position Yes Yes -Correct Procedure Yes Yes -Procedure Performed Yes Yes -Type of Procedure Debridement Debridement -Clinical Debridement Subcutaneous Subcutaneous -Post Debridement Size (cm) - Length 0.5 0.4 -Post Debridement Size (cm) - Width 0.6 0.8 -Post Debridement Size (cm) - Depth 0.2 0.2 -Total Square Cm 0.30 0.32 -Wound/Ulcer Outcome Not Healed Not Healed -Ulcer Cleansing Rinsed/ Rinsed/ Irrigated with Irrigated with Saline Saline -Foul Odor after Cleansing No No -Bioengineered Tissue No -Bleeding Controlled with Pressure Pressure -Offloading Yes -Treatment Response Procedure Procedure Tolerated Well Tolerated Well Pain Scale: 0-10 Numeric Is Patient Pain Free? Yes 09/12/18 09/12/18 09/19/18 11:02 11:15 12:19 Wound Center Nurse 2 17-right achilles -Time -Correct Patient -Correct Side, Site, Position -Correct Procedure -Procedure Performed -Type of Procedure -Clinical Debridement -Post Debridement Size (cm) - Length -Post Debridement Size (cm) - Width -Post Debridement Size (cm) - Depth -Total Square Cm -Bleeding Controlled with -Treatment Response #16 left heel -Time 12:20 -Correct Patient Yes -Correct Side, Site, Position Yes -Correct Procedure Yes -Procedure Performed No -Type of Procedure Debridement -Clinical Debridement Subcutaneous -Post Debridement Size (cm) - Length 1.3 -Post Debridement Size (cm) - Width 1.6 -Post Debridement Size (cm) - Depth 0.1 -Total Square Cm 2.08 -Wound/Ulcer Outcome Not Healed -Ulcer Cleansing Rinsed/ Irrigated with Saline -Foul Odor after Cleansing No -Bioengineered Tissue No -Bleeding Controlled with Pressure -Offloading Yes -Treatment Response Procedure Tolerated Well #15 left foot plantar -Time 11:02 12:20 -Correct Patient Yes Yes -Correct Side, Site, Position Yes Yes -Correct Procedure Yes Yes -Procedure Performed Yes Yes -Type of Procedure Debridement Debridement -Clinical Debridement Subcutaneous Subcutaneous -Post Debridement Size (cm) - Length 4.2 4.3 -Post Debridement Size (cm) - Width 5.7 5.7 -Post Debridement Size (cm) - Depth 0.5 0.1 -Total Square Cm 23.94 24.51 -Wound/Ulcer Outcome Not Healed Not Healed -Ulcer Cleansing Rinsed/ Rinsed/ Irrigated with Irrigated with Saline Saline -Foul Odor after Cleansing No -Bioengineered Tissue No -Bleeding Controlled with Pressure -Offloading Yes Yes -Treatment Response Procedure Procedure Tolerated Well Tolerated Well 14-lower back -Time 11:15 -Correct Patient Yes -Correct Side, Site, Position Yes -Correct Procedure Yes -Procedure Performed Yes -Type of Procedure Debridement -Clinical Debridement Subcutaneous -Post Debridement Size (cm) - Length 1.2 -Post Debridement Size (cm) - Width 0.6 -Post Debridement Size (cm) - Depth 0.1 -Total Square Cm 0.72 -Wound/Ulcer Outcome Not Healed -Ulcer Cleansing Rinsed/ Irrigated with Saline -Foul Odor after Cleansing No -Bioengineered Tissue No -Bleeding Controlled with Pressure -Offloading No Yes -Treatment Response Procedure Tolerated Well #13 L Grt Toe -Time 12:23 -Correct Patient Yes -Correct Side, Site, Position Yes -Correct Procedure Yes -Procedure Performed Yes -Type of Procedure Debridement -Clinical Debridement Subcutaneous -Post Debridement Size (cm) - Length 0.3 -Post Debridement Size (cm) - Width 0.7 -Post Debridement Size (cm) - Depth 0.2 -Total Square Cm 0.21 -Wound/Ulcer Outcome Not Healed -Ulcer Cleansing Rinsed/ Irrigated with Saline -Foul Odor after Cleansing No -Bioengineered Tissue No -Bleeding Controlled with Pressure -Offloading -Treatment Response Procedure Tolerated Well Pain Scale: 0-10 Numeric Is Patient Pain Free? Yes Yes 09/19/18 09/26/18 09/26/18 12:42 12:41 12:55 Wound Center Nurse 2 17-right achilles -Time 12:41 -Correct Patient Yes -Correct Side, Site, Position Yes -Correct Procedure Yes -Procedure Performed Yes -Type of Procedure Debridement -Clinical Debridement Subcutaneous -Post Debridement Size (cm) - Length 2.4 -Post Debridement Size (cm) - Width 1.4 -Post Debridement Size (cm) - Depth 0.1 -Total Square Cm 3.36 -Bleeding Controlled with Pressure -Treatment Response Procedure Tolerated Well #16 left heel -Time -Correct Patient -Correct Side, Site, Position -Correct Procedure -Procedure Performed -Type of Procedure -Clinical Debridement -Post Debridement Size (cm) - Length -Post Debridement Size (cm) - Width -Post Debridement Size (cm) - Depth -Total Square Cm -Wound/Ulcer Outcome -Ulcer Cleansing -Foul Odor after Cleansing -Bioengineered Tissue -Bleeding Controlled with -Offloading -Treatment Response #15 left foot plantar -Time 12:41 -Correct Patient Yes -Correct Side, Site, Position Yes -Correct Procedure Yes -Procedure Performed Yes -Type of Procedure Debridement -Clinical Debridement Subcutaneous -Post Debridement Size (cm) - Length 4.5 -Post Debridement Size (cm) - Width 4.8 -Post Debridement Size (cm) - Depth 0.1 -Total Square Cm 21.60 -Wound/Ulcer Outcome -Ulcer Cleansing -Foul Odor after Cleansing -Bioengineered Tissue -Bleeding Controlled with Pressure -Offloading -Treatment Response Procedure Tolerated Well 14-lower back -Time 12:43 12:57 -Correct Patient Yes Yes -Correct Side, Site, Position Yes Yes -Correct Procedure Yes Yes -Procedure Performed Yes Yes -Type of Procedure Debridement Debridement -Clinical Debridement Subcutaneous Subcutaneous -Post Debridement Size (cm) - Length 1.1 1.2 -Post Debridement Size (cm) - Width 0.7 0.7 -Post Debridement Size (cm) - Depth 0.1 0.1 -Total Square Cm 0.77 0.84 -Wound/Ulcer Outcome Not Healed Not Healed -Ulcer Cleansing Rinsed/ Rinsed/ Irrigated with Irrigated with Saline Saline -Foul Odor after Cleansing No No -Bioengineered Tissue No No -Bleeding Controlled with Pressure Pressure -Offloading No No -Treatment Response Procedure Procedure Tolerated Well Tolerated Well #13 L Grt Toe -Time 12:42 -Correct Patient Yes -Correct Side, Site, Position Yes -Correct Procedure Yes -Procedure Performed Yes -Type of Procedure Debridement -Clinical Debridement Subcutaneous -Post Debridement Size (cm) - Length 0.6 -Post Debridement Size (cm) - Width 0.6 -Post Debridement Size (cm) - Depth 0.2 -Total Square Cm 0.36 -Wound/Ulcer Outcome Not Healed -Ulcer Cleansing -Foul Odor after Cleansing -Bioengineered Tissue -Bleeding Controlled with Pressure -Offloading -Treatment Response Procedure Tolerated Well Pain Scale: 0-10 Numeric Is Patient Pain Free? Yes Yes Yes Wound debrided: posterior heel Laterality: Right Type of Debridement: Excisional debridement Anesthesia Used: 5% Lidocaine Gel Depth: in the subcutaneous layer Percentage of wound debrided: 100 Instrument Used: #15 blade Tissue Removed: fibrous, devitalized subcutaneous, biofilm, slough Severity: Fat Layer Exposed Amount of bleeding with debridement: Mild Bleeding Controlled with: Pressure Patient tolerated procedure well - Additional Wound Wound debrided: plantar foot Laterality: Left Type of Debridement: Excisional debridement Anesthesia Used: 5% Lidocaine Gel Depth: in the subcutaneous layer Percentage of wound debrided: 100 Instrument Used: #15 blade Tissue Removed: fibrous, devitalized subcutaneous, biofilm, slough Severity: Fat Layer Exposed Amount of bleeding with debridement: Mild Bleeding Controlled with: Pressure Patient tolerated procedure: Patient tolerated procedure well - Additional Wound Wound debrided: dorsal hallux Laterality: Left Type of Debridement: Excisional debridement Anesthesia Used: 5% Lidocaine Gel Depth: in the subcutaneous layer Percentage of wound debrided: 100 Instrument Used: #15 blade Tissue Removed: fibrous, devitalized subcutaneous, biofilm, slough Severity: Fat Layer Exposed Amount of bleeding with debridement: Mild Bleeding Controlled with: Pressure Patient tolerated procedure: Patient tolerated procedure well Assessment/Plan Clinical Impression(s) from Imaging Studies Foot X-Ray 09/12/18 11:57 IMPRESSION: Severe dorsal foot soft tissue swelling. No visible fracture. Electronically Signed: Marino Rogers MD at 16:01 EDT Tel , Service support , Active Problems Ulcer of right foot with fat layer exposed (Chronic) Chronic ulcer of left foot with fat layer exposed (Chronic) Pressure ulcer of foot, stage 1 (Chronic) Edema, lower extremity (Chronic) Peripheral neuropathy (Chronic) Blister of toe of right foot without infection (Acute) Spina bifida (Chronic) Assessment: ulcer left great toe with fat layer exposed. Heel ulcer left- healed. Plantar left foot ulcer with fat layer exposed. New ulcer right heel. cellulitis resolved. Spina bifida. Peripheral neuropathy bilateral lower extremities. Nonambulatory wheelchair bound. Chronic swelling in both lower extremities. left femur fracture and h/o blood clot, eliquis has been stopped. Left lower back ulcer with fat layer exposed. Plan: I reviewed and discussed her case including her injuries. Debridement done as documented in the clinical panel to the left hallux, right heel, and plantar left foot. To change dressing daily with Cici to the hallux and Santyl to plantar foot and heel sites. To continue to offload and to control edema. Tubigrip's and Richar wrap to be considered in this week. 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 To return to the wound healing center in 1 week or call sooner if she has any questions or concerns. I answered all of her questions.
--- NOTE | 2018-09-26 17:08 | PCM.WC.PN ---
(1) Ulcer of back Status: Acute Current Visit: No Code(s): L98.429 - Non-pressure chronic ulcer of back with unspecified severity Comment: Fat layer exposed. (2) Spina bifida Status: Chronic Current Visit: Yes Qualifiers: Code(s): Q05.9 - Spina bifida, unspecified Type of Wound Chief Complaint: toe ulcer. heel ulcer. foot ulcer History of Wound: This 32-year-old female follows up for multiple ulcers and pressure injury sites of the left foot. She is with her mother. She has continued swelling to her left lower extremity since she broke her femur and had a subsequent blood clot. she denies fever, chill, nausea, vomiting, loss of appetite. She is no longer taking blood thinner medication. Progress of Wound: stable - Physical Exam Vital Signs Temp Pulse Resp BP 98.0 F 90 16 145/85 H 09/26/18 12:07 09/26/18 12:07 09/26/18 12:07 09/26/18 12:07 General: Alert, Oriented x3, Cooperative, No apparent distress HEENT: Atraumatic, Normocephalic Oral: Moist Mucosa Neck: Supple Lungs: Normal air movement Abdomen: Non Tender, Obese Extremities: No cyanosis Wound Measurements and Assessment WC - Nurse 1 - General Ulcer Measurement Start: 09/05/18 11:48 Freq: Status: Active Protocol: Activity Type Activity Date Activity User E-Sign Co-Sign Detail Recorded Client Recorded Date Recorded By Document 09/26/18 12:07 VIKY [id number] 09/26/18 12:21 VIKY 09/26/18 12:07 Wound Center Nurse 1 [Ulcer Assessment] 17-right achilles -Current Size (cm) - Length 2.3 -Current Size (cm) - Width 1.3 -Current Size (cm) - Depth 0.1 -Total Square Cm 2.99 -Photo Taken Yes -Epithelialization Small 1-33% -Tunneling No -Undermining/Tunneling No -Circular Undermining No -Classification - Thickness Full Thickness without Exposed Support Structure -Exudate Amt Small -Exudate Type Serosanguineous -Wound Margin Flat & Intact -Granulation Amt Medium (34-66%) -Granulation Quality [place] -Slough/Fibrin Yes -Necrosis Amt Medium (34-66%) -Necrotic Tissue Type Adherent Slough -Structure Exposed N/A -Texture (Deepti-wound Skin Appearance) Assessed Localized Edema -Moisture (Deepti-wound Skin Appearance Assessed ) Dry/Scaly -Color (Depeti-wound Skin Appearance) Assessed -Temperature (Deepti-wound Skin No Abnormality Appearance) (Pt Warm) -Tenderness on Palpation (Deepti-wound No Skin Appearance) -Ulcer Cleansing Wound Cleanser -Foul Odor after Cleansing No #16 left heel -Combined with other wound No -Current Size (cm) - Length 0.3 -Current Size (cm) - Width 0.2 -Current Size (cm) - Depth 0.1 -Total Square Cm 0.06 -Photo Taken No -Epithelialization Large 67-100% -Tunneling No -Undermining/Tunneling No -Circular Undermining No -Exudate Amt None Present -Wound Margin Flat & Intact -Granulation Amt Medium (34-66%) -Granulation Quality [place] -Slough/Fibrin Yes -Necrosis Amt Small (1-33%) -Necrotic Tissue Type Adherent Slough -Structure Exposed N/A -Texture (Deepti-wound Skin Appearance) Assessed -Moisture (Deepti-wound Skin Appearance Assessed ) Dry/Scaly -Color (Deepti-wound Skin Appearance) Assessed -Temperature (Deepti-wound Skin No Abnormality Appearance) (Pt Warm) -Tenderness on Palpation (Deepti-wound No Skin Appearance) -Ulcer Cleansing Rinsed/ Irrigated with Saline -Foul Odor after Cleansing No #15 left foot plantar -Combined with other wound No -Current Size (cm) - Length 4.4 -Current Size (cm) - Width 4.7 -Current Size (cm) - Depth 0.1 -Total Square Cm 20.68 -Photo Taken No -Epithelialization None Present -Tunneling No -Undermining/Tunneling No -Circular Undermining No -Exudate Amt Medium -Exudate Type Serosanguineous -Wound Margin Flat & Intact -Granulation Amt None Present (0 %) -Slough/Fibrin Yes -Necrosis Amt Large (67-100%) -Necrotic Tissue Type Adherent Slough -Structure Exposed N/A -Texture (Deepti-wound Skin Appearance) Assessed Localized Edema -Moisture (Deepti-wound Skin Appearance Assessed ) Dry/Scaly -Color (Deepti-wound Skin Appearance) Assessed -Temperature (Deepti-wound Skin No Abnormality Appearance) (Pt Warm) -Tenderness on Palpation (Deepti-wound No Skin Appearance) -Ulcer Cleansing Wound Cleanser -Foul Odor after Cleansing No 14-lower back -Combined with other wound No -Current Size (cm) - Length 1.2 -Current Size (cm) - Width 0.6 -Current Size (cm) - Depth 0.4 -Total Square Cm 0.72 -Photo Taken No -Epithelialization Small 1-33% -Tunneling No -Undermining/Tunneling No -Circular Undermining No -Exudate Amt Small -Exudate Type Serosanguineous -Wound Margin Flat & Intact -Granulation Amt Medium (34-66%) -Granulation Quality [place] -Slough/Fibrin Yes -Necrosis Amt Small (1-33%) -Necrotic Tissue Type Adherent Slough -Structure Exposed N/A -Texture (Deepti-wound Skin Appearance) Assessed -Moisture (Deepti-wound Skin Appearance Assessed ) Dry/Scaly -Color (Deepti-wound Skin Appearance) Assessed -Temperature (Deepti-wound Skin No Abnormality Appearance) (Pt Warm) -Tenderness on Palpation (Deepti-wound No Skin Appearance) -Ulcer Cleansing Wound Cleanser -Foul Odor after Cleansing No #13 L Grt Toe -Combined with other wound No -Current Size (cm) - Length 0.5 -Current Size (cm) - Width 0.5 -Current Size (cm) - Depth 0.2 -Total Square Cm 0.25 -Photo Taken No -Epithelialization Large 67-100% -Tunneling No -Undermining/Tunneling No -Circular Undermining No -Exudate Amt Small -Exudate Type Serosanguineous -Wound Margin Flat & Intact -Granulation Amt Large (67-100%) -Granulation Quality [place] -Slough/Fibrin Yes -Necrosis Amt Small (1-33%) -Necrotic Tissue Type Adherent Slough -Structure Exposed N/A -Texture (Deepti-wound Skin Appearance) Assessed -Moisture (Deepti-wound Skin Appearance Assessed ) Dry/Scaly -Color (Deepti-wound Skin Appearance) Assessed -Temperature (Deepti-wound Skin No Abnormality Appearance) (Pt Warm) -Tenderness on Palpation (Deepti-wound No Skin Appearance) -Ulcer Cleansing Wound Cleanser -Foul Odor after Cleansing No [Edema Assessment] -Lower Limb Edema Present Yes WC - Nurse 2 - General Ulcer CM Notes Start: 09/05/18 11:48 Freq: Status: Active Protocol: Activity Type Activity Date Activity User E-Sign Co-Sign Detail Recorded Client Recorded Date Recorded By Document 09/26/18 12:41 AN [id number] 09/26/18 12:45 AN Document 09/26/18 12:55 MW [id number] 09/26/18 12:59 MW 09/26/18 09/26/18 12:41 12:55 Wound Center Nurse 2 [Procedure/Treatment] 17-right achilles -Time 12:41 -Correct Patient Yes -Correct Side, Site, Position Yes -Correct Procedure Yes -Procedure Performed Yes -Type of Procedure Debridement -Clinical Debridement Subcutaneous -Post Debridement Size (cm) - Length 2.4 -Post Debridement Size (cm) - Width 1.4 -Post Debridement Size (cm) - Depth 0.1 -Total Square Cm 3.36 -Bleeding Controlled with Pressure -Treatment Response Procedure Tolerated Well #15 left foot plantar -Time 12:41 -Correct Patient Yes -Correct Side, Site, Position Yes -Correct Procedure Yes -Procedure Performed Yes -Type of Procedure Debridement -Clinical Debridement Subcutaneous -Post Debridement Size (cm) - Length 4.5 -Post Debridement Size (cm) - Width 4.8 -Post Debridement Size (cm) - Depth 0.1 -Total Square Cm 21.60 -Bleeding Controlled with Pressure -Treatment Response Procedure Tolerated Well 14-lower back -Time 12:57 -Correct Patient Yes -Correct Side, Site, Position Yes -Correct Procedure Yes -Procedure Performed Yes -Type of Procedure Debridement -Clinical Debridement Subcutaneous -Post Debridement Size (cm) - Length 1.2 -Post Debridement Size (cm) - Width 0.7 -Post Debridement Size (cm) - Depth 0.1 -Total Square Cm 0.84 -Wound/Ulcer Outcome Not Healed -Ulcer Cleansing Rinsed/ Irrigated with Saline -Foul Odor after Cleansing No -Bioengineered Tissue No -Bleeding Controlled with Pressure -Offloading No -Treatment Response Procedure Tolerated Well #13 L Grt Toe -Time 12:42 -Correct Patient Yes -Correct Side, Site, Position Yes -Correct Procedure Yes -Procedure Performed Yes -Type of Procedure Debridement -Clinical Debridement Subcutaneous -Post Debridement Size (cm) - Length 0.6 -Post Debridement Size (cm) - Width 0.6 -Post Debridement Size (cm) - Depth 0.2 -Total Square Cm 0.36 -Wound/Ulcer Outcome Not Healed -Bleeding Controlled with Pressure -Treatment Response Procedure Tolerated Well [See Physician Procedure note for Specifics] Pain Scale: 0-10 Numeric [Pain] -Is Patient Pain Free? Yes Yes Musculoskeletal: No Muscle Wasting Neurological: Cranial nerves II-XII grossly intact Psych/Mental Status: Normal Affect Debridement Note Post-Debridement Measurements/Treatment WC - Nurse 2 - General Ulcer CM Notes Start: 09/05/18 11:48 Freq: Status: Active Protocol: Activity Type Activity Date Activity User E-Sign Co-Sign Detail Recorded Client Recorded Date Recorded By Document 09/05/18 12:20 AN [id number] 09/05/18 12:23 AN Document 09/05/18 12:26 MW [id number] 09/05/18 12:30 MW Document 09/12/18 10:40 AN [id number] 09/12/18 10:48 AN Document 09/12/18 11:02 AN [id number] 09/12/18 11:03 AN Document 09/12/18 11:15 MW [id number] 09/12/18 11:18 MW Document 09/19/18 12:19 AN [id number] 09/19/18 12:26 AN Document 09/19/18 12:42 MW [id number] 09/19/18 12:43 MW Document 09/26/18 12:41 AN [id number] 09/26/18 12:45 AN Document 09/26/18 12:55 MW [id number] 09/26/18 12:59 MW 09/05/18 09/05/18 09/12/18 12:20 12:26 10:40 Wound Center Nurse 2 17-right achilles -Time -Correct Patient -Correct Side, Site, Position -Correct Procedure -Procedure Performed -Type of Procedure -Clinical Debridement -Post Debridement Size (cm) - Length -Post Debridement Size (cm) - Width -Post Debridement Size (cm) - Depth -Total Square Cm -Bleeding Controlled with -Treatment Response #16 left heel -Time -Correct Patient -Correct Side, Site, Position -Correct Procedure -Procedure Performed -Type of Procedure -Clinical Debridement -Post Debridement Size (cm) - Length -Post Debridement Size (cm) - Width -Post Debridement Size (cm) - Depth -Total Square Cm -Wound/Ulcer Outcome -Ulcer Cleansing -Foul Odor after Cleansing -Bioengineered Tissue -Bleeding Controlled with -Offloading -Treatment Response #15 left foot plantar -Time -Correct Patient -Correct Side, Site, Position -Correct Procedure -Procedure Performed -Type of Procedure -Clinical Debridement -Post Debridement Size (cm) - Length -Post Debridement Size (cm) - Width -Post Debridement Size (cm) - Depth -Total Square Cm -Wound/Ulcer Outcome -Ulcer Cleansing -Foul Odor after Cleansing -Bioengineered Tissue -Bleeding Controlled with -Offloading -Treatment Response 14-lower back -Time 12:27 -Correct Patient Yes -Correct Side, Site, Position Yes -Correct Procedure Yes -Procedure Performed Yes -Type of Procedure Debridement -Clinical Debridement Subcutaneous -Post Debridement Size (cm) - Length 1.4 -Post Debridement Size (cm) - Width 1.1 -Post Debridement Size (cm) - Depth 0.1 -Total Square Cm 1.54 -Wound/Ulcer Outcome Not Healed -Ulcer Cleansing Rinsed/ Irrigated with Saline -Foul Odor after Cleansing No No -Bioengineered Tissue No No -Bleeding Controlled with Pressure -Offloading No -Treatment Response Procedure Tolerated Well #13 L Grt Toe -Time 12:23 10:41 -Correct Patient Yes Yes -Correct Side, Site, Position Yes Yes -Correct Procedure Yes Yes -Procedure Performed Yes Yes -Type of Procedure Debridement Debridement -Clinical Debridement Subcutaneous Subcutaneous -Post Debridement Size (cm) - Length 0.5 0.4 -Post Debridement Size (cm) - Width 0.6 0.8 -Post Debridement Size (cm) - Depth 0.2 0.2 -Total Square Cm 0.30 0.32 -Wound/Ulcer Outcome Not Healed Not Healed -Ulcer Cleansing Rinsed/ Rinsed/ Irrigated with Irrigated with Saline Saline -Foul Odor after Cleansing No No -Bioengineered Tissue No -Bleeding Controlled with Pressure Pressure -Offloading Yes -Treatment Response Procedure Procedure Tolerated Well Tolerated Well Pain Scale: 0-10 Numeric Is Patient Pain Free? Yes 09/12/18 09/12/18 09/19/18 11:02 11:15 12:19 Wound Center Nurse 2 17-right achilles -Time -Correct Patient -Correct Side, Site, Position -Correct Procedure -Procedure Performed -Type of Procedure -Clinical Debridement -Post Debridement Size (cm) - Length -Post Debridement Size (cm) - Width -Post Debridement Size (cm) - Depth -Total Square Cm -Bleeding Controlled with -Treatment Response #16 left heel -Time 12:20 -Correct Patient Yes -Correct Side, Site, Position Yes -Correct Procedure Yes -Procedure Performed No -Type of Procedure Debridement -Clinical Debridement Subcutaneous -Post Debridement Size (cm) - Length 1.3 -Post Debridement Size (cm) - Width 1.6 -Post Debridement Size (cm) - Depth 0.1 -Total Square Cm 2.08 -Wound/Ulcer Outcome Not Healed -Ulcer Cleansing Rinsed/ Irrigated with Saline -Foul Odor after Cleansing No -Bioengineered Tissue No -Bleeding Controlled with Pressure -Offloading Yes -Treatment Response Procedure Tolerated Well #15 left foot plantar -Time 11:02 12:20 -Correct Patient Yes Yes -Correct Side, Site, Position Yes Yes -Correct Procedure Yes Yes -Procedure Performed Yes Yes -Type of Procedure Debridement Debridement -Clinical Debridement Subcutaneous Subcutaneous -Post Debridement Size (cm) - Length 4.2 4.3 -Post Debridement Size (cm) - Width 5.7 5.7 -Post Debridement Size (cm) - Depth 0.5 0.1 -Total Square Cm 23.94 24.51 -Wound/Ulcer Outcome Not Healed Not Healed -Ulcer Cleansing Rinsed/ Rinsed/ Irrigated with Irrigated with Saline Saline -Foul Odor after Cleansing No -Bioengineered Tissue No -Bleeding Controlled with Pressure -Offloading Yes Yes -Treatment Response Procedure Procedure Tolerated Well Tolerated Well 14-lower back -Time 11:15 -Correct Patient Yes -Correct Side, Site, Position Yes -Correct Procedure Yes -Procedure Performed Yes -Type of Procedure Debridement -Clinical Debridement Subcutaneous -Post Debridement Size (cm) - Length 1.2 -Post Debridement Size (cm) - Width 0.6 -Post Debridement Size (cm) - Depth 0.1 -Total Square Cm 0.72 -Wound/Ulcer Outcome Not Healed -Ulcer Cleansing Rinsed/ Irrigated with Saline -Foul Odor after Cleansing No -Bioengineered Tissue No -Bleeding Controlled with Pressure -Offloading No Yes -Treatment Response Procedure Tolerated Well #13 L Grt Toe -Time 12:23 -Correct Patient Yes -Correct Side, Site, Position Yes -Correct Procedure Yes -Procedure Performed Yes -Type of Procedure Debridement -Clinical Debridement Subcutaneous -Post Debridement Size (cm) - Length 0.3 -Post Debridement Size (cm) - Width 0.7 -Post Debridement Size (cm) - Depth 0.2 -Total Square Cm 0.21 -Wound/Ulcer Outcome Not Healed -Ulcer Cleansing Rinsed/ Irrigated with Saline -Foul Odor after Cleansing No -Bioengineered Tissue No -Bleeding Controlled with Pressure -Offloading -Treatment Response Procedure Tolerated Well Pain Scale: 0-10 Numeric Is Patient Pain Free? Yes Yes 09/19/18 09/26/18 09/26/18 12:42 12:41 12:55 Wound Center Nurse 2 17-right achilles -Time 12:41 -Correct Patient Yes -Correct Side, Site, Position Yes -Correct Procedure Yes -Procedure Performed Yes -Type of Procedure Debridement -Clinical Debridement Subcutaneous -Post Debridement Size (cm) - Length 2.4 -Post Debridement Size (cm) - Width 1.4 -Post Debridement Size (cm) - Depth 0.1 -Total Square Cm 3.36 -Bleeding Controlled with Pressure -Treatment Response Procedure Tolerated Well #16 left heel -Time -Correct Patient -Correct Side, Site, Position -Correct Procedure -Procedure Performed -Type of Procedure -Clinical Debridement -Post Debridement Size (cm) - Length -Post Debridement Size (cm) - Width -Post Debridement Size (cm) - Depth -Total Square Cm -Wound/Ulcer Outcome -Ulcer Cleansing -Foul Odor after Cleansing -Bioengineered Tissue -Bleeding Controlled with -Offloading -Treatment Response #15 left foot plantar -Time 12:41 -Correct Patient Yes -Correct Side, Site, Position Yes -Correct Procedure Yes -Procedure Performed Yes -Type of Procedure Debridement -Clinical Debridement Subcutaneous -Post Debridement Size (cm) - Length 4.5 -Post Debridement Size (cm) - Width 4.8 -Post Debridement Size (cm) - Depth 0.1 -Total Square Cm 21.60 -Wound/Ulcer Outcome -Ulcer Cleansing -Foul Odor after Cleansing -Bioengineered Tissue -Bleeding Controlled with Pressure -Offloading -Treatment Response Procedure Tolerated Well 14-lower back -Time 12:43 12:57 -Correct Patient Yes Yes -Correct Side, Site, Position Yes Yes -Correct Procedure Yes Yes -Procedure Performed Yes Yes -Type of Procedure Debridement Debridement -Clinical Debridement Subcutaneous Subcutaneous -Post Debridement Size (cm) - Length 1.1 1.2 -Post Debridement Size (cm) - Width 0.7 0.7 -Post Debridement Size (cm) - Depth 0.1 0.1 -Total Square Cm 0.77 0.84 -Wound/Ulcer Outcome Not Healed Not Healed -Ulcer Cleansing Rinsed/ Rinsed/ Irrigated with Irrigated with Saline Saline -Foul Odor after Cleansing No No -Bioengineered Tissue No No -Bleeding Controlled with Pressure Pressure -Offloading No No -Treatment Response Procedure Procedure Tolerated Well Tolerated Well #13 L Grt Toe -Time 12:42 -Correct Patient Yes -Correct Side, Site, Position Yes -Correct Procedure Yes -Procedure Performed Yes -Type of Procedure Debridement -Clinical Debridement Subcutaneous -Post Debridement Size (cm) - Length 0.6 -Post Debridement Size (cm) - Width 0.6 -Post Debridement Size (cm) - Depth 0.2 -Total Square Cm 0.36 -Wound/Ulcer Outcome Not Healed -Ulcer Cleansing -Foul Odor after Cleansing -Bioengineered Tissue -Bleeding Controlled with Pressure -Offloading -Treatment Response Procedure Tolerated Well Pain Scale: 0-10 Numeric Is Patient Pain Free? Yes Yes Yes Wound debrided: Left-sided lower back Wound Grade/Stage: Stage II Type of Debridement: Excisional debridement Anesthesia Used: 4% Lidocaine Solution Depth: Down to and including healthy tissue, in the subcutaneous layer Percentage of wound debrided: 100 Instrument Used: 3mm curette Tissue Removed: Slough and devitalized tissue Severity: Fat Layer Exposed Amount of bleeding with debridement: Mild Bleeding Controlled with: Pressure Patient tolerated procedure well Assessment/Plan Clinical Impression(s) from Imaging Studies Foot X-Ray 09/12/18 11:57 IMPRESSION: Severe dorsal foot soft tissue swelling. No visible fracture. Electronically Signed: Marino Rogers MD at 16:01 EDT Tel , Service support , Active Problems Ulcer of right foot with fat layer exposed (Chronic) Chronic ulcer of left foot with fat layer exposed (Chronic) Pressure ulcer of foot, stage 1 (Chronic) Edema, lower extremity (Chronic) Peripheral neuropathy (Chronic) Blister of toe of right foot without infection (Acute) Spina bifida (Chronic) Assessment: ulcer left great toe with fat layer exposed. Heel ulcer with fat layer exposed. Plantar left foot ulcer with fat layer exposed. cellulitis resolving. Spina bifida. Peripheral neuropathy bilateral lower extremities. Nonambulatory wheelchair bound. Chronic swelling in both lower extremities. left femur fracture and h/o blood clot, now on eliquis. Left lower back ulcer with fat layer exposed. Plan: Stable. No significant change in the past week. Debridement done as documented above. Procedure was well-tolerated. Continue moistened Promogran with Adaptic over top. Change daily. Offloading strongly recommended. Continue increased protein intake. Follow-up in 1 week. This note was generated with [employer] dictation software. It may contain incorrect words, spelling, and punctuation that were not noted in checking the note before signing.
--- NOTE | 2018-09-26 17:11 | PN.PCM_ITS ---
(1) Ulcer of back Status: Acute Current Visit: No Code(s): L98.429 - Non-pressure chronic ulcer of back with unspecified severity Comment: Fat layer exposed. (2) Spina bifida Status: Chronic Current Visit: Yes Qualifiers: Code(s): Q05.9 - Spina bifida, unspecified Type of Wound Chief Complaint: toe ulcer. heel ulcer. foot ulcer History of Wound: This 32-year-old female follows up for multiple ulcers and pressure injury sites of the left foot. She is with her mother. She has continued swelling to her left lower extremity since she broke her femur and had a subsequent blood clot. she denies fever, chill, nausea, vomiting, loss of appetite. She is no longer taking blood thinner medication. Progress of Wound: stable - Physical Exam Vital Signs Temp Pulse Resp BP 98.0 F 90 16 145/85 H 09/26/18 12:07 09/26/18 12:07 09/26/18 12:07 09/26/18 12:07 General: Alert, Oriented x3, Cooperative, No apparent distress HEENT: Atraumatic, Normocephalic Oral: Moist Mucosa Neck: Supple Lungs: Normal air movement Abdomen: Non Tender, Obese Extremities: No cyanosis Wound Measurements and Assessment WC - Nurse 1 - General Ulcer Measurement Start: 09/05/18 11:48 Freq: Status: Active Protocol: Activity Type Activity Date Activity User E-Sign Co-Sign Detail Recorded Client Recorded Date Recorded By Document 09/26/18 12:07 [email or web address] [id number] 09/26/18 12:21 VIKY 09/26/18 12:07 Wound Center Nurse 1 [Ulcer Assessment] 17-right achilles -Current Size (cm) - Length 2.3 -Current Size (cm) - Width 1.3 -Current Size (cm) - Depth 0.1 -Total Square Cm 2.99 -Photo Taken Yes -Epithelialization Small 1-33% -Tunneling No -Undermining/Tunneling No -Circular Undermining No -Classification - Thickness Full Thickness without Exposed Support Structure -Exudate Amt Small -Exudate Type Serosanguineous -Wound Margin Flat & Intact -Granulation Amt Medium (34-66%) -Granulation Quality [place] -Slough/Fibrin Yes -Necrosis Amt Medium (34-66%) -Necrotic Tissue Type Adherent Slough -Structure Exposed N/A -Texture (Deepti-wound Skin Appearance) Assessed Localized Edema -Moisture (Deepti-wound Skin Appearance Assessed ) Dry/Scaly -Color (Deetpi-wound Skin Appearance) Assessed -Temperature (Deepti-wound Skin No Abnormality Appearance) (Pt Warm) -Tenderness on Palpation (Deepti-wound No Skin Appearance) -Ulcer Cleansing Wound Cleanser -Foul Odor after Cleansing No #16 left heel -Combined with other wound No -Current Size (cm) - Length 0.3 -Current Size (cm) - Width 0.2 -Current Size (cm) - Depth 0.1 -Total Square Cm 0.06 -Photo Taken No -Epithelialization Large 67-100% -Tunneling No -Undermining/Tunneling No -Circular Undermining No -Exudate Amt None Present -Wound Margin Flat & Intact -Granulation Amt Medium (34-66%) -Granulation Quality [place] -Slough/Fibrin Yes -Necrosis Amt Small (1-33%) -Necrotic Tissue Type Adherent Slough -Structure Exposed N/A -Texture (Deepti-wound Skin Appearance) Assessed -Moisture (Deepti-wound Skin Appearance Assessed ) Dry/Scaly -Color (Deepti-wound Skin Appearance) Assessed -Temperature (Deepti-wound Skin No Abnormality Appearance) (Pt Warm) -Tenderness on Palpation (Deepti-wound No Skin Appearance) -Ulcer Cleansing Rinsed/ Irrigated with Saline -Foul Odor after Cleansing No #15 left foot plantar -Combined with other wound No -Current Size (cm) - Length 4.4 -Current Size (cm) - Width 4.7 -Current Size (cm) - Depth 0.1 -Total Square Cm 20.68 -Photo Taken No -Epithelialization None Present -Tunneling No -Undermining/Tunneling No -Circular Undermining No -Exudate Amt Medium -Exudate Type Serosanguineous -Wound Margin Flat & Intact -Granulation Amt None Present (0 %) -Slough/Fibrin Yes -Necrosis Amt Large (67-100%) -Necrotic Tissue Type Adherent Slough -Structure Exposed N/A -Texture (Deepti-wound Skin Appearance) Assessed Localized Edema -Moisture (Deepti-wound Skin Appearance Assessed ) Dry/Scaly -Color (Deepti-wound Skin Appearance) Assessed -Temperature (Deepti-wound Skin No Abnormality Appearance) (Pt Warm) -Tenderness on Palpation (Deepti-wound No Skin Appearance) -Ulcer Cleansing Wound Cleanser -Foul Odor after Cleansing No 14-lower back -Combined with other wound No -Current Size (cm) - Length 1.2 -Current Size (cm) - Width 0.6 -Current Size (cm) - Depth 0.4 -Total Square Cm 0.72 -Photo Taken No -Epithelialization Small 1-33% -Tunneling No -Undermining/Tunneling No -Circular Undermining No -Exudate Amt Small -Exudate Type Serosanguineous -Wound Margin Flat & Intact -Granulation Amt Medium (34-66%) -Granulation Quality [place] -Slough/Fibrin Yes -Necrosis Amt Small (1-33%) -Necrotic Tissue Type Adherent Slough -Structure Exposed N/A -Texture (Deepti-wound Skin Appearance) Assessed -Moisture (Deepti-wound Skin Appearance Assessed ) Dry/Scaly -Color (Deepti-wound Skin Appearance) Assessed -Temperature (Deepti-wound Skin No Abnormality Appearance) (Pt Warm) -Tenderness on Palpation (Deepti-wound No Skin Appearance) -Ulcer Cleansing Wound Cleanser -Foul Odor after Cleansing No #13 L Grt Toe -Combined with other wound No -Current Size (cm) - Length 0.5 -Current Size (cm) - Width 0.5 -Current Size (cm) - Depth 0.2 -Total Square Cm 0.25 -Photo Taken No -Epithelialization Large 67-100% -Tunneling No -Undermining/Tunneling No -Circular Undermining No -Exudate Amt Small -Exudate Type Serosanguineous -Wound Margin Flat & Intact -Granulation Amt Large (67-100%) -Granulation Quality [place] -Slough/Fibrin Yes -Necrosis Amt Small (1-33%) -Necrotic Tissue Type Adherent Slough -Structure Exposed N/A -Texture (Deepti-wound Skin Appearance) Assessed -Moisture (Deepti-wound Skin Appearance Assessed ) Dry/Scaly -Color (Deepti-wound Skin Appearance) Assessed -Temperature (Deepti-wound Skin No Abnormality Appearance) (Pt Warm) -Tenderness on Palpation (Deepti-wound No Skin Appearance) -Ulcer Cleansing Wound Cleanser -Foul Odor after Cleansing No [Edema Assessment] -Lower Limb Edema Present Yes WC - Nurse 2 - General Ulcer CM Notes Start: 09/05/18 11:48 Freq: Status: Active Protocol: Activity Type Activity Date Activity User E-Sign Co-Sign Detail Recorded Client Recorded Date Recorded By Document 09/26/18 12:41 AN [id number] 09/26/18 12:45 AN Document 09/26/18 12:55 MW [id number] 09/26/18 12:59 MW 09/26/18 09/26/18 12:41 12:55 Wound Center Nurse 2 [Procedure/Treatment] 17-right achilles -Time 12:41 -Correct Patient Yes -Correct Side, Site, Position Yes -Correct Procedure Yes -Procedure Performed Yes -Type of Procedure Debridement -Clinical Debridement Subcutaneous -Post Debridement Size (cm) - Length 2.4 -Post Debridement Size (cm) - Width 1.4 -Post Debridement Size (cm) - Depth 0.1 -Total Square Cm 3.36 -Bleeding Controlled with Pressure -Treatment Response Procedure Tolerated Well #15 left foot plantar -Time 12:41 -Correct Patient Yes -Correct Side, Site, Position Yes -Correct Procedure Yes -Procedure Performed Yes -Type of Procedure Debridement -Clinical Debridement Subcutaneous -Post Debridement Size (cm) - Length 4.5 -Post Debridement Size (cm) - Width 4.8 -Post Debridement Size (cm) - Depth 0.1 -Total Square Cm 21.60 -Bleeding Controlled with Pressure -Treatment Response Procedure Tolerated Well 14-lower back -Time 12:57 -Correct Patient Yes -Correct Side, Site, Position Yes -Correct Procedure Yes -Procedure Performed Yes -Type of Procedure Debridement -Clinical Debridement Subcutaneous -Post Debridement Size (cm) - Length 1.2 -Post Debridement Size (cm) - Width 0.7 -Post Debridement Size (cm) - Depth 0.1 -Total Square Cm 0.84 -Wound/Ulcer Outcome Not Healed -Ulcer Cleansing Rinsed/ Irrigated with Saline -Foul Odor after Cleansing No -Bioengineered Tissue No -Bleeding Controlled with Pressure -Offloading No -Treatment Response Procedure Tolerated Well #13 L Grt Toe -Time 12:42 -Correct Patient Yes -Correct Side, Site, Position Yes -Correct Procedure Yes -Procedure Performed Yes -Type of Procedure Debridement -Clinical Debridement Subcutaneous -Post Debridement Size (cm) - Length 0.6 -Post Debridement Size (cm) - Width 0.6 -Post Debridement Size (cm) - Depth 0.2 -Total Square Cm 0.36 -Wound/Ulcer Outcome Not Healed -Bleeding Controlled with Pressure -Treatment Response Procedure Tolerated Well [See Physician Procedure note for Specifics] Pain Scale: 0-10 Numeric [Pain] -Is Patient Pain Free? Yes Yes Musculoskeletal: No Muscle Wasting Neurological: Cranial nerves II-XII grossly intact Psych/Mental Status: Normal Affect Debridement Note Post-Debridement Measurements/Treatment WC - Nurse 2 - General Ulcer CM Notes Start: 09/05/18 11:48 Freq: Status: Active Protocol: Activity Type Activity Date Activity User E-Sign Co-Sign Detail Recorded Client Recorded Date Recorded By Document 09/05/18 12:20 AN [id number] 09/05/18 12:23 AN Document 09/05/18 12:26 MW [id number] 09/05/18 12:30 MW Document 09/12/18 10:40 AN [id number] 09/12/18 10:48 AN Document 09/12/18 11:02 AN [id number] 09/12/18 11:03 AN Document 09/12/18 11:15 MW [id number] 09/12/18 11:18 MW Document 09/19/18 12:19 AN [id number] 09/19/18 12:26 AN Document 09/19/18 12:42 MW [id number] 09/19/18 12:43 MW Document 09/26/18 12:41 AN [id number] 09/26/18 12:45 AN Document 09/26/18 12:55 MW [id number] 09/26/18 12:59 MW 09/05/18 09/05/18 09/12/18 12:20 12:26 10:40 Wound Center Nurse 2 17-right achilles -Time -Correct Patient -Correct Side, Site, Position -Correct Procedure -Procedure Performed -Type of Procedure -Clinical Debridement -Post Debridement Size (cm) - Length -Post Debridement Size (cm) - Width -Post Debridement Size (cm) - Depth -Total Square Cm -Bleeding Controlled with -Treatment Response #16 left heel -Time -Correct Patient -Correct Side, Site, Position -Correct Procedure -Procedure Performed -Type of Procedure -Clinical Debridement -Post Debridement Size (cm) - Length -Post Debridement Size (cm) - Width -Post Debridement Size (cm) - Depth -Total Square Cm -Wound/Ulcer Outcome -Ulcer Cleansing -Foul Odor after Cleansing -Bioengineered Tissue -Bleeding Controlled with -Offloading -Treatment Response #15 left foot plantar -Time -Correct Patient -Correct Side, Site, Position -Correct Procedure -Procedure Performed -Type of Procedure -Clinical Debridement -Post Debridement Size (cm) - Length -Post Debridement Size (cm) - Width -Post Debridement Size (cm) - Depth -Total Square Cm -Wound/Ulcer Outcome -Ulcer Cleansing -Foul Odor after Cleansing -Bioengineered Tissue -Bleeding Controlled with -Offloading -Treatment Response 14-lower back -Time 12:27 -Correct Patient Yes -Correct Side, Site, Position Yes -Correct Procedure Yes -Procedure Performed Yes -Type of Procedure Debridement -Clinical Debridement Subcutaneous -Post Debridement Size (cm) - Length 1.4 -Post Debridement Size (cm) - Width 1.1 -Post Debridement Size (cm) - Depth 0.1 -Total Square Cm 1.54 -Wound/Ulcer Outcome Not Healed -Ulcer Cleansing Rinsed/ Irrigated with Saline -Foul Odor after Cleansing No No -Bioengineered Tissue No No -Bleeding Controlled with Pressure -Offloading No -Treatment Response Procedure Tolerated Well #13 L Grt Toe -Time 12:23 10:41 -Correct Patient Yes Yes -Correct Side, Site, Position Yes Yes -Correct Procedure Yes Yes -Procedure Performed Yes Yes -Type of Procedure Debridement Debridement -Clinical Debridement Subcutaneous Subcutaneous -Post Debridement Size (cm) - Length 0.5 0.4 -Post Debridement Size (cm) - Width 0.6 0.8 -Post Debridement Size (cm) - Depth 0.2 0.2 -Total Square Cm 0.30 0.32 -Wound/Ulcer Outcome Not Healed Not Healed -Ulcer Cleansing Rinsed/ Rinsed/ Irrigated with Irrigated with Saline Saline -Foul Odor after Cleansing No No -Bioengineered Tissue No -Bleeding Controlled with Pressure Pressure -Offloading Yes -Treatment Response Procedure Procedure Tolerated Well Tolerated Well Pain Scale: 0-10 Numeric Is Patient Pain Free? Yes 09/12/18 09/12/18 09/19/18 11:02 11:15 12:19 Wound Center Nurse 2 17-right achilles -Time -Correct Patient -Correct Side, Site, Position -Correct Procedure -Procedure Performed -Type of Procedure -Clinical Debridement -Post Debridement Size (cm) - Length -Post Debridement Size (cm) - Width -Post Debridement Size (cm) - Depth -Total Square Cm -Bleeding Controlled with -Treatment Response #16 left heel -Time 12:20 -Correct Patient Yes -Correct Side, Site, Position Yes -Correct Procedure Yes -Procedure Performed No -Type of Procedure Debridement -Clinical Debridement Subcutaneous -Post Debridement Size (cm) - Length 1.3 -Post Debridement Size (cm) - Width 1.6 -Post Debridement Size (cm) - Depth 0.1 -Total Square Cm 2.08 -Wound/Ulcer Outcome Not Healed -Ulcer Cleansing Rinsed/ Irrigated with Saline -Foul Odor after Cleansing No -Bioengineered Tissue No -Bleeding Controlled with Pressure -Offloading Yes -Treatment Response Procedure Tolerated Well #15 left foot plantar -Time 11:02 12:20 -Correct Patient Yes Yes -Correct Side, Site, Position Yes Yes -Correct Procedure Yes Yes -Procedure Performed Yes Yes -Type of Procedure Debridement Debridement -Clinical Debridement Subcutaneous Subcutaneous -Post Debridement Size (cm) - Length 4.2 4.3 -Post Debridement Size (cm) - Width 5.7 5.7 -Post Debridement Size (cm) - Depth 0.5 0.1 -Total Square Cm 23.94 24.51 -Wound/Ulcer Outcome Not Healed Not Healed -Ulcer Cleansing Rinsed/ Rinsed/ Irrigated with Irrigated with Saline Saline -Foul Odor after Cleansing No -Bioengineered Tissue No -Bleeding Controlled with Pressure -Offloading Yes Yes -Treatment Response Procedure Procedure Tolerated Well Tolerated Well 14-lower back -Time 11:15 -Correct Patient Yes -Correct Side, Site, Position Yes -Correct Procedure Yes -Procedure Performed Yes -Type of Procedure Debridement -Clinical Debridement Subcutaneous -Post Debridement Size (cm) - Length 1.2 -Post Debridement Size (cm) - Width 0.6 -Post Debridement Size (cm) - Depth 0.1 -Total Square Cm 0.72 -Wound/Ulcer Outcome Not Healed -Ulcer Cleansing Rinsed/ Irrigated with Saline -Foul Odor after Cleansing No -Bioengineered Tissue No -Bleeding Controlled with Pressure -Offloading No Yes -Treatment Response Procedure Tolerated Well #13 L Grt Toe -Time 12:23 -Correct Patient Yes -Correct Side, Site, Position Yes -Correct Procedure Yes -Procedure Performed Yes -Type of Procedure Debridement -Clinical Debridement Subcutaneous -Post Debridement Size (cm) - Length 0.3 -Post Debridement Size (cm) - Width 0.7 -Post Debridement Size (cm) - Depth 0.2 -Total Square Cm 0.21 -Wound/Ulcer Outcome Not Healed -Ulcer Cleansing Rinsed/ Irrigated with Saline -Foul Odor after Cleansing No -Bioengineered Tissue No -Bleeding Controlled with Pressure -Offloading -Treatment Response Procedure Tolerated Well Pain Scale: 0-10 Numeric Is Patient Pain Free? Yes Yes 09/19/18 09/26/18 09/26/18 12:42 12:41 12:55 Wound Center Nurse 2 17-right achilles -Time 12:41 -Correct Patient Yes -Correct Side, Site, Position Yes -Correct Procedure Yes -Procedure Performed Yes -Type of Procedure Debridement -Clinical Debridement Subcutaneous -Post Debridement Size (cm) - Length 2.4 -Post Debridement Size (cm) - Width 1.4 -Post Debridement Size (cm) - Depth 0.1 -Total Square Cm 3.36 -Bleeding Controlled with Pressure -Treatment Response Procedure Tolerated Well #16 left heel -Time -Correct Patient -Correct Side, Site, Position -Correct Procedure -Procedure Performed -Type of Procedure -Clinical Debridement -Post Debridement Size (cm) - Length -Post Debridement Size (cm) - Width -Post Debridement Size (cm) - Depth -Total Square Cm -Wound/Ulcer Outcome -Ulcer Cleansing -Foul Odor after Cleansing -Bioengineered Tissue -Bleeding Controlled with -Offloading -Treatment Response #15 left foot plantar -Time 12:41 -Correct Patient Yes -Correct Side, Site, Position Yes -Correct Procedure Yes -Procedure Performed Yes -Type of Procedure Debridement -Clinical Debridement Subcutaneous -Post Debridement Size (cm) - Length 4.5 -Post Debridement Size (cm) - Width 4.8 -Post Debridement Size (cm) - Depth 0.1 -Total Square Cm 21.60 -Wound/Ulcer Outcome -Ulcer Cleansing -Foul Odor after Cleansing -Bioengineered Tissue -Bleeding Controlled with Pressure -Offloading -Treatment Response Procedure Tolerated Well 14-lower back -Time 12:43 12:57 -Correct Patient Yes Yes -Correct Side, Site, Position Yes Yes -Correct Procedure Yes Yes -Procedure Performed Yes Yes -Type of Procedure Debridement Debridement -Clinical Debridement Subcutaneous Subcutaneous -Post Debridement Size (cm) - Length 1.1 1.2 -Post Debridement Size (cm) - Width 0.7 0.7 -Post Debridement Size (cm) - Depth 0.1 0.1 -Total Square Cm 0.77 0.84 -Wound/Ulcer Outcome Not Healed Not Healed -Ulcer Cleansing Rinsed/ Rinsed/ Irrigated with Irrigated with Saline Saline -Foul Odor after Cleansing No No -Bioengineered Tissue No No -Bleeding Controlled with Pressure Pressure -Offloading No No -Treatment Response Procedure Procedure Tolerated Well Tolerated Well #13 L Grt Toe -Time 12:42 -Correct Patient Yes -Correct Side, Site, Position Yes -Correct Procedure Yes -Procedure Performed Yes -Type of Procedure Debridement -Clinical Debridement Subcutaneous -Post Debridement Size (cm) - Length 0.6 -Post Debridement Size (cm) - Width 0.6 -Post Debridement Size (cm) - Depth 0.2 -Total Square Cm 0.36 -Wound/Ulcer Outcome Not Healed -Ulcer Cleansing -Foul Odor after Cleansing -Bioengineered Tissue -Bleeding Controlled with Pressure -Offloading -Treatment Response Procedure Tolerated Well Pain Scale: 0-10 Numeric Is Patient Pain Free? Yes Yes Yes Wound debrided: Left-sided lower back Wound Grade/Stage: Stage II Type of Debridement: Excisional debridement Anesthesia Used: 4% Lidocaine Solution Depth: Down to and including healthy tissue, in the subcutaneous layer Percentage of wound debrided: 100 Instrument Used: 3mm curette Tissue Removed: Slough and devitalized tissue Severity: Fat Layer Exposed Amount of bleeding with debridement: Mild Bleeding Controlled with: Pressure Patient tolerated procedure well Assessment/Plan Clinical Impression(s) from Imaging Studies Foot X-Ray 09/12/18 11:57 IMPRESSION: Severe dorsal foot soft tissue swelling. No visible fracture. Electronically Signed: Marino Rogers MD at 16:01 EDT Tel , Service support , Active Problems Ulcer of right foot with fat layer exposed (Chronic) Chronic ulcer of left foot with fat layer exposed (Chronic) Pressure ulcer of foot, stage 1 (Chronic) Edema, lower extremity (Chronic) Peripheral neuropathy (Chronic) Blister of toe of right foot without infection (Acute) Spina bifida (Chronic) Assessment: ulcer left great toe with fat layer exposed. Heel ulcer with fat layer exposed. Plantar left foot ulcer with fat layer exposed. cellulitis resolving. Spina bifida. Peripheral neuropathy bilateral lower extremities. Nonambulatory wheelchair bound. Chronic swelling in both lower extremities. left femur fracture and h/o blood clot, now on eliquis. Left lower back ulcer with fat layer exposed. Plan: Stable. No significant change in the past week. Debridement done as documented above. Procedure was well-tolerated. Continue moistened Promogran with Adaptic over top. Change daily. Offloading strongly recommended. Continue increased protein intake. Follow-up in 1 week. This note was generated with [employer] dictation software. It may contain incorrect words, spelling, and punctuation that were not noted in checking the note before signing.
== END 2018-10-05 23:59 ==
LOC: WC 11:45
PROVIDERS: Family Provider Family Medicine; PCP Family Medicine; Referring Provider Podiatrist; Visit Provider Podiatrist
DX: L89.891 Pressure ulcer of other site, stage 1 (principal); L97.412 Non-pressure chronic ulcer of right heel and midfoot with fat layer exposed; L97.522 Non-pressure chronic ulcer of other part of left foot with fat layer exposed; L98.422 Non-pressure chronic ulcer of back with fat layer exposed; L03.115 Cellulitis of right lower limb; R60.0 Localized edema; Q05.9 Spina bifida, unspecified; G62.9 Polyneuropathy, unspecified; Z99.3 Dependence on wheelchair; Z79.899 Other long term (current) drug therapy; Z79.01 Long term (current) use of anticoagulants
CPT/HCPCS: 11042; 11045; 36415; 73630; 80053; 85025; 85652; 86140; 87070; 87075; 87077; 87186; 87205